=== PATIENT | female | born 1965 | race African-American/Black ===

== ENCOUNTER 2016-08-22 01:12 | Inpatient (IN) | payer OTHER ==
[2016-08-22] VITALS (10 sets, daily range): BP systolic 123–169; BP diastolic 74–99
[~2016-08-22] VITALS: Ht 160 cm; Wt 146.6 kg
[~2016-08-22 01:12] MED LIST: FLUT1DIS INH
[2016-08-22] MEDS ORDERED: IPRATROPIUM BROMIDE (0.02%) 0.5MG/2.5ML NEB HHN STA (01:33)
[2016-08-22] MEDS ORDERED: METHYLPREDNISOLONE SOD SUCC 125 MG/2 ML VIAL IV STA (01:33)
[2016-08-22] MEDS ORDERED: ALBUTEROL (0.083%) 2.5MG/3ML NEB HHN STA (01:33)
[2016-08-22 01:47] LABS: BASOPHILS % 0.8 % (0.0-2.0); EOSINOPHILS % 4.4 % (0.0-5.0); HEMATOCRIT. 28.8 % (36.0-48.0); HEMOGLOBIN. 8.7 g/dL (12.0-16.0); LYMPHOCYTES % 28.3 % (20.0-50.0); MEAN CORPUSCULAR HEMOGLOBIN 20.9 pg (28.0-32.0); MEAN CORPUSCULAR HGB CONC 30.1 g/dL (31.0-37.0); MEAN CORPUSCULAR VOLUME 69.3 fL (81.0-99.0); MEAN PLATELET VOLUME 7.2 fl (7.4-10.4); MONOCYTES % 7.6 % (2.0-8.0); NEUTROPHILS % 58.9 % (40.0-76.0); PLATELET 203 x1000/uL (130-400); RED BLOOD CELL COUNT 4.16 mill/uL (4.2-5.4); RED CELL DISTRIBUTION WIDTH 20.9 % (11.6-14.6); WHITE BLOOD COUNT 7.4 x1000/uL (4.5-11.0)
[2016-08-22 01:53] LABS: ADD RBC MORPHOLOGY YES; DIFFERENTIAL COMMENT 1
[2016-08-22 01:55] LABS: ANISOCYTOSIS 1+; HYPOCHROMASIA 2+; PLATELET ESTIMATE NORMAL
[2016-08-22 01:56] LABS: PARTIAL THROMBOPLASTIN TIME 24.5 sec (24.0-34.0); PROTHROMBIN TIME 10.1 sec
[2016-08-22 02:01] LABS: ALANINE AMINOTRANSFERASE 12 IU/L (13-61); ALBUMIN 3.2 g/dL (3.4-5.0); ANION GAP 11; CALCIUM 8.2 mg/dL (8.5-10.1); CARBON DIOXIDE 28 mEq/L (21-32); CHLORIDE 106 mEq/L (98-107); INDEX HEMOLYSI 1 (1-3); INDEX ICTERIC 1 (1-4); INDEX LIPEMIC 1 (1-3); UREA NITROGEN BLOOD 15 mg/dL (7-21); eGFR > 60 mL/min (>60)
[2016-08-22 02:04] LABS: NT PRO B-TYPE NATRIURETIC PEP 738 pg/mL (5-125); TROPONIN I 0.03 ng/mL (0.00-0.04)
[2016-08-22] MEDS ORDERED: ONDANSETRON HCL 4MG/2ML VIAL IV ONE (02:45)
[2016-08-22] MEDS ORDERED: NITROGLYCERIN OINT 1GM/INCH UDPKT TD ONE (02:45)
[2016-08-22] MEDS ORDERED: MORPHINE SULFATE 4 MG/ML CPJ (NOT FOR IM USE) IV ONE (02:45)
[2016-08-22] MEDS ORDERED: FUROSEMIDE 40MG/4ML VIAL IVP ONE (02:45)
[2016-08-22 03:40] LABS: CLARITY URINE CLOUDY (CLEAR); COLOR URINE YELLOW (YELLOW); GLUCOSE URINE NEGATIVE (NEGATIVE); KETONES URINE NEGATIVE (NEGATIVE); LEUKOCYTE ESTERASE URINE NEGATIVE (NEGATIVE); NITRITE URINE NEGATIVE (NEGATIVE); OCCULT BLOOD URINE NEGATIVE (NEGATIVE); PROTEIN URINE NEGATIVE (NEGATIVE); SPECIFIC GRAVITY URINE 1.015 (1.005-1.030); UROBILINOGEN URINE 0.2 E.U./dL (0.2-1.0)
[2016-08-22 04:05] LABS: WBC URINE 0-2 /hpf (0-2)
[2016-08-22 04:06] LABS: BACTERIA URINE TRACE; RBC URINE 0-2 /hpf (0-2); SQUAMOUS EPITHELIAL CELL URINE FEW /lpf (RARE/1+)
[2016-08-22] MEDS ORDERED: MAGNESIUM HYDROXIDE 400MG/5ML 30ML UDC PO PRN (07:00)
[2016-08-22] MEDS ORDERED: HYDROCODONE/ACETAMINOPHEN 5/325MG TABLET PO PRN (07:00)
[2016-08-22] MEDS ORDERED: ZOLPIDEM TARTRATE 5MG TABLET PO PRN (07:00)
[2016-08-22] MEDS: FUROSEMIDE 40MG/4ML VIAL IVP SCH ×2 (08:05→17:32)
[2016-08-22] MEDS: OMEPRAZOLE 20MG CAPSULE EXTENDED RELEASE PO SCH (08:06)
[2016-08-22] MEDS: ASPIRIN 81MG TABLET PO SCH (08:07)
[2016-08-22] MEDS ORDERED: POTASSIUM CHLORIDE 20MEQ TABLET SR PO NR (08:45)
[2016-08-22] MEDS: ENOXAPARIN 40MG/0.4ML SYR SUBCUT SCH ×2 (09:12→20:05)
[2016-08-22] MEDS: LEVOFLOXACIN 500MG PREMIX 100 ML IV SCH (10:44)
[2016-08-22] MEDS ORDERED: METHYLPREDNISOLONE SOD SUCC 125 MG/2 ML VIAL IV SCH (12:00)
[2016-08-22 13:25] LABS: BG CARBOXYHEMOGLOBIN 1.7 % (0.5-1.5); BG DEOXYHEMOGLOBIN 17.3 % (0.0-5.0); BG FRACTION INSPIRED OXYGEN 21; BG HCO3 ACT 30.5 mmol/L (22.0-26.0); BG METHEMOGLOBIN 0.5 % (0.0-1.5); BG OXYGEN SATURATION 82.3 % (92.0-98.5); BG OXYHEMOGLOBIN 80.5 % (94.0-97.0); BG PCO2 64.4 mmHg (35.0-45.0); BG PH 7.293 (7.350-7.450); BG SAMPLE SITE RIGHT RADIAL; BG TOTAL HEMOGLOBIN 9.5 g/dL (12.0-18.0); BG VENT MODE ROOM AIR
[2016-08-22] MEDS: METHYLPREDNISOLONE SOD SUCC 40 MG/ML VIAL IV SCH ×2 (13:54→21:15)
[2016-08-22 16:38] LABS: *AMPHETAMINES SCREEN URINE NEGATIVE (NEGATIVE); *BARBITURATES SCREEN URINE NEGATIVE (NEGATIVE); *BENZODIAZEPINES SCREEN URINE PRESUMTIVE POSITIVE (NEGATIVE); *COCAINE SCREEN URINE PRESUMTIVE POSITIVE (NEGATIVE); CANNABINOID URINE SCREEN NEGATIVE (NEGATIVE); ECSTASY MDMA SCREEN URINE NEGATIVE (NEGATIVE); METHADONE URINE SCREEN NEGATIVE (NEGATIVE); OPIATES URINE SCREEN PRESUMTIVE POSITIVE (NEGATIVE); PHENCYCLIDINE URINE SCREEN NEGATIVE (NEGATIVE)
[2016-08-22 18:07] LABS: BG BASE EXCESS 2.6 mmol/L (-2.0-2.0); BG BILEVEL POS AIRWAY PRESSURE 15/5; BG CARBOXYHEMOGLOBIN 0.7 % (0.5-1.5); BG DEOXYHEMOGLOBIN 12.2 % (0.0-5.0); BG FRACTION INSPIRED OXYGEN 30; BG HCO3 ACT 29.6 mmol/L (22.0-26.0); BG METHEMOGLOBIN 0.9 % (0.0-1.5); BG OXYGEN SATURATION 87.6 % (92.0-98.5); BG OXYHEMOGLOBIN 86.2 % (94.0-97.0); BG PH 7.318 (7.350-7.450); BG PO2 59.8 mmHg (75.0-100.0); BG SAMPLE SITE RIGHT BRACHIAL; BG TOTAL HEMOGLOBIN 9.6 g/dL (12.0-18.0); BG VENT MODE MASK - BIPAP; BG VENT RATE 14 set
[2016-08-22 18:36] LABS: CREATINE KINASE MB FRACTION 2.7 ng/mL (0.5-3.6); T4 FREE 0.81 ng/dL (0.76-1.46); TROPONIN I 0.02 ng/mL (0.00-0.04)
[2016-08-22 18:41] LABS: THYROID STIMULATING HORMONE 0.38 uIU/mL (0.36-3.74)
[2016-08-22] MEDS: BUDESONIDE 0.5MG/2ML NEB HHN SCH (20:54)
[2016-08-22] MEDS: ZOLPIDEM TARTRATE 5MG TABLET PO PRN (23:20)
[2016-08-23] VITALS (12 sets, daily range): BP systolic 116–154; BP diastolic 58–102
[2016-08-23 01:56] LABS: CREATINE KINASE 153 IU/L (26-192); CREATINE KINASE MB FRACTION 1.7 ng/mL (0.5-3.6); INDEX HEMOLYSI 1 (1-3); TROPONIN I < 0.02 ng/mL (0.00-0.04)
[2016-08-23] MEDS: ONDANSETRON HCL 4MG/2ML VIAL IV PRN (02:45)
[2016-08-23] MEDS: METHYLPREDNISOLONE SOD SUCC 40 MG/ML VIAL IV SCH ×3 (05:05→21:52)
[2016-08-23 06:36] LABS: ANION GAP 11; CARBON DIOXIDE 31 mEq/L (21-32); CHLORIDE 101 mEq/L (98-107); INDEX HEMOLYSI 1 (1-3); INDEX ICTERIC 1 (1-4); INDEX LIPEMIC 1 (1-3); UREA NITROGEN BLOOD 18 mg/dL (7-21)
[2016-08-23 06:38] LABS: HEMATOCRIT. 27.9 % (36.0-48.0); HEMOGLOBIN. 8.2 g/dL (12.0-16.0); MEAN CORPUSCULAR HGB CONC 29.5 g/dL (31.0-37.0); MEAN CORPUSCULAR VOLUME 70.9 fL (81.0-99.0); MEAN PLATELET VOLUME 8.5 fl (7.4-10.4); PLATELET 195 x1000/uL (130-400); RED BLOOD CELL COUNT 3.93 mill/uL (4.2-5.4); RED CELL DISTRIBUTION WIDTH 20.6 % (11.6-14.6); WHITE BLOOD COUNT 11.3 x1000/uL (4.5-11.0)
[2016-08-23 06:43] LABS: CALCIUM 8.3 mg/dL (8.5-10.1); CREATINE KINASE 128 IU/L (26-192); CREATINE KINASE MB FRACTION 1.4 ng/mL (0.5-3.6); TROPONIN I < 0.02 ng/mL (0.00-0.04); eGFR > 60 mL/min (>60)
[2016-08-23 06:55] LABS: DIFFERENTIAL COMMENT 1
[2016-08-23] MEDS: BUDESONIDE 0.5MG/2ML NEB HHN SCH ×2 (08:31→20:41)
[2016-08-23 09:03] LABS: ANISOCYTOSIS 1+; PLATELET ESTIMATE NORMAL
[2016-08-23 09:04] LABS: HYPOCHROMASIA 1+
[2016-08-23] MEDS: FUROSEMIDE 40MG/4ML VIAL IVP SCH ×2 (10:10→18:06)
[2016-08-23] MEDS: OMEPRAZOLE 20MG CAPSULE EXTENDED RELEASE PO SCH (10:10)
[2016-08-23] MEDS: ASPIRIN 81MG TABLET PO SCH (10:10)
[2016-08-23] MEDS: LEVOFLOXACIN 500MG PREMIX 100 ML IV SCH (10:12)
[2016-08-23] MEDS: ENOXAPARIN 40MG/0.4ML SYR SUBCUT SCH ×2 (10:12→21:53)
[2016-08-23] MEDS: ACETAMINOPHEN 650MG/20.3ML UDC PO PRN (14:31)
[2016-08-23] MEDS: ZOLPIDEM TARTRATE 5MG TABLET PO PRN (21:52)
[2016-08-24] VITALS (23 sets, daily range): BP systolic 112–189; BP diastolic 57–116
[2016-08-24] MEDS: ACETAMINOPHEN 650MG/20.3ML UDC PO PRN ×2 (04:19→20:35)
[2016-08-24] MEDS: METHYLPREDNISOLONE SOD SUCC 40 MG/ML VIAL IV SCH ×3 (06:23→22:30)
[2016-08-24] MEDS: BUDESONIDE 0.5MG/2ML NEB HHN SCH ×2 (08:33→21:06)
[2016-08-24] MEDS: ASPIRIN 81MG TABLET PO SCH (09:20)
[2016-08-24] MEDS: FUROSEMIDE 40MG/4ML VIAL IVP SCH ×2 (09:20→18:05)
[2016-08-24] MEDS: OMEPRAZOLE 20MG CAPSULE EXTENDED RELEASE PO SCH (09:20)
[2016-08-24] MEDS: ENOXAPARIN 40MG/0.4ML SYR SUBCUT SCH ×2 (09:22→20:36)
[2016-08-24] MEDS: CLONIDINE 0.2MG TABLET PO PRN ×2 (09:27→13:26)
[2016-08-24] MEDS: LEVOFLOXACIN 500MG PREMIX 100 ML IV SCH (09:27)
[2016-08-24] MEDS ORDERED: HYDR12.529 PO (15:33)
[2016-08-24] MEDS: HYDRALAZINE HCL 25MG TABLET PO SCH (18:06)
[2016-08-24] MEDS: ZOLPIDEM TARTRATE 5MG TABLET PO PRN (23:02)
[2016-08-25] VITALS (15 sets, daily range): BP systolic 113–156; BP diastolic 56–102
[2016-08-25] MEDS: HYDRALAZINE HCL 25MG TABLET PO SCH ×3 (00:59→18:12)
[2016-08-25] MEDS: METHYLPREDNISOLONE SOD SUCC 40 MG/ML VIAL IV SCH ×3 (06:16→21:32)
[2016-08-25 07:17] LABS: CHLORIDE 97 mEq/L (98-107); INDEX HEMOLYSI 1 (1-3); INDEX ICTERIC 1 (1-4); INDEX LIPEMIC 1 (1-3)
[2016-08-25 07:24] LABS: ANION GAP 11; CARBON DIOXIDE 33 mEq/L (21-32); UREA NITROGEN BLOOD 23 mg/dL (7-21); eGFR > 60 mL/min (>60)
[2016-08-25 07:27] LABS: HEMOGLOBIN. 9.6 g/dL (12.0-16.0); LYMPHOCYTES % 9.7 % (20.0-50.0); MEAN CORPUSCULAR HEMOGLOBIN 20.7 pg (28.0-32.0); MEAN CORPUSCULAR HGB CONC 29.9 g/dL (31.0-37.0); MEAN CORPUSCULAR VOLUME 69.2 fL (81.0-99.0); MEAN PLATELET VOLUME 8.6 fl (7.4-10.4); MONOCYTES % 6.5 % (2.0-8.0); NEUTROPHILS % 83.8 % (40.0-76.0); PLATELET 226 x1000/uL (130-400); RED BLOOD CELL COUNT 4.63 mill/uL (4.2-5.4); RED CELL DISTRIBUTION WIDTH 20.7 % (11.6-14.6); WHITE BLOOD COUNT 12.3 x1000/uL (4.5-11.0)
[2016-08-25 07:29] LABS: DIFFERENTIAL COMMENT 1
[2016-08-25] MEDS: BUDESONIDE 0.5MG/2ML NEB HHN SCH ×2 (08:33→20:27)
[2016-08-25] MEDS: OMEPRAZOLE 20MG CAPSULE EXTENDED RELEASE PO SCH (08:58)
[2016-08-25] MEDS: ENOXAPARIN 40MG/0.4ML SYR SUBCUT SCH ×2 (08:58→21:32)
[2016-08-25] MEDS: ASPIRIN 81MG TABLET PO SCH (08:58)
[2016-08-25] MEDS: FUROSEMIDE 40MG/4ML VIAL IVP SCH ×3 (09:00→18:12)
[2016-08-25] MEDS: LEVOFLOXACIN 500MG PREMIX 100 ML IV SCH (12:02)
[2016-08-25 16:59] LABS: BG BASE EXCESS 6.5 mmol/L (-2.0-2.0); BG CARBOXYHEMOGLOBIN 0.6 % (0.5-1.5); BG DEOXYHEMOGLOBIN 7.6 % (0.0-5.0); BG FRACTION INSPIRED OXYGEN 21; BG HCO3 ACT 30.9 mmol/L (22.0-26.0); BG METHEMOGLOBIN 0.1 % (0.0-1.5); BG OXYGEN SATURATION 92.3 % (92.0-98.5); BG OXYHEMOGLOBIN 91.7 % (94.0-97.0); BG PCO2 43.8 mmHg (35.0-45.0); BG PH 7.467 (7.350-7.450); BG SAMPLE SITE LEFT RADIAL; BG TOTAL HEMOGLOBIN 10.7 g/dL (12.0-18.0); BG VENT MODE ROOM AIR
[2016-08-25] MEDS: ACETAMINOPHEN 650MG/20.3ML UDC PO PRN (21:32)
[2016-08-25] MEDS: ZOLPIDEM TARTRATE 5MG TABLET PO PRN (21:32)
[2016-08-26] VITALS (10 sets, daily range): BP systolic 110–164; BP diastolic 48–103
[2016-08-26] MEDS: HYDRALAZINE HCL 25MG TABLET PO SCH ×3 (01:09→17:11)
[2016-08-26] MEDS: METHYLPREDNISOLONE SOD SUCC 40 MG/ML VIAL IV SCH ×2 (06:38→13:10)
[2016-08-26] MEDS: FUROSEMIDE 40MG/4ML VIAL IVP SCH ×2 (08:38→17:10)
[2016-08-26] MEDS: FAMOTIDINE 20MG TABLET PO SCH ×2 (08:39→21:26)
[2016-08-26] MEDS: ENOXAPARIN 40MG/0.4ML SYR SUBCUT SCH ×2 (08:39→21:26)
[2016-08-26] MEDS: ASPIRIN 81MG TABLET PO SCH (08:39)
[2016-08-26] MEDS: BUDESONIDE 0.5MG/2ML NEB HHN SCH ×2 (09:25→20:35)
[2016-08-26] MEDS: LEVOFLOXACIN 250MG TABLET PO SCH (11:36)
[2016-08-26] MEDS: TRAMADOL 50MG TABLET PO PRN ×2 (12:15→18:55)
[2016-08-26] MEDS: ONDANSETRON HCL 4MG/2ML VIAL IV PRN (18:54)
[2016-08-27] VITALS: BP 129/79
[2016-08-27] MEDS: TRAMADOL 50MG TABLET PO PRN ×2 (00:42→08:37)
[2016-08-27] MEDS: ZOLPIDEM TARTRATE 5MG TABLET PO PRN (00:43)
[2016-08-27] MEDS: HYDRALAZINE HCL 25MG TABLET PO SCH ×2 (00:43→08:40)
[2016-08-27 02:00] VITALS: BP 127/60
[2016-08-27 04:00] VITALS: BP 135/81
[2016-08-27 05:38] LABS: BASOPHILS % 0.2 % (0.0-2.0); EOSINOPHILS % 0.1 % (0.0-5.0); HEMATOCRIT. 35.7 % (36.0-48.0); HEMOGLOBIN. 10.5 g/dL (12.0-16.0); LYMPHOCYTES % 14.5 % (20.0-50.0); MEAN CORPUSCULAR HGB CONC 29.3 g/dL (31.0-37.0); MEAN CORPUSCULAR VOLUME 68.3 fL (81.0-99.0); MEAN PLATELET VOLUME 8.9 fl (7.4-10.4); MONOCYTES % 11.4 % (2.0-8.0); NEUTROPHILS % 73.8 % (40.0-76.0); PLATELET 297 x1000/uL (130-400); RED BLOOD CELL COUNT 5.23 mill/uL (4.2-5.4); RED CELL DISTRIBUTION WIDTH 20.9 % (11.6-14.6)
[2016-08-27 06:55] LABS: ANION GAP 12; CALCIUM 8.7 mg/dL (8.5-10.1); CARBON DIOXIDE 34 mEq/L (21-32); CHLORIDE 95 mEq/L (98-107); INDEX HEMOLYSI 1 (1-3); INDEX ICTERIC 1 (1-4); INDEX LIPEMIC 1 (1-3); UREA NITROGEN BLOOD 29 mg/dL (7-21); eGFR > 60 mL/min (>60)
[2016-08-27 06:56] LABS: DIFFERENTIAL COMMENT 1
[2016-08-27 08:00] VITALS: BP 129/72
[2016-08-27] MEDS: FUROSEMIDE 40MG/4ML VIAL IVP SCH (08:37)
[2016-08-27] MEDS: ENOXAPARIN 40MG/0.4ML SYR SUBCUT SCH (08:37)
[2016-08-27] MEDS: ASPIRIN 81MG TABLET PO SCH (08:38)
[2016-08-27] MEDS: FAMOTIDINE 20MG TABLET PO SCH (08:38)
[2016-08-27] MEDS: ONDANSETRON HCL 4MG/2ML VIAL IV PRN (08:40)
[2016-08-27] MEDS ORDERED: PREDNISONE 20MG TABLET PO SCH (09:00)
[2016-08-27] MEDS: BUDESONIDE 0.5MG/2ML NEB HHN SCH (09:23)
[2016-08-27] MEDS: LEVOFLOXACIN 250MG TABLET PO SCH (10:16)
[2016-08-27 11:06] VITALS: BP 127/89
[2016-08-27 12:00] VITALS: BP 122/66
== END 2016-08-27 13:50 | disposition home or self-care (01) | DRG 194 ==
LOC: ER 01:18 → 8WST 03:30 → 5EST 14:54
PROVIDERS: ADMIT Internal Medicine; ATTEND Internal Medicine
PROC: 5A09357 Assistance with Respiratory Ventilation, Less than 24 Consecutive Hours, Continuous Positive Airway Pressure (ICD-10-PCS; principal; 2016-08-22)
DX: I50.33 Acute on chronic diastolic (congestive) heart failure (principal); J96.02 Acute respiratory failure with hypercapnia; N17.0 Acute kidney failure with tubular necrosis; J18.9 Pneumonia, unspecified organism; J44.0 Chronic obstructive pulmonary disease with (acute) lower respiratory infection; I27.2 Other secondary pulmonary hypertension; E66.01 Morbid (severe) obesity due to excess calories; I11.0 Hypertensive heart disease with heart failure; J44.1 Chronic obstructive pulmonary disease with (acute) exacerbation; D64.9 Anemia, unspecified; J45.909 Unspecified asthma, uncomplicated; G47.33 Obstructive sleep apnea (adult) (pediatric); E78.5 Hyperlipidemia, unspecified; E11.9 Type 2 diabetes mellitus without complications; Z88.6 Allergy status to analgesic agent; Z88.0 Allergy status to penicillin; Z82.49 Family history of ischemic heart disease and other diseases of the circulatory system; Z83.3 Family history of diabetes mellitus; Z72.0 Tobacco use; Z98.890 Other specified postprocedural states
CPT/HCPCS: 36415; 36600; 71010; 78580; 80048; 80053; 80061; 80305; 81001; 82375; 82550; 82553; 82805; 83036; 83880; 84439; 84443; 84484; 85025; 85379; 85610; 85730; 93005; 93306; 93970; 94003; 94640; 94660; 94664; 96374; 96375; 99285; 99406; C1893; J1650; J1940; J1956; J2270; J2405; J2920; J2930; J7040; J7050; J7512; J7611; J7626

== ENCOUNTER 2016-10-15 08:03 | Inpatient (IN) | payer OTHER ==
[~2016-10-15] VITALS: Ht 160 cm; Wt 141.5 kg
[~2016-10-15 08:03] MED LIST changes: +HYDR12.529 PO
[2016-10-15] MEDS ORDERED: METHYLPREDNISOLONE SOD SUCC 125 MG/2 ML VIAL IV STA (09:49)
[2016-10-15] MEDS ORDERED: IPRATROPIUM/ALBUTEROL 0.5-3(2.5)MG/3ML NEB HHN ONE (10:00)
[2016-10-15 10:53] LABS: HEMATOCRIT. 26.4 % (36.0-48.0); HEMOGLOBIN. 7.7 g/dL (12.0-16.0); MEAN CORPUSCULAR HGB CONC 29.3 g/dL (31.0-37.0); MEAN CORPUSCULAR VOLUME 64.8 fL (81.0-99.0); MEAN PLATELET VOLUME 8.5 fl (7.4-10.4); PLATELET 181 x1000/uL (130-400); RED BLOOD CELL COUNT 4.06 mill/uL (4.2-5.4); RED CELL DISTRIBUTION WIDTH 21.8 % (11.6-14.6); WHITE BLOOD COUNT 5.3 x1000/uL (4.5-11.0)
[2016-10-15 10:56] LABS: DIFFERENTIAL COMMENT 1
[2016-10-15 11:02] LABS: CALCIUM 8.2 mg/dL (8.5-10.1); CHLORIDE 106 mEq/L (98-107); INDEX HEMOLYSI 1 (1-3); INDEX ICTERIC 1 (1-4); INDEX LIPEMIC 1 (1-3)
[2016-10-15 11:03] LABS: ALBUMIN 3.2 g/dL (3.4-5.0)
[2016-10-15 11:08] LABS: D-DIMER 0.53 mg/L FEU (<0.50); PARTIAL THROMBOPLASTIN TIME 23.5 sec (24.0-34.0); PROTHROMBIN TIME 10.3 sec
[2016-10-15 11:11] LABS: ALANINE AMINOTRANSFERASE 14 IU/L (13-61); ANION GAP 11; CARBON DIOXIDE 27 mEq/L (21-32); NT PRO B-TYPE NATRIURETIC PEP 998 pg/mL (5-125); TROPONIN I 0.04 ng/mL (0.00-0.04); UREA NITROGEN BLOOD 18 mg/dL (7-21); eGFR > 60 mL/min (>60)
[2016-10-15] MEDS ORDERED: FUROSEMIDE 40MG/4ML VIAL IVP ONE (11:30)
[2016-10-15] MEDS ORDERED: LOSARTAN POTASSIUM 25 MG TABLET PO SCH (12:00)
[2016-10-15 12:02] LABS: ANISOCYTOSIS 3+; HYPOCHROMASIA 2+; PLATELET ESTIMATE NORMAL; TARGET CELLS 2+
[2016-10-15 13:02] LABS: *AMPHETAMINES SCREEN URINE NEGATIVE (NEGATIVE); *BARBITURATES SCREEN URINE NEGATIVE (NEGATIVE); *BENZODIAZEPINES SCREEN URINE NEGATIVE (NEGATIVE); *COCAINE SCREEN URINE PRESUMTIVE POSITIVE (NEGATIVE); CANNABINOID URINE SCREEN NEGATIVE (NEGATIVE); ECSTASY MDMA SCREEN URINE NEGATIVE (NEGATIVE); METHADONE URINE SCREEN NEGATIVE (NEGATIVE); OPIATES URINE SCREEN NEGATIVE (NEGATIVE); PHENCYCLIDINE URINE SCREEN NEGATIVE (NEGATIVE)
[2016-10-15 20:00] VITALS: BP 194/109
[2016-10-15] MEDS: AMLODIPINE 5MG TABLET PO SCH (20:56)
[2016-10-15] MEDS: FUROSEMIDE 40MG/4ML VIAL IVP SCH (20:57)
[2016-10-15 22:00] VITALS: BP 152/75
[2016-10-16] MEDS: HYDROCODONE/ACETAMINOPHEN 5/325MG TABLET PO PRN ×3 (00:40→11:48)
[2016-10-16] MEDS: GUAIFENESIN-DM 200MG-20MG/10ML UDC PO PRN ×2 (00:55→21:20)
[2016-10-16] MEDS: IPRATROPIUM/ALBUTEROL 0.5-3(2.5)MG/3ML NEB HHN SCH ×6 (02:03→20:15)
[2016-10-16 04:00] VITALS: BP 161/104
[2016-10-16] MEDS: METHYLPREDNISOLONE SOD SUCC 40 MG/ML VIAL IV SCH ×3 (04:59→21:20)
[2016-10-16 05:35] LABS: HEMATOCRIT. 26.9 % (36.0-48.0); MEAN CORPUSCULAR HEMOGLOBIN 19.1 pg (28.0-32.0); MEAN CORPUSCULAR HGB CONC 29.7 g/dL (31.0-37.0); MEAN CORPUSCULAR VOLUME 64.1 fL (81.0-99.0); MEAN PLATELET VOLUME 8.7 fl (7.4-10.4); PLATELET 190 x1000/uL (130-400); RED CELL DISTRIBUTION WIDTH 21.9 % (11.6-14.6); WHITE BLOOD COUNT 6.1 x1000/uL (4.5-11.0)
[2016-10-16 05:46] LABS: DIFFERENTIAL COMMENT 1
[2016-10-16] MEDS ORDERED: CLONIDINE 0.1MG TABLET PO PRN (06:15)
[2016-10-16 06:40] LABS: ANION GAP 9; CALCIUM 8.6 mg/dL (8.5-10.1); CARBON DIOXIDE 31 mEq/L (21-32); CHLORIDE 103 mEq/L (98-107); INDEX HEMOLYSI 1 (1-3); INDEX ICTERIC 1 (1-4); INDEX LIPEMIC 1 (1-3); IRON 24 ug/dL (50-175); UREA NITROGEN BLOOD 20 mg/dL (7-21)
[2016-10-16 06:50] LABS: CREATINE KINASE 162 IU/L (26-192); CREATINE KINASE MB FRACTION 2.4 ng/mL (0.5-3.6); TOTAL IRON BINDING CAPACITY 607 ug/dL (250-450); TROPONIN I 0.02 ng/mL (0.00-0.04); eGFR > 60 mL/min (>60)
[2016-10-16 08:00] VITALS: BP 144/96
[2016-10-16] MEDS ORDERED: LOSARTAN POTASSIUM 50 MG TABLET PO SCH (09:00)
[2016-10-16] MEDS: HYDRALAZINE HCL 25MG TABLET PO SCH ×3 (09:02→21:19)
[2016-10-16] MEDS: AMLODIPINE 5MG TABLET PO SCH ×2 (09:03→21:19)
[2016-10-16] MEDS: FUROSEMIDE 40MG/4ML VIAL IVP SCH (09:04)
[2016-10-16 10:56] LABS: BG BASE EXCESS 0.6 mmol/L (-2.0-2.0); BG CARBOXYHEMOGLOBIN 0.7 % (0.5-1.5); BG DEOXYHEMOGLOBIN 11.4 % (0.0-5.0); BG FRACTION INSPIRED OXYGEN 21; BG HCO3 ACT 25.4 mmol/L (22.0-26.0); BG METHEMOGLOBIN 0.3 % (0.0-1.5); BG OXYGEN SATURATION 88.5 % (92.0-98.5); BG OXYHEMOGLOBIN 87.6 % (94.0-97.0); BG PCO2 41.3 mmHg (35.0-45.0); BG PH 7.406 (7.350-7.450); BG PO2 58.4 mmHg (75.0-100.0); BG SAMPLE SITE RIGHT RADIAL; BG TOTAL HEMOGLOBIN 9.4 g/dL (12.0-18.0); BG VENT MODE ROOM AIR
[2016-10-16] MEDS: POTASSIUM CHLORIDE 20MEQ TABLET SR PO SCH (11:41)
[2016-10-16 11:51] LABS: AMMONIA 22 uMol/L (<32); INDEX HEMOLYSI 1 (1-3)
[2016-10-16 12:00] VITALS: BP 139/88
[2016-10-16] MEDS: FUROSEMIDE 100MG/10ML VIAL IVP SCH (16:39)
[2016-10-16 16:57] LABS: HYPOCHROMASIA 2+; PLATELET ESTIMATE NORMAL
[2016-10-16 20:00] VITALS: BP 137/78
[2016-10-16] MEDS: LOSARTAN POTASSIUM 50 MG TABLET PO SCH (21:19)
[2016-10-16] MEDS: HYDROCODONE/ACETAMINOPHEN 10/325MG TABLET PO PRN (21:42)
[2016-10-17] VITALS: BP 129/79
[2016-10-17] MEDS: IPRATROPIUM/ALBUTEROL 0.5-3(2.5)MG/3ML NEB HHN SCH ×5 (01:50→16:01)
[2016-10-17 04:00] VITALS: BP 129/98
[2016-10-17] MEDS: METHYLPREDNISOLONE SOD SUCC 40 MG/ML VIAL IV SCH ×2 (05:02→13:06)
[2016-10-17] MEDS: HYDRALAZINE HCL 25MG TABLET PO SCH ×2 (06:02→14:11)
[2016-10-17] MEDS: HYDROCODONE/ACETAMINOPHEN 10/325MG TABLET PO PRN ×2 (06:05→13:14)
[2016-10-17 07:03] LABS: HEMATOCRIT. 28.3 % (36.0-48.0); HEMOGLOBIN. 8.4 g/dL (12.0-16.0); MEAN CORPUSCULAR HGB CONC 29.7 g/dL (31.0-37.0); MEAN CORPUSCULAR VOLUME 63.9 fL (81.0-99.0); MEAN PLATELET VOLUME 8.9 fl (7.4-10.4); PLATELET 208 x1000/uL (130-400); RED BLOOD CELL COUNT 4.43 mill/uL (4.2-5.4); RED CELL DISTRIBUTION WIDTH 21.6 % (11.6-14.6); WHITE BLOOD COUNT 9.1 x1000/uL (4.5-11.0)
[2016-10-17 07:20] LABS: ANION GAP 9; CARBON DIOXIDE 32 mEq/L (21-32); CHLORIDE 101 mEq/L (98-107); INDEX HEMOLYSI 1 (1-3); INDEX ICTERIC 1 (1-4); INDEX LIPEMIC 1 (1-3); MAGNESIUM 2.3 mg/dL (1.8-2.4); UREA NITROGEN BLOOD 23 mg/dL (7-21); eGFR > 60 mL/min (>60)
[2016-10-17 07:48] LABS: DIFFERENTIAL COMMENT 1
[2016-10-17 08:00] VITALS: BP 130/77
[2016-10-17] MEDS: FUROSEMIDE 100MG/10ML VIAL IVP SCH (08:22)
[2016-10-17] MEDS: FERROUS GLUCONATE 324MG TABLET PO SCH ×2 (08:23→13:06)
[2016-10-17] MEDS: GUAIFENESIN-DM 200MG-20MG/10ML UDC PO PRN (08:28)
[2016-10-17] MEDS: POTASSIUM CHLORIDE 20MEQ TABLET SR PO SCH (09:22)
[2016-10-17] MEDS: LOSARTAN POTASSIUM 50 MG TABLET PO SCH (09:22)
[2016-10-17] MEDS: AMLODIPINE 5MG TABLET PO SCH (09:22)
[2016-10-17 10:55] LABS: ANISOCYTOSIS 2+; PLATELET ESTIMATE NORMAL
[2016-10-17 10:56] LABS: HYPOCHROMASIA 2+
[2016-10-17 12:00] VITALS: BP 133/81
[2016-10-17] MEDS ORDERED: TRAM50TA3 PO (14:21)
[2016-10-17] MEDS ORDERED: HYDR-519 PO (14:24)
[2016-10-17 16:00] VITALS: BP 136/67
[2016-10-17 17:21] VITALS: BP 136/67
[2016-10-21 13:46] LABS: HGB A 98.4 % (94.0-98.0); HGB A2 1.6 % (0.7-3.1); HGB SOLUBILITY Negative (Negative)
== END 2016-10-17 17:39 | disposition home or self-care (01) | DRG 194 ==
LOC: ER 08:12 → 7WST 11:44
PROVIDERS: ADMIT Internal Medicine; ATTEND Internal Medicine
DX: I11.0 Hypertensive heart disease with heart failure (principal); J96.90 Respiratory failure, unspecified, unspecified whether with hypoxia or hypercapnia; J18.9 Pneumonia, unspecified organism; J44.0 Chronic obstructive pulmonary disease with (acute) lower respiratory infection; I27.2 Other secondary pulmonary hypertension; Z68.43 Body mass index [BMI] 50.0-59.9, adult; I50.9 Heart failure, unspecified; E87.8 Other disorders of electrolyte and fluid balance, not elsewhere classified; J44.1 Chronic obstructive pulmonary disease with (acute) exacerbation; E66.01 Morbid (severe) obesity due to excess calories; D50.9 Iron deficiency anemia, unspecified; F17.200 Nicotine dependence, unspecified, uncomplicated; E78.5 Hyperlipidemia, unspecified; F14.90 Cocaine use, unspecified, uncomplicated; G47.33 Obstructive sleep apnea (adult) (pediatric); J98.01 Acute bronchospasm; Z88.6 Allergy status to analgesic agent; Z88.0 Allergy status to penicillin; Z86.73 Personal history of transient ischemic attack (TIA), and cerebral infarction without residual deficits; Z82.49 Family history of ischemic heart disease and other diseases of the circulatory system
CPT/HCPCS: 36415; 36600; 71010; 80048; 80053; 80305; 82140; 82375; 82550; 82553; 82728; 82805; 83021; 83540; 83550; 83605; 83735; 83880; 84484; 85025; 85379; 85610; 85660; 85730; 87040; 93005; 94640; 96374; 96375; 99285; J1940; J2920; J2930; J7620

== ENCOUNTER 2016-12-07 05:58 | Inpatient (IN) | payer OTHER ==
[~2016-12-07] VITALS: Ht 160 cm; Wt 140.6 kg
[~2016-12-07 05:58] MED LIST changes: +HYDR-519 PO; +TRAM50TA3 PO
[2016-12-07] MEDS ORDERED: METHYLPREDNISOLONE SOD SUCC 125 MG/2 ML VIAL IV STA (06:31)
[2016-12-07] MEDS ORDERED: FUROSEMIDE 40MG/4ML VIAL IV STA (06:31)
[2016-12-07] MEDS ORDERED: NITROGLYCERIN OINT 1GM/INCH UDPKT TD STA (06:31)
[2016-12-07] MEDS ORDERED: ASPIRIN 81MG TABLET PO STA (06:31)
[2016-12-07] MEDS ORDERED: ALBUTEROL (0.5%) 2.5MG/0.5ML NEB HHN ONE (06:39)
[2016-12-07] MEDS ORDERED: IPRATROPIUM BROMIDE (0.02%) 0.5MG/2.5ML NEB ONE (06:40)
[2016-12-07] MEDS ORDERED: MAGNESIUM 2 G PREMIX 50 ML IV ONE (06:45)
[2016-12-07 06:47] LABS: BASOPHILS % 1.4 % (0.0-2.0); EOSINOPHILS % 2.5 % (0.0-5.0); HEMATOCRIT. 31.2 % (36.0-48.0); HEMOGLOBIN. 9.4 g/dL (12.0-16.0); LYMPHOCYTES % 41.7 % (20.0-50.0); MEAN CORPUSCULAR HEMOGLOBIN 19.1 pg (28.0-32.0); MEAN CORPUSCULAR VOLUME 63.5 fL (81.0-99.0); MEAN PLATELET VOLUME 8.4 fl (7.4-10.4); MONOCYTES % 14.7 % (2.0-8.0); NEUTROPHILS % 39.7 % (40.0-76.0); PLATELET 130 x1000/uL (130-400); RED BLOOD CELL COUNT 4.91 mill/uL (4.2-5.4); RED CELL DISTRIBUTION WIDTH 23.7 % (11.6-14.6)
[2016-12-07 06:56] LABS: PARTIAL THROMBOPLASTIN TIME 24.6 sec (24.0-34.0); PROTHROMBIN TIME 10.7 sec
[2016-12-07 07:09] LABS: CARBON DIOXIDE 28 mEq/L (21-32); CHLORIDE 105 mEq/L (98-107); TROPONIN I 0.11 ng/mL (0.00-0.04)
[2016-12-07] MEDS ORDERED: ONDANSETRON HCL 4MG/2ML VIAL IV STA (08:42)
[2016-12-07] MEDS ORDERED: MORPHINE SULFATE 4 MG/ML CPJ (NOT FOR IM USE) IV STA (08:42)
[2016-12-07 11:50] VITALS: BP 137/84
[2016-12-07 12:00] VITALS: BP 137/84
[2016-12-07 12:30] VITALS: BP 137/84
[2016-12-07] MEDS ORDERED: HYDR-4134 PO (12:37)
[2016-12-07 12:39] LABS: PLATELET ESTIMATE NORMAL
[2016-12-07] MEDS ORDERED: AMLO10TA80 PO (12:41)
[2016-12-07] MEDS ORDERED: POTA10CA42 PO (12:41)
[2016-12-07] MEDS ORDERED: CLONIDINE 0.1MG TABLET PO PRN (14:15)
[2016-12-07] MEDS ORDERED: CLONIDINE 0.2MG TABLET PO PRN (14:15)
[2016-12-07] MEDS ORDERED: POTASSIUM CHLORIDE 20MEQ TABLET SR PO NR (14:15)
[2016-12-07] MEDS: AMLODIPINE 5MG TABLET PO SCH ×2 (15:12→20:49)
[2016-12-07] MEDS: METHYLPREDNISOLONE SOD SUCC 40 MG/ML VIAL IV SCH ×2 (15:13→22:27)
[2016-12-07] MEDS: HYDROCODONE/ACETAMINOPHEN 5/325MG TABLET PO PRN ×2 (15:14→20:48)
[2016-12-07] MEDS: FUROSEMIDE 40MG/4ML VIAL IVP SCH ×2 (15:18→17:07)
[2016-12-07] MEDS: IPRATROPIUM/ALBUTEROL 0.5-3(2.5)MG/3ML NEB HHN SCH ×2 (16:04→19:35)
[2016-12-07 17:30] LABS: CREATINE KINASE MB FRACTION 2.2 ng/mL (0.5-3.6); TROPONIN I 0.05 ng/mL (0.00-0.04)
[2016-12-07 18:58] LABS: *AMPHETAMINES SCREEN URINE NEGATIVE (NEGATIVE); *BARBITURATES SCREEN URINE NEGATIVE (NEGATIVE); *BENZODIAZEPINES SCREEN URINE NEGATIVE (NEGATIVE); *COCAINE SCREEN URINE PRESUMTIVE POSITIVE (NEGATIVE); CANNABINOID URINE SCREEN NEGATIVE (NEGATIVE); METHADONE URINE SCREEN NEGATIVE (NEGATIVE); OPIATES URINE SCREEN PRESUMTIVE POSITIVE (NEGATIVE); PHENCYCLIDINE URINE SCREEN NEGATIVE (NEGATIVE)
[2016-12-07 20:00] VITALS: BP 115/74
[2016-12-07] MEDS: HYDRALAZINE HCL 25MG TABLET PO SCH (20:48)
[2016-12-07] MEDS: ENOXAPARIN 40MG/0.4ML SYR SUBCUT SCH (20:49)
[2016-12-08] VITALS: BP 120/80
[2016-12-08] MEDS: IPRATROPIUM/ALBUTEROL 0.5-3(2.5)MG/3ML NEB HHN SCH ×6 (00:07→19:58)
[2016-12-08 00:09] LABS: CREATINE KINASE MB FRACTION 2.5 ng/mL (0.5-3.6); TROPONIN I 0.05 ng/mL (0.00-0.04)
[2016-12-08 04:00] VITALS: BP 113/68
[2016-12-08] MEDS: METHYLPREDNISOLONE SOD SUCC 40 MG/ML VIAL IV SCH ×3 (05:40→21:20)
[2016-12-08 08:00] VITALS: BP 141/80
[2016-12-08] MEDS: HYDRALAZINE HCL 25MG TABLET PO SCH ×2 (08:56→21:27)
[2016-12-08] MEDS: FUROSEMIDE 40MG/4ML VIAL IVP SCH ×2 (08:56→17:02)
[2016-12-08] MEDS: AMLODIPINE 5MG TABLET PO SCH ×2 (08:57→21:20)
[2016-12-08] MEDS: POTASSIUM CHLORIDE 20MEQ TABLET SR PO SCH ×2 (08:57→17:08)
[2016-12-08] MEDS: ENOXAPARIN 40MG/0.4ML SYR SUBCUT SCH ×2 (08:58→21:20)
[2016-12-08] MEDS: ASPIRIN 81MG TABLET PO SCH (08:58)
[2016-12-08 09:13] LABS: CREATINE KINASE MB FRACTION 2.8 ng/mL (0.5-3.6); TROPONIN I 0.05 ng/mL (0.00-0.04)
[2016-12-08 11:54] VITALS: BP 111/73
[2016-12-08 15:07] LABS: BG CARBOXYHEMOGLOBIN 1.8 % (0.5-1.5); BG DEOXYHEMOGLOBIN 34.6 % (0.0-5.0); BG FRACTION INSPIRED OXYGEN 21; BG METHEMOGLOBIN 0.1 % (0.0-1.5); BG OXYGEN SATURATION 64.7 % (92.0-98.5); BG OXYHEMOGLOBIN 63.5 % (94.0-97.0); BG PCO2 61.8 mmHg (35.0-45.0); BG PH 7.346 (7.350-7.450); BG PO2 36.5 mmHg (75.0-100.0); BG SAMPLE SITE LEFT RADIAL; BG TOTAL HEMOGLOBIN 10.4 g/dL (12.0-18.0); BG VENT MODE ROOM AIR
[2016-12-08 15:56] VITALS: BP 157/94
[2016-12-08 17:28] LABS: BG BASE EXCESS 7.2 mmol/L (-2.0-2.0); BG BILEVEL POS AIRWAY PRESSURE 18/5; BG CARBOXYHEMOGLOBIN 1.1 % (0.5-1.5); BG DEOXYHEMOGLOBIN 5.1 % (0.0-5.0); BG FRACTION INSPIRED OXYGEN 50; BG HCO3 ACT 34.8 mmol/L (22.0-26.0); BG METHEMOGLOBIN 0.1 % (0.0-1.5); BG OXYGEN SATURATION 94.8 % (92.0-98.5); BG OXYHEMOGLOBIN 93.7 % (94.0-97.0); BG PCO2 68.1 mmHg (35.0-45.0); BG PH 7.326 (7.350-7.450); BG PO2 84.2 mmHg (75.0-100.0); BG SAMPLE SITE RIGHT RADIAL; BG TOTAL HEMOGLOBIN 10.1 g/dL (12.0-18.0); BG VENT MODE MASK - BIPAP; BG VENT RATE 16 set
[2016-12-08 20:00] VITALS: BP 133/74
[2016-12-09] VITALS: BP 139/82
[2016-12-09] MEDS: IPRATROPIUM/ALBUTEROL 0.5-3(2.5)MG/3ML NEB HHN SCH ×6 (01:12→20:55)
[2016-12-09 04:00] VITALS: BP 122/80
[2016-12-09] MEDS: METHYLPREDNISOLONE SOD SUCC 40 MG/ML VIAL IV SCH ×3 (06:39→21:13)
[2016-12-09 07:11] LABS: BASOPHILS % 0.1 % (0.0-2.0); LYMPHOCYTES % 11.5 % (20.0-50.0); MEAN CORPUSCULAR HEMOGLOBIN 18.8 pg (28.0-32.0); MEAN CORPUSCULAR VOLUME 64.6 fL (81.0-99.0); MEAN PLATELET VOLUME 8.7 fl (7.4-10.4); MONOCYTES % 4.3 % (2.0-8.0); NEUTROPHILS % 84.1 % (40.0-76.0); PLATELET 138 x1000/uL (130-400); RED BLOOD CELL COUNT 4.79 mill/uL (4.2-5.4); RED CELL DISTRIBUTION WIDTH 23.9 % (11.6-14.6)
[2016-12-09 07:41] LABS: CARBON DIOXIDE 33 mEq/L (21-32); CHLORIDE 97 mEq/L (98-107)
[2016-12-09 07:47] LABS: TROPONIN I 0.04 ng/mL (0.00-0.04)
[2016-12-09 08:00] VITALS: BP 159/82
[2016-12-09 08:20] LABS: BG BASE EXCESS 6.7 mmol/L (-2.0-2.0); BG CARBOXYHEMOGLOBIN 0.2 % (0.5-1.5); BG DEOXYHEMOGLOBIN 7.1 % (0.0-5.0); BG FRACTION INSPIRED OXYGEN 28; BG HCO3 ACT 32.9 mmol/L (22.0-26.0); BG METHEMOGLOBIN 0.3 % (0.0-1.5); BG OXYGEN SATURATION 92.9 % (92.0-98.5); BG OXYHEMOGLOBIN 92.4 % (94.0-97.0); BG PCO2 56.3 mmHg (35.0-45.0); BG PH 7.384 (7.350-7.450); BG PO2 70.7 mmHg (75.0-100.0); BG SAMPLE SITE RIGHT RADIAL; BG TOTAL HEMOGLOBIN 9.6 g/dL (12.0-18.0); BG VENT MODE NASAL CANNULA
[2016-12-09] MEDS: ASPIRIN 81MG TABLET PO SCH (09:40)
[2016-12-09] MEDS: HYDRALAZINE HCL 25MG TABLET PO SCH ×2 (09:40→21:06)
[2016-12-09] MEDS: AMLODIPINE 5MG TABLET PO SCH ×2 (09:40→21:06)
[2016-12-09] MEDS: POTASSIUM CHLORIDE 20MEQ TABLET SR PO SCH (09:40)
[2016-12-09] MEDS: FUROSEMIDE 40MG/4ML VIAL IVP SCH ×2 (09:40→17:20)
[2016-12-09] MEDS: ENOXAPARIN 40MG/0.4ML SYR SUBCUT SCH ×2 (09:41→21:07)
[2016-12-09 12:00] VITALS: BP 119/76
[2016-12-09 16:00] VITALS: BP 154/89
[2016-12-09] MEDS ORDERED: LORAZEPAM 1MG TABLET PO PRN (19:15)
[2016-12-09 20:00] VITALS: BP 139/78
[2016-12-09] MEDS: MAGNESIUM/ALUMINUM HYDROXIDE/SIMETHICONE 30ML UDC PO PRN (21:06)
[2016-12-09] MEDS: GUAIFENESIN 200MG/10ML SUGAR FREE UDC PO PRN (21:13)
[2016-12-10] VITALS (7 sets, daily range): BP systolic 128–163; BP diastolic 75–95
[2016-12-10] MEDS: IPRATROPIUM/ALBUTEROL 0.5-3(2.5)MG/3ML NEB HHN SCH ×5 (00:46→15:50)
[2016-12-10] MEDS: METHYLPREDNISOLONE SOD SUCC 40 MG/ML VIAL IV SCH ×2 (06:26→13:06)
[2016-12-10] MEDS: ASPIRIN 81MG TABLET PO SCH (08:38)
[2016-12-10] MEDS: FUROSEMIDE 40MG/4ML VIAL IVP SCH ×2 (08:38→16:41)
[2016-12-10] MEDS: AMLODIPINE 5MG TABLET PO SCH (08:38)
[2016-12-10] MEDS: HYDRALAZINE HCL 25MG TABLET PO SCH (08:38)
[2016-12-10] MEDS: ENOXAPARIN 40MG/0.4ML SYR SUBCUT SCH (08:38)
[2016-12-10] MEDS: GUAIFENESIN 200MG/10ML SUGAR FREE UDC PO PRN (14:40)
[2016-12-10] MEDS: MAGNESIUM/ALUMINUM HYDROXIDE/SIMETHICONE 30ML UDC PO PRN (18:02)
== END 2016-12-10 19:59 | disposition home or self-care (01) | DRG 194 ==
LOC: ER 06:12 → 8WST 09:55 → EDBEDREQ 09:58 → ENRESERV 11:19
PROVIDERS: ADMIT Internal Medicine; ATTEND Internal Medicine
PROC: 5A09357 Assistance with Respiratory Ventilation, Less than 24 Consecutive Hours, Continuous Positive Airway Pressure (ICD-10-PCS; principal; 2016-12-08)
DX: I11.0 Hypertensive heart disease with heart failure (principal); J96.91 Respiratory failure, unspecified with hypoxia; J96.92 Respiratory failure, unspecified with hypercapnia; Z68.43 Body mass index [BMI] 50.0-59.9, adult; J44.1 Chronic obstructive pulmonary disease with (acute) exacerbation; I27.2 Other secondary pulmonary hypertension; E66.01 Morbid (severe) obesity due to excess calories; I50.43 Acute on chronic combined systolic (congestive) and diastolic (congestive) heart failure; G47.33 Obstructive sleep apnea (adult) (pediatric); F14.10 Cocaine abuse, uncomplicated; F17.200 Nicotine dependence, unspecified, uncomplicated; Z88.6 Allergy status to analgesic agent; Z88.0 Allergy status to penicillin
CPT/HCPCS: 36415; 36600; 71010; 80053; 80305; 82375; 82550; 82553; 82805; 83735; 83880; 84443; 84484; 85025; 85379; 85610; 85730; 93005; 93970; 94640; 94660; 94664; 96365; 96375; 97162; 99285; J1650; J1940; J2270; J2405; J2920; J2930; J3475; J7611; J7620

== ENCOUNTER 2017-02-08 06:39 | Inpatient (IN) | payer MEDICAID, OTHER ==
[2017-02-08] VITALS (8 sets, daily range): BP systolic 144–181; BP diastolic 76–106
[~2017-02-08] VITALS: Ht 160 cm; Wt 142.9 kg
[~2017-02-08 06:39] MED LIST changes: +AMLO10TA80 PO; +HYDR-4134 PO; +POTA10CA42 PO
[2017-02-08] MEDS ORDERED: METHYLPREDNISOLONE SOD SUCC 125 MG/2 ML VIAL IV STA (07:05)
[2017-02-08] MEDS ORDERED: ALBUTEROL (0.083%) 2.5MG/3ML NEB HHN STA (07:05)
[2017-02-08] MEDS ORDERED: IPRATROPIUM BROMIDE (0.02%) 0.5MG/2.5ML NEB HHN STA (07:05)
[2017-02-08] MEDS ORDERED: NITROGLYCERIN OINT 1GM/INCH UDPKT TD ONE (07:15)
[2017-02-08] MEDS ORDERED: FUROSEMIDE 40MG/4ML VIAL IVP ONE (07:15)
[2017-02-08 07:50] LABS: HEMOGLOBIN. 9.6 g/dL (12.0-16.0); MEAN CORPUSCULAR HEMOGLOBIN 20.2 pg (28.0-32.0); MEAN CORPUSCULAR VOLUME 67.6 fL (81.0-99.0); MEAN PLATELET VOLUME 8.8 fl (7.4-10.4); PLATELET 237 x1000/uL (130-400); RED BLOOD CELL COUNT 4.73 mill/uL (4.2-5.4); RED CELL DISTRIBUTION WIDTH 26.2 % (11.6-14.6)
[2017-02-08 07:55] LABS: PROTHROMBIN TIME 10.4 sec (9.4-11.6)
[2017-02-08 07:58] LABS: CARBON DIOXIDE 28 mEq/L (21-32); CHLORIDE 106 mEq/L (98-107)
[2017-02-08 08:05] LABS: TROPONIN I 0.04 ng/mL (0.00-0.04)
[2017-02-08 08:11] LABS: PLATELET ESTIMATE NORMAL
[2017-02-08] MEDS ORDERED: MAGNESIUM/ALUMINUM HYDROXIDE/SIMETHICONE 30ML UDC PO PRN (10:00)
[2017-02-08] MEDS ORDERED: ENOXAPARIN 40MG/0.4ML SYR SUBCUT SCH (10:00)
[2017-02-08] MEDS ORDERED: IPRATROPIUM/ALBUTEROL 0.5-3(2.5)MG/3ML NEB INH PRN (10:00)
[2017-02-08] MEDS ORDERED: ONDANSETRON HCL 4MG/2ML VIAL IV PRN (10:00)
[2017-02-08] MEDS: FUROSEMIDE 40MG/4ML VIAL IV SCH ×2 (11:48→16:07)
[2017-02-08] MEDS: ENOXAPARIN 40MG/0.4ML SYR SUBCUT SCH ×2 (11:49→21:48)
[2017-02-08 11:51] LABS: *AMPHETAMINES SCREEN URINE NEGATIVE (NEGATIVE); *BARBITURATES SCREEN URINE NEGATIVE (NEGATIVE); *BENZODIAZEPINES SCREEN URINE NEGATIVE (NEGATIVE); *COCAINE SCREEN URINE PRESUMTIVE POSITIVE (NEGATIVE); CANNABINOID URINE SCREEN NEGATIVE (NEGATIVE); METHADONE URINE SCREEN NEGATIVE (NEGATIVE); OPIATES URINE SCREEN NEGATIVE (NEGATIVE); PHENCYCLIDINE URINE SCREEN NEGATIVE (NEGATIVE)
[2017-02-08] MEDS: METHYLPREDNISOLONE SOD SUCC 40 MG/ML VIAL IV SCH ×2 (13:16→21:46)
[2017-02-08] MEDS: BUDESONIDE 0.5MG/2ML NEB HHN SCH ×2 (14:24→20:46)
[2017-02-08 15:43] LABS: CREATINE KINASE MB FRACTION 4.1 ng/mL (0.5-3.6); TROPONIN I 0.02 ng/mL (0.00-0.04)
[2017-02-08] MEDS: ACETAMINOPHEN 325MG TABLET PO PRN (16:04)
[2017-02-08] MEDS ORDERED: POTASSIUM CHLORIDE 20MEQ TABLET SR PO NR (16:30)
[2017-02-08] MEDS ORDERED: IPRATROPIUM/ALBUTEROL 0.5-3(2.5)MG/3ML NEB HHN PRN (16:45)
[2017-02-08] MEDS: IPRATROPIUM/ALBUTEROL 0.5-3(2.5)MG/3ML NEB HHN SCH ×2 (17:07→20:46)
[2017-02-08] MEDS ORDERED: MAGNESIUM 1 G PREMIX 100 ML IV NR (18:00)
[2017-02-08] MEDS: CLONIDINE 0.1MG TABLET PO PRN (18:27)
[2017-02-08] MEDS: THEOPHYLLINE ANHYDROUS 80 MG/15 ML 120ML PO SCH ×2 (18:28→23:05)
[2017-02-08] MEDS: NICOTINE 14MG PATCH TD SCH (21:49)
[2017-02-08 23:02] LABS: CREATINE KINASE 167 IU/L (26-192); CREATINE KINASE MB FRACTION 3.2 ng/mL (0.5-3.6); TROPONIN I < 0.02 ng/mL (0.00-0.04)
[2017-02-09] VITALS (12 sets, daily range): BP systolic 116–185; BP diastolic 29–102
[2017-02-09] MEDS: CLONIDINE 0.1MG TABLET PO PRN ×2 (01:05→16:10)
[2017-02-09] MEDS: METHYLPREDNISOLONE SOD SUCC 40 MG/ML VIAL IV SCH ×3 (06:03→21:56)
[2017-02-09] MEDS: FUROSEMIDE 40MG/4ML VIAL IV SCH ×2 (06:05→18:04)
[2017-02-09] MEDS: THEOPHYLLINE ANHYDROUS 80 MG/15 ML 120ML PO SCH ×4 (06:05→23:56)
[2017-02-09 07:35] LABS: HEMOGLOBIN. 9.2 g/dL (12.0-16.0); MEAN CORPUSCULAR HEMOGLOBIN 19.8 pg (28.0-32.0); MEAN CORPUSCULAR VOLUME 66.8 fL (81.0-99.0); MEAN PLATELET VOLUME 8.8 fl (7.4-10.4); PLATELET 240 x1000/uL (130-400); RED BLOOD CELL COUNT 4.64 mill/uL (4.2-5.4); RED CELL DISTRIBUTION WIDTH 26.1 % (11.6-14.6)
[2017-02-09 07:52] LABS: CARBON DIOXIDE 28 mEq/L (21-32); CHLORIDE 102 mEq/L (98-107); LDL CHOLESTEROL 94 mg/dL (5-100)
[2017-02-09 07:59] LABS: HDL CHOLESTEROL 87 mg/dL (40-59)
[2017-02-09] MEDS: ENOXAPARIN 40MG/0.4ML SYR SUBCUT SCH ×2 (08:53→20:45)
[2017-02-09] MEDS: AMLODIPINE 10MG TABLET PO SCH ×2 (08:56→20:45)
[2017-02-09] MEDS: HYDROCHLOROTHIAZIDE 12.5MG CAPSULE PO SCH (08:57)
[2017-02-09] MEDS: NICOTINE 14MG PATCH TD SCH (08:57)
[2017-02-09] MEDS ORDERED: HYDRALAZINE HCL 25MG TABLET PO SCH (09:00)
[2017-02-09] MEDS: IPRATROPIUM/ALBUTEROL 0.5-3(2.5)MG/3ML NEB HHN SCH ×4 (09:06→19:46)
[2017-02-09] MEDS: BUDESONIDE 0.5MG/2ML NEB HHN SCH ×2 (09:06→19:45)
[2017-02-09 09:54] LABS: PLATELET ESTIMATE NORMAL
[2017-02-09] MEDS: HYDRALAZINE HCL 50MG TABLET PO SCH ×2 (14:04→21:57)
[2017-02-09] MEDS: ACETAMINOPHEN 325MG TABLET PO PRN (20:46)
[2017-02-10] VITALS (15 sets, daily range): BP systolic 115–188; BP diastolic 38–122
[2017-02-10] MEDS: METHYLPREDNISOLONE SOD SUCC 40 MG/ML VIAL IV SCH ×3 (06:25→21:14)
[2017-02-10] MEDS: HYDRALAZINE HCL 50MG TABLET PO SCH ×3 (06:26→21:14)
[2017-02-10] MEDS: THEOPHYLLINE ANHYDROUS 80 MG/15 ML 120ML PO SCH ×3 (06:26→17:46)
[2017-02-10] MEDS: FUROSEMIDE 40MG/4ML VIAL IV SCH ×2 (06:26→17:15)
[2017-02-10 06:34] LABS: HEMATOCRIT. 32.7 % (36.0-48.0); HEMOGLOBIN. 9.6 g/dL (12.0-16.0); MEAN CORPUSCULAR HEMOGLOBIN 19.6 pg (28.0-32.0); MEAN CORPUSCULAR VOLUME 66.7 fL (81.0-99.0); PLATELET 243 x1000/uL (130-400); RED BLOOD CELL COUNT 4.91 mill/uL (4.2-5.4); RED CELL DISTRIBUTION WIDTH 26.4 % (11.6-14.6)
[2017-02-10 07:08] LABS: CARBON DIOXIDE 34 mEq/L (21-32); CHLORIDE 100 mEq/L (98-107)
[2017-02-10] MEDS: ENOXAPARIN 40MG/0.4ML SYR SUBCUT SCH ×2 (08:31→20:31)
[2017-02-10] MEDS: NICOTINE 14MG PATCH TD SCH (08:31)
[2017-02-10] MEDS: AMLODIPINE 10MG TABLET PO SCH (08:32)
[2017-02-10] MEDS: HYDROCHLOROTHIAZIDE 12.5MG CAPSULE PO SCH (08:33)
[2017-02-10] MEDS: BUDESONIDE 0.5MG/2ML NEB HHN SCH ×2 (09:41→21:04)
[2017-02-10] MEDS: IPRATROPIUM/ALBUTEROL 0.5-3(2.5)MG/3ML NEB HHN SCH ×5 (09:41→21:04)
[2017-02-10 13:25] LABS: BG BASE EXCESS 10.5 mmol/L (-2.0-2.0); BG CARBOXYHEMOGLOBIN 0.9 % (0.5-1.5); BG FRACTION INSPIRED OXYGEN 32; BG HCO3 ACT 35.1 mmol/L (22.0-26.0); BG METHEMOGLOBIN 0.3 % (0.0-1.5); BG OXYGEN SATURATION 91.9 % (92.0-98.5); BG OXYHEMOGLOBIN 90.8 % (94.0-97.0); BG PH 7.491 (7.350-7.450); BG SAMPLE SITE RIGHT RADIAL; BG TOTAL HEMOGLOBIN 11.2 g/dL (12.0-18.0); BG VENT MODE NASAL CANNULA
[2017-02-10 13:58] LABS: PLATELET ESTIMATE NORMAL
[2017-02-10] MEDS: HYDROCODONE/ACETAMINOPHEN 5/325MG TABLET PO PRN ×2 (14:55→21:15)
[2017-02-10] MEDS: CLONIDINE 0.1MG TABLET PO PRN (17:44)
[2017-02-10] MEDS: AMLODIPINE 5MG TABLET PO SCH (20:31)
[2017-02-10] MEDS: GUAIFENESIN 600MG ER TABLET PO SCH (20:31)
[2017-02-11] VITALS (13 sets, daily range): BP systolic 137–182; BP diastolic 72–102
[2017-02-11] MEDS: THEOPHYLLINE ANHYDROUS 80 MG/15 ML 120ML PO SCH ×2 (00:03→05:30)
[2017-02-11] MEDS: METHYLPREDNISOLONE SOD SUCC 40 MG/ML VIAL IV SCH ×2 (05:30→14:41)
[2017-02-11] MEDS: HYDRALAZINE HCL 50MG TABLET PO SCH ×2 (05:31→14:40)
[2017-02-11] MEDS: BUDESONIDE 0.5MG/2ML NEB HHN SCH (07:40)
[2017-02-11] MEDS: IPRATROPIUM/ALBUTEROL 0.5-3(2.5)MG/3ML NEB HHN SCH ×3 (07:42→16:09)
[2017-02-11 07:50] LABS: HEMATOCRIT. 34.6 % (36.0-48.0); HEMOGLOBIN. 10.5 g/dL (12.0-16.0); MEAN CORPUSCULAR HEMOGLOBIN 20.1 pg (28.0-32.0); MEAN CORPUSCULAR VOLUME 66.3 fL (81.0-99.0); MEAN PLATELET VOLUME 8.7 fl (7.4-10.4); PLATELET 261 x1000/uL (130-400); RED BLOOD CELL COUNT 5.21 mill/uL (4.2-5.4); RED CELL DISTRIBUTION WIDTH 25.8 % (11.6-14.6)
[2017-02-11 08:17] LABS: CARBON DIOXIDE 33 mEq/L (21-32); CHLORIDE 97 mEq/L (98-107)
[2017-02-11] MEDS: GUAIFENESIN 600MG ER TABLET PO SCH (08:35)
[2017-02-11] MEDS: ENOXAPARIN 40MG/0.4ML SYR SUBCUT SCH (08:36)
[2017-02-11] MEDS: AMLODIPINE 5MG TABLET PO SCH (08:37)
[2017-02-11] MEDS: HYDROCHLOROTHIAZIDE 12.5MG CAPSULE PO SCH (08:37)
[2017-02-11] MEDS: NICOTINE 14MG PATCH TD SCH (08:41)
[2017-02-11] MEDS: HYDROCODONE/ACETAMINOPHEN 5/325MG TABLET PO PRN (09:14)
[2017-02-11] MEDS: FUROSEMIDE 40MG/4ML VIAL IV SCH ×2 (09:47→17:35)
[2017-02-11] MEDS ORDERED: P20 PO (11:59)
[2017-02-11] MEDS ORDERED: HYDR-4001 PO (11:59)
[2017-02-11] MEDS ORDERED: AMLO5TAB88 PO (11:59)
[2017-02-11] MEDS ORDERED: HYDR-4135 PO (11:59)
[2017-02-11] MEDS ORDERED: PULM50 HHN (11:59)
[2017-02-11] MEDS ORDERED: DUONEB3 ML HHN (11:59)
[2017-02-11] MEDS ORDERED: GUAI600T44 PO (11:59)
[2017-02-11] MEDS ORDERED: BUDESONIDE 0.5MG/2ML NEB HHN SCH (13:15)
[2017-02-11] MEDS ORDERED: TERBUTALINE SULFATE 1MG/ML VIAL SUBCUT NR (13:15)
[2017-02-11 19:11] LABS: PLATELET ESTIMATE NORMAL
== END 2017-02-11 19:30 | disposition home or self-care (01) | DRG 133 ==
LOC: ER 06:39 → 3WST 09:01 → EDBEDREQTM 09:03 → EDBEDREQ 09:03 → EDBEDREQSVC 09:03 → ENRESERV 09:09
PROVIDERS: ADMIT Internal Medicine; ATTEND Internal Medicine
PROC: 5A09457 Assistance with Respiratory Ventilation, 24-96 Consecutive Hours, Continuous Positive Airway Pressure (ICD-10-PCS; principal; 2017-02-08)
DX: J96.00 Acute respiratory failure, unspecified whether with hypoxia or hypercapnia (principal); I50.33 Acute on chronic diastolic (congestive) heart failure; I27.2 Other secondary pulmonary hypertension; E66.2 Morbid (severe) obesity with alveolar hypoventilation; I27.81 Cor pulmonale (chronic); Z68.43 Body mass index [BMI] 50.0-59.9, adult; I11.0 Hypertensive heart disease with heart failure; E83.42 Hypomagnesemia; J44.1 Chronic obstructive pulmonary disease with (acute) exacerbation; F14.10 Cocaine abuse, uncomplicated; E87.6 Hypokalemia; J98.11 Atelectasis; D64.9 Anemia, unspecified; G47.10 Hypersomnia, unspecified; F17.200 Nicotine dependence, unspecified, uncomplicated; E87.70 Fluid overload, unspecified; Z82.49 Family history of ischemic heart disease and other diseases of the circulatory system; Z88.6 Allergy status to analgesic agent; Z88.0 Allergy status to penicillin; Z71.3 Dietary counseling and surveillance
CPT/HCPCS: 36415; 36600; 71010; 80048; 80053; 80061; 80305; 82375; 82550; 82553; 82805; 83735; 83880; 84443; 84484; 85025; 85610; 93005; 93970; 94640; 94660; 94664; 96374; 96375; 97116; 97162; 99291; J1650; J1940; J2920; J2930; J3105; J3475; J7050; J7611; J7620; J7626

== ENCOUNTER 2017-02-17 04:02 | Inpatient (IN) | payer MEDICAID, OTHER ==
[~2017-02-17] VITALS: Ht 157.5 cm; Wt 140.3 kg
[2017-02-17] VITALS (7 sets, daily range): BP systolic 154–187; BP diastolic 75–98
[~2017-02-17 04:02] MED LIST changes: -AMLO10TA80 PO; +AMLO5TAB88 PO; +DUONEB3 ML HHN; -FLUT1DIS INH; +GUAI600T44 PO; +HYDR-4001 PO; -HYDR-4134 PO; +HYDR-4135 PO; -HYDR-519 PO; -HYDR12.529 PO; +P20 PO; -POTA10CA42 PO; +PULM50 HHN
[2017-02-17] MEDS ORDERED: IPRATROPIUM BROMIDE (0.02%) 0.5MG/2.5ML NEB HHN STA (04:48)
[2017-02-17] MEDS ORDERED: ALBUTEROL (0.083%) 2.5MG/3ML NEB HHN STA (04:48)
[2017-02-17] MEDS ORDERED: METHYLPREDNISOLONE SOD SUCC 125 MG/2 ML VIAL IV STA (04:48)
[2017-02-17 05:37] LABS: BASOPHILS % 0.4 % (0.0-2.0); EOSINOPHILS % 7.9 % (0.0-5.0); HEMATOCRIT. 32.9 % (36.0-48.0); HEMOGLOBIN. 9.8 g/dL (12.0-16.0); LYMPHOCYTES % 24.6 % (20.0-50.0); MEAN CORPUSCULAR HEMOGLOBIN 20.1 pg (28.0-32.0); MEAN CORPUSCULAR VOLUME 67.7 fL (81.0-99.0); MEAN PLATELET VOLUME 8.7 fl (7.4-10.4); MONOCYTES % 10.7 % (2.0-8.0); NEUTROPHILS % 56.4 % (40.0-76.0); PLATELET 204 x1000/uL (130-400); RED BLOOD CELL COUNT 4.86 mill/uL (4.2-5.4); RED CELL DISTRIBUTION WIDTH 25.8 % (11.6-14.6)
[2017-02-17 05:42] LABS: BG BASE EXCESS 1.5 mmol/L (-2.0-2.0); BG BILEVEL POS AIRWAY PRESSURE 15/5; BG CARBOXYHEMOGLOBIN 4.5 % (0.5-1.5); BG DEOXYHEMOGLOBIN 1.7 % (0.0-5.0); BG FRACTION INSPIRED OXYGEN 30; BG HCO3 ACT 28.2 mmol/L (22.0-26.0); BG METHEMOGLOBIN 0.4 % (0.0-1.5); BG OXYGEN SATURATION 98.2 % (92.0-98.5); BG OXYHEMOGLOBIN 93.4 % (94.0-97.0); BG PCO2 54.6 mmHg (35.0-45.0); BG PH 7.331 (7.350-7.450); BG PO2 127.6 mmHg (75.0-100.0); BG SAMPLE SITE RIGHT RADIAL; BG TOTAL HEMOGLOBIN 11.1 g/dL (12.0-18.0); BG VENT MODE MASK - BIPAP; BG VENT RATE 14 set
[2017-02-17 05:54] LABS: CARBON DIOXIDE 29 mEq/L (21-32); CHLORIDE 106 mEq/L (98-107); TROPONIN I 0.02 ng/mL (0.00-0.04)
[2017-02-17] MEDS ORDERED: IPRATROPIUM/ALBUTEROL 0.5-3(2.5)MG/3ML NEB HHN SCH (10:15)
[2017-02-17] MEDS ORDERED: IPRATROPIUM/ALBUTEROL 0.5-3(2.5)MG/3ML NEB INH PRN (14:30)
[2017-02-17] MEDS ORDERED: ONDANSETRON HCL 4MG/2ML VIAL IV PRN (14:30)
[2017-02-17] MEDS ORDERED: AMLODIPINE 10MG TABLET PO SCH (14:30)
[2017-02-17] MEDS ORDERED: DOCUSATE SODIUM 100MG CAPSULE PO PRN (14:30)
[2017-02-17] MEDS ORDERED: DEXTROSE 50% WATER 50ML SYRINGE IV PRN (14:30)
[2017-02-17] MEDS ORDERED: IPRATROPIUM/ALBUTEROL 0.5-3(2.5)MG/3ML NEB HHN PRN (14:30)
[2017-02-17] MEDS ORDERED: AZITHROMYCIN IVPB XX SCH (15:00)
[2017-02-17] MEDS: FUROSEMIDE 40MG/4ML VIAL IVP SCH (16:41)
[2017-02-17] MEDS: POTASSIUM CHLORIDE 20MEQ TABLET SR PO SCH (16:42)
[2017-02-17] MEDS: LISINOPRIL 20MG TABLET PO SCH (16:42)
[2017-02-17] MEDS: METHYLPREDNISOLONE SOD SUCC 40 MG/ML VIAL IV SCH (16:42)
[2017-02-17] MEDS: AZITHROMYCIN 500 MG in DEXT 5% WATER 250 ML IV SCH (16:43)
[2017-02-17 16:50] LABS: CLARITY URINE CLEAR (CLEAR); COLOR URINE YELLOW (YELLOW); GLUCOSE URINE 1+ (NEGATIVE); KETONES URINE NEGATIVE (NEGATIVE); LEUKOCYTE ESTERASE URINE NEGATIVE (NEGATIVE); NITRITE URINE NEGATIVE (NEGATIVE); OCCULT BLOOD URINE 2+ (NEGATIVE); PH URINE 5.5 (4.5-8.0); PROTEIN URINE TRACE (NEGATIVE); SPECIFIC GRAVITY URINE 1.024 (1.005-1.030); UROBILINOGEN URINE 0.2 E.U./dL (0.2-1.0)
[2017-02-17 17:02] LABS: *AMPHETAMINES SCREEN URINE NEGATIVE (NEGATIVE); *BARBITURATES SCREEN URINE NEGATIVE (NEGATIVE); *BENZODIAZEPINES SCREEN URINE NEGATIVE (NEGATIVE); *COCAINE SCREEN URINE PRESUMTIVE POSITIVE (NEGATIVE); CANNABINOID URINE SCREEN NEGATIVE (NEGATIVE); METHADONE URINE SCREEN NEGATIVE (NEGATIVE); OPIATES URINE SCREEN NEGATIVE (NEGATIVE); PHENCYCLIDINE URINE SCREEN NEGATIVE (NEGATIVE)
[2017-02-17] MEDS: BLOOD SUGAR DIAGNOSTIC STRIP TEST SCH ×2 (17:15→20:24)
[2017-02-17] MEDS: INSULIN LISPRO 100 UNITS/ML SUBCUT SCH ×2 (17:20→20:25)
[2017-02-17] MEDS: GUAIFENESIN 600MG ER TABLET PO SCH (20:19)
[2017-02-17] MEDS: ENOXAPARIN 30MG/0.3ML SYR SUBCUT SCH (20:19)
[2017-02-17] MEDS: HYDROCODONE/ACETAMINOPHEN 5/325MG TABLET PO PRN (20:29)
[2017-02-17] MEDS ORDERED: AMLODIPINE 5MG TABLET PO SCH (21:00)
[2017-02-17] MEDS: IPRATROPIUM/ALBUTEROL 0.5-3(2.5)MG/3ML NEB INH SCH (21:54)
[2017-02-17] MEDS: BUDESONIDE 0.5MG/2ML NEB HHN SCH (21:54)
[2017-02-17] MEDS: THEOPHYLLINE ANHYDROUS 80 MG/15 ML 120ML PO SCH (22:49)
[2017-02-17] MEDS: HYDRALAZINE HCL 50MG TABLET PO SCH (22:49)
[2017-02-18] VITALS (12 sets, daily range): BP systolic 121–171; BP diastolic 64–96
[2017-02-18] MEDS: METHYLPREDNISOLONE SOD SUCC 40 MG/ML VIAL IV SCH ×4 (00:26→23:45)
[2017-02-18] MEDS: IPRATROPIUM/ALBUTEROL 0.5-3(2.5)MG/3ML NEB INH SCH ×6 (01:02→21:02)
[2017-02-18] MEDS: TRAMADOL 50MG TABLET PO PRN (03:14)
[2017-02-18] MEDS: THEOPHYLLINE ANHYDROUS 80 MG/15 ML 120ML PO SCH ×3 (06:03→21:11)
[2017-02-18] MEDS: HYDRALAZINE HCL 50MG TABLET PO SCH ×3 (06:03→21:10)
[2017-02-18] MEDS: BLOOD SUGAR DIAGNOSTIC STRIP TEST SCH ×4 (06:04→21:12)
[2017-02-18] MEDS: INSULIN LISPRO 100 UNITS/ML SUBCUT SCH ×4 (07:20→21:00)
[2017-02-18 07:47] LABS: CARBON DIOXIDE 29 mEq/L (21-32); CHLORIDE 104 mEq/L (98-107); CREATINE KINASE 50 IU/L (26-192); HDL CHOLESTEROL 84 mg/dL (40-59); LDL CHOLESTEROL 100 mg/dL (5-100); TROPONIN I < 0.02 ng/mL (0.00-0.04)
[2017-02-18 07:58] LABS: BASOPHILS % 0.3 % (0.0-2.0); HEMATOCRIT. 33.4 % (36.0-48.0); LYMPHOCYTES % 15.5 % (20.0-50.0); MEAN CORPUSCULAR HEMOGLOBIN 20.2 pg (28.0-32.0); MEAN CORPUSCULAR VOLUME 67.6 fL (81.0-99.0); MEAN PLATELET VOLUME 8.7 fl (7.4-10.4); MONOCYTES % 2.5 % (2.0-8.0); NEUTROPHILS % 81.7 % (40.0-76.0); PLATELET 185 x1000/uL (130-400); RED BLOOD CELL COUNT 4.93 mill/uL (4.2-5.4); RED CELL DISTRIBUTION WIDTH 25.8 % (11.6-14.6)
[2017-02-18] MEDS: BUDESONIDE 0.5MG/2ML NEB HHN SCH ×2 (08:07→21:01)
[2017-02-18] MEDS: FUROSEMIDE 40MG/4ML VIAL IVP SCH (08:25)
[2017-02-18] MEDS: GUAIFENESIN 600MG ER TABLET PO SCH ×2 (08:25→21:10)
[2017-02-18] MEDS: AMLODIPINE 5MG TABLET PO SCH ×2 (08:25→21:10)
[2017-02-18] MEDS: LISINOPRIL 20MG TABLET PO SCH (08:25)
[2017-02-18] MEDS: POTASSIUM CHLORIDE 20MEQ TABLET SR PO SCH (08:25)
[2017-02-18] MEDS: ENOXAPARIN 30MG/0.3ML SYR SUBCUT SCH (08:26)
[2017-02-18 08:27] LABS: BG BASE EXCESS 2.2 mmol/L (-2.0-2.0); BG DEOXYHEMOGLOBIN 9.8 % (0.0-5.0); BG FRACTION INSPIRED OXYGEN 21; BG HCO3 ACT 27.1 mmol/L (22.0-26.0); BG METHEMOGLOBIN 0.3 % (0.0-1.5); BG OXYGEN SATURATION 90.1 % (92.0-98.5); BG OXYHEMOGLOBIN 88.9 % (94.0-97.0); BG PCO2 43.5 mmHg (35.0-45.0); BG PH 7.413 (7.350-7.450); BG PO2 59.6 mmHg (75.0-100.0); BG SAMPLE SITE LEFT RADIAL; BG TOTAL HEMOGLOBIN 11.3 g/dL (12.0-18.0); BG VENT MODE ROOM AIR
[2017-02-18] MEDS: HYDROCODONE/ACETAMINOPHEN 5/325MG TABLET PO PRN ×2 (09:07→21:11)
[2017-02-18] MEDS: AZITHROMYCIN 500 MG in DEXT 5% WATER 250 ML IV SCH (16:11)
[2017-02-18] MEDS: ENOXAPARIN 40MG/0.4ML SYR SUBCUT SCH (21:11)
[2017-02-19] VITALS (12 sets, daily range): BP systolic 123–168; BP diastolic 64–97
[2017-02-19] MEDS: IPRATROPIUM/ALBUTEROL 0.5-3(2.5)MG/3ML NEB INH SCH ×6 (01:01→21:03)
[2017-02-19] MEDS: CLONIDINE 0.1MG TABLET PO PRN (02:18)
[2017-02-19] MEDS: TRAMADOL 50MG TABLET PO PRN ×2 (02:19→20:54)
[2017-02-19] MEDS: HYDRALAZINE HCL 50MG TABLET PO SCH ×3 (06:05→20:52)
[2017-02-19] MEDS: METHYLPREDNISOLONE SOD SUCC 40 MG/ML VIAL IV SCH ×2 (06:05→17:14)
[2017-02-19] MEDS: THEOPHYLLINE ANHYDROUS 80 MG/15 ML 120ML PO SCH ×3 (06:05→20:53)
[2017-02-19] MEDS: BLOOD SUGAR DIAGNOSTIC STRIP TEST SCH ×4 (06:05→20:45)
[2017-02-19] MEDS: INSULIN LISPRO 100 UNITS/ML SUBCUT SCH ×4 (06:34→20:45)
[2017-02-19 07:29] LABS: CARBON DIOXIDE 28 mEq/L (21-32); CHLORIDE 102 mEq/L (98-107)
[2017-02-19] MEDS: BUDESONIDE 0.5MG/2ML NEB HHN SCH ×2 (07:37→21:02)
[2017-02-19 07:46] LABS: BASOPHILS % 0.2 % (0.0-2.0); HEMATOCRIT. 34.5 % (36.0-48.0); HEMOGLOBIN. 10.1 g/dL (12.0-16.0); LYMPHOCYTES % 16.8 % (20.0-50.0); MEAN CORPUSCULAR HEMOGLOBIN 19.8 pg (28.0-32.0); MEAN CORPUSCULAR VOLUME 67.9 fL (81.0-99.0); MEAN PLATELET VOLUME 9.1 fl (7.4-10.4); PLATELET 184 x1000/uL (130-400); RED BLOOD CELL COUNT 5.08 mill/uL (4.2-5.4); RED CELL DISTRIBUTION WIDTH 25.6 % (11.6-14.6)
[2017-02-19] MEDS: AMLODIPINE 5MG TABLET PO SCH ×2 (08:28→20:52)
[2017-02-19] MEDS: GUAIFENESIN 600MG ER TABLET PO SCH ×2 (08:28→20:52)
[2017-02-19] MEDS: FUROSEMIDE 40MG/4ML VIAL IVP SCH (08:28)
[2017-02-19] MEDS: LISINOPRIL 20MG TABLET PO SCH (08:28)
[2017-02-19] MEDS: POTASSIUM CHLORIDE 20MEQ TABLET SR PO SCH (08:28)
[2017-02-19] MEDS: ENOXAPARIN 40MG/0.4ML SYR SUBCUT SCH ×2 (08:34→20:53)
[2017-02-19] MEDS: HYDROCODONE/ACETAMINOPHEN 5/325MG TABLET PO PRN (08:51)
[2017-02-19 12:30] LABS: PLATELET ESTIMATE NORMAL
[2017-02-19] MEDS: AZITHROMYCIN 500 MG in DEXT 5% WATER 250 ML IV SCH (15:00)
[2017-02-20] VITALS (11 sets, daily range): BP systolic 117–171; BP diastolic 65–117
[2017-02-20] MEDS: IPRATROPIUM/ALBUTEROL 0.5-3(2.5)MG/3ML NEB INH SCH ×6 (01:12→21:10)
[2017-02-20] MEDS: CLONIDINE 0.1MG TABLET PO PRN (02:11)
[2017-02-20] MEDS: METHYLPREDNISOLONE SOD SUCC 40 MG/ML VIAL IV SCH ×2 (06:19→18:05)
[2017-02-20 06:29] LABS: HEMATOCRIT 32.8 % (36.0-48.0); HEMOGLOBIN 9.8 g/dL (12.0-16.0); MEAN CORPUSCULAR VOLUME 67.1 fL (81.0-99.0); PLATELET 176 x1000/uL (130-400); RED BLOOD CELL COUNT 4.89 mill/uL (4.2-5.4); RED CELL DISTRIBUTION WIDTH 26.2 % (11.6-14.6)
[2017-02-20] MEDS: HYDRALAZINE HCL 50MG TABLET PO SCH ×3 (06:30→23:11)
[2017-02-20] MEDS: INSULIN LISPRO 100 UNITS/ML SUBCUT SCH ×4 (06:30→21:00)
[2017-02-20] MEDS: BLOOD SUGAR DIAGNOSTIC STRIP TEST SCH ×4 (06:30→21:39)
[2017-02-20] MEDS: THEOPHYLLINE ANHYDROUS 80 MG/15 ML 120ML PO SCH ×3 (06:30→21:51)
[2017-02-20 07:07] LABS: CARBON DIOXIDE 30 mEq/L (21-32); CHLORIDE 101 mEq/L (98-107)
[2017-02-20] MEDS: BUDESONIDE 0.5MG/2ML NEB HHN SCH (08:23)
[2017-02-20] MEDS: POTASSIUM CHLORIDE 20MEQ TABLET SR PO SCH (09:56)
[2017-02-20] MEDS: ENOXAPARIN 40MG/0.4ML SYR SUBCUT SCH ×2 (09:58→21:54)
[2017-02-20] MEDS: FUROSEMIDE 40MG/4ML VIAL IVP SCH (09:58)
[2017-02-20] MEDS: LISINOPRIL 20MG TABLET PO SCH (10:00)
[2017-02-20] MEDS: AMLODIPINE 5MG TABLET PO SCH ×2 (10:00→21:54)
[2017-02-20] MEDS: HYDROCODONE/ACETAMINOPHEN 5/325MG TABLET PO PRN ×2 (10:00→21:53)
[2017-02-20] MEDS: GUAIFENESIN 600MG ER TABLET PO SCH ×2 (10:07→21:54)
[2017-02-20] MEDS: AZITHROMYCIN 500 MG in DEXT 5% WATER 250 ML IV SCH (16:06)
[2017-02-21] VITALS: BP 139/64
[2017-02-21] MEDS: IPRATROPIUM/ALBUTEROL 0.5-3(2.5)MG/3ML NEB INH SCH ×4 (01:04→11:58)
[2017-02-21 02:00] VITALS: BP 141/65
[2017-02-21 04:00] VITALS: BP 137/63
[2017-02-21] MEDS: THEOPHYLLINE ANHYDROUS 80 MG/15 ML 120ML PO SCH ×2 (06:05→14:00)
[2017-02-21] MEDS: METHYLPREDNISOLONE SOD SUCC 40 MG/ML VIAL IV SCH (06:05)
[2017-02-21] MEDS: HYDRALAZINE HCL 50MG TABLET PO SCH ×2 (06:06→13:18)
[2017-02-21 06:11] LABS: BASOPHILS % 0.2 % (0.0-2.0); HEMATOCRIT. 35.2 % (36.0-48.0); HEMOGLOBIN. 10.6 g/dL (12.0-16.0); LYMPHOCYTES % 15.1 % (20.0-50.0); MEAN CORPUSCULAR HEMOGLOBIN 20.4 pg (28.0-32.0); MEAN CORPUSCULAR VOLUME 67.8 fL (81.0-99.0); MEAN PLATELET VOLUME 8.8 fl (7.4-10.4); MONOCYTES % 4.4 % (2.0-8.0); NEUTROPHILS % 80.3 % (40.0-76.0); PLATELET 165 x1000/uL (130-400); RED BLOOD CELL COUNT 5.19 mill/uL (4.2-5.4); RED CELL DISTRIBUTION WIDTH 26.4 % (11.6-14.6)
[2017-02-21] MEDS: TRAMADOL 50MG TABLET PO PRN (06:47)
[2017-02-21] MEDS: BLOOD SUGAR DIAGNOSTIC STRIP TEST SCH ×2 (06:48→11:55)
[2017-02-21 07:01] LABS: CARBON DIOXIDE 30 mEq/L (21-32); CHLORIDE 100 mEq/L (98-107)
[2017-02-21] MEDS: INSULIN LISPRO 100 UNITS/ML SUBCUT SCH ×2 (07:20→11:58)
[2017-02-21 08:27] VITALS: BP 175/97
[2017-02-21] MEDS: POTASSIUM CHLORIDE 20MEQ TABLET SR PO SCH (08:46)
[2017-02-21] MEDS: AMLODIPINE 5MG TABLET PO SCH (08:47)
[2017-02-21] MEDS: GUAIFENESIN 600MG ER TABLET PO SCH (08:47)
[2017-02-21] MEDS ORDERED: AZITHROMYCIN 500 MG TABLET PO SCH (09:00)
[2017-02-21] MEDS: FUROSEMIDE 40MG/4ML VIAL IVP SCH (09:23)
[2017-02-21] MEDS: ENOXAPARIN 40MG/0.4ML SYR SUBCUT SCH (09:24)
[2017-02-21] MEDS ORDERED: LISINOPRIL 20MG TABLET PO SCH (10:00)
[2017-02-21] MEDS ORDERED: PROMETHAZINE/DEXTROMETHORPHAN 6.25-15MG/5ML BOTTLE 120ML PO PRN (10:45)
[2017-02-21] MEDS ORDERED: GUAIFENESIN-DM 200MG-20MG/10ML UDC PO PRN (10:45)
[2017-02-21] MEDS ORDERED: AMLO5TAB88 PO (10:50)
[2017-02-21] MEDS ORDERED: PULM50 HHN (10:50)
[2017-02-21] MEDS ORDERED: LISI-604 PO (10:50)
[2017-02-21] MEDS ORDERED: FURO-151 PO (10:50)
[2017-02-21] MEDS ORDERED: AZIT500T5 PO (10:50)
[2017-02-21] MEDS ORDERED: KDUR20 PO (10:50)
[2017-02-21] MEDS ORDERED: TRAM50TA3 PO (10:50)
[2017-02-21] MEDS ORDERED: DUONEB3 ML HHN (10:50)
[2017-02-21] MEDS ORDERED: HYDR-4135 PO (10:50)
[2017-02-21] MEDS ORDERED: METH4TAB17 PO (10:51)
[2017-02-21 11:25] VITALS: BP 120/72
== END 2017-02-21 15:30 | disposition home or self-care (01) | DRG 52 ==
LOC: ER 04:02 → 3WST 06:45 → EDBEDREQ 06:59 → ENRESERV 12:48
PROVIDERS: ADMIT Internal Medicine; ATTEND Internal Medicine
PROC: 5A09457 Assistance with Respiratory Ventilation, 24-96 Consecutive Hours, Continuous Positive Airway Pressure (ICD-10-PCS; principal; 2017-02-17)
DX: G93.1 Anoxic brain damage, not elsewhere classified (principal); J96.02 Acute respiratory failure with hypercapnia; R65.11 Systemic inflammatory response syndrome (SIRS) of non-infectious origin with acute organ dysfunction; I27.2 Other secondary pulmonary hypertension; I50.33 Acute on chronic diastolic (congestive) heart failure; E44.0 Moderate protein-calorie malnutrition; E66.2 Morbid (severe) obesity with alveolar hypoventilation; Z68.43 Body mass index [BMI] 50.0-59.9, adult; J44.1 Chronic obstructive pulmonary disease with (acute) exacerbation; I27.81 Cor pulmonale (chronic); F14.10 Cocaine abuse, uncomplicated; E11.9 Type 2 diabetes mellitus without complications; I11.0 Hypertensive heart disease with heart failure; M19.90 Unspecified osteoarthritis, unspecified site; D64.9 Anemia, unspecified; E78.00 Pure hypercholesterolemia, unspecified; F17.210 Nicotine dependence, cigarettes, uncomplicated; Z83.3 Family history of diabetes mellitus; Z88.0 Allergy status to penicillin; Z88.8 Allergy status to other drugs, medicaments and biological substances
CPT/HCPCS: 36415; 36600; 71010; 80048; 80053; 80061; 80305; 81001; 82375; 82550; 82805; 82962; 83605; 83690; 83735; 83880; 84443; 84484; 85025; 85027; 85379; 87040; 93005; 93306; 93970; 94640; 94660; 96374; 99291; J0456; J1650; J1940; J2920; J2930; J7050; J7060; J7611; J7620; J7626

== ENCOUNTER 2017-03-11 12:51 | Inpatient (IN) | payer MEDICAID ==
[~2017-03-11] VITALS: Ht 160 cm; Wt 140.4 kg
[~2017-03-11 12:51] MED LIST changes: +AZIT500T5 PO; +FURO-151 PO; -GUAI600T44 PO; -HYDR-4001 PO; +KDUR20 PO; +LISI-604 PO; +METH4TAB17 PO; -P20 PO
[2017-03-11] MEDS ORDERED: IPRATROPIUM/ALBUTEROL 0.5-3(2.5)MG/3ML NEB HHN ONE (15:15)
[2017-03-11 16:14] LABS: CHLORIDE 106 mEq/L (98-107)
[2017-03-11 16:15] LABS: BASOPHILS % 0.7 % (0.0-2.0); EOSINOPHILS % 4.5 % (0.0-5.0); HEMATOCRIT. 33.3 % (36.0-48.0); HEMOGLOBIN. 10.1 g/dL (12.0-16.0); MEAN CORPUSCULAR HEMOGLOBIN 21.5 pg (28.0-32.0); MEAN PLATELET VOLUME 8.8 fl (7.4-10.4); MONOCYTES % 7.2 % (2.0-8.0); NEUTROPHILS % 58.6 % (40.0-76.0); PLATELET 252 x1000/uL (130-400); RED BLOOD CELL COUNT 4.69 mill/uL (4.2-5.4); RED CELL DISTRIBUTION WIDTH 28.7 % (11.6-14.6)
[2017-03-11 16:16] LABS: PROTHROMBIN TIME 10.2 sec (9.4-11.6)
[2017-03-11 16:20] LABS: CARBON DIOXIDE 30 mEq/L (21-32)
[2017-03-11 16:26] LABS: TROPONIN I 0.05 ng/mL (0.00-0.04)
[2017-03-11 16:55] LABS: PLATELET ESTIMATE NORMAL
[2017-03-11 17:58] LABS: HEPATITIS B SURFACE ANTIGEN NEGATIVE
[2017-03-11 18:25] LABS: HEPATITIS B CORE AB IGM NEGATIVE
[2017-03-11 18:26] LABS: HEPATITIS A AB IGM NEGATIVE (NEGATIVE)
[2017-03-11 19:15] LABS: CLARITY URINE CLEAR (CLEAR); COLOR URINE YELLOW (YELLOW); GLUCOSE URINE NEGATIVE (NEGATIVE); KETONES URINE NEGATIVE (NEGATIVE); LEUKOCYTE ESTERASE URINE TRACE (NEGATIVE); NITRITE URINE NEGATIVE (NEGATIVE); OCCULT BLOOD URINE NEGATIVE (NEGATIVE); PH URINE 6.5 (4.5-8.0); PROTEIN URINE NEGATIVE (NEGATIVE); SPECIFIC GRAVITY URINE 1.015 (1.005-1.030); UROBILINOGEN URINE 0.2 E.U./dL (0.2-1.0)
[2017-03-11 19:44] LABS: *AMPHETAMINES SCREEN URINE NEGATIVE (NEGATIVE); *BARBITURATES SCREEN URINE NEGATIVE (NEGATIVE); *BENZODIAZEPINES SCREEN URINE NEGATIVE (NEGATIVE); *COCAINE SCREEN URINE PRESUMTIVE POSITIVE (NEGATIVE); CANNABINOID URINE SCREEN NEGATIVE (NEGATIVE); METHADONE URINE SCREEN NEGATIVE (NEGATIVE); OPIATES URINE SCREEN NEGATIVE (NEGATIVE); PHENCYCLIDINE URINE SCREEN NEGATIVE (NEGATIVE)
[2017-03-11 21:30] VITALS: BP 155/70
[2017-03-11] MEDS ORDERED: IPRATROPIUM/ALBUTEROL 0.5-3(2.5)MG/3ML NEB HHN PRN (23:15)
[2017-03-11] MEDS ORDERED: HYDROCODONE/ACETAMINOPHEN 5/325MG TABLET PO PRN (23:30)
[2017-03-11] MEDS: IPRATROPIUM/ALBUTEROL 0.5-3(2.5)MG/3ML NEB HHN SCH (23:57)
[2017-03-12] VITALS: BP 172/103
[2017-03-12] MEDS: AMLODIPINE 10MG TABLET PO SCH ×2 (00:09→08:39)
[2017-03-12] MEDS: TRAMADOL 50MG TABLET PO PRN ×3 (00:09→21:06)
[2017-03-12] MEDS: GUAIFENESIN 200MG/10ML SUGAR FREE UDC PO PRN ×3 (00:10→20:05)
[2017-03-12] MEDS: METHYLPREDNISOLONE SOD SUCC 40 MG/ML VIAL IV SCH ×3 (00:28→15:29)
[2017-03-12] MEDS: LEVOFLOXACIN 500MG PREMIX 100 ML IV SCH (01:55)
[2017-03-12 04:00] VITALS: BP 165/91
[2017-03-12] MEDS: IPRATROPIUM/ALBUTEROL 0.5-3(2.5)MG/3ML NEB HHN SCH ×5 (05:35→21:13)
[2017-03-12] MEDS: HYDRALAZINE HCL 100MG TABLET PO SCH ×3 (06:20→21:05)
[2017-03-12 08:00] VITALS: BP 163/92
[2017-03-12] MEDS: POTASSIUM CHLORIDE 20MEQ TABLET SR PO SCH (08:38)
[2017-03-12] MEDS: FUROSEMIDE 40MG TABLET PO SCH (08:38)
[2017-03-12] MEDS: LISINOPRIL 20MG TABLET PO SCH ×2 (08:39→21:05)
[2017-03-12] MEDS ORDERED: INFLUENZA VIRUS VACCINE 0.5ML SYR IM ONE (10:00)
[2017-03-12 12:00] VITALS: BP 179/88
[2017-03-12 16:00] VITALS: BP 158/77
[2017-03-12 20:11] VITALS: BP 160/98
[2017-03-12] MEDS: BUDESONIDE 0.5MG/2ML NEB HHN SCH (21:16)
[2017-03-13] MEDS: METHYLPREDNISOLONE SOD SUCC 40 MG/ML VIAL IV SCH ×2 (00:19→09:04)
[2017-03-13 00:22] VITALS: BP 140/90
[2017-03-13] MEDS: IPRATROPIUM/ALBUTEROL 0.5-3(2.5)MG/3ML NEB HHN SCH ×6 (00:55→21:29)
[2017-03-13] MEDS: LEVOFLOXACIN 500MG PREMIX 100 ML IV SCH (01:51)
[2017-03-13 04:00] VITALS: BP 137/86
[2017-03-13] MEDS: HYDRALAZINE HCL 100MG TABLET PO SCH ×3 (06:04→21:46)
[2017-03-13] MEDS: BUDESONIDE 0.5MG/2ML NEB HHN SCH ×2 (08:00→21:29)
[2017-03-13 08:16] VITALS: BP 156/86
[2017-03-13] MEDS: LISINOPRIL 20MG TABLET PO SCH ×2 (09:05→21:47)
[2017-03-13] MEDS: POTASSIUM CHLORIDE 20MEQ TABLET SR PO SCH (09:05)
[2017-03-13] MEDS: AMLODIPINE 10MG TABLET PO SCH (09:05)
[2017-03-13] MEDS: FUROSEMIDE 40MG TABLET PO SCH (09:05)
[2017-03-13] MEDS: GUAIFENESIN 200MG/10ML SUGAR FREE UDC PO PRN ×2 (09:09→19:47)
[2017-03-13] MEDS: TRAMADOL 50MG TABLET PO PRN ×2 (09:09→19:50)
[2017-03-13 12:00] VITALS: BP 159/86
[2017-03-13] MEDS: MAGNESIUM OXIDE 400MG TABLET PO SCH ×2 (12:34→15:52)
[2017-03-13] MEDS: OMEPRAZOLE 20MG CAPSULE EXTENDED RELEASE PO SCH ×2 (12:34→21:46)
[2017-03-13] MEDS ORDERED: MAGNESIUM 4 G PREMIX 100 ML IV NR (14:00)
[2017-03-13] MEDS: PREDNISONE 20MG TABLET PO SCH (15:53)
[2017-03-13 16:00] VITALS: BP 107/56
[2017-03-13] MEDS ORDERED: ATROPINE SULFATE 1MG/ML VIAL IV NR ×2 (18:15→18:25)
[2017-03-13 20:00] VITALS: BP 168/90
[2017-03-13] MEDS ORDERED: ATROPINE SULFATE 1MG/ML VIAL IV PRN (23:45)
[2017-03-14] VITALS: BP 124/71
[2017-03-14] MEDS: IPRATROPIUM/ALBUTEROL 0.5-3(2.5)MG/3ML NEB HHN SCH ×5 (00:36→16:00)
[2017-03-14] MEDS: LEVOFLOXACIN 500MG PREMIX 100 ML IV SCH (02:26)
[2017-03-14] MEDS: GUAIFENESIN 200MG/10ML SUGAR FREE UDC PO PRN (02:34)
[2017-03-14] MEDS: TRAMADOL 50MG TABLET PO PRN (02:35)
[2017-03-14 04:00] VITALS: BP 154/90
[2017-03-14] MEDS: HYDRALAZINE HCL 100MG TABLET PO SCH ×2 (05:34→13:19)
[2017-03-14 06:08] LABS: BASOPHILS % 0.5 % (0.0-2.0); HEMATOCRIT. 34.4 % (36.0-48.0); HEMOGLOBIN. 10.5 g/dL (12.0-16.0); MEAN CORPUSCULAR HEMOGLOBIN 21.4 pg (28.0-32.0); MEAN CORPUSCULAR VOLUME 70.5 fL (81.0-99.0); MEAN PLATELET VOLUME 8.7 fl (7.4-10.4); MONOCYTES % 6.3 % (2.0-8.0); NEUTROPHILS % 83.2 % (40.0-76.0); PLATELET 270 x1000/uL (130-400); RED BLOOD CELL COUNT 4.88 mill/uL (4.2-5.4); RED CELL DISTRIBUTION WIDTH 28.4 % (11.6-14.6)
[2017-03-14 06:36] LABS: CARBON DIOXIDE 30 mEq/L (21-32); CHLORIDE 102 mEq/L (98-107)
[2017-03-14 08:00] VITALS: BP 158/86
[2017-03-14] MEDS: FUROSEMIDE 40MG TABLET PO SCH (08:24)
[2017-03-14] MEDS: PREDNISONE 20MG TABLET PO SCH ×2 (08:24→16:58)
[2017-03-14] MEDS: POTASSIUM CHLORIDE 20MEQ TABLET SR PO SCH (08:24)
[2017-03-14] MEDS: AMLODIPINE 10MG TABLET PO SCH (08:24)
[2017-03-14] MEDS: OMEPRAZOLE 20MG CAPSULE EXTENDED RELEASE PO SCH (08:24)
[2017-03-14] MEDS: LISINOPRIL 20MG TABLET PO SCH (08:25)
[2017-03-14] MEDS: MAGNESIUM OXIDE 400MG TABLET PO SCH ×2 (09:00→16:58)
[2017-03-14] MEDS ORDERED: METH4TAB17 PO (10:05)
[2017-03-14] MEDS ORDERED: HYDR-4135 PO (10:05)
[2017-03-14] MEDS ORDERED: PULM50 HHN (10:05)
[2017-03-14] MEDS ORDERED: TRAM50TA3 PO (10:05)
[2017-03-14] MEDS ORDERED: LISI-604 PO (10:05)
[2017-03-14 10:09] VITALS: BP 131/55
[2017-03-14 12:00] VITALS: BP 131/55
[2017-03-14] MEDS: BUDESONIDE 0.5MG/2ML NEB HHN SCH (12:50)
[2017-03-14 16:00] VITALS: BP 122/89
== END 2017-03-14 20:00 | disposition home or self-care (01) | DRG 816 ==
LOC: ER 13:17 → 7WST 19:39 → ENRESERV 20:09
PROVIDERS: ADMIT Internal Medicine; ATTEND Internal Medicine
PROC: 5A09357 Assistance with Respiratory Ventilation, Less than 24 Consecutive Hours, Continuous Positive Airway Pressure (ICD-10-PCS; principal; 2017-03-14)
DX: T40.5X1A Poisoning by cocaine, accidental (unintentional), initial encounter (principal); J96.22 Acute and chronic respiratory failure with hypercapnia; I50.43 Acute on chronic combined systolic (congestive) and diastolic (congestive) heart failure; I42.9 Cardiomyopathy, unspecified; E11.65 Type 2 diabetes mellitus with hyperglycemia; F14.20 Cocaine dependence, uncomplicated; I27.29 Other secondary pulmonary hypertension; E66.2 Morbid (severe) obesity with alveolar hypoventilation; I11.0 Hypertensive heart disease with heart failure; E83.42 Hypomagnesemia; J44.1 Chronic obstructive pulmonary disease with (acute) exacerbation; E78.5 Hyperlipidemia, unspecified; F17.210 Nicotine dependence, cigarettes, uncomplicated; F41.0 Panic disorder [episodic paroxysmal anxiety]; Z95.810 Presence of automatic (implantable) cardiac defibrillator; Z88.0 Allergy status to penicillin; Z68.43 Body mass index [BMI] 50.0-59.9, adult; Z88.8 Allergy status to other drugs, medicaments and biological substances; Z79.899 Other long term (current) drug therapy; Z72.89 Other problems related to lifestyle
CPT/HCPCS: 36415; 71010; 80048; 80053; 80305; 81001; 82962; 83036; 83735; 83880; 84443; 84484; 85025; 85610; 85651; 86705; 86709; 86803; 87340; 90686; 93005; 93970; 94640; 94660; 94664; 99285; C1893; J0461; J1956; J2920; J3475; J7050; J7512; J7620; J7626

== ENCOUNTER 2018-01-21 18:17 | Inpatient (IN) | payer MEDICAID ==
[~2018-01-21] VITALS: Ht 160 cm; Wt 138.3 kg
[~2018-01-21 18:17] MED LIST changes: +ALBU18HF2 IH; +ALBU2.5V13 NEB; -AZIT500T5 PO; +FLUT1AER IH; +FLUT1AER5 INH; +P20 PO; +TIOT18CA3 INH; -TRAM50TA3 PO
[2018-01-21] MEDS ORDERED: METHYLPREDNISOLONE SOD SUCC 125 MG/2 ML VIAL IV STA (18:45)
[2018-01-21] MEDS ORDERED: ALBUTEROL (0.083%) 2.5MG/3ML NEB HHN STA (18:45)
[2018-01-21] MEDS ORDERED: ASPIRIN 81MG TABLET PO ONE (18:45)
[2018-01-21] MEDS ORDERED: IPRATROPIUM BROMIDE (0.02%) 0.5MG/2.5ML NEB HHN STA (18:45)
[2018-01-21] MEDS ORDERED: DIPHENHYDRAMINE 50MG/ML VIAL IV ONE (19:00)
[2018-01-21 19:41] LABS: BASOPHILS % 0.9 % (0.0-2.0); EOSINOPHILS % 9.1 % (0.0-5.0); HEMATOCRIT. 40.1 % (36.0-48.0); HEMOGLOBIN. 12.9 g/dL (12.0-16.0); LYMPHOCYTES % 18.8 % (20.0-50.0); MEAN CORPUSCULAR HEMOGLOBIN 27.8 pg (28.0-32.0); MEAN CORPUSCULAR VOLUME 86.6 fL (81.0-99.0); MONOCYTES % 7.4 % (2.0-8.0); NEUTROPHILS % 63.8 % (40.0-76.0); PLATELET 171 x1000/uL (130-400); RED BLOOD CELL COUNT 4.63 mill/uL (4.2-5.4); RED CELL DISTRIBUTION WIDTH 17.6 % (11.6-14.6)
[2018-01-21 19:45] LABS: CHLORIDE 107 mEq/L (98-107)
[2018-01-21 19:49] LABS: PARTIAL THROMBOPLASTIN TIME 23.9 sec (23.4-31.0); PROTHROMBIN TIME 9.9 sec (9.1-11.1)
[2018-01-21] MEDS ORDERED: NITROGLYCERIN OINT 1GM/INCH UDPKT TD ONE (20:15)
[2018-01-21] MEDS ORDERED: FUROSEMIDE 40MG/4ML VIAL IV ONE (20:15)
[2018-01-22 01:00] VITALS: BP 156/99
[2018-01-22] MEDS ORDERED: LOSA25TA3 MT (02:58)
[2018-01-22] MEDS ORDERED: IPRATROPIUM/ALBUTEROL 0.5-3(2.5)MG/3ML NEB HHN PRN (03:00)
[2018-01-22] MEDS ORDERED: AMLODIPINE 10MG TABLET PO SCH (03:00)
[2018-01-22] MEDS: IPRATROPIUM/ALBUTEROL 0.5-3(2.5)MG/3ML NEB HHN SCH ×5 (03:33→21:00)
[2018-01-22 04:00] VITALS: BP 188/87
[2018-01-22] MEDS: MORPHINE SULFATE 4 MG/ML CPJ (NOT FOR IM USE) IV PRN ×3 (04:13→16:38)
[2018-01-22] MEDS: DIPHENHYDRAMINE 50MG CAPSULE PO PRN ×2 (04:14→20:17)
[2018-01-22] MEDS: LEVOFLOXACIN 500MG TABLET PO SCH ×2 (04:14→20:17)
[2018-01-22] MEDS: GUAIFENESIN 200MG/10ML SUGAR FREE UDC PO PRN (04:25)
[2018-01-22] MEDS: METHYLPREDNISOLONE SOD SUCC 40 MG/ML VIAL IV SCH ×3 (06:41→20:17)
[2018-01-22 06:45] VITALS: BP 151/90
[2018-01-22 08:00] VITALS: BP 181/104
[2018-01-22] MEDS ORDERED: LOSARTAN POTASSIUM 50 MG TABLET PO SCH (09:00)
[2018-01-22] MEDS ORDERED: FUROSEMIDE 40MG/4ML VIAL IVP SCH (09:00)
[2018-01-22] MEDS ORDERED: CARVEDILOL 6.25 MG TABLET PO SCH (09:00)
[2018-01-22] MEDS ORDERED: BENZONATATE 100MG CAPSULE PO PRN (09:00)
[2018-01-22] MEDS: LOSARTAN POTASSIUM 100 MG TABLET PO SCH (09:06)
[2018-01-22] MEDS: AMLODIPINE 5MG TABLET PO SCH ×2 (09:10→20:17)
[2018-01-22 12:00] VITALS: BP 174/98
[2018-01-22] MEDS ORDERED: CLONIDINE 0.1MG TABLET PO PRN (13:15)
[2018-01-22] MEDS: FUROSEMIDE 40MG/4ML VIAL IVP SCH (13:30)
[2018-01-22] MEDS: BENZONATATE 100MG CAPSULE PO SCH ×2 (14:00→20:17)
[2018-01-22] MEDS: BUDESONIDE 0.5MG/2ML NEB HHN SCH ×2 (15:40→21:00)
[2018-01-22 16:00] VITALS: BP 144/94
[2018-01-22] MEDS: MONTELUKAST SODIUM 10MG TABLET PO SCH (17:16)
[2018-01-22 19:57] LABS: CLARITY URINE CLEAR (CLEAR); COLOR URINE YELLOW (YELLOW); KETONES URINE NEGATIVE (NEGATIVE); LEUKOCYTE ESTERASE URINE NEGATIVE (NEGATIVE); NITRITE URINE NEGATIVE (NEGATIVE); OCCULT BLOOD URINE NEGATIVE (NEGATIVE); PROTEIN URINE NEGATIVE (NEGATIVE); SPECIFIC GRAVITY URINE 1.006 (1.005-1.030); UROBILINOGEN URINE 0.2 E.U./dL (0.2-1.0)
[2018-01-22 20:08] LABS: *AMPHETAMINES SCREEN URINE NEGATIVE (NEGATIVE); *BARBITURATES SCREEN URINE NEGATIVE (NEGATIVE); *COCAINE SCREEN URINE PRESUMTIVE POSITIVE (NEGATIVE); CANNABINOID URINE SCREEN NEGATIVE (NEGATIVE); METHADONE URINE SCREEN NEGATIVE (NEGATIVE); OPIATES URINE SCREEN PRESUMTIVE POSITIVE (NEGATIVE); PHENCYCLIDINE URINE SCREEN NEGATIVE (NEGATIVE)
[2018-01-22 20:09] LABS: *BENZODIAZEPINES SCREEN URINE NEGATIVE (NEGATIVE)
[2018-01-23] MEDS: IPRATROPIUM/ALBUTEROL 0.5-3(2.5)MG/3ML NEB HHN SCH ×6 (00:06→21:20)
[2018-01-23] MEDS: MORPHINE SULFATE 4 MG/ML CPJ (NOT FOR IM USE) IV PRN ×4 (00:26→22:18)
[2018-01-23] MEDS: GUAIFENESIN 200MG/10ML SUGAR FREE UDC PO PRN ×3 (03:41→20:41)
[2018-01-23] MEDS: BENZONATATE 100MG CAPSULE PO SCH ×2 (04:51→16:17)
[2018-01-23] MEDS: METHYLPREDNISOLONE SOD SUCC 40 MG/ML VIAL IV SCH ×2 (04:52→17:17)
[2018-01-23 06:00] VITALS: BP 138/82
[2018-01-23 08:00] VITALS: BP 163/88
[2018-01-23] MEDS: BUDESONIDE 0.5MG/2ML NEB HHN SCH ×2 (08:34→21:21)
[2018-01-23] MEDS: FUROSEMIDE 40MG/4ML VIAL IVP SCH ×2 (09:00→12:04)
[2018-01-23] MEDS: AMLODIPINE 5MG TABLET PO SCH ×2 (09:09→20:41)
[2018-01-23] MEDS: LOSARTAN POTASSIUM 100 MG TABLET PO SCH (09:09)
[2018-01-23 12:00] VITALS: BP 144/92
[2018-01-23] MEDS: DIPHENHYDRAMINE 50MG/ML VIAL IV PRN (12:04)
[2018-01-23 16:00] VITALS: BP 137/83
[2018-01-23] MEDS: MONTELUKAST SODIUM 10MG TABLET PO SCH (17:16)
[2018-01-23] MEDS ORDERED: PERMETHRIN 5% CREAM 60GM TOP NR (17:30)
[2018-01-23] MEDS ORDERED: IVERMECTIN 3 MG TABLET PO NR (17:45)
[2018-01-23 20:02] VITALS: BP 145/90
[2018-01-23] MEDS: DIPHENHYDRAMINE 50MG CAPSULE PO PRN (20:41)
[2018-01-23] MEDS: LEVOFLOXACIN 500MG TABLET PO SCH (20:41)
[2018-01-24] MEDS: BENZONATATE 100MG CAPSULE PO SCH ×4 (00:17→21:07)
[2018-01-24] MEDS: IPRATROPIUM/ALBUTEROL 0.5-3(2.5)MG/3ML NEB HHN SCH ×6 (00:26→20:40)
[2018-01-24 01:20] VITALS: BP 145/88
[2018-01-24 03:10] VITALS: BP 135/80
[2018-01-24] MEDS: MORPHINE SULFATE 4 MG/ML CPJ (NOT FOR IM USE) IV PRN ×3 (03:22→22:29)
[2018-01-24 06:44] LABS: CHLORIDE 101 mEq/L (98-107)
[2018-01-24 06:53] LABS: CREATINE KINASE 63 IU/L (26-192)
[2018-01-24] MEDS: DIPHENHYDRAMINE 50MG/ML VIAL IV PRN (06:55)
[2018-01-24] MEDS: GUAIFENESIN 200MG/10ML SUGAR FREE UDC PO PRN (06:55)
[2018-01-24 06:56] LABS: CREATINE KINASE MB FRACTION < 1.0 ng/mL (0.5-3.6)
[2018-01-24 07:02] LABS: BASOPHILS % 0.1 % (0.0-2.0); HEMATOCRIT. 41.2 % (36.0-48.0); HEMOGLOBIN. 13.4 g/dL (12.0-16.0); LYMPHOCYTES % 8.7 % (20.0-50.0); MEAN CORPUSCULAR VOLUME 86.1 fL (81.0-99.0); MONOCYTES % 6.2 % (2.0-8.0); PLATELET 197 x1000/uL (130-400); RED BLOOD CELL COUNT 4.79 mill/uL (4.2-5.4); RED CELL DISTRIBUTION WIDTH 17.2 % (11.6-14.6)
[2018-01-24 08:00] VITALS: BP 134/72
[2018-01-24] MEDS: FUROSEMIDE 40MG/4ML VIAL IVP SCH (08:27)
[2018-01-24] MEDS: LOSARTAN POTASSIUM 100 MG TABLET PO SCH (08:27)
[2018-01-24] MEDS: AMLODIPINE 5MG TABLET PO SCH ×2 (08:28→21:00)
[2018-01-24] MEDS: METHYLPREDNISOLONE SOD SUCC 40 MG/ML VIAL IV SCH ×2 (08:28→17:00)
[2018-01-24] MEDS: BUDESONIDE 0.5MG/2ML NEB HHN SCH ×2 (08:46→20:41)
[2018-01-24] MEDS ORDERED: MORPHINE SULFATE 10 MG/ML CPJ IV SCH (09:30)
[2018-01-24 12:00] VITALS: BP 134/73
[2018-01-24 16:00] VITALS: BP 140/78
[2018-01-24] MEDS: DIPHENHYDRAMINE 50MG CAPSULE PO PRN ×2 (17:28→22:28)
[2018-01-24] MEDS: MONTELUKAST SODIUM 10MG TABLET PO SCH (17:33)
[2018-01-24 20:00] VITALS: BP 105/63
[2018-01-24] MEDS ORDERED: OMEPRAZOLE 20MG CAPSULE EXTENDED RELEASE PO SCH (20:45)
[2018-01-24] MEDS: LEVOFLOXACIN 500MG TABLET PO SCH (21:06)
[2018-01-24] MEDS: OMEPRAZOLE 20MG CAPSULE EXTENDED RELEASE PO SCH (21:06)
[2018-01-25] VITALS: BP 162/94
[2018-01-25] MEDS: IPRATROPIUM/ALBUTEROL 0.5-3(2.5)MG/3ML NEB HHN SCH ×6 (00:49→21:15)
[2018-01-25 04:00] VITALS: BP 132/84
[2018-01-25] MEDS: MORPHINE SULFATE 4 MG/ML CPJ (NOT FOR IM USE) IV PRN ×4 (04:34→20:40)
[2018-01-25] MEDS: DIPHENHYDRAMINE 50MG CAPSULE PO PRN ×2 (04:34→20:38)
[2018-01-25] MEDS: GUAIFENESIN 200MG/10ML SUGAR FREE UDC PO PRN (04:34)
[2018-01-25] MEDS: BENZONATATE 100MG CAPSULE PO SCH ×3 (06:06→22:00)
[2018-01-25 08:00] VITALS: BP 152/86
[2018-01-25] MEDS: LOSARTAN POTASSIUM 100 MG TABLET PO SCH (08:39)
[2018-01-25] MEDS: OMEPRAZOLE 20MG CAPSULE EXTENDED RELEASE PO SCH (08:39)
[2018-01-25] MEDS: FUROSEMIDE 40MG/4ML VIAL IVP SCH (08:39)
[2018-01-25] MEDS: AMLODIPINE 5MG TABLET PO SCH ×2 (08:39→20:38)
[2018-01-25] MEDS: METHYLPREDNISOLONE SOD SUCC 40 MG/ML VIAL IV SCH ×2 (08:44→17:10)
[2018-01-25] MEDS: BUDESONIDE 0.5MG/2ML NEB HHN SCH (08:57)
[2018-01-25 10:06] LABS: HIV SCREEN 4G Non Reactive (Non Reactive)
[2018-01-25 12:00] VITALS: BP 140/77
[2018-01-25] MEDS ORDERED: CLONIDINE 0.1MG TABLET PO PRN (15:24)
[2018-01-25] MEDS ORDERED: AMLODIPINE 2.5MG TABLET PO SCH ×2 (15:30)
[2018-01-25] MEDS ORDERED: CLONIDINE 0.2MG TABLET PO PRN (15:30)
[2018-01-25] MEDS: DIPHENHYDRAMINE 50MG/ML VIAL IV PRN (15:50)
[2018-01-25 16:00] VITALS: BP 135/72
[2018-01-25] MEDS: MONTELUKAST SODIUM 10MG TABLET PO SCH (17:10)
[2018-01-25 20:00] VITALS: BP 136/102
[2018-01-25] MEDS: LEVOFLOXACIN 500MG TABLET PO SCH (20:41)
[2018-01-26] VITALS (7 sets, daily range): BP systolic 129–147; BP diastolic 77–95
[2018-01-26] MEDS: IPRATROPIUM/ALBUTEROL 0.5-3(2.5)MG/3ML NEB HHN SCH ×5 (00:17→16:40)
[2018-01-26] MEDS: MORPHINE SULFATE 4 MG/ML CPJ (NOT FOR IM USE) IV PRN ×3 (01:04→09:41)
[2018-01-26] MEDS: GUAIFENESIN 200MG/10ML SUGAR FREE UDC PO PRN (01:06)
[2018-01-26] MEDS: BENZONATATE 100MG CAPSULE PO SCH ×2 (05:05→14:00)
[2018-01-26 06:49] LABS: BASOPHILS % 0.2 % (0.0-2.0); HEMATOCRIT. 44.1 % (36.0-48.0); HEMOGLOBIN. 14.3 g/dL (12.0-16.0); LYMPHOCYTES % 8.7 % (20.0-50.0); MEAN CORPUSCULAR HEMOGLOBIN 27.7 pg (28.0-32.0); MEAN CORPUSCULAR VOLUME 85.6 fL (81.0-99.0); MEAN PLATELET VOLUME 9.1 fl (7.4-10.4); MONOCYTES % 7.5 % (2.0-8.0); NEUTROPHILS % 83.6 % (40.0-76.0); PLATELET 218 x1000/uL (130-400); RED BLOOD CELL COUNT 5.16 mill/uL (4.2-5.4); RED CELL DISTRIBUTION WIDTH 17.1 % (11.6-14.6)
[2018-01-26 07:03] LABS: CHLORIDE 97 mEq/L (98-107)
[2018-01-26] MEDS: LOSARTAN POTASSIUM 100 MG TABLET PO SCH (08:57)
[2018-01-26] MEDS: FUROSEMIDE 40MG/4ML VIAL IVP SCH (08:57)
[2018-01-26] MEDS: AMLODIPINE 5MG TABLET PO SCH (08:58)
[2018-01-26] MEDS: OMEPRAZOLE 20MG CAPSULE EXTENDED RELEASE PO SCH (08:58)
[2018-01-26] MEDS ORDERED: PREDNISONE 20MG TABLET PO SCH (09:00)
[2018-01-26] MEDS: DIPHENHYDRAMINE 50MG CAPSULE PO PRN (09:41)
[2018-01-26] MEDS: MONTELUKAST SODIUM 10MG TABLET PO SCH (18:44)
[2018-01-27] MEDS ORDERED: FAMOTIDINE 20MG TABLET PO SCH (09:00)
== END 2018-01-26 20:08 | disposition home or self-care (01) | DRG 816 ==
LOC: ER 18:17 → EDBEDREQ 18:50 → 7WST 20:41 → EDBEDREQ 20:52 → EDBEDREQTM 20:52 → ENRESERV 23:22
PROVIDERS: ADMIT Internal Medicine; ATTEND Internal Medicine
PROC: 5A09357 Assistance with Respiratory Ventilation, Less than 24 Consecutive Hours, Continuous Positive Airway Pressure (ICD-10-PCS; principal; 2018-01-23)
PROC: 5A09357 Assistance with Respiratory Ventilation, Less than 24 Consecutive Hours, Continuous Positive Airway Pressure (ICD-10-PCS; 2018-01-25)
DX: T40.5X1A Poisoning by cocaine, accidental (unintentional), initial encounter (principal); J96.00 Acute respiratory failure, unspecified whether with hypoxia or hypercapnia; I50.33 Acute on chronic diastolic (congestive) heart failure; I27.20 Pulmonary hypertension, unspecified; J84.9 Interstitial pulmonary disease, unspecified; E66.2 Morbid (severe) obesity with alveolar hypoventilation; E44.1 Mild protein-calorie malnutrition; I48.92 Unspecified atrial flutter; Z99.81 Dependence on supplemental oxygen; I11.0 Hypertensive heart disease with heart failure; J68.0 Bronchitis and pneumonitis due to chemicals, gases, fumes and vapors; T60.91XA Toxic effect of unspecified pesticide, accidental (unintentional), initial encounter; L30.9 Dermatitis, unspecified; B86 Scabies; F14.10 Cocaine abuse, uncomplicated; F17.210 Nicotine dependence, cigarettes, uncomplicated; Z79.899 Other long term (current) drug therapy; Z88.0 Allergy status to penicillin; Z88.6 Allergy status to analgesic agent; Y92.89 Other specified places as the place of occurrence of the external cause; Z80.9 Family history of malignant neoplasm, unspecified; Z71.6 Tobacco abuse counseling; Z68.43 Body mass index [BMI] 50.0-59.9, adult
CPT/HCPCS: 36415; 71045; 80048; 80053; 80305; 81003; 82550; 82553; 83735; 83880; 84484; 85025; 85379; 85610; 85730; 87389; 93005; 93306; 93970; 94640; 96374; 96375; 99285; C1893; J1200; J1940; J2270; J2920; J2930; J7512; J7611; J7620; J7626; Q0163

== ENCOUNTER 2018-03-08 07:28 | Inpatient (IN) | payer MEDICAID ==
[~2018-03-08] VITALS: Ht 167.6 cm; Wt 152.6 kg
[~2018-03-08 07:28] MED LIST changes: -AMLO5TAB88 PO; -HYDR-4135 PO; -LISI-604 PO; -METH4TAB17 PO; -P20 PO
[2018-03-08] MEDS ORDERED: MORPHINE SULFATE 4 MG/ML CPJ (NOT FOR IM USE) IV STA (07:51)
[2018-03-08] MEDS ORDERED: METHYLPREDNISOLONE SOD SUCC 125 MG/2 ML VIAL IV STA (07:51)
[2018-03-08] MEDS ORDERED: ALBUTEROL (0.083%) 2.5MG/3ML NEB HHN STA (07:51)
[2018-03-08] MEDS ORDERED: IPRATROPIUM BROMIDE (0.02%) 0.5MG/2.5ML NEB HHN STA (07:51)
[2018-03-08] MEDS ORDERED: ONDANSETRON HCL 4MG/2ML INJ IV STA (07:51)
[2018-03-08] MEDS ORDERED: LEVOFLOXACIN 750MG PREMIX 150 ML IV ONE (08:00)
[2018-03-08] MEDS ORDERED: ASPIRIN 325MG TABLET PO ONE (08:00)
[2018-03-08 08:53] LABS: BASOPHILS % 0.5 % (0.0-2.0); HEMATOCRIT. 42.2 % (36.0-48.0); HEMOGLOBIN. 13.5 g/dL (12.0-16.0); LYMPHOCYTES % 19.1 % (20.0-50.0); MEAN CORPUSCULAR HEMOGLOBIN 28.1 pg (28.0-32.0); MEAN CORPUSCULAR VOLUME 87.9 fL (81.0-99.0); MEAN PLATELET VOLUME 8.7 fl (7.4-10.4); MONOCYTES % 7.9 % (2.0-8.0); NEUTROPHILS % 67.5 % (40.0-76.0); PLATELET 195 x1000/uL (130-400); RED CELL DISTRIBUTION WIDTH 17.2 % (11.6-14.6)
[2018-03-08 08:54] LABS: CHLORIDE 103 mEq/L (98-107)
[2018-03-08] MEDS ORDERED: FUROSEMIDE 40MG/4ML VIAL IVP ONE ×2 (09:00)
[2018-03-08] MEDS ORDERED: IPRATROPIUM/ALBUTEROL 0.5-3(2.5)MG/3ML NEB INH PRN (10:30)
[2018-03-08] MEDS ORDERED: MAGNESIUM/ALUMINUM HYDROXIDE/SIMETHICONE 30ML UDC PO PRN (10:30)
[2018-03-08] MEDS ORDERED: LORAZEPAM 2MG/ML CPJ IV PRN (10:30)
[2018-03-08] MEDS ORDERED: ONDANSETRON HCL 4MG/2ML INJ IV PRN (10:30)
[2018-03-08] MEDS ORDERED: DIPHENHYDRAMINE 50MG/ML VIAL IV PRN (10:30)
[2018-03-08] MEDS ORDERED: MORPHINE SULFATE 4 MG/ML CPJ (NOT FOR IM USE) IV PRN ×2 (10:30→14:15)
[2018-03-08] MEDS ORDERED: ACETAMINOPHEN 325MG TABLET PO PRN (10:30)
[2018-03-08] MEDS ORDERED: NA PHOS,M-B/NA PHOS,DI-BA ENEMA 118ML PR PRN (10:30)
[2018-03-08] MEDS ORDERED: DOCUSATE SODIUM 100MG CAPSULE PO PRN (10:30)
[2018-03-08 12:00] VITALS: BP 132/79
[2018-03-08] MEDS: ENOXAPARIN 40MG/0.4ML SYR SUBCUT SCH ×2 (12:59→21:24)
[2018-03-08] MEDS: METHYLPREDNISOLONE SOD SUCC 125 MG/2 ML VIAL IV SCH ×2 (13:00→17:12)
[2018-03-08 13:37] VITALS: BP 137/71
[2018-03-08] MEDS ORDERED: INFLUENZA VIRUS VACCINE(AFLURIA) 0.5ML SYR IM ONE (13:45)
[2018-03-08] MEDS ORDERED: PNEUMOCOCCAL 23-VAL P-SAC VAC 0.5 ML IM ONE (13:45)
[2018-03-08 14:34] LABS: BG BASE EXCESS -0.1 mmol/L (-2.0-2.0); BG CARBOXYHEMOGLOBIN 4.9 % (0.5-1.5); BG DEOXYHEMOGLOBIN 17.7 % (0.0-5.0); BG HCO3 ACT 29.8 mmol/L (22.0-26.0); BG METHEMOGLOBIN 0.4 % (0.0-1.5); BG OXYGEN SATURATION 81.3 % (92.0-98.5); BG PCO2 74.6 mmHg (35.0-45.0); BG PO2 52.9 mmHg (75.0-100.0); BG SAMPLE SITE RIGHT RADIAL; BG TOTAL HEMOGLOBIN 14.5 g/dL (12.0-18.0); BG VENT MODE NASAL CANNULA
[2018-03-08 15:46] LABS: CHLORIDE 102 mEq/L (98-107)
[2018-03-08 16:00] VITALS: BP 131/74
[2018-03-08] MEDS: IPRATROPIUM/ALBUTEROL 0.5-3(2.5)MG/3ML NEB HHN SCH ×3 (16:05→23:44)
[2018-03-08] MEDS ORDERED: MONTELUKAST SODIUM 10MG TABLET PO SCH (17:00)
[2018-03-08 20:00] VITALS: BP 124/75
[2018-03-08 22:55] LABS: BG BASE EXCESS 0.6 mmol/L (-2.0-2.0); BG BILEVEL POS AIRWAY PRESSURE 15/5; BG CARBOXYHEMOGLOBIN 2.9 % (0.5-1.5); BG DEOXYHEMOGLOBIN 4.9 % (0.0-5.0); BG FRACTION INSPIRED OXYGEN 40; BG HCO3 ACT 30.6 mmol/L (22.0-26.0); BG METHEMOGLOBIN 0.3 % (0.0-1.5); BG OXYGEN SATURATION 94.9 % (92.0-98.5); BG OXYHEMOGLOBIN 91.9 % (94.0-97.0); BG PCO2 77.4 mmHg (35.0-45.0); BG PH 7.215 (7.350-7.450); BG PO2 83.8 mmHg (75.0-100.0); BG SAMPLE SITE RIGHT RADIAL; BG TOTAL HEMOGLOBIN 13.7 g/dL (12.0-18.0); BG VENT MODE MASK - BIPAP; BG VENT RATE 22 set
[2018-03-08 23:30] VITALS: BP 123/70
[2018-03-09] VITALS (12 sets, daily range): BP systolic 121–174; BP diastolic 67–93
[2018-03-09 00:45] LABS: BG BASE EXCESS 0.8 mmol/L (-2.0-2.0); BG BILEVEL POS AIRWAY PRESSURE 18/5; BG CARBOXYHEMOGLOBIN 2.7 % (0.5-1.5); BG DEOXYHEMOGLOBIN 3.1 % (0.0-5.0); BG FRACTION INSPIRED OXYGEN 40; BG HCO3 ACT 28.8 mmol/L (22.0-26.0); BG METHEMOGLOBIN 0.4 % (0.0-1.5); BG OXYGEN SATURATION 96.8 % (92.0-98.5); BG OXYHEMOGLOBIN 93.8 % (94.0-97.0); BG PCO2 61.5 mmHg (35.0-45.0); BG PH 7.289 (7.350-7.450); BG PO2 91.3 mmHg (75.0-100.0); BG SAMPLE SITE RIGHT RADIAL; BG TOTAL HEMOGLOBIN 13.9 g/dL (12.0-18.0); BG VENT MODE MASK - BIPAP; BG VENT RATE 30 set
[2018-03-09] MEDS: METHYLPREDNISOLONE SOD SUCC 125 MG/2 ML VIAL IV SCH ×5 (00:46→23:49)
[2018-03-09] MEDS: IPRATROPIUM/ALBUTEROL 0.5-3(2.5)MG/3ML NEB HHN SCH ×5 (04:58→20:26)
[2018-03-09 05:05] LABS: BG BILEVEL POS AIRWAY PRESSURE 18/5; BG CARBOXYHEMOGLOBIN 2.2 % (0.5-1.5); BG DEOXYHEMOGLOBIN 9.5 % (0.0-5.0); BG FRACTION INSPIRED OXYGEN 40; BG HCO3 ACT 30.9 mmol/L (22.0-26.0); BG METHEMOGLOBIN 0.4 % (0.0-1.5); BG OXYGEN SATURATION 90.2 % (92.0-98.5); BG OXYHEMOGLOBIN 87.9 % (94.0-97.0); BG PCO2 68.9 mmHg (35.0-45.0); BG PH 7.269 (7.350-7.450); BG PO2 61.3 mmHg (75.0-100.0); BG SAMPLE SITE RIGHT RADIAL; BG TOTAL HEMOGLOBIN 13.7 g/dL (12.0-18.0); BG VENT MODE MASK - BIPAP; BG VENT RATE 30 set
[2018-03-09] MEDS: GUAIFENESIN 200MG/10ML SUGAR FREE UDC PO PRN ×2 (06:19→23:56)
[2018-03-09] MEDS: HYDROCODONE/ACETAMINOPHEN 10/325MG TABLET PO PRN ×2 (06:20→21:16)
[2018-03-09 06:41] LABS: HEMOGLOBIN. 12.7 g/dL (12.0-16.0); MEAN CORPUSCULAR HEMOGLOBIN 28.5 pg (28.0-32.0); MEAN CORPUSCULAR VOLUME 89.7 fL (81.0-99.0); MEAN PLATELET VOLUME 8.9 fl (7.4-10.4); PLATELET 192 x1000/uL (130-400); RED BLOOD CELL COUNT 4.46 mill/uL (4.2-5.4)
[2018-03-09 07:01] LABS: CHLORIDE 103 mEq/L (98-107)
[2018-03-09 07:10] LABS: *AMPHETAMINES SCREEN URINE NEGATIVE (NEGATIVE); PHENCYCLIDINE URINE SCREEN NEGATIVE (NEGATIVE)
[2018-03-09 07:11] LABS: *BARBITURATES SCREEN URINE NEGATIVE (NEGATIVE); *BENZODIAZEPINES SCREEN URINE NEGATIVE (NEGATIVE); *COCAINE SCREEN URINE PRESUMTIVE POSITIVE (NEGATIVE); CANNABINOID URINE SCREEN NEGATIVE (NEGATIVE); METHADONE URINE SCREEN NEGATIVE (NEGATIVE); OPIATES URINE SCREEN PRESUMTIVE POSITIVE (NEGATIVE)
[2018-03-09 07:18] LABS: LDL CHOLESTEROL 98 mg/dL (5-100)
[2018-03-09 07:19] LABS: HDL CHOLESTEROL 92 mg/dL (40-59); T4 FREE 0.84 ng/dL (0.76-1.46)
[2018-03-09] MEDS: THEOPHYLLINE ANHYDROUS 80 MG/15 ML 120ML PO SCH ×3 (08:21→22:08)
[2018-03-09] MEDS: ASPIRIN 81MG EC TABLET PO SCH (08:21)
[2018-03-09] MEDS: ENOXAPARIN 40MG/0.4ML SYR SUBCUT SCH ×2 (08:21→20:52)
[2018-03-09] MEDS ORDERED: LEVOFLOXACIN 500MG PREMIX 100 ML IV SCH (09:00)
[2018-03-09 09:30] LABS: BG BASE EXCESS -0.4 mmol/L (-2.0-2.0); BG CARBOXYHEMOGLOBIN 1.8 % (0.5-1.5); BG DEOXYHEMOGLOBIN 8.3 % (0.0-5.0); BG FRACTION INSPIRED OXYGEN 34; BG HCO3 ACT 28.5 mmol/L (22.0-26.0); BG METHEMOGLOBIN 0.4 % (0.0-1.5); BG OXYGEN SATURATION 91.5 % (92.0-98.5); BG OXYHEMOGLOBIN 89.5 % (94.0-97.0); BG PCO2 67.9 mmHg (35.0-45.0); BG PH 7.241 (7.350-7.450); BG PO2 64.5 mmHg (75.0-100.0); BG SAMPLE SITE LEFT RADIAL; BG TOTAL HEMOGLOBIN 13.3 g/dL (12.0-18.0); BG VENT MODE NASAL CANNULA
[2018-03-09 10:19] LABS: PLATELET ESTIMATE NORMAL
[2018-03-09] MEDS ORDERED: LIDOCAINE HCL/PF 1% 2ML VIAL ONE ×2 (13:50→13:57)
[2018-03-09 14:21] LABS: BG BASE EXCESS -0.4 mmol/L (-2.0-2.0); BG BILEVEL POS AIRWAY PRESSURE 18/5; BG CARBOXYHEMOGLOBIN 1.4 % (0.5-1.5); BG DEOXYHEMOGLOBIN 5.5 % (0.0-5.0); BG FRACTION INSPIRED OXYGEN 40; BG HCO3 ACT 26.7 mmol/L (22.0-26.0); BG METHEMOGLOBIN 0.5 % (0.0-1.5); BG OXYGEN SATURATION 94.4 % (92.0-98.5); BG OXYHEMOGLOBIN 92.6 % (94.0-97.0); BG PCO2 54.6 mmHg (35.0-45.0); BG PH 7.307 (7.350-7.450); BG SAMPLE SITE LEFT RADIAL; BG TOTAL HEMOGLOBIN 12.9 g/dL (12.0-18.0); BG VENT MODE MASK - BIPAP
[2018-03-09] MEDS ORDERED: FUROSEMIDE 40MG/4ML VIAL IVP NR (16:15)
[2018-03-09] MEDS: CLONIDINE 0.1MG TABLET PO PRN (21:04)
[2018-03-10] VITALS (14 sets, daily range): BP systolic 130–170; BP diastolic 54–129
[2018-03-10] MEDS: IPRATROPIUM/ALBUTEROL 0.5-3(2.5)MG/3ML NEB HHN SCH ×5 (04:43→21:13)
[2018-03-10] MEDS: METHYLPREDNISOLONE SOD SUCC 125 MG/2 ML VIAL IV SCH ×4 (06:01→23:35)
[2018-03-10] MEDS: THEOPHYLLINE ANHYDROUS 80 MG/15 ML 120ML PO SCH ×3 (06:02→21:30)
[2018-03-10] MEDS: ASPIRIN 81MG EC TABLET PO SCH (09:09)
[2018-03-10] MEDS: ENOXAPARIN 40MG/0.4ML SYR SUBCUT SCH ×2 (09:11→21:30)
[2018-03-10] MEDS: LEVOFLOXACIN 500MG PREMIX 100 ML IV SCH (09:12)
[2018-03-10 09:14] LABS: BG BASE EXCESS 0.6 mmol/L (-2.0-2.0); BG CARBOXYHEMOGLOBIN 0.7 % (0.5-1.5); BG DEOXYHEMOGLOBIN 5.7 % (0.0-5.0); BG HCO3 ACT 26.5 mmol/L (22.0-26.0); BG METHEMOGLOBIN 0.3 % (0.0-1.5); BG OXYGEN SATURATION 94.2 % (92.0-98.5); BG OXYHEMOGLOBIN 93.3 % (94.0-97.0); BG PCO2 47.6 mmHg (35.0-45.0); BG PH 7.364 (7.350-7.450); BG PO2 72.7 mmHg (75.0-100.0); BG SAMPLE SITE RIGHT RADIAL; BG TOTAL HEMOGLOBIN 13.6 g/dL (12.0-18.0); BG VENT MODE NASAL CANNULA
[2018-03-10] MEDS ORDERED: LIDOCAINE HCL/PF 1% 2ML VIAL ONE (13:13)
[2018-03-10] MEDS: GUAIFENESIN 200MG/10ML SUGAR FREE UDC PO PRN (14:37)
[2018-03-10] MEDS: HYDROCODONE/ACETAMINOPHEN 10/325MG TABLET PO PRN ×2 (14:41→22:25)
[2018-03-10] MEDS: AMLODIPINE 5MG TABLET PO SCH (14:45)
[2018-03-10] MEDS: CLONIDINE 0.1MG TABLET PO PRN (16:43)
[2018-03-11] VITALS (10 sets, daily range): BP systolic 122–182; BP diastolic 63–111
[2018-03-11] MEDS: IPRATROPIUM/ALBUTEROL 0.5-3(2.5)MG/3ML NEB HHN SCH ×5 (01:01→15:54)
[2018-03-11] MEDS: GUAIFENESIN 200MG/10ML SUGAR FREE UDC PO PRN (05:55)
[2018-03-11] MEDS: METHYLPREDNISOLONE SOD SUCC 125 MG/2 ML VIAL IV SCH ×3 (05:55→18:00)
[2018-03-11] MEDS: THEOPHYLLINE ANHYDROUS 80 MG/15 ML 120ML PO SCH ×2 (05:56→14:00)
[2018-03-11] MEDS: HYDROCODONE/ACETAMINOPHEN 10/325MG TABLET PO PRN (08:23)
[2018-03-11] MEDS: ASPIRIN 81MG EC TABLET PO SCH (08:23)
[2018-03-11] MEDS: AMLODIPINE 5MG TABLET PO SCH (08:23)
[2018-03-11] MEDS: ENOXAPARIN 40MG/0.4ML SYR SUBCUT SCH (08:24)
[2018-03-11] MEDS: LEVOFLOXACIN 500MG PREMIX 100 ML IV SCH (08:24)
[2018-03-11] MEDS: CLONIDINE 0.1MG TABLET PO PRN (11:48)
== END 2018-03-11 18:55 | disposition home or self-care (01) | DRG 816 ==
LOC: ER 07:28 → 5WST 09:40 → EDBEDREQ 09:43 → ENRESERV 10:56 → 3WST 03-09 00:13
PROVIDERS: ADMIT Internal Medicine; ATTEND Internal Medicine
PROC: 5A09357 Assistance with Respiratory Ventilation, Less than 24 Consecutive Hours, Continuous Positive Airway Pressure (ICD-10-PCS; principal; 2018-03-08)
PROC: 5A09357 Assistance with Respiratory Ventilation, Less than 24 Consecutive Hours, Continuous Positive Airway Pressure (ICD-10-PCS; 2018-03-09)
DX: T40.5X1A Poisoning by cocaine, accidental (unintentional), initial encounter (principal); J96.20 Acute and chronic respiratory failure, unspecified whether with hypoxia or hypercapnia; I50.33 Acute on chronic diastolic (congestive) heart failure; J84.9 Interstitial pulmonary disease, unspecified; I27.20 Pulmonary hypertension, unspecified; I11.0 Hypertensive heart disease with heart failure; E87.2 Acidosis; R65.10 Systemic inflammatory response syndrome (SIRS) of non-infectious origin without acute organ dysfunction; E66.2 Morbid (severe) obesity with alveolar hypoventilation; J68.0 Bronchitis and pneumonitis due to chemicals, gases, fumes and vapors; F14.10 Cocaine abuse, uncomplicated; F17.210 Nicotine dependence, cigarettes, uncomplicated; Z88.0 Allergy status to penicillin; Z88.6 Allergy status to analgesic agent; Z79.899 Other long term (current) drug therapy; Z99.81 Dependence on supplemental oxygen; Z68.43 Body mass index [BMI] 50.0-59.9, adult; Z71.6 Tobacco abuse counseling; Y92.89 Other specified places as the place of occurrence of the external cause
CPT/HCPCS: 36415; 36600; 71045; 80048; 80061; 80305; 82375; 82805; 83605; 83880; 84439; 84443; 84484; 90686; 90732; 93005; 93306; 94640; 94644; 94660; 96365; 96366; 96375; 99285; J1650; J1940; J1956; J2270; J2405; J2930; J3490; J7050; J7611; J7620

== ENCOUNTER 2018-05-02 14:24 | Inpatient (IN) | payer MEDICAID ==
[~2018-05-02] VITALS: Ht 160 cm; Wt 149.7 kg
[2018-05-02] MEDS ORDERED: LIDOCAINE HCL/PF 1% 2ML VIAL ONE (14:39)
[2018-05-02] MEDS ORDERED: METHYLPREDNISOLONE SOD SUCC 125 MG/2 ML VIAL IV STA (14:42)
[2018-05-02] MEDS ORDERED: IPRATROPIUM/ALBUTEROL 0.5-3(2.5)MG/3ML NEB HHN ONE (14:45)
[2018-05-02] MEDS ORDERED: MAGNESIUM 2 G PREMIX 50 ML IV ONE (14:45)
[2018-05-02 15:49] LABS: EOSINOPHILS % 3.1 % (0.0-5.0); HEMATOCRIT. 44.2 % (36.0-48.0); HEMOGLOBIN. 14.3 g/dL (12.0-16.0); LYMPHOCYTES % 19.1 % (20.0-50.0); MEAN CORPUSCULAR HEMOGLOBIN 28.5 pg (28.0-32.0); MEAN CORPUSCULAR VOLUME 87.9 fL (81.0-99.0); MEAN PLATELET VOLUME 9.1 fl (7.4-10.4); MONOCYTES % 8.5 % (2.0-8.0); NEUTROPHILS % 68.3 % (40.0-76.0); PLATELET 237 x1000/uL (130-400); RED BLOOD CELL COUNT 5.03 mill/uL (4.2-5.4); RED CELL DISTRIBUTION WIDTH 17.2 % (11.6-14.6)
[2018-05-02 15:54] LABS: CHLORIDE 100 mEq/L (98-107); PROTHROMBIN TIME 10.3 sec (9.1-11.1)
[2018-05-02] MEDS ORDERED: FUROSEMIDE 40MG/4ML VIAL IVP NR (16:30)
[2018-05-02] MEDS ORDERED: HYDROCODONE/ACETAMINOPHEN 5/325MG TABLET PO ONE (17:00)
[2018-05-02] MEDS ORDERED: LEVOFLOXACIN 750MG PREMIX 150 ML IV ONE (17:30)
[2018-05-02 17:58] LABS: BG BILEVEL POS AIRWAY PRESSURE 15/5; BG CARBOXYHEMOGLOBIN 6.5 % (0.5-1.5); BG HCO3 ACT 28.8 mmol/L (22.0-26.0); BG METHEMOGLOBIN 0.3 % (0.0-1.5); BG OXYGEN SATURATION 96.8 % (92.0-98.5); BG OXYHEMOGLOBIN 90.2 % (94.0-97.0); BG PCO2 65.2 mmHg (35.0-45.0); BG PH 7.263 (7.350-7.450); BG SAMPLE SITE LEFT RADIAL; BG VENT MODE MASK - BIPAP; BG VENT RATE 14 set
[2018-05-02 20:46] VITALS: BP 158/100
[2018-05-02 21:00] VITALS: BP 158/100
[2018-05-02 22:00] VITALS: BP 149/112
[2018-05-02] MEDS ORDERED: AMLO5TAB88 MT (22:05)
[2018-05-02] MEDS ORDERED: ACETAMINOPHEN 650MG/20.3ML UDC PO PRN (23:15)
[2018-05-02] MEDS ORDERED: IPRATROPIUM/ALBUTEROL 0.5-3(2.5)MG/3ML NEB HHN PRN (23:15)
[2018-05-02] MEDS: GUAIFENESIN/CODEINE 100-10MG/5ML UDC PO PRN (23:34)
[2018-05-02] MEDS: HYDROCODONE/ACETAMINOPHEN 5/325MG TABLET PO PRN (23:38)
[2018-05-02] MEDS: METHYLPREDNISOLONE SOD SUCC 40 MG/ML VIAL IV SCH (23:38)
[2018-05-03] VITALS (13 sets, daily range): BP systolic 93–174; BP diastolic 52–110
[2018-05-03] MEDS: IPRATROPIUM/ALBUTEROL 0.5-3(2.5)MG/3ML NEB HHN SCH ×4 (04:24→20:27)
[2018-05-03 06:54] LABS: BASOPHILS % 0.1 % (0.0-2.0); HEMATOCRIT. 42.1 % (36.0-48.0); HEMOGLOBIN. 13.4 g/dL (12.0-16.0); LYMPHOCYTES % 9.7 % (20.0-50.0); MEAN CORPUSCULAR HEMOGLOBIN 28.3 pg (28.0-32.0); MEAN CORPUSCULAR VOLUME 88.8 fL (81.0-99.0); MEAN PLATELET VOLUME 9.3 fl (7.4-10.4); MONOCYTES % 1.5 % (2.0-8.0); NEUTROPHILS % 88.7 % (40.0-76.0); PLATELET 214 x1000/uL (130-400); RED BLOOD CELL COUNT 4.74 mill/uL (4.2-5.4); RED CELL DISTRIBUTION WIDTH 17.1 % (11.6-14.6)
[2018-05-03 06:55] LABS: CHLORIDE 100 mEq/L (98-107)
[2018-05-03 08:18] LABS: CLARITY URINE CLEAR (CLEAR); COLOR URINE YELLOW (YELLOW); KETONES URINE NEGATIVE (NEGATIVE); LEUKOCYTE ESTERASE URINE NEGATIVE (NEGATIVE); NITRITE URINE NEGATIVE (NEGATIVE); OCCULT BLOOD URINE NEGATIVE (NEGATIVE); PH URINE 5.5 (4.5-8.0); PROTEIN URINE NEGATIVE (NEGATIVE); SPECIFIC GRAVITY URINE 1.021 (1.005-1.030); UROBILINOGEN URINE 0.2 E.U./dL (0.2-1.0)
[2018-05-03] MEDS ORDERED: AMLODIPINE 5MG TABLET PO SCH (09:00)
[2018-05-03] MEDS: FUROSEMIDE 40MG/4ML VIAL IVP SCH (10:42)
[2018-05-03] MEDS: METHYLPREDNISOLONE SOD SUCC 40 MG/ML VIAL IV SCH ×2 (10:43→17:26)
[2018-05-03] MEDS: ENOXAPARIN 30MG/0.3ML SYR SUBCUT SCH ×2 (10:47→20:48)
[2018-05-03] MEDS: GUAIFENESIN/CODEINE 100-10MG/5ML UDC PO PRN ×2 (10:48→20:49)
[2018-05-03] MEDS: LOSARTAN POTASSIUM 25 MG TABLET PO SCH ×2 (13:22→20:48)
[2018-05-03] MEDS: ASPIRIN 81MG EC TABLET PO SCH (13:22)
[2018-05-03] MEDS: AMLODIPINE 5MG TABLET PO SCH (20:48)
[2018-05-03] MEDS: HYDROCODONE/ACETAMINOPHEN 5/325MG TABLET PO PRN (20:49)
[2018-05-04] VITALS (20 sets, daily range): BP systolic 131–204; BP diastolic 44–185
[2018-05-04] MEDS: METHYLPREDNISOLONE SOD SUCC 40 MG/ML VIAL IV SCH ×4 (00:07→23:44)
[2018-05-04] MEDS: IPRATROPIUM/ALBUTEROL 0.5-3(2.5)MG/3ML NEB HHN SCH ×4 (01:52→20:36)
[2018-05-04] MEDS: GUAIFENESIN/CODEINE 100-10MG/5ML UDC PO PRN ×3 (04:34→21:08)
[2018-05-04 07:14] LABS: METHADONE URINE SCREEN NEGATIVE (NEGATIVE); OPIATES URINE SCREEN PRESUMTIVE POSITIVE (NEGATIVE)
[2018-05-04 07:15] LABS: *AMPHETAMINES SCREEN URINE NEGATIVE (NEGATIVE); *BARBITURATES SCREEN URINE NEGATIVE (NEGATIVE); *BENZODIAZEPINES SCREEN URINE PRESUMTIVE POSITIVE (NEGATIVE); *COCAINE SCREEN URINE PRESUMTIVE POSITIVE (NEGATIVE); CANNABINOID URINE SCREEN NEGATIVE (NEGATIVE); PHENCYCLIDINE URINE SCREEN NEGATIVE (NEGATIVE)
[2018-05-04] MEDS: FUROSEMIDE 40MG/4ML VIAL IVP SCH ×2 (09:00→09:05)
[2018-05-04] MEDS: ASPIRIN 81MG EC TABLET PO SCH (09:06)
[2018-05-04] MEDS: LOSARTAN POTASSIUM 25 MG TABLET PO SCH ×2 (09:06→21:09)
[2018-05-04] MEDS: AMLODIPINE 5MG TABLET PO SCH ×2 (09:06→21:10)
[2018-05-04] MEDS: ENOXAPARIN 30MG/0.3ML SYR SUBCUT SCH ×2 (09:07→21:08)
[2018-05-04] MEDS: HYDROCODONE/ACETAMINOPHEN 5/325MG TABLET PO PRN ×2 (09:30→21:09)
[2018-05-04 09:45] LABS: CHLORIDE 101 mEq/L (98-107)
[2018-05-04 09:48] LABS: HEMATOCRIT. 43.1 % (36.0-48.0); HEMOGLOBIN. 13.5 g/dL (12.0-16.0); MEAN CORPUSCULAR HEMOGLOBIN 27.9 pg (28.0-32.0); MEAN CORPUSCULAR VOLUME 89.5 fL (81.0-99.0); MEAN PLATELET VOLUME 9.5 fl (7.4-10.4); PLATELET 227 x1000/uL (130-400); RED BLOOD CELL COUNT 4.82 mill/uL (4.2-5.4); RED CELL DISTRIBUTION WIDTH 16.8 % (11.6-14.6)
[2018-05-04 09:54] LABS: CREATINE KINASE 171 IU/L (26-192)
[2018-05-04 09:56] LABS: CREATINE KINASE MB FRACTION 2.1 ng/mL (0.5-3.6)
[2018-05-04 10:36] LABS: PLATELET ESTIMATE NORMAL
[2018-05-04] MEDS: CALCIUM CARBONATE 500MG TABLET CHEW PO PRN (22:36)
[2018-05-04] MEDS: CLONIDINE 0.2MG TABLET PO PRN (23:53)
[2018-05-05] VITALS (13 sets, daily range): BP systolic 116–205; BP diastolic 58–145
[2018-05-05] MEDS: IPRATROPIUM/ALBUTEROL 0.5-3(2.5)MG/3ML NEB HHN SCH ×4 (01:56→20:37)
[2018-05-05] MEDS: METHYLPREDNISOLONE SOD SUCC 40 MG/ML VIAL IV SCH ×3 (08:53→23:52)
[2018-05-05] MEDS: FUROSEMIDE 40MG/4ML VIAL IVP SCH (08:56)
[2018-05-05] MEDS: AMLODIPINE 5MG TABLET PO SCH ×2 (08:56→21:00)
[2018-05-05] MEDS: ASPIRIN 81MG EC TABLET PO SCH (08:57)
[2018-05-05] MEDS: LOSARTAN POTASSIUM 25 MG TABLET PO SCH (08:57)
[2018-05-05] MEDS: HYDROCODONE/ACETAMINOPHEN 5/325MG TABLET PO PRN ×2 (08:57→21:00)
[2018-05-05] MEDS: GUAIFENESIN/CODEINE 100-10MG/5ML UDC PO PRN ×2 (08:58→20:59)
[2018-05-05] MEDS: ENOXAPARIN 30MG/0.3ML SYR SUBCUT SCH ×2 (08:58→20:59)
[2018-05-05] MEDS: CLONIDINE 0.2MG TABLET PO PRN (12:39)
[2018-05-05] MEDS: CALCIUM CARBONATE 500MG TABLET CHEW PO PRN (12:52)
[2018-05-05] MEDS: LOSARTAN POTASSIUM 50 MG TABLET PO SCH (21:00)
[2018-05-06] VITALS (14 sets, daily range): BP systolic 114–180; BP diastolic 45–109
[2018-05-06] MEDS: IPRATROPIUM/ALBUTEROL 0.5-3(2.5)MG/3ML NEB HHN SCH ×3 (02:18→14:08)
[2018-05-06] MEDS: CLONIDINE 0.2MG TABLET PO PRN (03:53)
[2018-05-06] MEDS: CALCIUM CARBONATE 500MG TABLET CHEW PO PRN ×2 (04:32→14:10)
[2018-05-06 06:43] LABS: HEMATOCRIT. 41.9 % (36.0-48.0); HEMOGLOBIN. 13.1 g/dL (12.0-16.0); MEAN CORPUSCULAR HEMOGLOBIN 27.9 pg (28.0-32.0); MEAN CORPUSCULAR VOLUME 88.8 fL (81.0-99.0); MEAN PLATELET VOLUME 9.5 fl (7.4-10.4); PLATELET 209 x1000/uL (130-400); RED BLOOD CELL COUNT 4.71 mill/uL (4.2-5.4)
[2018-05-06 07:37] LABS: CHLORIDE 101 mEq/L (98-107)
[2018-05-06] MEDS: FUROSEMIDE 40MG/4ML VIAL IVP SCH ×2 (09:00→13:09)
[2018-05-06] MEDS: METHYLPREDNISOLONE SOD SUCC 40 MG/ML VIAL IV SCH ×2 (09:47→17:48)
[2018-05-06] MEDS: HYDROCODONE/ACETAMINOPHEN 5/325MG TABLET PO PRN (09:49)
[2018-05-06] MEDS: ASPIRIN 81MG EC TABLET PO SCH (09:50)
[2018-05-06] MEDS: AMLODIPINE 5MG TABLET PO SCH (09:50)
[2018-05-06] MEDS: LOSARTAN POTASSIUM 50 MG TABLET PO SCH (09:50)
[2018-05-06] MEDS: ENOXAPARIN 30MG/0.3ML SYR SUBCUT SCH (09:51)
[2018-05-06] MEDS: GUAIFENESIN/CODEINE 100-10MG/5ML UDC PO PRN (09:51)
[2018-05-06] MEDS ORDERED: LOSARTAN POTASSIUM 50 MG TABLET PO SCH (13:30)
[2018-05-06 13:56] LABS: PLATELET ESTIMATE NORMAL
[2018-05-06] MEDS ORDERED: CLONIDINE 0.1MG TABLET PO SCH (14:00)
[2018-05-06] MEDS ORDERED: SODIUM POLYSTYRENE SULFONATE 15 G/60 ML BOT PO SCH (15:00)
== END 2018-05-06 20:45 | disposition home or self-care (01) | DRG 140 ==
LOC: ER 14:35 → 5EST 14:46 → EDBEDREQSVC 18:30 → EDBEDREQ 18:30 → ENRESERV 19:41
PROVIDERS: ADMIT Internal Medicine; ATTEND Internal Medicine
PROC: 5A09357 Assistance with Respiratory Ventilation, Less than 24 Consecutive Hours, Continuous Positive Airway Pressure (ICD-10-PCS; principal; 2018-05-02)
PROC: 5A09357 Assistance with Respiratory Ventilation, Less than 24 Consecutive Hours, Continuous Positive Airway Pressure (ICD-10-PCS; 2018-05-03)
DX: J44.1 Chronic obstructive pulmonary disease with (acute) exacerbation (principal); J96.01 Acute respiratory failure with hypoxia; I50.33 Acute on chronic diastolic (congestive) heart failure; J84.9 Interstitial pulmonary disease, unspecified; I24.9 Acute ischemic heart disease, unspecified; J96.02 Acute respiratory failure with hypercapnia; I11.0 Hypertensive heart disease with heart failure; R65.10 Systemic inflammatory response syndrome (SIRS) of non-infectious origin without acute organ dysfunction; E11.65 Type 2 diabetes mellitus with hyperglycemia; E66.01 Morbid (severe) obesity due to excess calories; F14.10 Cocaine abuse, uncomplicated; F17.200 Nicotine dependence, unspecified, uncomplicated; R00.0 Tachycardia, unspecified; G47.33 Obstructive sleep apnea (adult) (pediatric); J20.9 Acute bronchitis, unspecified; J00 Acute nasopharyngitis [common cold]; T38.0X5A Adverse effect of glucocorticoids and synthetic analogues, initial encounter; Z91.14 Patient's other noncompliance with medication regimen; Z98.891 History of uterine scar from previous surgery; Y92.89 Other specified places as the place of occurrence of the external cause; Z88.0 Allergy status to penicillin; Z88.6 Allergy status to analgesic agent; Z79.899 Other long term (current) drug therapy
CPT/HCPCS: 36415; 36600; 71045; 80048; 80305; 82375; 82550; 82553; 82805; 82962; 83735; 83880; 84132; 84443; 84484; 85379; 87804; 93005; 94640; 96365; 96367; 96375; 99291; J1650; J1940; J1956; J2920; J2930; J3475; J3490; J7620

== ENCOUNTER 2018-05-21 03:41 | Inpatient (IN) | payer MEDICAID ==
[2018-05-21] VITALS (36 sets, daily range): BP systolic 126–166; BP diastolic 71–111
[~2018-05-21] VITALS: Ht 160 cm; Wt 149.7 kg
[~2018-05-21 03:41] MED LIST changes: +AMLO5TAB88 MT
[2018-05-21] MEDS ORDERED: ONDANSETRON HCL 4MG/2ML INJ IV STA (03:46)
[2018-05-21] MEDS ORDERED: FUROSEMIDE 40MG/4ML VIAL IV ONE (04:00)
[2018-05-21] MEDS ORDERED: NITROGLYCERIN OINT 1GM/INCH UDPKT TD ONE (04:00)
[2018-05-21] MEDS ORDERED: METHYLPREDNISOLONE SOD SUCC 125 MG/2 ML VIAL IV STA (04:03)
[2018-05-21] MEDS ORDERED: IPRATROPIUM BROMIDE (0.02%) 0.5MG/2.5ML NEB HHN STA (04:03)
[2018-05-21] MEDS ORDERED: ALBUTEROL (0.083%) 2.5MG/3ML NEB HHN STA (04:03)
[2018-05-21 04:11] LABS: CHLORIDE 102 mEq/L (98-107)
[2018-05-21 04:15] LABS: BASOPHILS % 0.7 % (0.0-2.0); EOSINOPHILS % 2.2 % (0.0-5.0); HEMATOCRIT. 40.2 % (36.0-48.0); HEMOGLOBIN. 12.7 g/dL (12.0-16.0); LYMPHOCYTES % 17.2 % (20.0-50.0); MEAN CORPUSCULAR VOLUME 88.7 fL (81.0-99.0); MONOCYTES % 8.1 % (2.0-8.0); NEUTROPHILS % 71.8 % (40.0-76.0); PLATELET 163 x1000/uL (130-400); RED BLOOD CELL COUNT 4.53 mill/uL (4.2-5.4); RED CELL DISTRIBUTION WIDTH 17.9 % (11.6-14.6)
[2018-05-21 05:01] LABS: BG BASE EXCESS -0.3 mmol/L (-2.0-2.0); BG BILEVEL POS AIRWAY PRESSURE 20/5; BG CARBOXYHEMOGLOBIN 8.1 % (0.5-1.5); BG DEOXYHEMOGLOBIN 8.2 % (0.0-5.0); BG FRACTION INSPIRED OXYGEN 50; BG HCO3 ACT 29.3 mmol/L (22.0-26.0); BG METHEMOGLOBIN 0.2 % (0.0-1.5); BG OXYGEN SATURATION 91.1 % (92.0-98.5); BG OXYHEMOGLOBIN 83.5 % (94.0-97.0); BG PCO2 72.9 mmHg (35.0-45.0); BG PH 7.222 (7.350-7.450); BG PO2 69.2 mmHg (75.0-100.0); BG SAMPLE SITE RIGHT RADIAL; BG TOTAL HEMOGLOBIN 13.9 g/dL (12.0-18.0); BG VENT MODE MASK - BIPAP; BG VENT RATE 16 set
[2018-05-21 05:56] LABS: BG BILEVEL POS AIRWAY PRESSURE 20/8; BG CARBOXYHEMOGLOBIN 7.1 % (0.5-1.5); BG DEOXYHEMOGLOBIN 12.5 % (0.0-5.0); BG FRACTION INSPIRED OXYGEN 80; BG HCO3 ACT 28.8 mmol/L (22.0-26.0); BG METHEMOGLOBIN 0.2 % (0.0-1.5); BG OXYGEN SATURATION 86.5 % (92.0-98.5); BG OXYHEMOGLOBIN 80.2 % (94.0-97.0); BG PCO2 81.4 mmHg (35.0-45.0); BG PH 7.167 (7.350-7.450); BG PO2 63.6 mmHg (75.0-100.0); BG SAMPLE SITE RIGHT RADIAL; BG TOTAL HEMOGLOBIN 14.1 g/dL (12.0-18.0); BG VENT MODE MASK - BIPAP; BG VENT RATE 20 set
[2018-05-21] MEDS ORDERED: PROPOFOL 10MG/ML 100ML 100 ML IV ONE (06:15)
[2018-05-21] MEDS ORDERED: SUCCINYLCHOLINE CHLORIDE 200MG/10ML IV ONE (06:15)
[2018-05-21] MEDS ORDERED: ETOMIDATE 2MG/ML 10ML VIAL IV ONE (06:15)
[2018-05-21] MEDS ORDERED: IPRATROPIUM/ALBUTEROL 0.5-3(2.5)MG/3ML NEB HHN PRN (08:45)
[2018-05-21] MEDS ORDERED: ACETAMINOPHEN 325MG TABLET PO PRN (09:15)
[2018-05-21] MEDS ORDERED: ONDANSETRON HCL 4MG/2ML INJ IV PRN (09:15)
[2018-05-21] MEDS: FUROSEMIDE 40MG/4ML VIAL IVP SCH ×2 (09:35→17:53)
[2018-05-21 10:38] LABS: BG BASE EXCESS -0.3 mmol/L (-2.0-2.0); BG BILEVEL POS AIRWAY PRESSURE ST=20/5; BG CARBOXYHEMOGLOBIN 3.7 % (0.5-1.5); BG DEOXYHEMOGLOBIN 6.8 % (0.0-5.0); BG FRACTION INSPIRED OXYGEN 80; BG HCO3 ACT 31.6 mmol/L (22.0-26.0); BG METHEMOGLOBIN 0.2 % (0.0-1.5); BG OXYGEN SATURATION 92.9 % (92.0-98.5); BG OXYHEMOGLOBIN 89.3 % (94.0-97.0); BG PCO2 93.1 mmHg (35.0-45.0); BG PH 7.148 (7.350-7.450); BG PO2 80.3 mmHg (75.0-100.0); BG PRESSURE SUPPORT 15; BG SAMPLE SITE RIGHT RADIAL; BG TOTAL HEMOGLOBIN 14.4 g/dL (12.0-18.0); BG VENT MODE MASK - BIPAP; BG VENT RATE 22 set
[2018-05-21 11:26] LABS: CLARITY URINE CLOUDY (CLEAR); COLOR URINE YELLOW (YELLOW); KETONES URINE NEGATIVE (NEGATIVE); LEUKOCYTE ESTERASE URINE TRACE (NEGATIVE); NITRITE URINE NEGATIVE (NEGATIVE); OCCULT BLOOD URINE TRACE (NEGATIVE); PROTEIN URINE NEGATIVE (NEGATIVE); SPECIFIC GRAVITY URINE 1.009 (1.005-1.030); UROBILINOGEN URINE 0.2 E.U./dL (0.2-1.0)
[2018-05-21 12:08] LABS: *AMPHETAMINES SCREEN URINE NEGATIVE (NEGATIVE); *BARBITURATES SCREEN URINE NEGATIVE (NEGATIVE); CANNABINOID URINE SCREEN NEGATIVE (NEGATIVE); PHENCYCLIDINE URINE SCREEN NEGATIVE (NEGATIVE)
[2018-05-21 12:09] LABS: *COCAINE SCREEN URINE PRESUMTIVE POSITIVE (NEGATIVE)
[2018-05-21 12:10] LABS: OPIATES URINE SCREEN NEGATIVE (NEGATIVE)
[2018-05-21] MEDS: IPRATROPIUM/ALBUTEROL 0.5-3(2.5)MG/3ML NEB HHN SCH ×3 (12:10→20:39)
[2018-05-21 12:11] LABS: METHADONE URINE SCREEN NEGATIVE (NEGATIVE)
[2018-05-21 12:12] LABS: *BENZODIAZEPINES SCREEN URINE NEGATIVE (NEGATIVE)
[2018-05-21] MEDS: PANTOPRAZOLE SODIUM 40 MG/VIAL IV SCH (13:50)
[2018-05-21] MEDS: METHYLPREDNISOLONE SOD SUCC 40 MG/ML VIAL IV SCH ×2 (13:50→22:04)
[2018-05-21] MEDS: ENOXAPARIN 30MG/0.3ML SYR SUBCUT SCH (13:51)
[2018-05-21] MEDS: HYDROCODONE/ACETAMINOPHEN 5/325MG TABLET PO PRN ×2 (13:51→19:00)
[2018-05-21 22:35] LABS: T4 FREE 0.84 ng/dL (0.76-1.46)
[2018-05-21 22:37] LABS: CREATINE KINASE MB FRACTION 2.9 ng/mL (0.5-3.6)
[2018-05-22] VITALS (39 sets, daily range): BP systolic 69–165; BP diastolic 35–131
[2018-05-22] MEDS: IPRATROPIUM/ALBUTEROL 0.5-3(2.5)MG/3ML NEB HHN SCH ×6 (00:24→20:35)
[2018-05-22] MEDS: ENOXAPARIN 30MG/0.3ML SYR SUBCUT SCH ×2 (02:38→13:21)
[2018-05-22] MEDS: METHYLPREDNISOLONE SOD SUCC 40 MG/ML VIAL IV SCH (05:48)
[2018-05-22] MEDS: HYDROCODONE/ACETAMINOPHEN 5/325MG TABLET PO PRN ×3 (06:10→22:04)
[2018-05-22 06:22] LABS: BASOPHILS % 0.5 % (0.0-2.0); HEMATOCRIT. 41.1 % (36.0-48.0); HEMOGLOBIN. 12.4 g/dL (12.0-16.0); LYMPHOCYTES % 7.4 % (20.0-50.0); MEAN CORPUSCULAR HEMOGLOBIN 27.9 pg (28.0-32.0); MEAN CORPUSCULAR VOLUME 92.5 fL (81.0-99.0); MEAN PLATELET VOLUME 8.4 fl (7.4-10.4); MONOCYTES % 5.4 % (2.0-8.0); NEUTROPHILS % 86.7 % (40.0-76.0); PLATELET 157 x1000/uL (130-400); RED BLOOD CELL COUNT 4.44 mill/uL (4.2-5.4); RED CELL DISTRIBUTION WIDTH 17.6 % (11.6-14.6)
[2018-05-22 06:27] LABS: CHLORIDE 99 mEq/L (98-107)
[2018-05-22 06:35] LABS: CREATINE KINASE 64 IU/L (26-192)
[2018-05-22 06:37] LABS: CREATINE KINASE MB FRACTION 2.2 ng/mL (0.5-3.6)
[2018-05-22 07:30] LABS: BG BASE EXCESS 5.4 mmol/L (-2.0-2.0); BG BILEVEL POS AIRWAY PRESSURE 20/5; BG CARBOXYHEMOGLOBIN 1.3 % (0.5-1.5); BG DEOXYHEMOGLOBIN 2.4 % (0.0-5.0); BG HCO3 ACT 36.3 mmol/L (22.0-26.0); BG METHEMOGLOBIN 0.4 % (0.0-1.5); BG OXYGEN SATURATION 97.6 % (92.0-98.5); BG OXYHEMOGLOBIN 95.9 % (94.0-97.0); BG PCO2 92.5 mmHg (35.0-45.0); BG PH 7.212 (7.350-7.450); BG PO2 104.5 mmHg (75.0-100.0); BG SAMPLE SITE RIGHT RADIAL; BG VENT MODE MASK - BIPAP; BG VENT RATE 22 set
[2018-05-22] MEDS ORDERED: TERBUTALINE SULFATE 1MG/ML VIAL SUBCUT SCH (07:45)
[2018-05-22] MEDS ORDERED: METHYLPREDNISOLONE SOD SUCC 125 MG/2 ML VIAL IV SCH (08:00)
[2018-05-22] MEDS: PANTOPRAZOLE SODIUM 40 MG/VIAL IV SCH (09:25)
[2018-05-22] MEDS: FUROSEMIDE 40MG/4ML VIAL IVP SCH ×2 (09:25→17:50)
[2018-05-22] MEDS: METHYLPREDNISOLONE SOD SUCC 125 MG/2 ML VIAL IV SCH ×2 (11:24→17:50)
[2018-05-22] MEDS ORDERED: LIDOCAINE HCL/PF 1% 2ML VIAL ONE (14:51)
[2018-05-22 16:19] LABS: CREATINE KINASE MB FRACTION 1.9 ng/mL (0.5-3.6)
[2018-05-22] MEDS: GUAIFENESIN-DM 200MG-20MG/10ML UDC PO PRN ×2 (17:51→22:03)
[2018-05-23] VITALS (25 sets, daily range): BP systolic 132–202; BP diastolic 70–131
[2018-05-23] MEDS: IPRATROPIUM/ALBUTEROL 0.5-3(2.5)MG/3ML NEB HHN SCH ×5 (00:26→20:33)
[2018-05-23] MEDS: ENOXAPARIN 30MG/0.3ML SYR SUBCUT SCH ×2 (01:03→14:21)
[2018-05-23] MEDS: METHYLPREDNISOLONE SOD SUCC 125 MG/2 ML VIAL IV SCH ×4 (01:03→17:39)
[2018-05-23 05:08] LABS: HEMATOCRIT. 38.9 % (36.0-48.0); MEAN CORPUSCULAR HEMOGLOBIN 27.8 pg (28.0-32.0); MEAN CORPUSCULAR VOLUME 90.2 fL (81.0-99.0); PLATELET 156 x1000/uL (130-400); RED BLOOD CELL COUNT 4.31 mill/uL (4.2-5.4); RED CELL DISTRIBUTION WIDTH 17.1 % (11.6-14.6)
[2018-05-23 05:09] LABS: CHLORIDE 97 mEq/L (98-107)
[2018-05-23 06:28] LABS: PLATELET ESTIMATE NORMAL
[2018-05-23] MEDS: FUROSEMIDE 40MG/4ML VIAL IVP SCH ×4 (09:00→17:39)
[2018-05-23] MEDS: PANTOPRAZOLE SODIUM 40 MG/VIAL IV SCH (09:04)
[2018-05-23] MEDS: AMLODIPINE 5MG TABLET PO SCH (09:05)
[2018-05-23 11:18] LABS: BG BASE EXCESS 11.9 mmol/L (-2.0-2.0); BG BILEVEL POS AIRWAY PRESSURE 20/5; BG CARBOXYHEMOGLOBIN 0.9 % (0.5-1.5); BG DEOXYHEMOGLOBIN 2.3 % (0.0-5.0); BG FRACTION INSPIRED OXYGEN 70; BG HCO3 ACT 41.2 mmol/L (22.0-26.0); BG METHEMOGLOBIN 0.1 % (0.0-1.5); BG OXYGEN SATURATION 97.7 % (92.0-98.5); BG OXYHEMOGLOBIN 96.7 % (94.0-97.0); BG PCO2 80.3 mmHg (35.0-45.0); BG PH 7.328 (7.350-7.450); BG SAMPLE SITE LEFT RADIAL; BG TOTAL HEMOGLOBIN 12.9 g/dL (12.0-18.0); BG VENT MODE MASK - BIPAP
[2018-05-23] MEDS ORDERED: LIDOCAINE HCL/PF 1% 2ML VIAL ONE (14:06)
[2018-05-23] MEDS: CLONIDINE 0.1MG TABLET PO PRN (14:21)
[2018-05-23] MEDS: GUAIFENESIN-DM 200MG-20MG/10ML UDC PO PRN (22:09)
[2018-05-23] MEDS: HYDROCODONE/ACETAMINOPHEN 5/325MG TABLET PO PRN (22:14)
[2018-05-24] VITALS (22 sets, daily range): BP systolic 123–166; BP diastolic 60–119
[2018-05-24] MEDS: IPRATROPIUM/ALBUTEROL 0.5-3(2.5)MG/3ML NEB HHN SCH ×6 (00:08→20:46)
[2018-05-24] MEDS: METHYLPREDNISOLONE SOD SUCC 125 MG/2 ML VIAL IV SCH ×5 (00:08→23:40)
[2018-05-24 04:45] LABS: HEMATOCRIT. 40.3 % (36.0-48.0); HEMOGLOBIN. 12.5 g/dL (12.0-16.0); MEAN CORPUSCULAR HEMOGLOBIN 27.5 pg (28.0-32.0); MEAN CORPUSCULAR VOLUME 88.5 fL (81.0-99.0); MEAN PLATELET VOLUME 8.3 fl (7.4-10.4); PLATELET 163 x1000/uL (130-400); RED BLOOD CELL COUNT 4.56 mill/uL (4.2-5.4); RED CELL DISTRIBUTION WIDTH 17.3 % (11.6-14.6)
[2018-05-24 04:52] LABS: CHLORIDE 91 mEq/L (98-107)
[2018-05-24] MEDS: ENOXAPARIN 30MG/0.3ML SYR SUBCUT SCH ×2 (05:40→17:39)
[2018-05-24 07:38] LABS: PLATELET ESTIMATE NORMAL
[2018-05-24] MEDS: AMLODIPINE 5MG TABLET PO SCH (09:25)
[2018-05-24] MEDS: FUROSEMIDE 40MG/4ML VIAL IVP SCH ×2 (09:25→17:38)
[2018-05-24] MEDS: PANTOPRAZOLE SODIUM 40 MG/VIAL IV SCH (09:25)
[2018-05-24] MEDS: HYDROCODONE/ACETAMINOPHEN 5/325MG TABLET PO PRN ×2 (12:22→15:36)
[2018-05-24] MEDS: CLONIDINE 0.1MG TABLET PO PRN (17:46)
[2018-05-24] MEDS: LOSARTAN POTASSIUM 25 MG TABLET PO SCH (22:01)
[2018-05-24] MEDS: GUAIFENESIN-DM 200MG-20MG/10ML UDC PO PRN (22:01)
[2018-05-25] VITALS (7 sets, daily range): BP systolic 127–168; BP diastolic 70–119
[2018-05-25] MEDS: IPRATROPIUM/ALBUTEROL 0.5-3(2.5)MG/3ML NEB HHN SCH ×5 (00:22→16:12)
[2018-05-25] MEDS: METHYLPREDNISOLONE SOD SUCC 125 MG/2 ML VIAL IV SCH ×3 (06:01→17:36)
[2018-05-25] MEDS: ENOXAPARIN 30MG/0.3ML SYR SUBCUT SCH ×2 (06:01→17:36)
[2018-05-25 07:11] LABS: HEMATOCRIT. 40.6 % (36.0-48.0); HEMOGLOBIN. 12.9 g/dL (12.0-16.0); MEAN CORPUSCULAR VOLUME 88.2 fL (81.0-99.0); MEAN PLATELET VOLUME 8.9 fl (7.4-10.4); PLATELET 179 x1000/uL (130-400); RED CELL DISTRIBUTION WIDTH 16.7 % (11.6-14.6)
[2018-05-25 07:26] LABS: CHLORIDE 91 mEq/L (98-107)
[2018-05-25] MEDS ORDERED: FAMOTIDINE 20MG TABLET PO SCH (09:00)
[2018-05-25] MEDS: FUROSEMIDE 40MG/4ML VIAL IVP SCH ×3 (09:00→17:00)
[2018-05-25] MEDS: LOSARTAN POTASSIUM 25 MG TABLET PO SCH (09:45)
[2018-05-25] MEDS: AMLODIPINE 5MG TABLET PO SCH (09:59)
[2018-05-25] MEDS: GUAIFENESIN-DM 200MG-20MG/10ML UDC PO PRN (11:29)
[2018-05-25] MEDS: HYDROCODONE/ACETAMINOPHEN 5/325MG TABLET PO PRN (11:31)
[2018-05-25 13:03] LABS: PLATELET ESTIMATE NORMAL
[2018-05-25 14:34] LABS: BG BASE EXCESS 13.4 mmol/L (-2.0-2.0); BG CARBOXYHEMOGLOBIN 1.3 % (0.5-1.5); BG DEOXYHEMOGLOBIN 7.3 % (0.0-5.0); BG FRACTION INSPIRED OXYGEN 28; BG HCO3 ACT 39.6 mmol/L (22.0-26.0); BG METHEMOGLOBIN 0.2 % (0.0-1.5); BG OXYGEN SATURATION 92.6 % (92.0-98.5); BG OXYHEMOGLOBIN 91.2 % (94.0-97.0); BG PCO2 56.2 mmHg (35.0-45.0); BG PH 7.466 (7.350-7.450); BG PO2 61.5 mmHg (75.0-100.0); BG SAMPLE SITE LEFT RADIAL; BG VENT MODE NASAL CANNULA
== END 2018-05-25 18:13 | disposition left against medical advice (07) | DRG 816 ==
LOC: ER 03:41 → CVICU 05:37 → EDBEDREQTM 05:39 → EDBEDREQ 05:39 → EDBEDREQSVC 05:39 → ENRESERV 07:28 → 5EST 05-24 14:14
PROVIDERS: ADMIT Internal Medicine; ATTEND Internal Medicine
PROC: 5A09457 Assistance with Respiratory Ventilation, 24-96 Consecutive Hours, Continuous Positive Airway Pressure (ICD-10-PCS; principal; 2018-05-21)
PROC: 5A09357 Assistance with Respiratory Ventilation, Less than 24 Consecutive Hours, Continuous Positive Airway Pressure (ICD-10-PCS; 2018-05-23)
PROC: 5A09357 Assistance with Respiratory Ventilation, Less than 24 Consecutive Hours, Continuous Positive Airway Pressure (ICD-10-PCS; 2018-05-24)
PROC: 5A09357 Assistance with Respiratory Ventilation, Less than 24 Consecutive Hours, Continuous Positive Airway Pressure (ICD-10-PCS; 2018-05-25)
DX: T40.5X1A Poisoning by cocaine, accidental (unintentional), initial encounter (principal); J96.22 Acute and chronic respiratory failure with hypercapnia; I50.33 Acute on chronic diastolic (congestive) heart failure; G93.40 Encephalopathy, unspecified; E44.0 Moderate protein-calorie malnutrition; J84.9 Interstitial pulmonary disease, unspecified; I27.20 Pulmonary hypertension, unspecified; E87.2 Acidosis; J68.0 Bronchitis and pneumonitis due to chemicals, gases, fumes and vapors; F17.200 Nicotine dependence, unspecified, uncomplicated; J98.11 Atelectasis; F14.10 Cocaine abuse, uncomplicated; E87.5 Hyperkalemia; Z53.21 Procedure and treatment not carried out due to patient leaving prior to being seen by health care provider; I11.0 Hypertensive heart disease with heart failure; E66.2 Morbid (severe) obesity with alveolar hypoventilation; J44.1 Chronic obstructive pulmonary disease with (acute) exacerbation; Z91.19 Patient's noncompliance with other medical treatment and regimen; Z99.81 Dependence on supplemental oxygen; Y92.89 Other specified places as the place of occurrence of the external cause; Z98.891 History of uterine scar from previous surgery; Z68.43 Body mass index [BMI] 50.0-59.9, adult; Z88.0 Allergy status to penicillin; Z88.6 Allergy status to analgesic agent; Z79.899 Other long term (current) drug therapy; Z71.3 Dietary counseling and surveillance; Z71.51 Drug abuse counseling and surveillance of drug abuser; Z71.6 Tobacco abuse counseling
CPT/HCPCS: 36415; 36600; 71045; 80048; 80061; 80305; 82375; 82550; 82553; 82805; 83036; 83605; 83880; 84439; 84443; 84478; 84484; 85379; 87804; 93005; 93306; 93970; 94640; 94644; 94660; 96374; 96375; 97162; 99291; C9113; J1650; J1940; J2405; J2920; J2930; J3105; J3490; J7611; J7620

== ENCOUNTER 2018-06-11 01:40 | Inpatient (IN) | payer MEDICAID ==
[~2018-06-11] VITALS: Ht 167.6 cm; Wt 124.7 kg
[~2018-06-11 01:40] MED LIST changes: -AMLO5TAB88 MT; +AMLO5TAB88 PO
[2018-06-11] MEDS ORDERED: METHYLPREDNISOLONE SOD SUCC 125 MG/2 ML VIAL IV STA (02:43)
[2018-06-11] MEDS ORDERED: IPRATROPIUM BROMIDE (0.02%) 0.5MG/2.5ML NEB HHN STA (02:43)
[2018-06-11] MEDS ORDERED: ONDANSETRON HCL 4MG/2ML INJ IV STA (02:43)
[2018-06-11] MEDS ORDERED: FUROSEMIDE 40MG/4ML VIAL IV ONE (02:45)
[2018-06-11] MEDS ORDERED: MORPHINE SULFATE 10 MG/ML CPJ IV ONE (02:45)
[2018-06-11] MEDS ORDERED: MAGNESIUM 2 G PREMIX 50 ML IV ONE (02:45)
[2018-06-11] MEDS: ALBUTEROL (0.083%) 2.5MG/3ML NEB HHN SCH ×3 (02:50→03:50)
[2018-06-11 03:40] LABS: BASOPHILS % 0.8 % (0.0-2.0); EOSINOPHILS % 2.4 % (0.0-5.0); HEMATOCRIT. 42.4 % (36.0-48.0); HEMOGLOBIN. 13.3 g/dL (12.0-16.0); LYMPHOCYTES % 21.9 % (20.0-50.0); MEAN CORPUSCULAR HEMOGLOBIN 27.7 pg (28.0-32.0); MEAN CORPUSCULAR VOLUME 88.3 fL (81.0-99.0); MEAN PLATELET VOLUME 8.5 fl (7.4-10.4); MONOCYTES % 9.7 % (2.0-8.0); NEUTROPHILS % 65.2 % (40.0-76.0); PLATELET 240 x1000/uL (130-400)
[2018-06-11 03:43] LABS: CHLORIDE 105 mEq/L (98-107)
[2018-06-11] MEDS ORDERED: CLONIDINE 0.2MG TABLET PO SCH (04:00)
[2018-06-11] MEDS: MORPHINE SULFATE 4 MG/ML CPJ (NOT FOR IM USE) IV PRN ×2 (10:39→21:05)
[2018-06-11 10:42] VITALS: BP 155/101
[2018-06-11 11:30] VITALS: BP 155/101
[2018-06-11] MEDS ORDERED: CLONIDINE 0.2MG TABLET PO PRN (14:00)
[2018-06-11] MEDS ORDERED: POTASSIUM CHLORIDE 20MEQ TABLET SR PO NR (14:00)
[2018-06-11] MEDS ORDERED: CLONIDINE 0.1MG TABLET PO PRN (14:00)
[2018-06-11] MEDS: FUROSEMIDE 40MG/4ML VIAL IVP SCH ×2 (14:47→18:42)
[2018-06-11] MEDS: LOSARTAN POTASSIUM 25 MG TABLET PO SCH ×2 (14:48→20:52)
[2018-06-11] MEDS: AMLODIPINE 5MG TABLET PO SCH ×2 (14:48→20:52)
[2018-06-11 16:00] VITALS: BP 142/79
[2018-06-11] MEDS ORDERED: ONDANSETRON HCL 4MG TABLET PO PRN (17:30)
[2018-06-11] MEDS ORDERED: ACETAMINOPHEN 325MG TABLET PO PRN (17:30)
[2018-06-11] MEDS ORDERED: HYDROCODONE/ACETAMINOPHEN 5/325MG TABLET PO PRN (17:30)
[2018-06-11 20:00] VITALS: BP 131/75
[2018-06-11] MEDS: ENOXAPARIN 30MG/0.3ML SYR SUBCUT SCH (20:53)
[2018-06-11] MEDS: IPRATROPIUM/ALBUTEROL 0.5-3(2.5)MG/3ML NEB HHN PRN (21:23)
[2018-06-11] MEDS: BUDESONIDE 0.5MG/2ML NEB HHN SCH ×2 (21:24→21:29)
[2018-06-12] VITALS: BP 123/81
[2018-06-12] MEDS: IPRATROPIUM/ALBUTEROL 0.5-3(2.5)MG/3ML NEB HHN PRN ×2 (01:32→05:07)
[2018-06-12 04:00] VITALS: BP 118/80
[2018-06-12 06:47] LABS: BASOPHILS % 0.3 % (0.0-2.0); EOSINOPHILS % 0.2 % (0.0-5.0); HEMATOCRIT. 41.4 % (36.0-48.0); HEMOGLOBIN. 12.6 g/dL (12.0-16.0); LYMPHOCYTES % 12.4 % (20.0-50.0); MEAN CORPUSCULAR HEMOGLOBIN 27.5 pg (28.0-32.0); MEAN CORPUSCULAR VOLUME 90.5 fL (81.0-99.0); MEAN PLATELET VOLUME 8.8 fl (7.4-10.4); MONOCYTES % 9.4 % (2.0-8.0); NEUTROPHILS % 77.7 % (40.0-76.0); PLATELET 215 x1000/uL (130-400); RED BLOOD CELL COUNT 4.57 mill/uL (4.2-5.4); RED CELL DISTRIBUTION WIDTH 17.8 % (11.6-14.6)
[2018-06-12 06:54] LABS: CHLORIDE 101 mEq/L (98-107)
[2018-06-12 07:04] LABS: CREATINE KINASE 53 IU/L (26-192)
[2018-06-12 07:07] LABS: CREATINE KINASE MB FRACTION 1.5 ng/mL (0.5-3.6)
[2018-06-12] MEDS: FUROSEMIDE 40MG/4ML VIAL IVP SCH ×2 (07:10→17:58)
[2018-06-12 08:00] VITALS: BP 138/84
[2018-06-12] MEDS: LOSARTAN POTASSIUM 25 MG TABLET PO SCH ×2 (09:10→20:07)
[2018-06-12] MEDS: POTASSIUM CHLORIDE 20MEQ TABLET SR PO SCH ×2 (09:11→17:58)
[2018-06-12] MEDS: AMLODIPINE 5MG TABLET PO SCH ×2 (09:12→20:07)
[2018-06-12] MEDS: ENOXAPARIN 30MG/0.3ML SYR SUBCUT SCH ×2 (09:13→20:07)
[2018-06-12] MEDS: MORPHINE SULFATE 4 MG/ML CPJ (NOT FOR IM USE) IV PRN ×2 (09:15→20:05)
[2018-06-12] MEDS: IPRATROPIUM/ALBUTEROL 0.5-3(2.5)MG/3ML NEB HHN SCH ×4 (09:46→21:01)
[2018-06-12] MEDS: BUDESONIDE 0.5MG/2ML NEB HHN SCH ×2 (09:47→21:01)
[2018-06-12 12:00] VITALS: BP 126/63
[2018-06-12 16:00] VITALS: BP 138/104
[2018-06-12 20:00] VITALS: BP 135/79
[2018-06-13] VITALS: BP 133/79
[2018-06-13] MEDS: IPRATROPIUM/ALBUTEROL 0.5-3(2.5)MG/3ML NEB HHN SCH ×5 (00:34→15:36)
[2018-06-13] MEDS: MORPHINE SULFATE 4 MG/ML CPJ (NOT FOR IM USE) IV PRN ×3 (00:36→09:20)
[2018-06-13 04:00] VITALS: BP 125/89
[2018-06-13] MEDS: FUROSEMIDE 40MG/4ML VIAL IVP SCH ×2 (06:23→17:06)
[2018-06-13 07:43] LABS: EOSINOPHILS % 2.1 % (0.0-5.0); HEMATOCRIT. 41.7 % (36.0-48.0); HEMOGLOBIN. 12.8 g/dL (12.0-16.0); LYMPHOCYTES % 27.1 % (20.0-50.0); MEAN CORPUSCULAR HEMOGLOBIN 27.4 pg (28.0-32.0); MEAN CORPUSCULAR VOLUME 89.5 fL (81.0-99.0); MEAN PLATELET VOLUME 8.8 fl (7.4-10.4); MONOCYTES % 11.2 % (2.0-8.0); NEUTROPHILS % 58.6 % (40.0-76.0); PLATELET 214 x1000/uL (130-400); RED BLOOD CELL COUNT 4.66 mill/uL (4.2-5.4); RED CELL DISTRIBUTION WIDTH 17.7 % (11.6-14.6)
[2018-06-13 08:00] VITALS: BP 156/69
[2018-06-13] MEDS: BUDESONIDE 0.5MG/2ML NEB HHN SCH (08:45)
[2018-06-13] MEDS: POTASSIUM CHLORIDE 20MEQ TABLET SR PO SCH ×2 (09:18→17:00)
[2018-06-13] MEDS: LOSARTAN POTASSIUM 25 MG TABLET PO SCH (09:19)
[2018-06-13] MEDS: AMLODIPINE 5MG TABLET PO SCH (09:19)
[2018-06-13] MEDS: ENOXAPARIN 30MG/0.3ML SYR SUBCUT SCH (09:21)
[2018-06-13 09:22] LABS: CHLORIDE 98 mEq/L (98-107)
[2018-06-13] MEDS ORDERED: PNEUMOCOCCAL 23-VAL P-SAC VAC 0.5 ML IM ONE (11:30)
[2018-06-13 11:33] VITALS: BP 147/93
[2018-06-13] MEDS ORDERED: INFLUENZA VIRUS VACCINE(AFLURIA) 0.5ML SYR IM ONE (12:30)
[2018-06-13 13:33] VITALS: BP 147/93
[2018-06-13 16:00] VITALS: BP 147/107
[2018-06-13] MEDS ORDERED: AMLODIPINE 5MG TABLET PO SCH (21:00)
== END 2018-06-13 17:32 | disposition home or self-care (01) | DRG 140 ==
LOC: ER 01:40 → 7WST 04:33 → EDBEDREQ 04:34 → EDBEDREQTM 04:34 → EDBEDREQ 06:11 → EDBEDREQTM 06:11 → ENRESERV 10:06
PROVIDERS: ADMIT Internal Medicine; ATTEND Internal Medicine
PROC: 5A09357 Assistance with Respiratory Ventilation, Less than 24 Consecutive Hours, Continuous Positive Airway Pressure (ICD-10-PCS; principal; 2018-06-13)
DX: J44.1 Chronic obstructive pulmonary disease with (acute) exacerbation (principal); J96.90 Respiratory failure, unspecified, unspecified whether with hypoxia or hypercapnia; I50.33 Acute on chronic diastolic (congestive) heart failure; E46 Unspecified protein-calorie malnutrition; E66.01 Morbid (severe) obesity due to excess calories; I43 Cardiomyopathy in diseases classified elsewhere; Z99.81 Dependence on supplemental oxygen; Z68.41 Body mass index [BMI] 40.0-44.9, adult; I11.0 Hypertensive heart disease with heart failure; F17.210 Nicotine dependence, cigarettes, uncomplicated; F14.10 Cocaine abuse, uncomplicated; G47.33 Obstructive sleep apnea (adult) (pediatric); Z98.891 History of uterine scar from previous surgery; Z88.0 Allergy status to penicillin; Z88.6 Allergy status to analgesic agent; Z79.899 Other long term (current) drug therapy; Z71.6 Tobacco abuse counseling
CPT/HCPCS: 36415; 71045; 80048; 82550; 82553; 83605; 83735; 83880; 84443; 84484; 85379; 90686; 90732; 93005; 93970; 94640; 97162; 99285; J1650; J1940; J2270; J2405; J2930; J3475; J7611; J7620; J7626; Q0162

== ENCOUNTER 2018-06-30 01:04 | Inpatient (IN) | payer MEDICAID ==
[2018-06-30] VITALS (9 sets, daily range): BP systolic 140–184; BP diastolic 73–103
[~2018-06-30] VITALS: Ht 167.6 cm; Wt 151.8 kg
[2018-06-30] MEDS ORDERED: IPRATROPIUM BROMIDE (0.02%) 0.5MG/2.5ML NEB HHN STA (01:14)
[2018-06-30] MEDS ORDERED: ALBUTEROL (0.083%) 2.5MG/3ML NEB HHN STA (01:14)
[2018-06-30] MEDS ORDERED: METHYLPREDNISOLONE SOD SUCC 125 MG/2 ML VIAL IV STA (01:14)
[2018-06-30 01:51] LABS: EOSINOPHILS % 4.3 % (0.0-5.0); HEMATOCRIT. 42.4 % (36.0-48.0); HEMOGLOBIN. 13.3 g/dL (12.0-16.0); LYMPHOCYTES % 20.2 % (20.0-50.0); MEAN CORPUSCULAR HEMOGLOBIN 27.6 pg (28.0-32.0); MEAN CORPUSCULAR VOLUME 87.9 fL (81.0-99.0); MEAN PLATELET VOLUME 8.8 fl (7.4-10.4); MONOCYTES % 9.2 % (2.0-8.0); NEUTROPHILS % 65.3 % (40.0-76.0); PLATELET 186 x1000/uL (130-400); RED BLOOD CELL COUNT 4.82 mill/uL (4.2-5.4); RED CELL DISTRIBUTION WIDTH 17.3 % (11.6-14.6)
[2018-06-30 01:55] LABS: CHLORIDE 108 mEq/L (98-107)
[2018-06-30 01:59] LABS: PARTIAL THROMBOPLASTIN TIME 27.1 sec (23.4-31.0); PROTHROMBIN TIME 10.2 sec (9.1-11.1)
[2018-06-30] MEDS ORDERED: MAGNESIUM 2 G PREMIX 50 ML IV ONE (02:00)
[2018-06-30] MEDS ORDERED: NITROGLYCERIN 0.4MG TABLET SL SL ONE (02:00)
[2018-06-30] MEDS ORDERED: AZITHROMYCIN 500 MG TABLET PO ONE (02:00)
[2018-06-30] MEDS ORDERED: METOCLOPRAMIDE HCL 10MG/2ML VIAL IV ONE (02:00)
[2018-06-30] MEDS ORDERED: FUROSEMIDE 40MG/4ML VIAL IVP ONE (02:00)
[2018-06-30] MEDS ORDERED: ACETAMINOPHEN 325MG TABLET PO ONE (02:00)
[2018-06-30 02:56] LABS: BG CARBOXYHEMOGLOBIN 5.2 % (0.5-1.5); BG DEOXYHEMOGLOBIN 8.8 % (0.0-5.0); BG FRACTION INSPIRED OXYGEN 40; BG HCO3 ACT 30.7 mmol/L (22.0-26.0); BG METHEMOGLOBIN 0.4 % (0.0-1.5); BG OXYGEN SATURATION 90.7 % (92.0-98.5); BG OXYHEMOGLOBIN 85.6 % (94.0-97.0); BG PCO2 74.4 mmHg (35.0-45.0); BG PH 7.234 (7.350-7.450); BG PO2 70.8 mmHg (75.0-100.0); BG SAMPLE SITE RIGHT RADIAL; BG TOTAL HEMOGLOBIN 14.4 g/dL (12.0-18.0); BG VENT MODE MASK - BIPAP
[2018-06-30] MEDS ORDERED: IPRATROPIUM/ALBUTEROL 0.5-3(2.5)MG/3ML NEB ONE (03:15)
[2018-06-30] MEDS ORDERED: GUAIFENESIN 200MG/10ML SUGAR FREE UDC PO PRN (09:15)
[2018-06-30] MEDS ORDERED: DOCUSATE SODIUM 100MG CAPSULE PO PRN (09:15)
[2018-06-30] MEDS ORDERED: DIPHENHYDRAMINE 50MG/ML VIAL IV PRN (09:15)
[2018-06-30] MEDS ORDERED: LORAZEPAM 2MG/ML CPJ IV PRN (09:15)
[2018-06-30] MEDS ORDERED: MORPHINE SULFATE 4 MG/ML CPJ (NOT FOR IM USE) IV PRN (09:15)
[2018-06-30] MEDS ORDERED: ACETAMINOPHEN 325MG TABLET PO PRN (09:15)
[2018-06-30] MEDS ORDERED: ONDANSETRON HCL 4MG/2ML INJ IV PRN (09:15)
[2018-06-30] MEDS ORDERED: NA PHOS,M-B/NA PHOS,DI-BA ENEMA 118ML PR PRN (09:15)
[2018-06-30 09:28] LABS: BG BASE EXCESS 0.6 mmol/L (-2.0-2.0); BG BILEVEL POS AIRWAY PRESSURE 15/5; BG CARBOXYHEMOGLOBIN 3.2 % (0.5-1.5); BG DEOXYHEMOGLOBIN 5.3 % (0.0-5.0); BG HCO3 ACT 29.1 mmol/L (22.0-26.0); BG METHEMOGLOBIN 0.2 % (0.0-1.5); BG OXYGEN SATURATION 94.5 % (92.0-98.5); BG OXYHEMOGLOBIN 91.3 % (94.0-97.0); BG PCO2 64.3 mmHg (35.0-45.0); BG PH 7.273 (7.350-7.450); BG PO2 78.5 mmHg (75.0-100.0); BG SAMPLE SITE RIGHT RADIAL; BG TOTAL HEMOGLOBIN 14.1 g/dL (12.0-18.0); BG VENT MODE MASK - BIPAP; BG VENT RATE 22 set
[2018-06-30] MEDS: CLONIDINE 0.1MG TABLET PO PRN ×2 (10:17→23:09)
[2018-06-30] MEDS: ENOXAPARIN 40MG/0.4ML SYR SUBCUT SCH ×2 (10:17→21:03)
[2018-06-30] MEDS ORDERED: METHYLPREDNISOLONE SOD SUCC 125 MG/2 ML VIAL IV SCH (11:00)
[2018-06-30] MEDS ORDERED: LEVOFLOXACIN 500MG PREMIX 100 ML IV SCH (11:00)
[2018-06-30] MEDS: LOSARTAN POTASSIUM 50 MG TABLET PO SCH (11:20)
[2018-06-30 11:46] LABS: CHLORIDE 105 mEq/L (98-107)
[2018-06-30] MEDS ORDERED: BENZONATATE 100MG CAPSULE PO PRN (14:15)
[2018-06-30 14:46] LABS: BG BASE EXCESS 3.3 mmol/L (-2.0-2.0); BG CARBOXYHEMOGLOBIN 2.7 % (0.5-1.5); BG DEOXYHEMOGLOBIN 11.1 % (0.0-5.0); BG METHEMOGLOBIN 0.3 % (0.0-1.5); BG OXYGEN SATURATION 88.6 % (92.0-98.5); BG OXYHEMOGLOBIN 85.9 % (94.0-97.0); BG PCO2 60.8 mmHg (35.0-45.0); BG PH 7.325 (7.350-7.450); BG PO2 59.4 mmHg (75.0-100.0); BG SAMPLE SITE RIGHT RADIAL; BG TOTAL HEMOGLOBIN 14.1 g/dL (12.0-18.0); BG VENT MODE NASAL CANNULA
[2018-06-30] MEDS ORDERED: PRED5TAB MT (15:26)
[2018-06-30] MEDS: IPRATROPIUM/ALBUTEROL 0.5-3(2.5)MG/3ML NEB INH PRN ×2 (16:37→20:19)
[2018-06-30] MEDS: FUROSEMIDE 40MG/4ML VIAL IV SCH (17:20)
[2018-06-30 17:29] LABS: CLARITY URINE CLEAR (CLEAR); COLOR URINE YELLOW (YELLOW); KETONES URINE NEGATIVE (NEGATIVE); LEUKOCYTE ESTERASE URINE NEGATIVE (NEGATIVE); NITRITE URINE NEGATIVE (NEGATIVE); OCCULT BLOOD URINE NEGATIVE (NEGATIVE); PROTEIN URINE NEGATIVE (NEGATIVE); SPECIFIC GRAVITY URINE 1.021 (1.005-1.030)
[2018-06-30 17:41] LABS: *AMPHETAMINES SCREEN URINE NEGATIVE (NEGATIVE); *BARBITURATES SCREEN URINE NEGATIVE (NEGATIVE); *BENZODIAZEPINES SCREEN URINE NEGATIVE (NEGATIVE); *COCAINE SCREEN URINE PRESUMTIVE POSITIVE (NEGATIVE); METHADONE URINE SCREEN NEGATIVE (NEGATIVE); OPIATES URINE SCREEN PRESUMTIVE POSITIVE (NEGATIVE)
[2018-06-30 17:42] LABS: CANNABINOID URINE SCREEN NEGATIVE (NEGATIVE); PHENCYCLIDINE URINE SCREEN NEGATIVE (NEGATIVE)
[2018-06-30] MEDS: METHYLPREDNISOLONE SOD SUCC 40 MG/ML VIAL IV SCH (21:03)
[2018-06-30] MEDS: AMLODIPINE 5MG TABLET PO SCH (21:03)
[2018-06-30] MEDS: MORPHINE SULFATE 4 MG/ML CPJ (NOT FOR IM USE) IV PRN (22:24)
[2018-07-01] VITALS (11 sets, daily range): BP systolic 73–163; BP diastolic 38–103
[2018-07-01] MEDS: IPRATROPIUM/ALBUTEROL 0.5-3(2.5)MG/3ML NEB INH PRN ×3 (00:15→08:32)
[2018-07-01] MEDS: MORPHINE SULFATE 4 MG/ML CPJ (NOT FOR IM USE) IV PRN ×3 (04:33→20:19)
[2018-07-01] MEDS: FUROSEMIDE 40MG/4ML VIAL IV SCH ×2 (06:41→17:15)
[2018-07-01] MEDS: METHYLPREDNISOLONE SOD SUCC 40 MG/ML VIAL IV SCH ×3 (06:41→21:17)
[2018-07-01 07:14] LABS: HEMOGLOBIN. 12.3 g/dL (12.0-16.0); MEAN CORPUSCULAR HEMOGLOBIN 27.4 pg (28.0-32.0); MEAN CORPUSCULAR VOLUME 88.7 fL (81.0-99.0); MEAN PLATELET VOLUME 9.2 fl (7.4-10.4); PLATELET 194 x1000/uL (130-400); RED BLOOD CELL COUNT 4.51 mill/uL (4.2-5.4)
[2018-07-01 07:23] LABS: CHLORIDE 104 mEq/L (98-107)
[2018-07-01 07:35] LABS: LDL CHOLESTEROL 92 mg/dL (5-100)
[2018-07-01 07:36] LABS: HDL CHOLESTEROL 85 mg/dL (40-59); T4 FREE 0.94 ng/dL (0.76-1.46)
[2018-07-01] MEDS: LOSARTAN POTASSIUM 50 MG TABLET PO SCH ×2 (08:25→17:11)
[2018-07-01] MEDS: ASPIRIN 81MG EC TABLET PO SCH (08:25)
[2018-07-01] MEDS: AMLODIPINE 5MG TABLET PO SCH ×2 (08:25→21:17)
[2018-07-01] MEDS: ENOXAPARIN 40MG/0.4ML SYR SUBCUT SCH ×2 (08:26→21:17)
[2018-07-01] MEDS ORDERED: FUROSEMIDE 40MG/4ML VIAL IV SCH (09:00)
[2018-07-01] MEDS: MAGNESIUM/ALUMINUM HYDROXIDE/SIMETHICONE 30ML UDC PO PRN ×2 (13:11→20:30)
[2018-07-01 14:22] LABS: PLATELET ESTIMATE NORMAL
[2018-07-01] MEDS: CLONIDINE 0.1MG TABLET PO PRN ×2 (15:00→23:49)
[2018-07-01] MEDS: IPRATROPIUM/ALBUTEROL 0.5-3(2.5)MG/3ML NEB HHN PRN ×2 (15:45→21:00)
[2018-07-01] MEDS: HYDRALAZINE HCL 25MG TABLET PO SCH (21:17)
[2018-07-02] VITALS (12 sets, daily range): BP systolic 145–176; BP diastolic 80–130
[2018-07-02] MEDS: MORPHINE SULFATE 4 MG/ML CPJ (NOT FOR IM USE) IV PRN ×2 (00:33→07:49)
[2018-07-02] MEDS: IPRATROPIUM/ALBUTEROL 0.5-3(2.5)MG/3ML NEB HHN PRN ×5 (00:58→20:22)
[2018-07-02] MEDS: METHYLPREDNISOLONE SOD SUCC 40 MG/ML VIAL IV SCH ×2 (06:14→13:52)
[2018-07-02] MEDS: HYDRALAZINE HCL 25MG TABLET PO SCH ×2 (06:15→13:53)
[2018-07-02] MEDS: FUROSEMIDE 40MG/4ML VIAL IV SCH ×2 (06:17→17:15)
[2018-07-02 07:02] LABS: HEMATOCRIT. 40.6 % (36.0-48.0); HEMOGLOBIN. 12.6 g/dL (12.0-16.0); MEAN CORPUSCULAR HEMOGLOBIN 27.5 pg (28.0-32.0); MEAN CORPUSCULAR VOLUME 88.6 fL (81.0-99.0); MEAN PLATELET VOLUME 9.5 fl (7.4-10.4); PLATELET 200 x1000/uL (130-400); RED BLOOD CELL COUNT 4.59 mill/uL (4.2-5.4); RED CELL DISTRIBUTION WIDTH 17.2 % (11.6-14.6)
[2018-07-02 07:47] LABS: CHLORIDE 102 mEq/L (98-107)
[2018-07-02] MEDS: AMLODIPINE 5MG TABLET PO SCH ×2 (08:25→20:50)
[2018-07-02] MEDS: LOSARTAN POTASSIUM 50 MG TABLET PO SCH ×2 (08:25→17:19)
[2018-07-02] MEDS: ENOXAPARIN 40MG/0.4ML SYR SUBCUT SCH (08:26)
[2018-07-02] MEDS: ASPIRIN 81MG EC TABLET PO SCH (08:26)
[2018-07-02 14:03] LABS: PLATELET ESTIMATE NORMAL
== END 2018-07-02 21:41 | disposition home or self-care (01) | DRG 133 ==
LOC: ER 01:04 → 5EST 02:50 → EDBEDREQ 02:53 → EDBEDREQTM 02:53 → ENRESERV 07:12
PROVIDERS: ADMIT Internal Medicine; ATTEND Internal Medicine
PROC: 5A09357 Assistance with Respiratory Ventilation, Less than 24 Consecutive Hours, Continuous Positive Airway Pressure (ICD-10-PCS; principal; 2018-06-30)
PROC: 5A09357 Assistance with Respiratory Ventilation, Less than 24 Consecutive Hours, Continuous Positive Airway Pressure (ICD-10-PCS; 2018-07-01)
PROC: 5A09357 Assistance with Respiratory Ventilation, Less than 24 Consecutive Hours, Continuous Positive Airway Pressure (ICD-10-PCS; 2018-07-02)
DX: J96.22 Acute and chronic respiratory failure with hypercapnia (principal); I50.33 Acute on chronic diastolic (congestive) heart failure; I27.20 Pulmonary hypertension, unspecified; E87.2 Acidosis; J44.1 Chronic obstructive pulmonary disease with (acute) exacerbation; E66.01 Morbid (severe) obesity due to excess calories; R65.10 Systemic inflammatory response syndrome (SIRS) of non-infectious origin without acute organ dysfunction; I11.0 Hypertensive heart disease with heart failure; Z99.81 Dependence on supplemental oxygen; F14.10 Cocaine abuse, uncomplicated; F17.210 Nicotine dependence, cigarettes, uncomplicated; G47.33 Obstructive sleep apnea (adult) (pediatric); Z68.43 Body mass index [BMI] 50.0-59.9, adult; Z79.899 Other long term (current) drug therapy; Z82.49 Family history of ischemic heart disease and other diseases of the circulatory system; Z91.19 Patient's noncompliance with other medical treatment and regimen; Z98.891 History of uterine scar from previous surgery; Z88.0 Allergy status to penicillin; Z88.6 Allergy status to analgesic agent; Z71.6 Tobacco abuse counseling
CPT/HCPCS: 36415; 36600; 71045; 80048; 80061; 80305; 82375; 82805; 83735; 83880; 84439; 84443; 84484; 93005; 96374; 96375; 99285; J1650; J1940; J1956; J2270; J2765; J2920; J2930; J3475; J7050; J7611; J7620

== ENCOUNTER 2018-07-13 21:19 | Inpatient (IN) | payer MEDICAID ==
[~2018-07-13] VITALS: Ht 160 cm; Wt 145.1 kg
[~2018-07-13 21:19] MED LIST changes: -DUONEB3 ML HHN; -FLUT1AER IH; -KDUR20 PO; -PULM50 HHN
[2018-07-13] MEDS ORDERED: MAGNESIUM 2 G PREMIX 50 ML IV STA (21:25)
[2018-07-13] MEDS ORDERED: METHYLPREDNISOLONE SOD SUCC 125 MG/2 ML VIAL IV STA (21:25)
[2018-07-13] MEDS ORDERED: IPRATROPIUM BROMIDE (0.02%) 0.5MG/2.5ML NEB HHN STA (21:25)
[2018-07-13] MEDS ORDERED: ALBUTEROL (0.083%) 2.5MG/3ML NEB HHN STA (21:25)
[2018-07-13] MEDS ORDERED: FUROSEMIDE 40MG/4ML VIAL IVP ONE (21:30)
[2018-07-13] MEDS ORDERED: NITROGLYCERIN OINT 1GM/INCH UDPKT TD ONE (21:30)
[2018-07-13] MEDS ORDERED: MORPHINE SULFATE 2 MG/ML CPJ (NOT FOR IM USE) IV ONE (21:30)
[2018-07-13] MEDS ORDERED: MORPHINE SULFATE 4 MG/ML CPJ (NOT FOR IM USE) IV NR (21:34)
[2018-07-13 22:29] LABS: CLARITY URINE CLEAR (CLEAR); COLOR URINE YELLOW (YELLOW); KETONES URINE NEGATIVE (NEGATIVE); LEUKOCYTE ESTERASE URINE NEGATIVE (NEGATIVE); NITRITE URINE NEGATIVE (NEGATIVE); OCCULT BLOOD URINE NEGATIVE (NEGATIVE); PH URINE 6.5 (4.5-8.0); PROTEIN URINE NEGATIVE (NEGATIVE); SPECIFIC GRAVITY URINE 1.012 (1.005-1.030); UROBILINOGEN URINE 0.2 E.U./dL (0.2-1.0)
[2018-07-13 22:40] LABS: *AMPHETAMINES SCREEN URINE NEGATIVE (NEGATIVE); *BARBITURATES SCREEN URINE NEGATIVE (NEGATIVE); *BENZODIAZEPINES SCREEN URINE NEGATIVE (NEGATIVE); *COCAINE SCREEN URINE PRESUMTIVE POSITIVE (NEGATIVE); METHADONE URINE SCREEN NEGATIVE (NEGATIVE); OPIATES URINE SCREEN NEGATIVE (NEGATIVE); PHENCYCLIDINE URINE SCREEN NEGATIVE (NEGATIVE)
[2018-07-13 22:41] LABS: CANNABINOID URINE SCREEN NEGATIVE (NEGATIVE)
[2018-07-13 22:54] LABS: BG BASE EXCESS 2.9 mmol/L (-2.0-2.0); BG BILEVEL POS AIRWAY PRESSURE 15/5; BG CARBOXYHEMOGLOBIN 2.9 % (0.5-1.5); BG DEOXYHEMOGLOBIN 5.2 % (0.0-5.0); BG FRACTION INSPIRED OXYGEN 40; BG HCO3 ACT 29.8 mmol/L (22.0-26.0); BG METHEMOGLOBIN 0.2 % (0.0-1.5); BG OXYGEN SATURATION 94.6 % (92.0-98.5); BG OXYHEMOGLOBIN 91.7 % (94.0-97.0); BG PCO2 54.8 mmHg (35.0-45.0); BG PH 7.353 (7.350-7.450); BG PO2 78.8 mmHg (75.0-100.0); BG SAMPLE SITE RIGHT RADIAL; BG TOTAL HEMOGLOBIN 14.4 g/dL (12.0-18.0); BG VENT MODE MASK - BIPAP; BG VENT RATE 16 set
[2018-07-13 23:29] LABS: BASOPHILS % 0.6 % (0.0-2.0); EOSINOPHILS % 1.8 % (0.0-5.0); HEMATOCRIT. 44.5 % (36.0-48.0); HEMOGLOBIN. 13.9 g/dL (12.0-16.0); LYMPHOCYTES % 11.6 % (20.0-50.0); MEAN CORPUSCULAR HEMOGLOBIN 27.6 pg (28.0-32.0); MEAN CORPUSCULAR VOLUME 88.3 fL (81.0-99.0); MEAN PLATELET VOLUME 9.1 fl (7.4-10.4); MONOCYTES % 3.7 % (2.0-8.0); NEUTROPHILS % 82.3 % (40.0-76.0); PLATELET 174 x1000/uL (130-400); RED BLOOD CELL COUNT 5.04 mill/uL (4.2-5.4); RED CELL DISTRIBUTION WIDTH 17.5 % (11.6-14.6)
[2018-07-13 23:30] LABS: CHLORIDE 106 mEq/L (98-107)
[2018-07-13 23:33] LABS: PARTIAL THROMBOPLASTIN TIME 25.7 sec (23.4-31.0); PROTHROMBIN TIME 9.6 sec (9.1-11.1)
[2018-07-14] VITALS (8 sets, daily range): BP systolic 139–178; BP diastolic 65–113
[2018-07-14] MEDS ORDERED: DOCUSATE SODIUM 100MG CAPSULE PO PRN (05:00)
[2018-07-14] MEDS ORDERED: MAGNESIUM/ALUMINUM HYDROXIDE/SIMETHICONE 30ML UDC PO PRN (05:00)
[2018-07-14] MEDS ORDERED: LORAZEPAM 2MG/ML CPJ IV PRN (05:00)
[2018-07-14] MEDS ORDERED: ONDANSETRON HCL 4MG/2ML INJ IV PRN (05:00)
[2018-07-14] MEDS ORDERED: HYDROCODONE/ACETAMINOPHEN 10/325MG TABLET PO PRN (05:00)
[2018-07-14] MEDS ORDERED: ACETAMINOPHEN 325MG TABLET PO PRN (05:00)
[2018-07-14] MEDS ORDERED: DIPHENHYDRAMINE 50MG/ML VIAL IV PRN (05:00)
[2018-07-14] MEDS ORDERED: IPRATROPIUM/ALBUTEROL 0.5-3(2.5)MG/3ML NEB INH PRN (05:00)
[2018-07-14] MEDS ORDERED: HYDRALAZINE 20MG/ML VIAL IV NR (06:00)
[2018-07-14] MEDS: HYDRALAZINE 20MG/ML VIAL IV PRN (06:00)
[2018-07-14] MEDS: CLONIDINE 0.1MG TABLET PO PRN (06:36)
[2018-07-14] MEDS ORDERED: FUROSEMIDE 40MG/4ML VIAL IV SCH (10:00)
[2018-07-14] MEDS ORDERED: ENOXAPARIN 30MG/0.3ML SYR SUBCUT SCH (10:00)
[2018-07-14] MEDS ORDERED: IPRATROPIUM/ALBUTEROL 0.5-3(2.5)MG/3ML NEB HHN PRN (10:15)
[2018-07-14] MEDS: ASPIRIN 81MG EC TABLET PO SCH (10:51)
[2018-07-14] MEDS: AMLODIPINE 5MG TABLET PO SCH (10:51)
[2018-07-14] MEDS: NICOTINE 14MG PATCH TD SCH (10:52)
[2018-07-14] MEDS: METHYLPREDNISOLONE SOD SUCC 40 MG/ML VIAL IV SCH ×2 (10:52→20:04)
[2018-07-14] MEDS: IPRATROPIUM/ALBUTEROL 0.5-3(2.5)MG/3ML NEB HHN SCH ×3 (11:12→20:52)
[2018-07-14] MEDS: LOSARTAN POTASSIUM 50 MG TABLET PO SCH (11:30)
[2018-07-14 12:56] LABS: CREATINE KINASE MB FRACTION 1.9 ng/mL (0.5-3.6)
[2018-07-14] MEDS: SODIUM CHLORIDE 0.9% INJ 3ML FLUSH IVF SCH ×2 (13:10→21:10)
[2018-07-14 16:52] LABS: CREATINE KINASE MB FRACTION 1.3 ng/mL (0.5-3.6)
[2018-07-14] MEDS: FUROSEMIDE 40MG/4ML VIAL IV SCH (18:11)
[2018-07-14] MEDS: HYDROMORPHONE HCL/PF 2MG/ML CPJ IV PRN (20:05)
[2018-07-14] MEDS: ENOXAPARIN 40MG/0.4ML SYR SUBCUT SCH (21:08)
[2018-07-15] VITALS (12 sets, daily range): BP systolic 132–186; BP diastolic 70–100
[2018-07-15] MEDS: HYDROMORPHONE HCL/PF 2MG/ML CPJ IV PRN ×4 (00:13→22:17)
[2018-07-15] MEDS: IPRATROPIUM/ALBUTEROL 0.5-3(2.5)MG/3ML NEB HHN SCH ×6 (00:44→21:02)
[2018-07-15] MEDS: METHYLPREDNISOLONE SOD SUCC 40 MG/ML VIAL IV SCH ×2 (03:50→11:43)
[2018-07-15] MEDS: CLONIDINE 0.1MG TABLET PO PRN (06:43)
[2018-07-15 06:50] LABS: CHLORIDE 101 mEq/L (98-107)
[2018-07-15] MEDS: SODIUM CHLORIDE 0.9% INJ 3ML FLUSH IVF SCH ×2 (06:51→14:00)
[2018-07-15 07:03] LABS: LDL CHOLESTEROL 92 mg/dL (5-100)
[2018-07-15 07:04] LABS: HDL CHOLESTEROL 84 mg/dL (40-59)
[2018-07-15 08:00] LABS: HEMATOCRIT. 42.1 % (36.0-48.0); HEMOGLOBIN. 13.1 g/dL (12.0-16.0); MEAN CORPUSCULAR HEMOGLOBIN 27.7 pg (28.0-32.0); MEAN CORPUSCULAR VOLUME 88.8 fL (81.0-99.0); MEAN PLATELET VOLUME 9.7 fl (7.4-10.4); PLATELET 185 x1000/uL (130-400); RED BLOOD CELL COUNT 4.74 mill/uL (4.2-5.4); RED CELL DISTRIBUTION WIDTH 17.3 % (11.6-14.6)
[2018-07-15] MEDS: FUROSEMIDE 40MG/4ML VIAL IV SCH ×2 (09:41→18:04)
[2018-07-15] MEDS: ASPIRIN 81MG EC TABLET PO SCH (09:41)
[2018-07-15] MEDS: LOSARTAN POTASSIUM 50 MG TABLET PO SCH ×2 (09:41→20:28)
[2018-07-15] MEDS: ENOXAPARIN 40MG/0.4ML SYR SUBCUT SCH ×2 (09:41→22:23)
[2018-07-15] MEDS: AMLODIPINE 5MG TABLET PO SCH ×2 (09:42→20:26)
[2018-07-15] MEDS: NICOTINE 14MG PATCH TD SCH (09:42)
[2018-07-15 11:48] LABS: PLATELET ESTIMATE NORMAL
[2018-07-15] MEDS: GUAIFENESIN 200MG/10ML SUGAR FREE UDC PO PRN ×2 (11:49→22:19)
[2018-07-15] MEDS ORDERED: GUAIFENESIN/CODEINE 100-10MG/5ML UDC PO PRN (14:45)
[2018-07-15] MEDS ORDERED: BENZONATATE 100MG CAPSULE PO PRN (14:45)
[2018-07-15] MEDS: FLUTICASONE PROPIONATE 50MCG/SPRAY BOTTLE BOTHNSTRLS SCH (20:27)
[2018-07-15] MEDS: PREDNISONE 20MG TABLET PO SCH (22:21)
[2018-07-16] VITALS (10 sets, daily range): BP systolic 122–184; BP diastolic 64–98
[2018-07-16] MEDS: HYDROMORPHONE HCL/PF 2MG/ML CPJ IV PRN ×2 (01:04→09:28)
[2018-07-16] MEDS: IPRATROPIUM/ALBUTEROL 0.5-3(2.5)MG/3ML NEB HHN SCH ×5 (01:19→15:52)
[2018-07-16] MEDS: HYDRALAZINE 20MG/ML VIAL IV PRN (01:46)
[2018-07-16] MEDS: CLONIDINE 0.1MG TABLET PO PRN (06:04)
[2018-07-16 07:34] LABS: HEMATOCRIT. 44.5 % (36.0-48.0); MEAN CORPUSCULAR HEMOGLOBIN 27.5 pg (28.0-32.0); MEAN CORPUSCULAR VOLUME 87.4 fL (81.0-99.0); MEAN PLATELET VOLUME 8.9 fl (7.4-10.4); PLATELET 184 x1000/uL (130-400); RED BLOOD CELL COUNT 5.08 mill/uL (4.2-5.4); RED CELL DISTRIBUTION WIDTH 17.6 % (11.6-14.6)
[2018-07-16 07:45] LABS: CHLORIDE 98 mEq/L (98-107)
[2018-07-16] MEDS: LOSARTAN POTASSIUM 50 MG TABLET PO SCH (09:22)
[2018-07-16] MEDS: PREDNISONE 20MG TABLET PO SCH (09:22)
[2018-07-16] MEDS: ASPIRIN 81MG EC TABLET PO SCH (09:22)
[2018-07-16] MEDS: AMLODIPINE 5MG TABLET PO SCH (09:23)
[2018-07-16] MEDS: SODIUM CHLORIDE 0.9% INJ 3ML FLUSH IVF SCH ×2 (09:28→10:50)
[2018-07-16] MEDS: ENOXAPARIN 40MG/0.4ML SYR SUBCUT SCH (09:30)
[2018-07-16] MEDS: NICOTINE 14MG PATCH TD SCH (10:45)
[2018-07-16] MEDS: FUROSEMIDE 40MG/4ML VIAL IV SCH (10:51)
[2018-07-16] MEDS: FLUTICASONE PROPIONATE 50MCG/SPRAY BOTTLE BOTHNSTRLS SCH (12:20)
[2018-07-16 13:33] LABS: PLATELET ESTIMATE NORMAL
[2018-07-16] MEDS ORDERED: LEVOFLOXACIN 750MG PREMIX 150 ML IV SCH (15:00)
[2018-07-17] MEDS ORDERED: PREDNISONE 20MG TABLET PO SCH (09:00)
== END 2018-07-16 16:15 | disposition home or self-care (01) | DRG 720 ==
LOC: ER 21:19 → 5EST 23:31 → EDBEDREQTM 23:34 → EDBEDREQ 23:34 → ENRESERV 07-14 07:56
PROVIDERS: ADMIT Internal Medicine; ATTEND Internal Medicine
PROC: 5A09357 Assistance with Respiratory Ventilation, Less than 24 Consecutive Hours, Continuous Positive Airway Pressure (ICD-10-PCS; principal; 2018-07-13)
PROC: 5A09357 Assistance with Respiratory Ventilation, Less than 24 Consecutive Hours, Continuous Positive Airway Pressure (ICD-10-PCS; 2018-07-14)
PROC: 5A09357 Assistance with Respiratory Ventilation, Less than 24 Consecutive Hours, Continuous Positive Airway Pressure (ICD-10-PCS; 2018-07-15)
PROC: 5A09357 Assistance with Respiratory Ventilation, Less than 24 Consecutive Hours, Continuous Positive Airway Pressure (ICD-10-PCS; 2018-07-16)
DX: A41.9 Sepsis, unspecified organism (principal); J96.22 Acute and chronic respiratory failure with hypercapnia; I50.33 Acute on chronic diastolic (congestive) heart failure; Z99.11 Dependence on respirator [ventilator] status; I27.20 Pulmonary hypertension, unspecified; J18.9 Pneumonia, unspecified organism; E66.2 Morbid (severe) obesity with alveolar hypoventilation; I11.0 Hypertensive heart disease with heart failure; Z68.43 Body mass index [BMI] 50.0-59.9, adult; Z99.81 Dependence on supplemental oxygen; J44.0 Chronic obstructive pulmonary disease with (acute) lower respiratory infection; J44.1 Chronic obstructive pulmonary disease with (acute) exacerbation; F14.90 Cocaine use, unspecified, uncomplicated; I25.10 Atherosclerotic heart disease of native coronary artery without angina pectoris; F17.210 Nicotine dependence, cigarettes, uncomplicated; Z79.899 Other long term (current) drug therapy; Z82.49 Family history of ischemic heart disease and other diseases of the circulatory system; Z91.19 Patient's noncompliance with other medical treatment and regimen; Z98.891 History of uterine scar from previous surgery; Z88.0 Allergy status to penicillin; Z88.6 Allergy status to analgesic agent; Z88.8 Allergy status to other drugs, medicaments and biological substances; Z79.51 Long term (current) use of inhaled steroids
CPT/HCPCS: 36415; 36600; 71045; 80048; 80061; 80305; 82375; 82550; 82553; 82805; 83605; 83735; 83880; 84145; 84439; 84443; 84484; 93005; 94640; 94644; 94660; 96365; 96375; 99291; J0360; J1170; J1650; J1940; J1956; J2270; J2920; J2930; J3475; J7050; J7512; J7611; J7620

== ENCOUNTER 2018-07-30 01:11 | Inpatient (IN) | payer MEDICAID ==
[~2018-07-30] VITALS: Ht 160 cm; Wt 154.2 kg
[2018-07-30] VITALS (7 sets, daily range): BP systolic 127–153; BP diastolic 63–93
[2018-07-30] MEDS ORDERED: ACETAMINOPHEN 325MG TABLET PO STA (01:31)
[2018-07-30] MEDS ORDERED: FUROSEMIDE 40MG/4ML VIAL IV ONE (01:45)
[2018-07-30 02:21] LABS: BASOPHILS % 0.5 % (0.0-2.0); EOSINOPHILS % 5.3 % (0.0-5.0); HEMATOCRIT. 39.4 % (36.0-48.0); HEMOGLOBIN. 12.6 g/dL (12.0-16.0); LYMPHOCYTES % 22.3 % (20.0-50.0); MEAN CORPUSCULAR VOLUME 87.3 fL (81.0-99.0); MONOCYTES % 9.2 % (2.0-8.0); NEUTROPHILS % 62.7 % (40.0-76.0); PLATELET 201 x1000/uL (130-400); RED BLOOD CELL COUNT 4.52 mill/uL (4.2-5.4); RED CELL DISTRIBUTION WIDTH 18.1 % (11.6-14.6)
[2018-07-30 02:32] LABS: CHLORIDE 105 mEq/L (98-107)
[2018-07-30] MEDS ORDERED: CLONIDINE 0.1MG TABLET PO PRN (12:45)
[2018-07-30] MEDS ORDERED: FUROSEMIDE 40MG/4ML VIAL IVP SCH (12:45)
[2018-07-30] MEDS ORDERED: ACETAMINOPHEN 325MG TABLET PO PRN (12:45)
[2018-07-30] MEDS ORDERED: ONDANSETRON HCL 4MG/2ML INJ IV PRN (12:45)
[2018-07-30] MEDS ORDERED: IPRATROPIUM/ALBUTEROL 0.5-3(2.5)MG/3ML NEB HHN PRN (12:45)
[2018-07-30] MEDS: GUAIFENESIN-DM 200MG-20MG/10ML UDC PO PRN ×2 (13:55→20:51)
[2018-07-30] MEDS: LOSARTAN POTASSIUM 25 MG TABLET PO SCH (13:55)
[2018-07-30] MEDS: LEVOFLOXACIN 750MG PREMIX 150 ML IV SCH (15:01)
[2018-07-30] MEDS: METHYLPREDNISOLONE SOD SUCC 40 MG/ML VIAL IV SCH ×2 (15:01→22:21)
[2018-07-30] MEDS: IPRATROPIUM/ALBUTEROL 0.5-3(2.5)MG/3ML NEB HHN SCH ×2 (15:21→19:56)
[2018-07-30] MEDS: HYDROCODONE/ACETAMINOPHEN 5/325MG TABLET PO PRN ×2 (15:46→20:39)
[2018-07-30 17:13] LABS: *AMPHETAMINES SCREEN URINE NEGATIVE (NEGATIVE); *BARBITURATES SCREEN URINE NEGATIVE (NEGATIVE); *BENZODIAZEPINES SCREEN URINE NEGATIVE (NEGATIVE); *COCAINE SCREEN URINE PRESUMTIVE POSITIVE (NEGATIVE); CANNABINOID URINE SCREEN NEGATIVE (NEGATIVE)
[2018-07-30 17:14] LABS: METHADONE URINE SCREEN NEGATIVE (NEGATIVE); OPIATES URINE SCREEN NEGATIVE (NEGATIVE); PHENCYCLIDINE URINE SCREEN NEGATIVE (NEGATIVE)
[2018-07-30 17:17] LABS: CLARITY URINE CLEAR (CLEAR); COLOR URINE YELLOW (YELLOW); KETONES URINE TRACE (NEGATIVE); LEUKOCYTE ESTERASE URINE NEGATIVE (NEGATIVE); NITRITE URINE NEGATIVE (NEGATIVE); OCCULT BLOOD URINE NEGATIVE (NEGATIVE); PROTEIN URINE 1+ (NEGATIVE); SPECIFIC GRAVITY URINE 1.025 (1.005-1.030)
[2018-07-30] MEDS ORDERED: IPRATROPIUM/ALBUTEROL 0.5-3(2.5)MG/3ML NEB HHN SCH (18:00)
[2018-07-30] MEDS ORDERED: BUDESONIDE 0.5MG/2ML NEB HHN SCH (18:00)
[2018-07-30] MEDS: MONTELUKAST SODIUM 10MG TABLET PO SCH (18:05)
[2018-07-30] MEDS: FUROSEMIDE 100MG/10ML VIAL IVP SCH (18:10)
[2018-07-30] MEDS: GUAIFENESIN 600MG ER TABLET PO SCH (20:38)
[2018-07-30] MEDS: AMLODIPINE 5MG TABLET PO SCH (20:38)
[2018-07-30] MEDS: ENOXAPARIN 40MG/0.4ML SYR SUBCUT SCH (20:40)
[2018-07-31] VITALS (12 sets, daily range): BP systolic 117–156; BP diastolic 50–99
[2018-07-31] MEDS: GUAIFENESIN-DM 200MG-20MG/10ML UDC PO PRN ×4 (00:14→20:35)
[2018-07-31] MEDS: HYDROCODONE/ACETAMINOPHEN 5/325MG TABLET PO PRN ×4 (00:18→20:49)
[2018-07-31] MEDS: IPRATROPIUM/ALBUTEROL 0.5-3(2.5)MG/3ML NEB HHN SCH ×5 (00:22→16:01)
[2018-07-31] MEDS: METHYLPREDNISOLONE SOD SUCC 40 MG/ML VIAL IV SCH ×3 (05:42→20:34)
[2018-07-31 05:59] LABS: BASOPHILS % 0.4 % (0.0-2.0); HEMATOCRIT. 40.6 % (36.0-48.0); HEMOGLOBIN. 12.7 g/dL (12.0-16.0); LYMPHOCYTES % 7.1 % (20.0-50.0); MEAN CORPUSCULAR HEMOGLOBIN 27.8 pg (28.0-32.0); MEAN CORPUSCULAR VOLUME 88.9 fL (81.0-99.0); MEAN PLATELET VOLUME 8.5 fl (7.4-10.4); MONOCYTES % 3.1 % (2.0-8.0); NEUTROPHILS % 89.4 % (40.0-76.0); PLATELET 194 x1000/uL (130-400); RED BLOOD CELL COUNT 4.57 mill/uL (4.2-5.4); RED CELL DISTRIBUTION WIDTH 17.4 % (11.6-14.6)
[2018-07-31 06:24] LABS: CHLORIDE 101 mEq/L (98-107)
[2018-07-31] MEDS: FUROSEMIDE 100MG/10ML VIAL IVP SCH ×2 (07:15→17:23)
[2018-07-31] MEDS: GUAIFENESIN 600MG ER TABLET PO SCH ×2 (08:45→20:35)
[2018-07-31] MEDS: ENOXAPARIN 40MG/0.4ML SYR SUBCUT SCH ×2 (08:45→20:35)
[2018-07-31] MEDS: AMLODIPINE 5MG TABLET PO SCH ×2 (08:45→20:38)
[2018-07-31] MEDS: LOSARTAN POTASSIUM 25 MG TABLET PO SCH (08:45)
[2018-07-31] MEDS: LEVOFLOXACIN 750MG PREMIX 150 ML IV SCH (14:27)
[2018-07-31] MEDS: POLYVINYL ALCOHOL OPHTH DROPS 15ML BOTHEYE SCH ×2 (14:27→17:23)
[2018-07-31] MEDS: NICOTINE 14MG PATCH TD SCH (14:27)
[2018-07-31] MEDS ORDERED: MAGNESIUM 2 G PREMIX 50 ML IV SCH (17:00)
[2018-07-31] MEDS: MONTELUKAST SODIUM 10MG TABLET PO SCH (17:22)
[2018-08-01] VITALS (13 sets, daily range): BP systolic 122–158; BP diastolic 68–99
[2018-08-01] MEDS: POLYVINYL ALCOHOL OPHTH DROPS 15ML BOTHEYE SCH ×5 (01:00→23:48)
[2018-08-01] MEDS: GUAIFENESIN-DM 200MG-20MG/10ML UDC PO PRN ×4 (01:06→21:19)
[2018-08-01] MEDS: HYDROCODONE/ACETAMINOPHEN 5/325MG TABLET PO PRN ×4 (01:13→21:20)
[2018-08-01] MEDS: IPRATROPIUM/ALBUTEROL 0.5-3(2.5)MG/3ML NEB HHN SCH ×4 (01:30→20:16)
[2018-08-01 07:08] LABS: CHLORIDE 101 mEq/L (98-107)
[2018-08-01 07:12] LABS: HEMATOCRIT. 40.8 % (36.0-48.0); HEMOGLOBIN. 12.7 g/dL (12.0-16.0); MEAN CORPUSCULAR HEMOGLOBIN 27.7 pg (28.0-32.0); MEAN CORPUSCULAR VOLUME 88.8 fL (81.0-99.0); MEAN PLATELET VOLUME 8.9 fl (7.4-10.4); PLATELET 210 x1000/uL (130-400); RED CELL DISTRIBUTION WIDTH 17.2 % (11.6-14.6)
[2018-08-01] MEDS: FUROSEMIDE 100MG/10ML VIAL IVP SCH ×2 (07:15→10:59)
[2018-08-01] MEDS: LOSARTAN POTASSIUM 25 MG TABLET PO SCH (08:30)
[2018-08-01] MEDS: GUAIFENESIN 600MG ER TABLET PO SCH ×2 (08:30→20:36)
[2018-08-01] MEDS: NICOTINE 14MG PATCH TD SCH (08:30)
[2018-08-01] MEDS: METHYLPREDNISOLONE SOD SUCC 40 MG/ML VIAL IV SCH ×2 (08:31→20:35)
[2018-08-01] MEDS: ENOXAPARIN 40MG/0.4ML SYR SUBCUT SCH ×2 (08:31→20:35)
[2018-08-01] MEDS: AMLODIPINE 5MG TABLET PO SCH ×2 (08:37→20:36)
[2018-08-01] MEDS: LEVOFLOXACIN 750MG PREMIX 150 ML IV SCH (13:05)
[2018-08-01] MEDS: MONTELUKAST SODIUM 10MG TABLET PO SCH (16:47)
[2018-08-02] VITALS (12 sets, daily range): BP systolic 89–154; BP diastolic 47–113
[2018-08-02] MEDS: IPRATROPIUM/ALBUTEROL 0.5-3(2.5)MG/3ML NEB HHN SCH ×6 (00:15→21:28)
[2018-08-02 02:38] LABS: PLATELET ESTIMATE NORMAL
[2018-08-02] MEDS: POLYVINYL ALCOHOL OPHTH DROPS 15ML BOTHEYE SCH ×4 (05:56→21:22)
[2018-08-02 06:05] LABS: HEMATOCRIT. 41.3 % (36.0-48.0); HEMOGLOBIN. 13.1 g/dL (12.0-16.0); MEAN CORPUSCULAR VOLUME 88.1 fL (81.0-99.0); MEAN PLATELET VOLUME 8.7 fl (7.4-10.4); PLATELET 214 x1000/uL (130-400); RED BLOOD CELL COUNT 4.69 mill/uL (4.2-5.4); RED CELL DISTRIBUTION WIDTH 17.2 % (11.6-14.6)
[2018-08-02 06:15] LABS: CHLORIDE 99 mEq/L (98-107)
[2018-08-02] MEDS: FUROSEMIDE 100MG/10ML VIAL IVP SCH ×2 (07:15→16:58)
[2018-08-02] MEDS: AMLODIPINE 5MG TABLET PO SCH ×2 (08:57→21:22)
[2018-08-02] MEDS: HYDROCODONE/ACETAMINOPHEN 5/325MG TABLET PO PRN ×3 (08:58→21:22)
[2018-08-02] MEDS: GUAIFENESIN 600MG ER TABLET PO SCH ×2 (08:58→20:55)
[2018-08-02] MEDS: LOSARTAN POTASSIUM 25 MG TABLET PO SCH (08:58)
[2018-08-02] MEDS: ENOXAPARIN 40MG/0.4ML SYR SUBCUT SCH ×2 (08:58→20:55)
[2018-08-02] MEDS: METHYLPREDNISOLONE SOD SUCC 40 MG/ML VIAL IV SCH ×2 (08:58→20:55)
[2018-08-02] MEDS: GUAIFENESIN-DM 200MG-20MG/10ML UDC PO PRN ×3 (08:58→21:42)
[2018-08-02] MEDS: NICOTINE 14MG PATCH TD SCH (08:59)
[2018-08-02 10:35] LABS: PLATELET ESTIMATE NORMAL
[2018-08-02] MEDS: LEVOFLOXACIN 750MG PREMIX 150 ML IV SCH (13:12)
[2018-08-02] MEDS: MONTELUKAST SODIUM 10MG TABLET PO SCH (16:58)
[2018-08-03] VITALS (7 sets, daily range): BP systolic 117–159; BP diastolic 58–104
[2018-08-03] MEDS: IPRATROPIUM/ALBUTEROL 0.5-3(2.5)MG/3ML NEB HHN SCH ×4 (00:32→12:17)
[2018-08-03] MEDS: POLYVINYL ALCOHOL OPHTH DROPS 15ML BOTHEYE SCH ×2 (05:33→11:48)
[2018-08-03 06:55] LABS: HEMATOCRIT. 41.6 % (36.0-48.0); HEMOGLOBIN. 12.9 g/dL (12.0-16.0); MEAN CORPUSCULAR HEMOGLOBIN 27.7 pg (28.0-32.0); MEAN CORPUSCULAR VOLUME 89.4 fL (81.0-99.0); MEAN PLATELET VOLUME 8.9 fl (7.4-10.4); PLATELET 200 x1000/uL (130-400); RED BLOOD CELL COUNT 4.66 mill/uL (4.2-5.4); RED CELL DISTRIBUTION WIDTH 17.2 % (11.6-14.6)
[2018-08-03 06:56] LABS: CHLORIDE 99 mEq/L (98-107)
[2018-08-03] MEDS: FUROSEMIDE 100MG/10ML VIAL IVP SCH (07:15)
[2018-08-03] MEDS: NICOTINE 14MG PATCH TD SCH (09:00)
[2018-08-03] MEDS: GUAIFENESIN-DM 200MG-20MG/10ML UDC PO PRN (09:22)
[2018-08-03] MEDS: METHYLPREDNISOLONE SOD SUCC 40 MG/ML VIAL IV SCH (09:23)
[2018-08-03] MEDS: LOSARTAN POTASSIUM 25 MG TABLET PO SCH (09:23)
[2018-08-03] MEDS: GUAIFENESIN 600MG ER TABLET PO SCH (09:23)
[2018-08-03] MEDS: ENOXAPARIN 40MG/0.4ML SYR SUBCUT SCH (09:23)
[2018-08-03] MEDS: HYDROCODONE/ACETAMINOPHEN 5/325MG TABLET PO PRN (09:24)
[2018-08-03] MEDS: AMLODIPINE 5MG TABLET PO SCH (09:26)
[2018-08-03] MEDS ORDERED: LEVOFLOXACIN 250MG TABLET PO SCH (11:00)
[2018-08-03 18:14] LABS: PLATELET ESTIMATE NORMAL
== END 2018-08-03 16:20 | disposition home or self-care (01) | DRG 194 ==
LOC: ER 01:11 → 5EST 03:01 → EDBEDREQTM 03:02 → EDBEDREQSVC 03:02 → EDBEDREQ 03:02 → ENRESERV 07:57 → 5EST 11:42
PROVIDERS: ADMIT Internal Medicine; ATTEND Internal Medicine
PROC: 5A09357 Assistance with Respiratory Ventilation, Less than 24 Consecutive Hours, Continuous Positive Airway Pressure (ICD-10-PCS; principal; 2018-07-30)
DX: I11.0 Hypertensive heart disease with heart failure (principal); J96.21 Acute and chronic respiratory failure with hypoxia; J18.9 Pneumonia, unspecified organism; I27.20 Pulmonary hypertension, unspecified; E44.0 Moderate protein-calorie malnutrition; J44.0 Chronic obstructive pulmonary disease with (acute) lower respiratory infection; J68.0 Bronchitis and pneumonitis due to chemicals, gases, fumes and vapors; E66.2 Morbid (severe) obesity with alveolar hypoventilation; Z68.44 Body mass index [BMI] 60.0-69.9, adult; I50.31 Acute diastolic (congestive) heart failure; J44.1 Chronic obstructive pulmonary disease with (acute) exacerbation; Z99.81 Dependence on supplemental oxygen; H11.32 Conjunctival hemorrhage, left eye; J20.9 Acute bronchitis, unspecified; F14.10 Cocaine abuse, uncomplicated; F17.210 Nicotine dependence, cigarettes, uncomplicated; I50.33 Acute on chronic diastolic (congestive) heart failure; J96.22 Acute and chronic respiratory failure with hypercapnia; Z82.49 Family history of ischemic heart disease and other diseases of the circulatory system; Z91.19 Patient's noncompliance with other medical treatment and regimen; Z98.891 History of uterine scar from previous surgery; Z59.0 Homelessness; Z88.6 Allergy status to analgesic agent; Z88.0 Allergy status to penicillin; Z79.899 Other long term (current) drug therapy; Z71.51 Drug abuse counseling and surveillance of drug abuser; Z71.89 Other specified counseling
CPT/HCPCS: 36415; 71045; 80048; 80305; 83735; 83880; 84484; 93005; 94640; 94660; 99291; C1893; J1650; J1940; J1956; J2920; J3475; J7050; J7620

== ENCOUNTER 2018-08-11 21:18 | Inpatient (IN) | payer MEDICAID ==
[~2018-08-11] VITALS: Ht 162.6 cm; Wt 147.0 kg
[2018-08-11] MEDS ORDERED: MAGNESIUM 2 G PREMIX 50 ML IV STA (22:12)
[2018-08-11] MEDS ORDERED: METHYLPREDNISOLONE SOD SUCC 125 MG/2 ML VIAL IV STA (22:12)
[2018-08-11] MEDS ORDERED: ALBUTEROL (0.083%) 2.5MG/3ML NEB HHN STA (22:12)
[2018-08-11] MEDS ORDERED: IPRATROPIUM BROMIDE (0.02%) 0.5MG/2.5ML NEB HHN STA (22:12)
[2018-08-11] MEDS ORDERED: NITROGLYCERIN OINT 1GM/INCH UDPKT TD ONE (22:30)
[2018-08-11] MEDS ORDERED: FUROSEMIDE 40MG/4ML VIAL IVP ONE (22:30)
[2018-08-11] MEDS ORDERED: ASPIRIN 81MG TABLET PO ONE (22:30)
[2018-08-11] MEDS ORDERED: MORPHINE SULFATE 4 MG/ML CPJ (NOT FOR IM USE) IV STA (22:30)
[2018-08-11] MEDS ORDERED: ONDANSETRON HCL 4MG/2ML INJ IV STA (22:30)
[2018-08-11] MEDS ORDERED: ENALAPRIL 2.5MG/2ML VIAL 2ML IV ONE (22:30)
[2018-08-11 22:36] LABS: BASOPHILS % 0.4 % (0.0-2.0); EOSINOPHILS % 3.5 % (0.0-5.0); HEMATOCRIT. 41.2 % (36.0-48.0); HEMOGLOBIN. 13.2 g/dL (12.0-16.0); LYMPHOCYTES % 24.2 % (20.0-50.0); MEAN CORPUSCULAR VOLUME 87.4 fL (81.0-99.0); MEAN PLATELET VOLUME 8.1 fl (7.4-10.4); MONOCYTES % 10.3 % (2.0-8.0); NEUTROPHILS % 61.6 % (40.0-76.0); PLATELET 170 x1000/uL (130-400); RED BLOOD CELL COUNT 4.71 mill/uL (4.2-5.4); RED CELL DISTRIBUTION WIDTH 17.6 % (11.6-14.6)
[2018-08-11 22:42] LABS: CHLORIDE 108 mEq/L (98-107)
[2018-08-11 22:46] LABS: ETHANOL BLOOD < 10 mg/dL; PARTIAL THROMBOPLASTIN TIME 26.1 sec (23.4-31.0); PROTHROMBIN TIME 9.6 sec (9.1-11.1)
[2018-08-12] MEDS ORDERED: CLONIDINE 0.1MG TABLET PO PRN
[2018-08-12] MEDS ORDERED: MAGNESIUM/ALUMINUM HYDROXIDE/SIMETHICONE 30ML UDC PO PRN
[2018-08-12] MEDS ORDERED: IPRATROPIUM/ALBUTEROL 0.5-3(2.5)MG/3ML NEB INH PRN
[2018-08-12] MEDS ORDERED: ACETAMINOPHEN 325MG TABLET PO PRN
[2018-08-12] MEDS ORDERED: DOCUSATE SODIUM 100MG CAPSULE PO PRN
[2018-08-12] MEDS ORDERED: ONDANSETRON HCL 4MG/2ML INJ IV PRN
[2018-08-12 00:05] LABS: *BARBITURATES SCREEN URINE NEGATIVE (NEGATIVE); *BENZODIAZEPINES SCREEN URINE NEGATIVE (NEGATIVE); CANNABINOID URINE SCREEN NEGATIVE (NEGATIVE); PHENCYCLIDINE URINE SCREEN NEGATIVE (NEGATIVE)
[2018-08-12 00:06] LABS: *AMPHETAMINES SCREEN URINE NEGATIVE (NEGATIVE); *COCAINE SCREEN URINE PRESUMTIVE POSITIVE (NEGATIVE); METHADONE URINE SCREEN NEGATIVE (NEGATIVE); OPIATES URINE SCREEN PRESUMTIVE POSITIVE (NEGATIVE)
[2018-08-12 01:45] LABS: CHLORIDE 109 mEq/L (98-107)
[2018-08-12] MEDS: HYDROCODONE/ACETAMINOPHEN 5/325MG TABLET PO PRN ×3 (05:06→22:59)
[2018-08-12 06:24] LABS: HEMATOCRIT. 41.7 % (36.0-48.0); HEMOGLOBIN. 13.2 g/dL (12.0-16.0); MEAN CORPUSCULAR HEMOGLOBIN 28.2 pg (28.0-32.0); MEAN CORPUSCULAR VOLUME 89.3 fL (81.0-99.0); MEAN PLATELET VOLUME 8.5 fl (7.4-10.4); PLATELET 186 x1000/uL (130-400); RED BLOOD CELL COUNT 4.67 mill/uL (4.2-5.4); RED CELL DISTRIBUTION WIDTH 17.8 % (11.6-14.6)
[2018-08-12 07:25] LABS: PLATELET ESTIMATE NORMAL
[2018-08-12 10:41] VITALS: BP 178/82
[2018-08-12 12:00] VITALS: BP 125/78
[2018-08-12] MEDS: CLONIDINE 0.1MG TABLET PO SCH ×2 (14:00→21:05)
[2018-08-12] MEDS: ENOXAPARIN 30MG/0.3ML SYR SUBCUT SCH ×2 (14:19→21:06)
[2018-08-12] MEDS: LOSARTAN POTASSIUM 50 MG TABLET PO SCH (14:19)
[2018-08-12] MEDS: ASPIRIN 81MG EC TABLET PO SCH (14:19)
[2018-08-12] MEDS: AMLODIPINE 5MG TABLET PO SCH ×2 (14:20→21:04)
[2018-08-12] MEDS: METHYLPREDNISOLONE SOD SUCC 125 MG/2 ML VIAL IV SCH ×2 (14:21→21:04)
[2018-08-12 15:19] LABS: CREATINE KINASE MB FRACTION 2.5 ng/mL (0.5-3.6)
[2018-08-12] MEDS ORDERED: IPRATROPIUM/ALBUTEROL 0.5-3(2.5)MG/3ML NEB HHN PRN (15:45)
[2018-08-12] MEDS ORDERED: FLUTICASONE/VILANTEROL 200-25 BLST.W.DEV ORI SCH (17:00)
[2018-08-12] MEDS: OMEPRAZOLE 20MG CAPSULE EXTENDED RELEASE PO SCH ×2 (19:04→21:05)
[2018-08-12] MEDS: NICOTINE 14MG PATCH TD SCH (19:04)
[2018-08-12] MEDS: FUROSEMIDE 40MG TABLET PO SCH (19:05)
[2018-08-12 20:00] VITALS: BP 131/78
[2018-08-12] MEDS ORDERED: AZITHROMYCIN 500 MG in DEXT 5% WATER 250 ML IV SCH (20:00)
[2018-08-12] MEDS: IPRATROPIUM/ALBUTEROL 0.5-3(2.5)MG/3ML NEB INH SCH (20:29)
[2018-08-12] MEDS: GUAIFENESIN 200MG/10ML SUGAR FREE UDC PO PRN (22:58)
[2018-08-13] VITALS: BP 135/81
[2018-08-13] MEDS: IPRATROPIUM/ALBUTEROL 0.5-3(2.5)MG/3ML NEB INH SCH ×6 (00:16→20:50)
[2018-08-13 04:00] VITALS: BP 119/89
[2018-08-13] MEDS: CLONIDINE 0.1MG TABLET PO SCH ×3 (06:24→22:10)
[2018-08-13] MEDS: METHYLPREDNISOLONE SOD SUCC 125 MG/2 ML VIAL IV SCH ×3 (06:24→22:10)
[2018-08-13 07:49] LABS: HEMATOCRIT. 39.2 % (36.0-48.0); HEMOGLOBIN. 12.1 g/dL (12.0-16.0); MEAN CORPUSCULAR HEMOGLOBIN 27.6 pg (28.0-32.0); MEAN CORPUSCULAR VOLUME 89.4 fL (81.0-99.0); PLATELET 186 x1000/uL (130-400); RED BLOOD CELL COUNT 4.38 mill/uL (4.2-5.4); RED CELL DISTRIBUTION WIDTH 17.7 % (11.6-14.6)
[2018-08-13 08:00] VITALS: BP 159/88
[2018-08-13] MEDS: AMLODIPINE 5MG TABLET PO SCH ×2 (08:19→20:52)
[2018-08-13] MEDS: LOSARTAN POTASSIUM 50 MG TABLET PO SCH (08:20)
[2018-08-13] MEDS: ASPIRIN 81MG EC TABLET PO SCH (08:20)
[2018-08-13] MEDS: ENOXAPARIN 30MG/0.3ML SYR SUBCUT SCH ×2 (08:21→20:53)
[2018-08-13] MEDS: HYDROCODONE/ACETAMINOPHEN 5/325MG TABLET PO PRN ×4 (08:21→20:55)
[2018-08-13] MEDS: GUAIFENESIN 200MG/10ML SUGAR FREE UDC PO PRN ×2 (08:21→20:52)
[2018-08-13] MEDS: BUDESONIDE 0.5MG/2ML NEB HHN SCH ×2 (09:22→20:48)
[2018-08-13] MEDS: NICOTINE 14MG PATCH TD SCH (09:33)
[2018-08-13] MEDS: OMEPRAZOLE 20MG CAPSULE EXTENDED RELEASE PO SCH (09:33)
[2018-08-13 09:57] LABS: CHLORIDE 104 mEq/L (98-107)
[2018-08-13 11:28] LABS: PLATELET ESTIMATE NORMAL
[2018-08-13 12:00] VITALS: BP 119/70
[2018-08-13] MEDS ORDERED: CLONIDINE 0.1MG TABLET PO SCH (13:00)
[2018-08-13] MEDS: FUROSEMIDE 40MG TABLET PO SCH (13:06)
[2018-08-13] MEDS: PROMETHAZINE/DEXTROMETHORPHAN 6.25-15MG/5ML BOTTLE 120ML PO PRN (14:25)
[2018-08-13 16:00] VITALS: BP 137/87
[2018-08-13 16:44] LABS: CLARITY URINE CLEAR (CLEAR); COLOR URINE YELLOW (YELLOW); KETONES URINE NEGATIVE (NEGATIVE); LEUKOCYTE ESTERASE URINE NEGATIVE (NEGATIVE); NITRITE URINE NEGATIVE (NEGATIVE); OCCULT BLOOD URINE NEGATIVE (NEGATIVE); PROTEIN URINE NEGATIVE (NEGATIVE); SPECIFIC GRAVITY URINE 1.009 (1.005-1.030); UROBILINOGEN URINE 0.2 E.U./dL (0.2-1.0)
[2018-08-13 20:00] VITALS: BP 139/89
[2018-08-13] MEDS: FAMOTIDINE 20MG TABLET PO SCH (20:52)
[2018-08-14] VITALS: BP 135/81
[2018-08-14] MEDS: IPRATROPIUM/ALBUTEROL 0.5-3(2.5)MG/3ML NEB INH SCH ×5 (00:24→16:30)
[2018-08-14] MEDS: HYDROCODONE/ACETAMINOPHEN 5/325MG TABLET PO PRN ×2 (01:10→09:45)
[2018-08-14] MEDS: PROMETHAZINE/DEXTROMETHORPHAN 6.25-15MG/5ML BOTTLE 120ML PO PRN ×2 (01:14→09:46)
[2018-08-14 04:00] VITALS: BP 132/85
[2018-08-14] MEDS: METHYLPREDNISOLONE SOD SUCC 125 MG/2 ML VIAL IV SCH ×2 (06:21→16:53)
[2018-08-14] MEDS: CLONIDINE 0.1MG TABLET PO SCH ×2 (06:21→16:54)
[2018-08-14 06:45] LABS: HEMATOCRIT. 39.6 % (36.0-48.0); HEMOGLOBIN. 12.3 g/dL (12.0-16.0); MEAN CORPUSCULAR HEMOGLOBIN 27.5 pg (28.0-32.0); MEAN CORPUSCULAR VOLUME 88.5 fL (81.0-99.0); MEAN PLATELET VOLUME 8.9 fl (7.4-10.4); PLATELET 197 x1000/uL (130-400); RED BLOOD CELL COUNT 4.48 mill/uL (4.2-5.4); RED CELL DISTRIBUTION WIDTH 17.3 % (11.6-14.6)
[2018-08-14 07:26] LABS: CHLORIDE 102 mEq/L (98-107)
[2018-08-14 08:00] VITALS: BP 147/84
[2018-08-14] MEDS: BUDESONIDE 0.5MG/2ML NEB HHN SCH (08:49)
[2018-08-14] MEDS: LOSARTAN POTASSIUM 50 MG TABLET PO SCH (09:35)
[2018-08-14] MEDS: ENOXAPARIN 30MG/0.3ML SYR SUBCUT SCH (09:36)
[2018-08-14] MEDS: AMLODIPINE 5MG TABLET PO SCH (09:36)
[2018-08-14] MEDS: NICOTINE 14MG PATCH TD SCH (09:36)
[2018-08-14] MEDS: ASPIRIN 81MG EC TABLET PO SCH (09:36)
[2018-08-14] MEDS: FAMOTIDINE 20MG TABLET PO SCH (09:36)
[2018-08-14] MEDS: FUROSEMIDE 40MG TABLET PO SCH (09:36)
[2018-08-14 12:00] VITALS: BP 145/84
[2018-08-14 13:11] LABS: PLATELET ESTIMATE NORMAL
[2018-08-14 15:32] VITALS: BP 135/74
[2018-08-14 16:00] VITALS: BP 135/78
== END 2018-08-14 18:59 | disposition home or self-care (01) | DRG 816 ==
LOC: ER 21:18 → 7WST 23:22 → ENRESERV 08-12 07:14
PROVIDERS: ADMIT Internal Medicine; ATTEND Internal Medicine
PROC: 5A09357 Assistance with Respiratory Ventilation, Less than 24 Consecutive Hours, Continuous Positive Airway Pressure (ICD-10-PCS; principal; 2018-08-13)
PROC: 5A09357 Assistance with Respiratory Ventilation, Less than 24 Consecutive Hours, Continuous Positive Airway Pressure (ICD-10-PCS; 2018-08-14)
DX: T40.5X1A Poisoning by cocaine, accidental (unintentional), initial encounter (principal); J96.20 Acute and chronic respiratory failure, unspecified whether with hypoxia or hypercapnia; Z99.11 Dependence on respirator [ventilator] status; I50.33 Acute on chronic diastolic (congestive) heart failure; J84.9 Interstitial pulmonary disease, unspecified; I27.20 Pulmonary hypertension, unspecified; J44.1 Chronic obstructive pulmonary disease with (acute) exacerbation; E66.01 Morbid (severe) obesity due to excess calories; J45.901 Unspecified asthma with (acute) exacerbation; J68.0 Bronchitis and pneumonitis due to chemicals, gases, fumes and vapors; F14.10 Cocaine abuse, uncomplicated; F17.210 Nicotine dependence, cigarettes, uncomplicated; G47.33 Obstructive sleep apnea (adult) (pediatric); I11.0 Hypertensive heart disease with heart failure; E66.09 Other obesity due to excess calories; Z91.19 Patient's noncompliance with other medical treatment and regimen; Z99.81 Dependence on supplemental oxygen; Z68.43 Body mass index [BMI] 50.0-59.9, adult; Y92.89 Other specified places as the place of occurrence of the external cause; Z79.82 Long term (current) use of aspirin; Z88.0 Allergy status to penicillin; Z88.6 Allergy status to analgesic agent; Z71.3 Dietary counseling and surveillance; Z71.6 Tobacco abuse counseling; Z71.51 Drug abuse counseling and surveillance of drug abuser
CPT/HCPCS: 36415; 71045; 72131; 80048; 80061; 80305; 80320; 82550; 82553; 83735; 83880; 84443; 84484; 93005; 93306; 93970; 94640; 94644; 96365; 96375; 97162; 99291; J1650; J1940; J2270; J2405; J2930; J3475; J3490; J7611; J7620; J7626; G0480

== ENCOUNTER 2018-08-24 21:44 | Inpatient (IN) | payer MEDICAID ==
[~2018-08-24] VITALS: Ht 160 cm; Wt 153.8 kg
[2018-08-24] MEDS ORDERED: ONDANSETRON HCL 4MG/2ML INJ IV STA (22:42)
[2018-08-24] MEDS ORDERED: MORPHINE SULFATE 4 MG/ML CPJ (NOT FOR IM USE) IV STA (22:42)
[2018-08-24] MEDS ORDERED: NITROGLYCERIN OINT 1GM/INCH UDPKT TD ONE (22:45)
[2018-08-24 23:19] LABS: BASOPHILS % 0.8 % (0.0-2.0); EOSINOPHILS % 3.7 % (0.0-5.0); HEMATOCRIT. 38.4 % (36.0-48.0); HEMOGLOBIN. 12.3 g/dL (12.0-16.0); LYMPHOCYTES % 21.1 % (20.0-50.0); MEAN CORPUSCULAR HEMOGLOBIN 28.2 pg (28.0-32.0); MEAN CORPUSCULAR VOLUME 88.1 fL (81.0-99.0); MEAN PLATELET VOLUME 8.6 fl (7.4-10.4); MONOCYTES % 7.7 % (2.0-8.0); NEUTROPHILS % 66.7 % (40.0-76.0); PLATELET 228 x1000/uL (130-400); RED BLOOD CELL COUNT 4.36 mill/uL (4.2-5.4); RED CELL DISTRIBUTION WIDTH 18.1 % (11.6-14.6)
[2018-08-24 23:21] LABS: CHLORIDE 110 mEq/L (98-107)
[2018-08-25] MEDS ORDERED: ALBUTEROL (0.083%) 2.5MG/3ML NEB HHN STA (00:06)
[2018-08-25] MEDS ORDERED: IPRATROPIUM BROMIDE (0.02%) 0.5MG/2.5ML NEB HHN STA (00:06)
[2018-08-25] MEDS ORDERED: VANCOMYCIN 1 G PREMIX 200 ML IV ONE (00:30)
[2018-08-25] MEDS ORDERED: MEROPENEM 1,000 MG in SODIUM CHLORIDE 0.9% 100 ML IV ONE (00:30)
[2018-08-25] MEDS: HYDROCODONE/ACETAMINOPHEN 5/325MG TABLET PO PRN ×4 (04:13→22:57)
[2018-08-25 08:10] VITALS: BP 138/99
[2018-08-25] MEDS ORDERED: IPRATROPIUM/ALBUTEROL 0.5-3(2.5)MG/3ML NEB HHN PRN (08:45)
[2018-08-25] MEDS ORDERED: CLONIDINE 0.1MG TABLET PO PRN (08:45)
[2018-08-25] MEDS ORDERED: ONDANSETRON HCL 4MG/2ML INJ IV PRN (08:45)
[2018-08-25] MEDS ORDERED: HYDROCODONE/ACETAMINOPHEN 5/325MG TABLET PO PRN (08:45)
[2018-08-25] MEDS ORDERED: FUROSEMIDE 40MG/4ML VIAL IVP SCH (09:00)
[2018-08-25] MEDS: IPRATROPIUM/ALBUTEROL 0.5-3(2.5)MG/3ML NEB HHN SCH ×4 (11:40→23:17)
[2018-08-25] MEDS: BUDESONIDE 0.5MG/2ML NEB HHN SCH ×2 (11:40→20:53)
[2018-08-25 12:00] VITALS: BP 132/99
[2018-08-25 16:00] VITALS: BP 150/81
[2018-08-25 22:00] VITALS: BP 146/83
[2018-08-25] MEDS: GUAIFENESIN-DM 200MG-20MG/10ML UDC PO PRN (22:56)
[2018-08-25] MEDS: AMLODIPINE 5MG TABLET PO SCH (22:57)
[2018-08-25] MEDS: ENOXAPARIN 40MG/0.4ML SYR SUBCUT SCH (22:58)
[2018-08-26 04:00] VITALS: BP 169/98
[2018-08-26] MEDS: GUAIFENESIN-DM 200MG-20MG/10ML UDC PO PRN ×3 (05:53→21:09)
[2018-08-26] MEDS: HYDROCODONE/ACETAMINOPHEN 5/325MG TABLET PO PRN ×3 (05:54→20:54)
[2018-08-26 06:28] LABS: CHLORIDE 105 mEq/L (98-107)
[2018-08-26 06:43] LABS: BASOPHILS % 0.5 % (0.0-2.0); EOSINOPHILS % 7.3 % (0.0-5.0); HEMATOCRIT. 38.9 % (36.0-48.0); HEMOGLOBIN. 12.2 g/dL (12.0-16.0); LYMPHOCYTES % 17.1 % (20.0-50.0); MEAN CORPUSCULAR HEMOGLOBIN 28.4 pg (28.0-32.0); MEAN CORPUSCULAR VOLUME 90.7 fL (81.0-99.0); MONOCYTES % 6.9 % (2.0-8.0); NEUTROPHILS % 68.2 % (40.0-76.0); PLATELET 200 x1000/uL (130-400); RED BLOOD CELL COUNT 4.29 mill/uL (4.2-5.4); RED CELL DISTRIBUTION WIDTH 18.2 % (11.6-14.6)
[2018-08-26] MEDS: FUROSEMIDE 40MG/4ML VIAL IVP SCH ×2 (07:15→16:53)
[2018-08-26 07:34] LABS: CLARITY URINE CLEAR (CLEAR); COLOR URINE YELLOW (YELLOW); KETONES URINE NEGATIVE (NEGATIVE); LEUKOCYTE ESTERASE URINE NEGATIVE (NEGATIVE); NITRITE URINE NEGATIVE (NEGATIVE); OCCULT BLOOD URINE NEGATIVE (NEGATIVE); PH URINE 5.5 (4.5-8.0); PROTEIN URINE NEGATIVE (NEGATIVE); SPECIFIC GRAVITY URINE 1.019 (1.005-1.030); UROBILINOGEN URINE 0.2 E.U./dL (0.2-1.0)
[2018-08-26 08:00] VITALS: BP 135/77
[2018-08-26 08:09] LABS: *AMPHETAMINES SCREEN URINE NEGATIVE (NEGATIVE)
[2018-08-26 08:10] LABS: *BARBITURATES SCREEN URINE NEGATIVE (NEGATIVE); *BENZODIAZEPINES SCREEN URINE NEGATIVE (NEGATIVE); *COCAINE SCREEN URINE PRESUMTIVE POSITIVE (NEGATIVE); METHADONE URINE SCREEN NEGATIVE (NEGATIVE); OPIATES URINE SCREEN PRESUMTIVE POSITIVE (NEGATIVE); PHENCYCLIDINE URINE SCREEN NEGATIVE (NEGATIVE)
[2018-08-26 08:11] LABS: CANNABINOID URINE SCREEN NEGATIVE (NEGATIVE)
[2018-08-26] MEDS: BUDESONIDE 0.5MG/2ML NEB HHN SCH ×2 (08:43→21:12)
[2018-08-26] MEDS: IPRATROPIUM/ALBUTEROL 0.5-3(2.5)MG/3ML NEB HHN SCH ×3 (08:45→21:12)
[2018-08-26] MEDS: ENOXAPARIN 40MG/0.4ML SYR SUBCUT SCH ×2 (09:16→20:55)
[2018-08-26] MEDS: LOSARTAN POTASSIUM 50 MG TABLET PO SCH (09:17)
[2018-08-26] MEDS: AMLODIPINE 5MG TABLET PO SCH ×2 (09:17→21:09)
[2018-08-26 12:00] VITALS: BP 141/100
[2018-08-26 16:00] VITALS: BP 108/55
[2018-08-26 20:00] VITALS: BP 143/89
[2018-08-27] VITALS: BP 141/72
[2018-08-27] MEDS: IPRATROPIUM/ALBUTEROL 0.5-3(2.5)MG/3ML NEB HHN SCH ×3 (02:40→14:11)
[2018-08-27 04:00] VITALS: BP 143/90
[2018-08-27] MEDS: HYDROCODONE/ACETAMINOPHEN 5/325MG TABLET PO PRN ×2 (05:16→10:07)
[2018-08-27] MEDS: GUAIFENESIN-DM 200MG-20MG/10ML UDC PO PRN (06:36)
[2018-08-27] MEDS: FUROSEMIDE 40MG/4ML VIAL IVP SCH (07:15)
[2018-08-27 08:30] VITALS: BP 172/103
[2018-08-27] MEDS: BUDESONIDE 0.5MG/2ML NEB HHN SCH (08:54)
[2018-08-27] MEDS: AMLODIPINE 5MG TABLET PO SCH (09:58)
[2018-08-27] MEDS: LOSARTAN POTASSIUM 50 MG TABLET PO SCH (09:58)
[2018-08-27] MEDS: ENOXAPARIN 40MG/0.4ML SYR SUBCUT SCH (09:58)
[2018-08-27 12:10] VITALS: BP 135/100
[2018-08-27 14:01] VITALS: BP 135/100
== END 2018-08-27 16:30 | disposition home or self-care (01) | DRG 816 ==
LOC: ER 22:42 → 6WST 08-25 02:01 → EDBEDREQ 08-25 02:09 → EDBEDREQTM 08-25 02:09 → EDBEDREQDT 08-25 02:09 → ENRESERV 08-25 07:12
PROVIDERS: ADMIT Internal Medicine; ATTEND Internal Medicine
PROC: 5A09357 Assistance with Respiratory Ventilation, Less than 24 Consecutive Hours, Continuous Positive Airway Pressure (ICD-10-PCS; principal; 2018-08-25)
PROC: 5A09357 Assistance with Respiratory Ventilation, Less than 24 Consecutive Hours, Continuous Positive Airway Pressure (ICD-10-PCS; 2018-08-27)
DX: T40.5X1A Poisoning by cocaine, accidental (unintentional), initial encounter (principal); J96.20 Acute and chronic respiratory failure, unspecified whether with hypoxia or hypercapnia; I50.33 Acute on chronic diastolic (congestive) heart failure; Z99.11 Dependence on respirator [ventilator] status; E44.0 Moderate protein-calorie malnutrition; J18.9 Pneumonia, unspecified organism; I27.20 Pulmonary hypertension, unspecified; E66.01 Morbid (severe) obesity due to excess calories; E87.8 Other disorders of electrolyte and fluid balance, not elsewhere classified; E87.70 Fluid overload, unspecified; J44.1 Chronic obstructive pulmonary disease with (acute) exacerbation; F17.210 Nicotine dependence, cigarettes, uncomplicated; J44.0 Chronic obstructive pulmonary disease with (acute) lower respiratory infection; G47.33 Obstructive sleep apnea (adult) (pediatric); I11.0 Hypertensive heart disease with heart failure; F14.10 Cocaine abuse, uncomplicated; Z88.0 Allergy status to penicillin; Z88.9 Allergy status to unspecified drugs, medicaments and biological substances; Z99.81 Dependence on supplemental oxygen; Z68.44 Body mass index [BMI] 60.0-69.9, adult; Z91.19 Patient's noncompliance with other medical treatment and regimen; Z71.3 Dietary counseling and surveillance
CPT/HCPCS: 36415; 71045; 80048; 80305; 83605; 83880; 84145; 84484; 85379; 93005; 93970; 94640; 96365; 96367; 96375; 99285; J1650; J1940; J2185; J2270; J2405; J3370; J7050; J7611; J7620; J7626

== ENCOUNTER 2018-09-02 14:12 | Inpatient (IN) | payer MEDICAID, OTHER ==
[~2018-09-02] VITALS: Ht 160 cm; Wt 154.2 kg
[2018-09-02] MEDS ORDERED: ONDANSETRON HCL 4MG/2ML INJ IV STA (14:34)
[2018-09-02] MEDS ORDERED: ALBUTEROL (0.083%) 2.5MG/3ML NEB HHN STA (14:34)
[2018-09-02] MEDS ORDERED: METHYLPREDNISOLONE SOD SUCC 125 MG/2 ML VIAL IV STA (14:34)
[2018-09-02] MEDS ORDERED: IPRATROPIUM BROMIDE (0.02%) 0.5MG/2.5ML NEB HHN STA (14:34)
[2018-09-02] MEDS ORDERED: MORPHINE SULFATE 4 MG/ML CPJ (NOT FOR IM USE) IV STA (14:34)
[2018-09-02 14:58] LABS: BASOPHILS % 0.6 % (0.0-2.0); EOSINOPHILS % 5.3 % (0.0-5.0); HEMATOCRIT. 42.6 % (36.0-48.0); HEMOGLOBIN. 13.4 g/dL (12.0-16.0); LYMPHOCYTES % 14.6 % (20.0-50.0); MEAN CORPUSCULAR HEMOGLOBIN 28.4 pg (28.0-32.0); MEAN PLATELET VOLUME 8.6 fl (7.4-10.4); MONOCYTES % 6.9 % (2.0-8.0); NEUTROPHILS % 72.6 % (40.0-76.0); PLATELET 196 x1000/uL (130-400); RED BLOOD CELL COUNT 4.74 mill/uL (4.2-5.4); RED CELL DISTRIBUTION WIDTH 17.9 % (11.6-14.6)
[2018-09-02 15:04] LABS: CHLORIDE 104 mEq/L (98-107)
[2018-09-02 15:06] LABS: PARTIAL THROMBOPLASTIN TIME 27.5 sec (23.4-31.0)
[2018-09-02] MEDS ORDERED: NITROGLYCERIN OINT 1GM/INCH UDPKT TD ONE (16:30)
[2018-09-02] MEDS ORDERED: FUROSEMIDE 40MG/4ML VIAL IV ONE (16:30)
[2018-09-02] MEDS ORDERED: HYDRALAZINE 20MG/ML VIAL IV ONE (16:30)
[2018-09-02 22:13] VITALS: BP 149/103
[2018-09-03] VITALS: BP 147/73
[2018-09-03] MEDS ORDERED: LOSA50TA3 PO (00:05)
[2018-09-03] MEDS: IPRATROPIUM/ALBUTEROL 0.5-3(2.5)MG/3ML NEB HHN SCH ×6 (01:30→21:13)
[2018-09-03] MEDS: METHYLPREDNISOLONE SOD SUCC 40 MG/ML VIAL IV SCH ×4 (02:37→18:57)
[2018-09-03 04:00] VITALS: BP_SYST 136; BP_DIAS 76; BP_DIAS 78
[2018-09-03 07:22] LABS: HEMATOCRIT. 40.5 % (36.0-48.0); HEMOGLOBIN. 12.5 g/dL (12.0-16.0); MEAN CORPUSCULAR HEMOGLOBIN 28.1 pg (28.0-32.0); MEAN CORPUSCULAR VOLUME 90.8 fL (81.0-99.0); MEAN PLATELET VOLUME 8.8 fl (7.4-10.4); PLATELET 179 x1000/uL (130-400); RED BLOOD CELL COUNT 4.46 mill/uL (4.2-5.4); RED CELL DISTRIBUTION WIDTH 18.2 % (11.6-14.6)
[2018-09-03 07:27] LABS: CHLORIDE 103 mEq/L (98-107)
[2018-09-03 08:00] VITALS: BP 170/98
[2018-09-03] MEDS: LOSARTAN POTASSIUM 50 MG TABLET PO SCH (09:51)
[2018-09-03] MEDS: ENOXAPARIN 40MG/0.4ML SYR SUBCUT SCH ×2 (09:51→20:22)
[2018-09-03] MEDS: FUROSEMIDE 40MG/4ML VIAL IVP SCH (09:51)
[2018-09-03] MEDS: AMLODIPINE 10MG TABLET PO SCH (09:52)
[2018-09-03 12:00] VITALS: BP 134/87
[2018-09-03 12:17] LABS: PLATELET ESTIMATE NORMAL
[2018-09-03] MEDS: HYDROCODONE/ACETAMINOPHEN 5/325MG TABLET PO PRN ×2 (13:35→18:58)
[2018-09-03 16:00] VITALS: BP 138/80
[2018-09-03] MEDS ORDERED: GUAIFENESIN-DM 200MG-20MG/10ML UDC PO PRN (18:45)
[2018-09-03 20:00] VITALS: BP 142/86
[2018-09-03] MEDS: GUAIFENESIN/CODEINE 100-10MG/5ML UDC PO PRN (20:22)
[2018-09-04] VITALS (7 sets, daily range): BP systolic 137–172; BP diastolic 88–105
[2018-09-04] MEDS: IPRATROPIUM/ALBUTEROL 0.5-3(2.5)MG/3ML NEB HHN SCH ×6 (00:05→22:05)
[2018-09-04] MEDS: HYDROCODONE/ACETAMINOPHEN 5/325MG TABLET PO PRN ×5 (00:20→18:44)
[2018-09-04] MEDS: METHYLPREDNISOLONE SOD SUCC 40 MG/ML VIAL IV SCH ×5 (00:21→23:21)
[2018-09-04] MEDS: GUAIFENESIN/CODEINE 100-10MG/5ML UDC PO PRN ×2 (05:22→16:39)
[2018-09-04 06:16] LABS: HEMATOCRIT. 40.1 % (36.0-48.0); HEMOGLOBIN. 12.7 g/dL (12.0-16.0); MEAN CORPUSCULAR HEMOGLOBIN 28.7 pg (28.0-32.0); MEAN CORPUSCULAR VOLUME 90.6 fL (81.0-99.0); MEAN PLATELET VOLUME 9.2 fl (7.4-10.4); PLATELET 208 x1000/uL (130-400); RED BLOOD CELL COUNT 4.43 mill/uL (4.2-5.4); RED CELL DISTRIBUTION WIDTH 17.3 % (11.6-14.6)
[2018-09-04 06:31] LABS: CHLORIDE 103 mEq/L (98-107)
[2018-09-04] MEDS: ENOXAPARIN 40MG/0.4ML SYR SUBCUT SCH ×2 (08:25→20:36)
[2018-09-04] MEDS: FUROSEMIDE 40MG/4ML VIAL IVP SCH (08:25)
[2018-09-04] MEDS: LOSARTAN POTASSIUM 50 MG TABLET PO SCH (08:26)
[2018-09-04] MEDS: AMLODIPINE 10MG TABLET PO SCH (08:26)
[2018-09-04 08:27] LABS: PLATELET ESTIMATE NORMAL
[2018-09-04] MEDS ORDERED: LOSARTAN POTASSIUM 50 MG TABLET PO NR (09:30)
[2018-09-04] MEDS ORDERED: CLONIDINE 0.1MG TABLET PO SCH (16:00)
[2018-09-04] MEDS ORDERED: HYDRALAZINE 20MG/ML VIAL IV PRN (20:21)
[2018-09-04] MEDS: CLONIDINE 0.1MG TABLET PO SCH (20:35)
[2018-09-05] VITALS: BP 148/104
[2018-09-05] MEDS: HYDROCODONE/ACETAMINOPHEN 5/325MG TABLET PO PRN ×3 (00:25→19:52)
[2018-09-05] MEDS: GUAIFENESIN/CODEINE 100-10MG/5ML UDC PO PRN ×3 (00:34→19:55)
[2018-09-05] MEDS: IPRATROPIUM/ALBUTEROL 0.5-3(2.5)MG/3ML NEB HHN SCH ×6 (01:37→22:10)
[2018-09-05 04:00] VITALS: BP 156/101
[2018-09-05] MEDS: METHYLPREDNISOLONE SOD SUCC 40 MG/ML VIAL IV SCH ×3 (05:13→18:13)
[2018-09-05 08:00] VITALS: BP 170/87
[2018-09-05] MEDS: LOSARTAN POTASSIUM 100 MG TABLET PO SCH (08:35)
[2018-09-05] MEDS: AMLODIPINE 10MG TABLET PO SCH (08:35)
[2018-09-05] MEDS: CLONIDINE 0.1MG TABLET PO SCH ×2 (08:36→20:26)
[2018-09-05] MEDS: ENOXAPARIN 40MG/0.4ML SYR SUBCUT SCH ×2 (08:37→20:27)
[2018-09-05] MEDS: FUROSEMIDE 40MG/4ML VIAL IVP SCH (09:00)
[2018-09-05 12:00] VITALS: BP 152/90
[2018-09-05 16:00] VITALS: BP 150/92
[2018-09-05 19:50] VITALS: BP 157/92
[2018-09-05] MEDS ORDERED: NON FORMULARY PATIENT HOME MED XX SCH (20:15)
[2018-09-05] MEDS ORDERED: FAMOTIDINE 20MG TABLET PO NR (20:30)
[2018-09-06] VITALS: BP 163/103
[2018-09-06] MEDS: METHYLPREDNISOLONE SOD SUCC 40 MG/ML VIAL IV SCH ×2 (00:20→05:38)
[2018-09-06] MEDS: HYDROCODONE/ACETAMINOPHEN 5/325MG TABLET PO PRN ×2 (00:32→06:10)
[2018-09-06] MEDS: IPRATROPIUM/ALBUTEROL 0.5-3(2.5)MG/3ML NEB HHN SCH ×4 (01:15→12:31)
[2018-09-06 01:32] VITALS: BP 155/91
[2018-09-06 04:00] VITALS: BP 152/93
[2018-09-06] MEDS: GUAIFENESIN/CODEINE 100-10MG/5ML UDC PO PRN (06:10)
[2018-09-06 08:03] VITALS: BP 115/64
[2018-09-06] MEDS: FUROSEMIDE 40MG/4ML VIAL IVP SCH (09:00)
[2018-09-06] MEDS: LOSARTAN POTASSIUM 100 MG TABLET PO SCH (09:21)
[2018-09-06] MEDS: CLONIDINE 0.1MG TABLET PO SCH (09:21)
[2018-09-06] MEDS: ENOXAPARIN 40MG/0.4ML SYR SUBCUT SCH (09:22)
[2018-09-06] MEDS: AMLODIPINE 10MG TABLET PO SCH (09:22)
[2018-09-06 10:18] VITALS: BP 115/64
== END 2018-09-06 15:35 | disposition home or self-care (01) | DRG 133 ==
LOC: ER 14:12 → 7WST 16:24 → ENRESERV 20:44 → 7WST 22:54
PROVIDERS: ADMIT Internal Medicine; ATTEND Internal Medicine
PROC: 5A09357 Assistance with Respiratory Ventilation, Less than 24 Consecutive Hours, Continuous Positive Airway Pressure (ICD-10-PCS; principal; 2018-09-03)
PROC: 5A09357 Assistance with Respiratory Ventilation, Less than 24 Consecutive Hours, Continuous Positive Airway Pressure (ICD-10-PCS; 2018-09-04)
PROC: 5A09357 Assistance with Respiratory Ventilation, Less than 24 Consecutive Hours, Continuous Positive Airway Pressure (ICD-10-PCS; 2018-09-05)
PROC: 5A09357 Assistance with Respiratory Ventilation, Less than 24 Consecutive Hours, Continuous Positive Airway Pressure (ICD-10-PCS; 2018-09-06)
DX: J96.01 Acute respiratory failure with hypoxia (principal); I50.33 Acute on chronic diastolic (congestive) heart failure; E66.01 Morbid (severe) obesity due to excess calories; J44.1 Chronic obstructive pulmonary disease with (acute) exacerbation; F17.210 Nicotine dependence, cigarettes, uncomplicated; M19.90 Unspecified osteoarthritis, unspecified site; F14.10 Cocaine abuse, uncomplicated; I11.0 Hypertensive heart disease with heart failure; E78.00 Pure hypercholesterolemia, unspecified; Z88.0 Allergy status to penicillin; Z88.6 Allergy status to analgesic agent; Z79.899 Other long term (current) drug therapy; Z59.0 Homelessness; Z68.44 Body mass index [BMI] 60.0-69.9, adult
CPT/HCPCS: 36415; 71045; 80048; 83880; 84484; 93005; 94640; 94660; 96374; 96375; 99285; C1893; J0360; J1650; J1940; J2270; J2405; J2920; J2930; J7611; J7620

== ENCOUNTER 2018-09-12 04:21 | Inpatient (IN) | payer OTHER ==
[~2018-09-12] VITALS: Ht 152.4 cm; Wt 147.4 kg
[~2018-09-12 04:21] MED LIST changes: +LOSA50TA3 PO
[2018-09-12] MEDS ORDERED: ALBUTEROL (0.083%) 2.5MG/3ML NEB HHN STA ×2 (04:51→06:38)
[2018-09-12] MEDS ORDERED: IPRATROPIUM BROMIDE (0.02%) 0.5MG/2.5ML NEB HHN STA ×2 (04:51→06:38)
[2018-09-12 05:37] LABS: BASOPHILS % 0.4 % (0.0-2.0); EOSINOPHILS % 2.8 % (0.0-5.0); HEMOGLOBIN. 13.8 g/dL (12.0-16.0); LYMPHOCYTES % 21.6 % (20.0-50.0); MEAN CORPUSCULAR HEMOGLOBIN 28.4 pg (28.0-32.0); MEAN CORPUSCULAR VOLUME 88.5 fL (81.0-99.0); MEAN PLATELET VOLUME 8.6 fl (7.4-10.4); MONOCYTES % 11.4 % (2.0-8.0); NEUTROPHILS % 63.8 % (40.0-76.0); PLATELET 205 x1000/uL (130-400); RED BLOOD CELL COUNT 4.86 mill/uL (4.2-5.4); RED CELL DISTRIBUTION WIDTH 17.6 % (11.6-14.6)
[2018-09-12 05:38] LABS: CHLORIDE 106 mEq/L (98-107)
[2018-09-12] MEDS ORDERED: FUROSEMIDE 40MG/4ML VIAL IVP ONE (06:45)
[2018-09-12] MEDS ORDERED: ASPIRIN 325MG TABLET PO ONE (06:45)
[2018-09-12] MEDS ORDERED: CLONIDINE 0.2MG TABLET PO ONE (07:00)
[2018-09-12] MEDS ORDERED: KETOROLAC 30MG/ML VIAL IV ONE (08:00)
[2018-09-12] MEDS: FUROSEMIDE 40MG/4ML VIAL IVP SCH (09:00)
[2018-09-12 12:00] VITALS: BP 150/97
[2018-09-12 14:45] VITALS: BP 154/89
[2018-09-12] MEDS: METHYLPREDNISOLONE SOD SUCC 40 MG/ML VIAL IV SCH ×2 (14:49→23:21)
[2018-09-12] MEDS: AMLODIPINE 5MG TABLET PO SCH (14:50)
[2018-09-12] MEDS: LOSARTAN POTASSIUM 50 MG TABLET PO SCH (14:50)
[2018-09-12] MEDS: ENOXAPARIN 40MG/0.4ML SYR SUBCUT SCH ×2 (14:51→23:22)
[2018-09-12 15:43] LABS: COLOR URINE YELLOW (YELLOW); KETONES URINE NEGATIVE (NEGATIVE); LEUKOCYTE ESTERASE URINE 2+ (NEGATIVE); NITRITE URINE POSITIVE (NEGATIVE); OCCULT BLOOD URINE NEGATIVE (NEGATIVE); PH URINE 5.5 (4.5-8.0); PROTEIN URINE TRACE (NEGATIVE); SPECIFIC GRAVITY URINE 1.023 (1.005-1.030); UROBILINOGEN URINE 0.2 E.U./dL (0.2-1.0)
[2018-09-12 15:50] LABS: CLARITY URINE HAZY (CLEAR)
[2018-09-12 16:09] LABS: *AMPHETAMINES SCREEN URINE NEGATIVE (NEGATIVE); *BARBITURATES SCREEN URINE NEGATIVE (NEGATIVE)
[2018-09-12 16:10] LABS: *BENZODIAZEPINES SCREEN URINE NEGATIVE (NEGATIVE); *COCAINE SCREEN URINE PRESUMTIVE POSITIVE (NEGATIVE); CANNABINOID URINE SCREEN NEGATIVE (NEGATIVE); METHADONE URINE SCREEN NEGATIVE (NEGATIVE); OPIATES URINE SCREEN NEGATIVE (NEGATIVE); PHENCYCLIDINE URINE SCREEN NEGATIVE (NEGATIVE)
[2018-09-12] MEDS ORDERED: ACETAMINOPHEN 325MG TABLET PO PRN (16:30)
[2018-09-12 16:59] VITALS: BP 122/74
[2018-09-12] MEDS: HYDROCODONE/ACETAMINOPHEN 5/325MG TABLET PO PRN ×2 (16:59→23:23)
[2018-09-12] MEDS: IPRATROPIUM/ALBUTEROL 0.5-3(2.5)MG/3ML NEB HHN SCH (19:54)
[2018-09-12 20:00] VITALS: BP 144/87
[2018-09-13] VITALS: BP 142/84
[2018-09-13] MEDS: IPRATROPIUM/ALBUTEROL 0.5-3(2.5)MG/3ML NEB HHN SCH ×6 (00:28→21:11)
[2018-09-13 04:00] VITALS: BP 146/82
[2018-09-13 07:46] LABS: HEMATOCRIT. 39.8 % (36.0-48.0); HEMOGLOBIN. 12.8 g/dL (12.0-16.0); MEAN CORPUSCULAR HEMOGLOBIN 28.8 pg (28.0-32.0); MEAN CORPUSCULAR VOLUME 89.4 fL (81.0-99.0); MEAN PLATELET VOLUME 8.8 fl (7.4-10.4); PLATELET 200 x1000/uL (130-400); RED BLOOD CELL COUNT 4.46 mill/uL (4.2-5.4); RED CELL DISTRIBUTION WIDTH 17.7 % (11.6-14.6)
[2018-09-13 07:49] LABS: CHLORIDE 105 mEq/L (98-107)
[2018-09-13 08:00] VITALS: BP 170/92
[2018-09-13] MEDS: ENOXAPARIN 40MG/0.4ML SYR SUBCUT SCH ×2 (08:16→20:40)
[2018-09-13] MEDS: METHYLPREDNISOLONE SOD SUCC 40 MG/ML VIAL IV SCH ×2 (08:16→20:26)
[2018-09-13] MEDS: FUROSEMIDE 40MG/4ML VIAL IVP SCH (08:17)
[2018-09-13] MEDS: LOSARTAN POTASSIUM 50 MG TABLET PO SCH (08:17)
[2018-09-13] MEDS: HYDROCODONE/ACETAMINOPHEN 5/325MG TABLET PO PRN ×4 (08:17→20:47)
[2018-09-13] MEDS: AMLODIPINE 5MG TABLET PO SCH (08:18)
[2018-09-13] MEDS ORDERED: ENOXAPARIN 40MG/0.4ML SYR SUBCUT ONE (09:00)
[2018-09-13 11:55] VITALS: BP 150/100
[2018-09-13 16:00] VITALS: BP 156/87
[2018-09-13 17:10] LABS: PLATELET ESTIMATE NORMAL
[2018-09-13] MEDS: LEVOFLOXACIN 500MG TABLET PO SCH (17:22)
[2018-09-13 20:00] VITALS: BP 153/87
[2018-09-14] VITALS: BP 158/85
[2018-09-14] MEDS: IPRATROPIUM/ALBUTEROL 0.5-3(2.5)MG/3ML NEB HHN SCH ×5 (00:22→16:41)
[2018-09-14] MEDS: HYDROCODONE/ACETAMINOPHEN 5/325MG TABLET PO PRN ×2 (00:35→09:24)
[2018-09-14 04:00] VITALS: BP 154/87
[2018-09-14 08:00] VITALS: BP 156/100
[2018-09-14] MEDS: FUROSEMIDE 40MG/4ML VIAL IVP SCH ×2 (09:00→13:34)
[2018-09-14] MEDS: METHYLPREDNISOLONE SOD SUCC 40 MG/ML VIAL IV SCH (09:23)
[2018-09-14] MEDS: AMLODIPINE 5MG TABLET PO SCH (09:23)
[2018-09-14] MEDS: LOSARTAN POTASSIUM 50 MG TABLET PO SCH (09:23)
[2018-09-14] MEDS: ENOXAPARIN 40MG/0.4ML SYR SUBCUT SCH (09:23)
[2018-09-14] MEDS: LEVOFLOXACIN 500MG TABLET PO SCH (11:08)
[2018-09-14 12:00] VITALS: BP 180/98
[2018-09-14] MEDS ORDERED: AMLODIPINE 5MG TABLET PO NR (14:30)
[2018-09-14 16:00] VITALS: BP 135/80
[2018-09-14 16:30] VITALS: BP 153/89
[2018-09-14] MEDS ORDERED: CLONIDINE 0.1MG TABLET PO PRN (18:00)
[2018-09-15] MEDS ORDERED: AMLODIPINE 10MG TABLET PO SCH (09:00)
== END 2018-09-14 19:10 | disposition home or self-care (01) | DRG 133 ==
LOC: ER 04:21 → 8WST 08:09 → EDBEDREQ 08:20 → ENRESERV 10:33
PROVIDERS: ADMIT Internal Medicine; ATTEND Internal Medicine
DX: J96.00 Acute respiratory failure, unspecified whether with hypoxia or hypercapnia (principal); I50.43 Acute on chronic combined systolic (congestive) and diastolic (congestive) heart failure; E66.01 Morbid (severe) obesity due to excess calories; J44.1 Chronic obstructive pulmonary disease with (acute) exacerbation; I11.0 Hypertensive heart disease with heart failure; M19.90 Unspecified osteoarthritis, unspecified site; F14.10 Cocaine abuse, uncomplicated; F10.10 Alcohol abuse, uncomplicated; F17.210 Nicotine dependence, cigarettes, uncomplicated; Z79.51 Long term (current) use of inhaled steroids; Z79.899 Other long term (current) drug therapy; Z88.0 Allergy status to penicillin; Z88.8 Allergy status to other drugs, medicaments and biological substances
CPT/HCPCS: 36415; 71045; 80048; 80305; 83880; 84484; 87077; 87186; 93005; 96374; 99285; A4565; J1650; J1885; J1940; J2920; J7611; J7620

== ENCOUNTER 2018-09-19 22:41 | Inpatient (IN) | payer OTHER ==
[~2018-09-19] VITALS: Ht 160 cm; Wt 151.5 kg
[2018-09-19] MEDS ORDERED: IPRATROPIUM BROMIDE (0.02%) 0.5MG/2.5ML NEB HHN STA (23:55)
[2018-09-19] MEDS ORDERED: ONDANSETRON HCL 4MG/2ML INJ IV STA (23:55)
[2018-09-19] MEDS ORDERED: ALBUTEROL (0.083%) 2.5MG/3ML NEB HHN STA (23:55)
[2018-09-20] MEDS ORDERED: FUROSEMIDE 40MG/4ML VIAL IV ONE
[2018-09-20 00:25] LABS: HEMATOCRIT. 41.3 % (36.0-48.0); HEMOGLOBIN. 13.1 g/dL (12.0-16.0); MEAN CORPUSCULAR HEMOGLOBIN 28.8 pg (28.0-32.0); MEAN CORPUSCULAR VOLUME 90.4 fL (81.0-99.0); MEAN PLATELET VOLUME 8.3 fl (7.4-10.4); PLATELET 177 x1000/uL (130-400); RED BLOOD CELL COUNT 4.57 mill/uL (4.2-5.4); RED CELL DISTRIBUTION WIDTH 17.6 % (11.6-14.6)
[2018-09-20 00:29] LABS: BG CARBOXYHEMOGLOBIN 7.7 % (0.5-1.5); BG DEOXYHEMOGLOBIN 11.2 % (0.0-5.0); BG FRACTION INSPIRED OXYGEN 36; BG METHEMOGLOBIN 0.2 % (0.0-1.5); BG OXYGEN SATURATION 87.8 % (92.0-98.5); BG OXYHEMOGLOBIN 80.9 % (94.0-97.0); BG PCO2 80.8 mmHg (35.0-45.0); BG PH 7.254 (7.350-7.450); BG PO2 58.9 mmHg (75.0-100.0); BG SAMPLE SITE RIGHT RADIAL; BG TOTAL HEMOGLOBIN 13.5 g/dL (12.0-18.0); BG VENT MODE NASAL CANNULA
[2018-09-20 00:29] LABS: CHLORIDE 104 mEq/L (98-107)
[2018-09-20 00:37] LABS: PLATELET ESTIMATE NORMAL
[2018-09-20] MEDS ORDERED: ACETAMINOPHEN 325MG TABLET PO ONE (01:00)
[2018-09-20] MEDS ORDERED: HYDROCODONE/ACETAMINOPHEN 10/325MG TABLET PO ONE (01:30)
[2018-09-20] MEDS ORDERED: ONDANSETRON HCL 4MG/2ML INJ IV PRN (04:45)
[2018-09-20] MEDS ORDERED: DIPHENHYDRAMINE 50MG/ML VIAL IV PRN (04:45)
[2018-09-20] MEDS ORDERED: NA PHOS,M-B/NA PHOS,DI-BA ENEMA 118ML PR PRN (04:45)
[2018-09-20] MEDS ORDERED: LORAZEPAM 2MG/ML CPJ IV PRN (04:45)
[2018-09-20] MEDS ORDERED: ACETAMINOPHEN 325MG TABLET PO PRN (04:45)
[2018-09-20] MEDS ORDERED: DOCUSATE SODIUM 100MG CAPSULE PO PRN (04:45)
[2018-09-20] MEDS ORDERED: ENOXAPARIN 40MG/0.4ML SYR SUBCUT SCH (05:00)
[2018-09-20] MEDS ORDERED: METHYLPREDNISOLONE SOD SUCC 125 MG/2 ML VIAL IV NR (05:00)
[2018-09-20] MEDS ORDERED: LEVOFLOXACIN 500MG PREMIX 100 ML IV SCH (05:00)
[2018-09-20 09:56] LABS: BG BASE EXCESS 2.2 mmol/L (-2.0-2.0); BG CARBOXYHEMOGLOBIN 2.3 % (0.5-1.5); BG FRACTION INSPIRED OXYGEN 36; BG HCO3 ACT 30.9 mmol/L (22.0-26.0); BG METHEMOGLOBIN 0.4 % (0.0-1.5); BG OXYGEN SATURATION 87.7 % (92.0-98.5); BG OXYHEMOGLOBIN 85.3 % (94.0-97.0); BG PCO2 67.5 mmHg (35.0-45.0); BG PH 7.278 (7.350-7.450); BG PO2 55.8 mmHg (75.0-100.0); BG SAMPLE SITE RIGHT RADIAL; BG VENT MODE NASAL CANNULA
[2018-09-20] MEDS: HYDROCODONE/ACETAMINOPHEN 10/325MG TABLET PO PRN (10:45)
[2018-09-20] MEDS: ASPIRIN 81MG EC TABLET PO SCH (10:51)
[2018-09-20] MEDS: METHYLPREDNISOLONE SOD SUCC 125 MG/2 ML VIAL IV SCH ×2 (12:16→18:06)
[2018-09-20] MEDS ORDERED: IPRATROPIUM/ALBUTEROL 0.5-3(2.5)MG/3ML NEB HHN PRN (14:15)
[2018-09-20 17:00] VITALS: BP 147/96
[2018-09-20 17:04] VITALS: BP 147/96
[2018-09-20 18:00] VITALS: BP 167/103
[2018-09-20] MEDS: GUAIFENESIN 200MG/10ML SUGAR FREE UDC PO PRN ×2 (18:06→23:00)
[2018-09-20] MEDS: NICOTINE 21MG PATCH TD SCH (18:06)
[2018-09-20] MEDS: MORPHINE SULFATE 4 MG/ML CPJ (NOT FOR IM USE) IV PRN ×2 (18:11→23:15)
[2018-09-20] MEDS: CLONIDINE 0.1MG TABLET PO PRN (18:44)
[2018-09-20] MEDS: IPRATROPIUM/ALBUTEROL 0.5-3(2.5)MG/3ML NEB HHN SCH ×2 (19:58→23:10)
[2018-09-20 20:00] VITALS: BP 121/63
[2018-09-20] MEDS: MAGNESIUM/ALUMINUM HYDROXIDE/SIMETHICONE 30ML UDC PO PRN (20:29)
[2018-09-20 22:00] VITALS: BP 142/97
[2018-09-21] VITALS (9 sets, daily range): BP systolic 102–171; BP diastolic 70–97
[2018-09-21] MEDS: METHYLPREDNISOLONE SOD SUCC 125 MG/2 ML VIAL IV SCH ×4 (00:37→17:33)
[2018-09-21] MEDS: IPRATROPIUM/ALBUTEROL 0.5-3(2.5)MG/3ML NEB HHN SCH ×5 (03:17→22:57)
[2018-09-21 06:39] LABS: HEMATOCRIT. 40.4 % (36.0-48.0); HEMOGLOBIN. 12.6 g/dL (12.0-16.0); MEAN CORPUSCULAR HEMOGLOBIN 28.8 pg (28.0-32.0); MEAN CORPUSCULAR VOLUME 92.7 fL (81.0-99.0); PLATELET 165 x1000/uL (130-400); RED BLOOD CELL COUNT 4.36 mill/uL (4.2-5.4); RED CELL DISTRIBUTION WIDTH 17.7 % (11.6-14.6)
[2018-09-21] MEDS: GUAIFENESIN 200MG/10ML SUGAR FREE UDC PO PRN ×3 (06:46→22:05)
[2018-09-21] MEDS ORDERED: LEVOFLOXACIN 500MG PREMIX 100 ML IV SCH (08:00)
[2018-09-21 08:16] LABS: CHLORIDE 103 mEq/L (98-107)
[2018-09-21 08:26] LABS: *AMPHETAMINES SCREEN URINE NEGATIVE (NEGATIVE); *BARBITURATES SCREEN URINE NEGATIVE (NEGATIVE); *BENZODIAZEPINES SCREEN URINE PRESUMTIVE POSITIVE (NEGATIVE); *COCAINE SCREEN URINE PRESUMTIVE POSITIVE (NEGATIVE); METHADONE URINE SCREEN NEGATIVE (NEGATIVE); OPIATES URINE SCREEN PRESUMTIVE POSITIVE (NEGATIVE)
[2018-09-21 08:27] LABS: CANNABINOID URINE SCREEN NEGATIVE (NEGATIVE); PHENCYCLIDINE URINE SCREEN NEGATIVE (NEGATIVE)
[2018-09-21 08:28] LABS: HDL CHOLESTEROL 82 mg/dL (40-59); T4 FREE 0.87 ng/dL (0.76-1.46)
[2018-09-21 08:29] LABS: LDL CHOLESTEROL 116 mg/dL (5-100)
[2018-09-21 08:35] LABS: PLATELET ESTIMATE NORMAL
[2018-09-21] MEDS ORDERED: ENOXAPARIN 30MG/0.3ML SYR SUBCUT SCH (09:00)
[2018-09-21] MEDS ORDERED: ENOXAPARIN 40MG/0.4ML SYR SUBCUT SCH ×2 (09:00→22:00)
[2018-09-21] MEDS: ASPIRIN 81MG EC TABLET PO SCH (09:07)
[2018-09-21] MEDS: FUROSEMIDE 40MG/4ML VIAL IVP SCH (09:07)
[2018-09-21] MEDS: NICOTINE 21MG PATCH TD SCH (09:07)
[2018-09-21] MEDS: MORPHINE SULFATE 4 MG/ML CPJ (NOT FOR IM USE) IV PRN ×3 (09:18→22:05)
[2018-09-21] MEDS: MAGNESIUM/ALUMINUM HYDROXIDE/SIMETHICONE 30ML UDC PO PRN (21:57)
[2018-09-21] MEDS: CLONIDINE 0.1MG TABLET PO PRN (22:04)
[2018-09-22] VITALS (7 sets, daily range): BP systolic 144–190; BP diastolic 63–114
[2018-09-22] MEDS: METHYLPREDNISOLONE SOD SUCC 125 MG/2 ML VIAL IV SCH ×4 (02:04→17:25)
[2018-09-22] MEDS: IPRATROPIUM/ALBUTEROL 0.5-3(2.5)MG/3ML NEB HHN SCH ×4 (04:57→16:05)
[2018-09-22] MEDS ORDERED: CLONIDINE 0.1MG TABLET PO PRN (06:00)
[2018-09-22] MEDS: MORPHINE SULFATE 4 MG/ML CPJ (NOT FOR IM USE) IV PRN (06:30)
[2018-09-22] MEDS: GUAIFENESIN 200MG/10ML SUGAR FREE UDC PO PRN (06:30)
[2018-09-22 08:20] LABS: CLARITY URINE CLEAR (CLEAR); COLOR URINE YELLOW (YELLOW); KETONES URINE NEGATIVE (NEGATIVE); LEUKOCYTE ESTERASE URINE NEGATIVE (NEGATIVE); NITRITE URINE NEGATIVE (NEGATIVE); OCCULT BLOOD URINE NEGATIVE (NEGATIVE); PROTEIN URINE NEGATIVE (NEGATIVE); UROBILINOGEN URINE 0.2 E.U./dL (0.2-1.0)
[2018-09-22] MEDS: NICOTINE 21MG PATCH TD SCH (08:22)
[2018-09-22] MEDS: ASPIRIN 81MG EC TABLET PO SCH (08:22)
[2018-09-22] MEDS: FUROSEMIDE 40MG/4ML VIAL IVP SCH (08:23)
[2018-09-22] MEDS: HYDROCODONE/ACETAMINOPHEN 10/325MG TABLET PO PRN (18:24)
== END 2018-09-22 19:05 | disposition home or self-care (01) | DRG 140 ==
LOC: ER 22:59 → 5EST 09-20 02:41 → EDBEDREQTM 09-20 02:43 → EDBEDREQSVC 09-20 02:43 → EDBEDREQ 09-20 02:43 → ENRESERV 09-20 12:34 → 7WST 09-21 18:20
PROVIDERS: ADMIT Internal Medicine; ATTEND Internal Medicine
PROC: 5A09357 Assistance with Respiratory Ventilation, Less than 24 Consecutive Hours, Continuous Positive Airway Pressure (ICD-10-PCS; 2018-09-20)
PROC: 5A09357 Assistance with Respiratory Ventilation, Less than 24 Consecutive Hours, Continuous Positive Airway Pressure (ICD-10-PCS; principal; 2018-09-21)
PROC: 5A09357 Assistance with Respiratory Ventilation, Less than 24 Consecutive Hours, Continuous Positive Airway Pressure (ICD-10-PCS; 2018-09-22)
DX: J44.1 Chronic obstructive pulmonary disease with (acute) exacerbation (principal); J96.22 Acute and chronic respiratory failure with hypercapnia; I50.33 Acute on chronic diastolic (congestive) heart failure; I27.20 Pulmonary hypertension, unspecified; J84.9 Interstitial pulmonary disease, unspecified; E87.2 Acidosis; E66.01 Morbid (severe) obesity due to excess calories; I11.0 Hypertensive heart disease with heart failure; G47.33 Obstructive sleep apnea (adult) (pediatric); F17.200 Nicotine dependence, unspecified, uncomplicated; F14.10 Cocaine abuse, uncomplicated; D72.829 Elevated white blood cell count, unspecified; I25.10 Atherosclerotic heart disease of native coronary artery without angina pectoris; Z88.0 Allergy status to penicillin; Z91.19 Patient's noncompliance with other medical treatment and regimen; Z88.6 Allergy status to analgesic agent; Z79.51 Long term (current) use of inhaled steroids; Z79.899 Other long term (current) drug therapy; Z68.43 Body mass index [BMI] 50.0-59.9, adult; Z71.6 Tobacco abuse counseling; Z99.81 Dependence on supplemental oxygen
CPT/HCPCS: 36415; 36600; 71045; 80048; 80061; 80305; 82375; 82805; 83605; 83880; 84439; 84443; 84484; 87804; 93005; 94640; 94660; 96365; 96375; 99291; J1650; J1940; J1956; J2270; J2405; J2930; J7611; J7620

== ENCOUNTER 2018-09-25 21:28 | Inpatient (IN) | payer OTHER ==
[~2018-09-25] VITALS: Ht 160 cm; Wt 151.5 kg
[2018-09-25] MEDS ORDERED: METHYLPREDNISOLONE SOD SUCC 125 MG/2 ML VIAL IV STA (23:19)
[2018-09-25] MEDS ORDERED: MORPHINE SULFATE 4 MG/ML CPJ (NOT FOR IM USE) IV STA (23:19)
[2018-09-25] MEDS ORDERED: ONDANSETRON HCL 4MG/2ML INJ IV STA (23:19)
[2018-09-25] MEDS ORDERED: MAGNESIUM 2 G PREMIX 50 ML IV ONE (23:30)
[2018-09-25] MEDS ORDERED: IPRATROPIUM/ALBUTEROL 0.5-3(2.5)MG/3ML NEB HHN ONE (23:30)
[2018-09-25 23:40] LABS: BASOPHILS % 0.5 % (0.0-2.0); EOSINOPHILS % 4.9 % (0.0-5.0); HEMATOCRIT. 40.8 % (36.0-48.0); HEMOGLOBIN. 13.4 g/dL (12.0-16.0); MEAN CORPUSCULAR HEMOGLOBIN 29.6 pg (28.0-32.0); MEAN CORPUSCULAR VOLUME 90.1 fL (81.0-99.0); MEAN PLATELET VOLUME 8.3 fl (7.4-10.4); MONOCYTES % 6.1 % (2.0-8.0); NEUTROPHILS % 73.5 % (40.0-76.0); PLATELET 180 x1000/uL (130-400); RED BLOOD CELL COUNT 4.53 mill/uL (4.2-5.4); RED CELL DISTRIBUTION WIDTH 17.1 % (11.6-14.6)
[2018-09-25 23:45] LABS: BG BASE EXCESS 2.7 mmol/L (-2.0-2.0); BG CARBOXYHEMOGLOBIN 1.5 % (0.5-1.5); BG DEOXYHEMOGLOBIN 1.6 % (0.0-5.0); BG FRACTION INSPIRED OXYGEN 60; BG HCO3 ACT 28.6 mmol/L (22.0-26.0); BG METHEMOGLOBIN 0.3 % (0.0-1.5); BG OXYGEN SATURATION 98.4 % (92.0-98.5); BG OXYHEMOGLOBIN 96.6 % (94.0-97.0); BG PCO2 49.4 mmHg (35.0-45.0); BG PH 7.381 (7.350-7.450); BG PO2 131.4 mmHg (75.0-100.0); BG SAMPLE SITE LEFT RADIAL; BG TOTAL HEMOGLOBIN 13.8 g/dL (12.0-18.0)
[2018-09-25 23:45] LABS: CHLORIDE 105 mEq/L (98-107)
[2018-09-25 23:49] LABS: ETHANOL BLOOD < 10 mg/dL
[2018-09-25 23:50] LABS: PARTIAL THROMBOPLASTIN TIME 24.4 sec (23.4-31.0)
[2018-09-25 23:56] LABS: CLARITY URINE CLEAR (CLEAR); COLOR URINE YELLOW (YELLOW); KETONES URINE NEGATIVE (NEGATIVE); LEUKOCYTE ESTERASE URINE NEGATIVE (NEGATIVE); NITRITE URINE NEGATIVE (NEGATIVE); OCCULT BLOOD URINE NEGATIVE (NEGATIVE); PH URINE 6.5 (4.5-8.0); PROTEIN URINE NEGATIVE (NEGATIVE); SPECIFIC GRAVITY URINE 1.024 (1.005-1.030)
[2018-09-26 00:12] LABS: CANNABINOID URINE SCREEN NEGATIVE (NEGATIVE); METHADONE URINE SCREEN NEGATIVE (NEGATIVE); OPIATES URINE SCREEN NEGATIVE (NEGATIVE); PHENCYCLIDINE URINE SCREEN NEGATIVE (NEGATIVE)
[2018-09-26 00:13] LABS: *AMPHETAMINES SCREEN URINE NEGATIVE (NEGATIVE); *BARBITURATES SCREEN URINE NEGATIVE (NEGATIVE); *BENZODIAZEPINES SCREEN URINE NEGATIVE (NEGATIVE); *COCAINE SCREEN URINE PRESUMTIVE POSITIVE (NEGATIVE)
[2018-09-26] MEDS ORDERED: HYDRALAZINE 20MG/ML VIAL IV ONE (01:45)
[2018-09-26 06:37] LABS: CHLORIDE 106 mEq/L (98-107)
[2018-09-26 06:39] LABS: HEMATOCRIT. 43.4 % (36.0-48.0); HEMOGLOBIN. 13.8 g/dL (12.0-16.0); MEAN PLATELET VOLUME 8.7 fl (7.4-10.4); PLATELET 204 x1000/uL (130-400); RED BLOOD CELL COUNT 4.77 mill/uL (4.2-5.4); RED CELL DISTRIBUTION WIDTH 17.1 % (11.6-14.6)
[2018-09-26 07:24] LABS: PLATELET ESTIMATE NORMAL
[2018-09-26] MEDS ORDERED: IPRATROPIUM/ALBUTEROL 0.5-3(2.5)MG/3ML NEB HHN PRN (07:30)
[2018-09-26] MEDS ORDERED: DEXTROSE 50% WATER 50ML SYRINGE IV PRN (07:30)
[2018-09-26] MEDS: BLOOD SUGAR DIAGNOSTIC STRIP TEST SCH ×4 (07:44→21:12)
[2018-09-26] MEDS: INSULIN LISPRO (MEDIUM DOSE) 100 UNITS/ML SUBCUT SCH ×4 (08:10→21:17)
[2018-09-26 09:44] VITALS: BP 138/104
[2018-09-26] MEDS: METHYLPREDNISOLONE SOD SUCC 40 MG/ML VIAL IV SCH ×3 (10:01→21:18)
[2018-09-26] MEDS: CLONIDINE 0.1MG TABLET PO PRN ×2 (10:02→20:01)
[2018-09-26] MEDS: AZITHROMYCIN 500 MG TABLET PO SCH (10:02)
[2018-09-26] MEDS: ENOXAPARIN 40MG/0.4ML SYR SUBCUT SCH ×2 (10:03→21:17)
[2018-09-26 10:19] VITALS: BP 136/104
[2018-09-26] MEDS ORDERED: HYDROCODONE/ACETAMINOPHEN 5/325MG TABLET PO PRN (11:15)
[2018-09-26 12:14] VITALS: BP 142/94
[2018-09-26 16:00] VITALS: BP 177/107
[2018-09-26] MEDS: IPRATROPIUM/ALBUTEROL 0.5-3(2.5)MG/3ML NEB HHN SCH ×2 (17:25→21:03)
[2018-09-26] MEDS ORDERED: ONDANSETRON HCL 4MG/2ML INJ IV PRN (17:45)
[2018-09-26] MEDS: FUROSEMIDE 40MG TABLET PO SCH (18:12)
[2018-09-26 19:59] VITALS: BP 183/100
[2018-09-26] MEDS: HYDROCODONE/ACETAMINOPHEN 10/325MG TABLET PO PRN (20:01)
[2018-09-26] MEDS: GUAIFENESIN-DM 200MG-20MG/10ML UDC PO PRN (21:17)
[2018-09-26] MEDS: MAGNESIUM/ALUMINUM HYDROXIDE/SIMETHICONE 30ML UDC PO PRN (22:03)
[2018-09-27 00:07] VITALS: BP 142/85
[2018-09-27] MEDS: IPRATROPIUM/ALBUTEROL 0.5-3(2.5)MG/3ML NEB HHN SCH ×6 (01:12→20:27)
[2018-09-27 04:00] VITALS: BP 163/88
[2018-09-27] MEDS: CLONIDINE 0.1MG TABLET PO PRN ×2 (04:47→20:59)
[2018-09-27] MEDS: BLOOD SUGAR DIAGNOSTIC STRIP TEST SCH ×4 (04:47→20:59)
[2018-09-27] MEDS: HYDROCODONE/ACETAMINOPHEN 10/325MG TABLET PO PRN ×2 (04:47→17:41)
[2018-09-27] MEDS: METHYLPREDNISOLONE SOD SUCC 40 MG/ML VIAL IV SCH ×3 (04:47→20:58)
[2018-09-27 08:00] VITALS: BP 158/98
[2018-09-27] MEDS: AZITHROMYCIN 500 MG TABLET PO SCH (09:03)
[2018-09-27] MEDS: ENOXAPARIN 40MG/0.4ML SYR SUBCUT SCH ×2 (09:03→20:59)
[2018-09-27] MEDS: FUROSEMIDE 40MG TABLET PO SCH (09:03)
[2018-09-27] MEDS: INSULIN LISPRO (MEDIUM DOSE) 100 UNITS/ML SUBCUT SCH ×4 (09:04→21:00)
[2018-09-27] MEDS: MAGNESIUM/ALUMINUM HYDROXIDE/SIMETHICONE 30ML UDC PO PRN ×2 (11:14→20:59)
[2018-09-27 12:00] VITALS: BP 156/100
[2018-09-27 16:00] VITALS: BP 148/89
[2018-09-27] MEDS: GABAPENTIN 300MG CAPSULE PO SCH ×2 (16:05→20:59)
[2018-09-27 20:00] VITALS: BP 179/89
[2018-09-27] MEDS: GUAIFENESIN-DM 200MG-20MG/10ML UDC PO PRN (21:07)
[2018-09-28] VITALS (7 sets, daily range): BP systolic 134–176; BP diastolic 80–114
[2018-09-28] MEDS: HYDROCODONE/ACETAMINOPHEN 10/325MG TABLET PO PRN ×4 (00:06→23:31)
[2018-09-28] MEDS: IPRATROPIUM/ALBUTEROL 0.5-3(2.5)MG/3ML NEB HHN SCH ×6 (00:16→20:17)
[2018-09-28] MEDS: GABAPENTIN 300MG CAPSULE PO SCH ×3 (05:16→21:00)
[2018-09-28] MEDS: METHYLPREDNISOLONE SOD SUCC 40 MG/ML VIAL IV SCH ×3 (05:16→21:00)
[2018-09-28] MEDS: CLONIDINE 0.1MG TABLET PO PRN ×3 (05:17→21:00)
[2018-09-28] MEDS: BLOOD SUGAR DIAGNOSTIC STRIP TEST SCH ×4 (05:17→21:02)
[2018-09-28 07:08] LABS: HEMOGLOBIN. 12.5 g/dL (12.0-16.0); MEAN CORPUSCULAR HEMOGLOBIN 29.1 pg (28.0-32.0); PLATELET 218 x1000/uL (130-400); RED BLOOD CELL COUNT 4.28 mill/uL (4.2-5.4); RED CELL DISTRIBUTION WIDTH 16.9 % (11.6-14.6)
[2018-09-28 07:23] LABS: CHLORIDE 104 mEq/L (98-107)
[2018-09-28] MEDS: INSULIN LISPRO (MEDIUM DOSE) 100 UNITS/ML SUBCUT SCH ×4 (08:05→21:01)
[2018-09-28] MEDS: ENOXAPARIN 40MG/0.4ML SYR SUBCUT SCH ×2 (09:11→21:00)
[2018-09-28] MEDS: FUROSEMIDE 40MG TABLET PO SCH (09:13)
[2018-09-28] MEDS: AZITHROMYCIN 500 MG TABLET PO SCH (09:13)
[2018-09-28 12:18] LABS: PLATELET ESTIMATE NORMAL
[2018-09-28] MEDS: MAGNESIUM/ALUMINUM HYDROXIDE/SIMETHICONE 30ML UDC PO PRN ×2 (13:12→22:07)
[2018-09-28] MEDS: PROMETHAZINE/DEXTROMETHORPHAN 6.25-15MG/5ML BOTTLE 120ML PO PRN (23:32)
[2018-09-29 00:05] VITALS: BP 142/78
[2018-09-29] MEDS: IPRATROPIUM/ALBUTEROL 0.5-3(2.5)MG/3ML NEB HHN SCH ×6 (00:21→16:29)
[2018-09-29] MEDS: MAGNESIUM/ALUMINUM HYDROXIDE/SIMETHICONE 30ML UDC PO PRN (04:35)
[2018-09-29 04:39] VITALS: BP 160/106
[2018-09-29 04:50] VITALS: BP 162/100
[2018-09-29] MEDS: CLONIDINE 0.1MG TABLET PO PRN ×2 (04:52→09:10)
[2018-09-29] MEDS: METHYLPREDNISOLONE SOD SUCC 40 MG/ML VIAL IV SCH ×2 (05:26→15:25)
[2018-09-29] MEDS: GABAPENTIN 300MG CAPSULE PO SCH ×2 (05:26→15:25)
[2018-09-29 06:54] LABS: HEMATOCRIT. 38.3 % (36.0-48.0); HEMOGLOBIN. 12.2 g/dL (12.0-16.0); MEAN CORPUSCULAR VOLUME 90.6 fL (81.0-99.0); MEAN PLATELET VOLUME 9.1 fl (7.4-10.4); PLATELET 206 x1000/uL (130-400); RED BLOOD CELL COUNT 4.22 mill/uL (4.2-5.4); RED CELL DISTRIBUTION WIDTH 17.1 % (11.6-14.6)
[2018-09-29] MEDS: BLOOD SUGAR DIAGNOSTIC STRIP TEST SCH ×2 (06:59→12:20)
[2018-09-29 07:06] LABS: CHLORIDE 102 mEq/L (98-107)
[2018-09-29] MEDS: INSULIN LISPRO (MEDIUM DOSE) 100 UNITS/ML SUBCUT SCH ×2 (07:50→12:50)
[2018-09-29 08:09] VITALS: BP 158/106
[2018-09-29] MEDS: FUROSEMIDE 40MG TABLET PO SCH ×2 (09:00→09:02)
[2018-09-29] MEDS: AZITHROMYCIN 500 MG TABLET PO SCH (09:02)
[2018-09-29] MEDS: ENOXAPARIN 40MG/0.4ML SYR SUBCUT SCH (09:03)
[2018-09-29] MEDS: HYDROCODONE/ACETAMINOPHEN 10/325MG TABLET PO PRN (09:11)
[2018-09-29 12:00] VITALS: BP 148/82
[2018-09-29] MEDS: PROMETHAZINE/DEXTROMETHORPHAN 6.25-15MG/5ML BOTTLE 120ML PO PRN (15:28)
[2018-09-29 16:00] VITALS: BP 150/88
[2018-09-29 16:39] LABS: PLATELET ESTIMATE NORMAL
== END 2018-09-29 19:17 | disposition home or self-care (01) | DRG 816 ==
LOC: ER 21:28 → 7WST 09-26 01:49 → EDBEDREQ 09-26 01:53 → EDBEDREQTM 09-26 01:53 → EDBEDREQDT 09-26 01:53 → ENRESERV 09-26 07:39 → 6WST 09-28 08:08
PROVIDERS: ADMIT Internal Medicine; ATTEND Internal Medicine
PROC: 5A09357 Assistance with Respiratory Ventilation, Less than 24 Consecutive Hours, Continuous Positive Airway Pressure (ICD-10-PCS; principal; 2018-09-27)
PROC: 5A09357 Assistance with Respiratory Ventilation, Less than 24 Consecutive Hours, Continuous Positive Airway Pressure (ICD-10-PCS; 2018-09-28)
PROC: 5A09357 Assistance with Respiratory Ventilation, Less than 24 Consecutive Hours, Continuous Positive Airway Pressure (ICD-10-PCS; 2018-09-29)
DX: T40.5X1A Poisoning by cocaine, accidental (unintentional), initial encounter (principal); J69.8 Pneumonitis due to inhalation of other solids and liquids; I50.33 Acute on chronic diastolic (congestive) heart failure; E44.1 Mild protein-calorie malnutrition; I11.0 Hypertensive heart disease with heart failure; N39.0 Urinary tract infection, site not specified; F14.10 Cocaine abuse, uncomplicated; E66.01 Morbid (severe) obesity due to excess calories; Z68.43 Body mass index [BMI] 50.0-59.9, adult; F17.210 Nicotine dependence, cigarettes, uncomplicated; Z99.81 Dependence on supplemental oxygen; J68.0 Bronchitis and pneumonitis due to chemicals, gases, fumes and vapors; Y92.89 Other specified places as the place of occurrence of the external cause; Z88.8 Allergy status to other drugs, medicaments and biological substances; Z88.0 Allergy status to penicillin; Z79.899 Other long term (current) drug therapy
CPT/HCPCS: 36415; 36600; 71045; 80048; 80305; 80320; 82375; 82805; 82962; 83605; 83880; 84484; 93005; 93970; 94640; 94660; 99285; J0360; J1650; J1815; J2270; J2405; J2920; J2930; J3475; J7620; G0480

== ENCOUNTER 2019-03-04 22:30 | Inpatient (IN) | payer MEDICAID ==
[~2019-03-04] VITALS: Ht 165.1 cm; Wt 105.3 kg
[2019-03-04] MEDS ORDERED: ALBUTEROL (0.083%) 2.5MG/3ML NEB HHN STA (22:47)
[2019-03-04] MEDS ORDERED: METHYLPREDNISOLONE SOD SUCC 125 MG/2 ML VIAL IV STA (22:47)
[2019-03-04] MEDS ORDERED: IPRATROPIUM BROMIDE (0.02%) 0.5MG/2.5ML NEB HHN STA (22:47)
[2019-03-04] MEDS ORDERED: HYDROCODONE/ACETAMINOPHEN 10/325MG TABLET PO ONE (23:00)
[2019-03-04] MEDS ORDERED: FUROSEMIDE 40MG/4ML VIAL IV ONE (23:00)
[2019-03-04] MEDS ORDERED: MAGNESIUM 2 G PREMIX 50 ML IV ONE (23:00)
[2019-03-04 23:20] LABS: EOSINOPHILS % 2.4 % (0.0-5.0); HEMATOCRIT. 41.8 % (36.0-48.0); HEMOGLOBIN. 13.6 g/dL (12.0-16.0); LYMPHOCYTES % 19.3 % (20.0-50.0); MEAN CORPUSCULAR HEMOGLOBIN 29.6 pg (28.0-32.0); MEAN CORPUSCULAR VOLUME 90.6 fL (81.0-99.0); MEAN PLATELET VOLUME 9.2 fl (7.4-10.4); MONOCYTES % 7.7 % (2.0-8.0); NEUTROPHILS % 69.6 % (40.0-76.0); PLATELET 192 x1000/uL (130-400); RED BLOOD CELL COUNT 4.61 mill/uL (4.2-5.4); RED CELL DISTRIBUTION WIDTH 14.1 % (11.6-14.6)
[2019-03-04 23:23] LABS: CHLORIDE 110 mEq/L (98-107)
[2019-03-05 02:20] VITALS: BP 155/80
[2019-03-05 04:00] VITALS: BP 154/92
[2019-03-05] MEDS ORDERED: ACETAMINOPHEN 325MG TABLET PO PRN (06:15)
[2019-03-05] MEDS ORDERED: CLONIDINE 0.2MG TABLET PO PRN (06:15)
[2019-03-05] MEDS ORDERED: ALBUTEROL (0.083%) 2.5MG/3ML NEB INH PRN (06:15)
[2019-03-05] MEDS ORDERED: HYDROCODONE/ACETAMINOPHEN 5/325MG TABLET PO PRN (06:15)
[2019-03-05] MEDS ORDERED: METHYLPREDNISOLONE SOD SUCC 125 MG/2 ML VIAL IV SCH (06:30)
[2019-03-05] MEDS: OMEPRAZOLE 20MG CAPSULE EXTENDED RELEASE PO SCH (06:53)
[2019-03-05 08:00] VITALS: BP 169/89
[2019-03-05] MEDS ORDERED: MEDICATION NOT ON FORMULARY EA (Tiotropium Bromide (Spiriva) 1 CAP) INH SCH (09:00)
[2019-03-05] MEDS: FUROSEMIDE 40MG/4ML VIAL IVP SCH (09:07)
[2019-03-05] MEDS: AMLODIPINE 5MG TABLET PO SCH (09:07)
[2019-03-05] MEDS: ASPIRIN 81MG TABLET PO SCH (09:07)
[2019-03-05] MEDS: LOSARTAN POTASSIUM 50 MG TABLET PO SCH (09:07)
[2019-03-05] MEDS ORDERED: IPRATROPIUM/ALBUTEROL 0.5-3(2.5)MG/3ML NEB HHN PRN (11:00)
[2019-03-05] MEDS: IPRATROPIUM/ALBUTEROL 0.5-3(2.5)MG/3ML NEB HHN SCH ×4 (11:15→20:59)
[2019-03-05 12:00] VITALS: BP 125/80
[2019-03-05] MEDS ORDERED: IPRATROPIUM BROMIDE (0.02%) 0.5MG/2.5ML NEB HHN SCH (12:00)
[2019-03-05] MEDS: MORPHINE SULFATE 2 MG/ML CPJ (NOT FOR IM USE) IV PRN ×2 (12:56→18:56)
[2019-03-05 14:59] LABS: T4 FREE 0.94 ng/dL (0.76-1.46)
[2019-03-05 16:00] VITALS: BP 147/86
[2019-03-05 16:47] LABS: CREATINE KINASE 123 IU/L (26-192); CREATINE KINASE MB FRACTION 1.6 ng/mL (0.5-3.6)
[2019-03-05 18:49] LABS: CLARITY URINE CLOUDY (CLEAR); COLOR URINE YELLOW (YELLOW); KETONES URINE TRACE (NEGATIVE); LEUKOCYTE ESTERASE URINE NEGATIVE (NEGATIVE); NITRITE URINE NEGATIVE (NEGATIVE); OCCULT BLOOD URINE NEGATIVE (NEGATIVE); PROTEIN URINE TRACE (NEGATIVE); SPECIFIC GRAVITY URINE 1.028 (1.005-1.030); UROBILINOGEN URINE 0.2 E.U./dL (0.2-1.0)
[2019-03-05 18:58] LABS: *BENZODIAZEPINES SCREEN URINE NEGATIVE (NEGATIVE); *COCAINE SCREEN URINE PRESUMTIVE POSITIVE (NEGATIVE)
[2019-03-05 18:59] LABS: *AMPHETAMINES SCREEN URINE NEGATIVE (NEGATIVE); CANNABINOID URINE SCREEN NEGATIVE (NEGATIVE); METHADONE URINE SCREEN NEGATIVE (NEGATIVE); OPIATES URINE SCREEN PRESUMTIVE POSITIVE (NEGATIVE); PHENCYCLIDINE URINE SCREEN NEGATIVE (NEGATIVE)
[2019-03-05 19:00] LABS: *BARBITURATES SCREEN URINE NEGATIVE (NEGATIVE)
[2019-03-05 20:00] VITALS: BP 145/96
[2019-03-05] MEDS: BUDESONIDE 0.5MG/2ML NEB HHN SCH (20:58)
[2019-03-05] MEDS: GUAIFENESIN/CODEINE 100-10MG/5ML UDC PO PRN (21:39)
[2019-03-05] MEDS: HYDRALAZINE HCL 50MG TABLET PO SCH (21:39)
[2019-03-06] VITALS: BP 134/91
[2019-03-06] MEDS: IPRATROPIUM/ALBUTEROL 0.5-3(2.5)MG/3ML NEB HHN SCH ×4 (00:23→21:33)
[2019-03-06 01:44] LABS: CREATINE KINASE 92 IU/L (26-192)
[2019-03-06 01:45] LABS: CREATINE KINASE MB FRACTION < 1.0 ng/mL (0.5-3.6)
[2019-03-06] MEDS: BUDESONIDE 0.5MG/2ML NEB HHN SCH ×3 (03:54→21:26)
[2019-03-06 04:00] VITALS: BP 133/79
[2019-03-06] MEDS: MORPHINE SULFATE 2 MG/ML CPJ (NOT FOR IM USE) IV PRN ×3 (06:55→20:46)
[2019-03-06 08:00] VITALS: BP 135/73
[2019-03-06] MEDS: OMEPRAZOLE 20MG CAPSULE EXTENDED RELEASE PO SCH (09:26)
[2019-03-06] MEDS: LOSARTAN POTASSIUM 50 MG TABLET PO SCH (09:26)
[2019-03-06] MEDS: AMLODIPINE 5MG TABLET PO SCH (09:28)
[2019-03-06] MEDS: HYDRALAZINE HCL 50MG TABLET PO SCH ×2 (09:28→20:39)
[2019-03-06] MEDS: ASPIRIN 81MG TABLET PO SCH (09:28)
[2019-03-06] MEDS: GUAIFENESIN/CODEINE 100-10MG/5ML UDC PO PRN ×2 (09:33→19:48)
[2019-03-06 09:43] LABS: BASOPHILS % 0.1 % (0.0-2.0); EOSINOPHILS % 0.1 % (0.0-5.0); HEMOGLOBIN. 12.9 g/dL (12.0-16.0); LYMPHOCYTES % 12.3 % (20.0-50.0); MEAN CORPUSCULAR HEMOGLOBIN 29.7 pg (28.0-32.0); MEAN CORPUSCULAR VOLUME 92.2 fL (81.0-99.0); MEAN PLATELET VOLUME 9.5 fl (7.4-10.4); MONOCYTES % 6.4 % (2.0-8.0); NEUTROPHILS % 81.1 % (40.0-76.0); PLATELET 174 x1000/uL (130-400); RED BLOOD CELL COUNT 4.34 mill/uL (4.2-5.4); RED CELL DISTRIBUTION WIDTH 13.8 % (11.6-14.6)
[2019-03-06 09:59] LABS: CHLORIDE 107 mEq/L (98-107)
[2019-03-06 10:09] LABS: CREATINE KINASE 80 IU/L (26-192)
[2019-03-06 10:11] LABS: CREATINE KINASE MB FRACTION < 1.0 ng/mL (0.5-3.6)
[2019-03-06] MEDS: FUROSEMIDE 40MG/4ML VIAL IVP SCH (12:22)
[2019-03-06] MEDS: GUAIFENESIN 600MG ER TABLET PO SCH ×2 (13:15→20:39)
[2019-03-06 16:00] VITALS: BP 102/63
[2019-03-06 20:00] VITALS: BP 130/83
[2019-03-07] VITALS: BP 160/52
[2019-03-07] MEDS: MORPHINE SULFATE 2 MG/ML CPJ (NOT FOR IM USE) IV PRN ×3 (03:22→22:11)
[2019-03-07] MEDS: IPRATROPIUM/ALBUTEROL 0.5-3(2.5)MG/3ML NEB HHN SCH ×4 (03:57→20:49)
[2019-03-07 04:00] VITALS: BP 122/77
[2019-03-07] MEDS: OMEPRAZOLE 20MG CAPSULE EXTENDED RELEASE PO SCH (06:28)
[2019-03-07 08:00] VITALS: BP 113/59
[2019-03-07] MEDS: BUDESONIDE 0.5MG/2ML NEB HHN SCH ×2 (08:00→20:50)
[2019-03-07] MEDS: GUAIFENESIN/CODEINE 100-10MG/5ML UDC PO PRN ×2 (08:53→20:48)
[2019-03-07] MEDS: ASPIRIN 81MG TABLET PO SCH (08:53)
[2019-03-07] MEDS: AMLODIPINE 5MG TABLET PO SCH (08:53)
[2019-03-07] MEDS: GUAIFENESIN 600MG ER TABLET PO SCH ×2 (08:53→20:42)
[2019-03-07] MEDS: LOSARTAN POTASSIUM 50 MG TABLET PO SCH (08:53)
[2019-03-07] MEDS: HYDRALAZINE HCL 50MG TABLET PO SCH ×2 (08:54→20:43)
[2019-03-07 12:00] VITALS: BP 128/79
[2019-03-07] MEDS: FUROSEMIDE 40MG/4ML VIAL IVP SCH (12:35)
[2019-03-07 16:30] VITALS: BP 116/57
[2019-03-07 20:00] VITALS: BP 149/110
[2019-03-08] VITALS: BP 133/83
[2019-03-08] MEDS: IPRATROPIUM/ALBUTEROL 0.5-3(2.5)MG/3ML NEB HHN SCH ×4 (00:15→14:04)
[2019-03-08 04:00] VITALS: BP 133/90
[2019-03-08] MEDS: MORPHINE SULFATE 2 MG/ML CPJ (NOT FOR IM USE) IV PRN (04:09)
[2019-03-08] MEDS: OMEPRAZOLE 20MG CAPSULE EXTENDED RELEASE PO SCH (06:37)
[2019-03-08 08:00] VITALS: BP 139/95
[2019-03-08] MEDS: FUROSEMIDE 40MG/4ML VIAL IVP SCH (08:51)
[2019-03-08] MEDS: AMLODIPINE 5MG TABLET PO SCH (08:52)
[2019-03-08] MEDS: LOSARTAN POTASSIUM 50 MG TABLET PO SCH (08:52)
[2019-03-08] MEDS: ASPIRIN 81MG TABLET PO SCH (08:52)
[2019-03-08] MEDS: GUAIFENESIN 600MG ER TABLET PO SCH (08:52)
[2019-03-08] MEDS: HYDRALAZINE HCL 50MG TABLET PO SCH (08:52)
[2019-03-08] MEDS: BUDESONIDE 0.5MG/2ML NEB HHN SCH (08:53)
[2019-03-08] MEDS: GUAIFENESIN/CODEINE 100-10MG/5ML UDC PO PRN (09:01)
[2019-03-08 12:00] VITALS: BP 133/89
[2019-03-08 15:52] VITALS: BP 128/83
[2019-03-08 16:09] VITALS: BP 128/83
== END 2019-03-08 17:30 | disposition home or self-care (01) | DRG 816 ==
LOC: ER 22:30 → 8WST 03-05 00:35 → ENRESERV 03-05 01:22
PROVIDERS: ADMIT Internal Medicine; ATTEND Internal Medicine
PROC: 5A09357 Assistance with Respiratory Ventilation, Less than 24 Consecutive Hours, Continuous Positive Airway Pressure (ICD-10-PCS; 2019-03-06)
PROC: 5A09357 Assistance with Respiratory Ventilation, Less than 24 Consecutive Hours, Continuous Positive Airway Pressure (ICD-10-PCS; principal; 2019-03-07)
PROC: 5A09357 Assistance with Respiratory Ventilation, Less than 24 Consecutive Hours, Continuous Positive Airway Pressure (ICD-10-PCS; 2019-03-08)
DX: T40.5X1A Poisoning by cocaine, accidental (unintentional), initial encounter (principal); J96.20 Acute and chronic respiratory failure, unspecified whether with hypoxia or hypercapnia; J84.9 Interstitial pulmonary disease, unspecified; I27.20 Pulmonary hypertension, unspecified; I50.32 Chronic diastolic (congestive) heart failure; I11.0 Hypertensive heart disease with heart failure; E66.01 Morbid (severe) obesity due to excess calories; J44.1 Chronic obstructive pulmonary disease with (acute) exacerbation; I25.10 Atherosclerotic heart disease of native coronary artery without angina pectoris; Z99.81 Dependence on supplemental oxygen; W06.XXXA Fall from bed, initial encounter; F17.210 Nicotine dependence, cigarettes, uncomplicated; F14.10 Cocaine abuse, uncomplicated; G47.33 Obstructive sleep apnea (adult) (pediatric); J68.0 Bronchitis and pneumonitis due to chemicals, gases, fumes and vapors; Z79.899 Other long term (current) drug therapy; Y92.89 Other specified places as the place of occurrence of the external cause; Z88.0 Allergy status to penicillin; Z88.6 Allergy status to analgesic agent; Z79.51 Long term (current) use of inhaled steroids
CPT/HCPCS: 36415; 71045; 80048; 80061; 80305; 81003; 82550; 82553; 83036; 83605; 83880; 84439; 84443; 84484; 85379; 93005; 93306; 93970; 94640; 94660; 96374; 99285; J1940; J2270; J2930; J3475; J7611; J7620; J7626

== ENCOUNTER 2019-04-08 12:02 | Inpatient (IN) | payer MEDICAID ==
[~2019-04-08] VITALS: Ht 160 cm; Wt 149.7 kg
[2019-04-08] MEDS ORDERED: ALBUTEROL (0.083%) 2.5MG/3ML NEB HHN STA (12:21)
[2019-04-08] MEDS ORDERED: ASPIRIN 81MG TABLET PO ONE (12:30)
[2019-04-08] MEDS ORDERED: NITROGLYCERIN 0.4MG TABLET SL SL PRN (12:30)
[2019-04-08] MEDS ORDERED: FUROSEMIDE 40MG/4ML VIAL IV ONE (12:30)
[2019-04-08 12:50] LABS: BASOPHILS % 0.4 % (0.0-2.0); EOSINOPHILS % 2.7 % (0.0-5.0); HEMATOCRIT. 40.5 % (36.0-48.0); HEMOGLOBIN. 13.2 g/dL (12.0-16.0); LYMPHOCYTES % 20.2 % (20.0-50.0); MEAN CORPUSCULAR HEMOGLOBIN 29.8 pg (28.0-32.0); MEAN CORPUSCULAR VOLUME 91.7 fL (81.0-99.0); MEAN PLATELET VOLUME 8.1 fl (7.4-10.4); NEUTROPHILS % 68.7 % (40.0-76.0); PLATELET 187 x1000/uL (130-400); RED BLOOD CELL COUNT 4.42 mill/uL (4.2-5.4)
[2019-04-08 12:57] LABS: CHLORIDE 108 mEq/L (98-107)
[2019-04-08] MEDS ORDERED: METHYLPREDNISOLONE SOD SUCC 125 MG/2 ML VIAL IV ONE (13:30)
[2019-04-08] MEDS ORDERED: ACETAMINOPHEN WITH CODEINE 300/30MG TABLET PO ONE (14:30)
[2019-04-08] MEDS ORDERED: LEVOFLOXACIN 750MG PREMIX 150 ML IV ONE (16:15)
[2019-04-08 21:35] VITALS: BP 164/96
[2019-04-08] MEDS ORDERED: TRAM50TA3 MT (22:04)
[2019-04-08] MEDS ORDERED: FLUT1DIS3 INH (22:34)
[2019-04-08] MEDS ORDERED: AMLO10TA80 MT (22:37)
[2019-04-08 23:21] VITALS: BP 167/102
[2019-04-08] MEDS ORDERED: INFLUENZA VIRUS VACCINE(AFLURIA) 0.5ML SYR IM ONE (23:45)
[2019-04-09] VITALS: BP 137/80
[2019-04-09] MEDS: ALBUTEROL (0.083%) 2.5MG/3ML NEB INH PRN ×2 (00:16→05:03)
[2019-04-09] MEDS: AMLODIPINE 5MG TABLET PO SCH ×2 (00:22→08:51)
[2019-04-09] MEDS ORDERED: RIVA10TA MT (00:25)
[2019-04-09] MEDS: HYDROCODONE/ACETAMINOPHEN 5/325MG TABLET PO PRN ×6 (00:48→22:46)
[2019-04-09 04:00] VITALS: BP 139/72
[2019-04-09 08:00] VITALS: BP 142/73
[2019-04-09] MEDS: LOSARTAN POTASSIUM 50 MG TABLET PO SCH (08:51)
[2019-04-09] MEDS ORDERED: FUROSEMIDE 40MG TABLET PO SCH (09:00)
[2019-04-09 09:44] LABS: BASOPHILS % 0.8 % (0.0-2.0); HEMATOCRIT. 39.4 % (36.0-48.0); HEMOGLOBIN. 12.9 g/dL (12.0-16.0); LYMPHOCYTES % 8.1 % (20.0-50.0); MEAN CORPUSCULAR HEMOGLOBIN 29.9 pg (28.0-32.0); MEAN CORPUSCULAR VOLUME 91.5 fL (81.0-99.0); MEAN PLATELET VOLUME 8.3 fl (7.4-10.4); MONOCYTES % 5.5 % (2.0-8.0); NEUTROPHILS % 85.6 % (40.0-76.0); PLATELET 175 x1000/uL (130-400); RED BLOOD CELL COUNT 4.31 mill/uL (4.2-5.4); RED CELL DISTRIBUTION WIDTH 13.9 % (11.6-14.6)
[2019-04-09 09:51] LABS: CHLORIDE 105 mEq/L (98-107)
[2019-04-09] MEDS: IPRATROPIUM/ALBUTEROL 0.5-3(2.5)MG/3ML NEB HHN SCH ×3 (11:44→21:34)
[2019-04-09 12:00] VITALS: BP 134/60
[2019-04-09] MEDS: FUROSEMIDE 40MG/4ML VIAL IVP SCH (13:38)
[2019-04-09 14:38] LABS: *COCAINE SCREEN URINE PRESUMTIVE POSITIVE (NEGATIVE); METHADONE URINE SCREEN NEGATIVE (NEGATIVE)
[2019-04-09 14:39] LABS: *AMPHETAMINES SCREEN URINE NEGATIVE (NEGATIVE); *BARBITURATES SCREEN URINE NEGATIVE (NEGATIVE); *BENZODIAZEPINES SCREEN URINE NEGATIVE (NEGATIVE); CANNABINOID URINE SCREEN NEGATIVE (NEGATIVE); OPIATES URINE SCREEN PRESUMTIVE POSITIVE (NEGATIVE); PHENCYCLIDINE URINE SCREEN NEGATIVE (NEGATIVE)
[2019-04-09 16:00] VITALS: BP 114/66
[2019-04-09] MEDS: RIVAROXABAN 20 MG TABLET PO SCH (17:52)
[2019-04-09 20:00] VITALS: BP 128/76
[2019-04-10] MEDS: IPRATROPIUM/ALBUTEROL 0.5-3(2.5)MG/3ML NEB HHN SCH ×6 (00:33→20:53)
[2019-04-10 00:53] VITALS: BP 114/60
[2019-04-10 04:00] VITALS: BP 129/69
[2019-04-10] MEDS: HYDROCODONE/ACETAMINOPHEN 5/325MG TABLET PO PRN ×4 (04:57→22:22)
[2019-04-10 08:00] VITALS: BP 123/70
[2019-04-10] MEDS: FUROSEMIDE 40MG/4ML VIAL IVP SCH ×2 (09:00→09:14)
[2019-04-10] MEDS: LOSARTAN POTASSIUM 50 MG TABLET PO SCH (09:14)
[2019-04-10] MEDS: AMLODIPINE 10MG TABLET PO SCH (09:14)
[2019-04-10 12:00] VITALS: BP 135/75
[2019-04-10] MEDS ORDERED: GUAI5SYR3 MT (13:02)
[2019-04-10 16:00] VITALS: BP 128/78
[2019-04-10] MEDS: RIVAROXABAN 20 MG TABLET PO SCH (18:07)
[2019-04-10 20:00] VITALS: BP 118/62
[2019-04-10] MEDS: FAMOTIDINE 20MG TABLET PO SCH (20:37)
[2019-04-11] VITALS: BP 163/74
[2019-04-11] MEDS: ALBUTEROL (0.083%) 2.5MG/3ML NEB INH PRN (00:29)
[2019-04-11 04:00] VITALS: BP 128/60
[2019-04-11] MEDS: HYDROCODONE/ACETAMINOPHEN 5/325MG TABLET PO PRN (04:11)
[2019-04-11] MEDS: IPRATROPIUM/ALBUTEROL 0.5-3(2.5)MG/3ML NEB HHN SCH ×3 (04:40→11:54)
[2019-04-11 08:00] VITALS: BP 113/93
[2019-04-11] MEDS: FUROSEMIDE 40MG/4ML VIAL IVP SCH (08:02)
[2019-04-11] MEDS: LOSARTAN POTASSIUM 50 MG TABLET PO SCH (08:03)
[2019-04-11] MEDS: FAMOTIDINE 20MG TABLET PO SCH (08:03)
[2019-04-11] MEDS: AMLODIPINE 10MG TABLET PO SCH (08:03)
[2019-04-11 09:28] VITALS: BP 113/93
[2019-04-11 12:00] VITALS: BP 103/73
== END 2019-04-11 14:13 | disposition home or self-care (01) | DRG 133 ==
LOC: ER 12:02 → CANBEDREQ 13:24 → ENRESERV 20:30 → 8WST 22:10
PROVIDERS: ADMIT Internal Medicine; ATTEND Internal Medicine
PROC: 5A09457 Assistance with Respiratory Ventilation, 24-96 Consecutive Hours, Continuous Positive Airway Pressure (ICD-10-PCS; principal; 2019-04-09)
PROC: 5A09357 Assistance with Respiratory Ventilation, Less than 24 Consecutive Hours, Continuous Positive Airway Pressure (ICD-10-PCS; 2019-04-10)
DX: J96.20 Acute and chronic respiratory failure, unspecified whether with hypoxia or hypercapnia (principal); I50.33 Acute on chronic diastolic (congestive) heart failure; E87.8 Other disorders of electrolyte and fluid balance, not elsewhere classified; E44.1 Mild protein-calorie malnutrition; E66.01 Morbid (severe) obesity due to excess calories; J68.0 Bronchitis and pneumonitis due to chemicals, gases, fumes and vapors; F17.210 Nicotine dependence, cigarettes, uncomplicated; I11.0 Hypertensive heart disease with heart failure; I48.91 Unspecified atrial fibrillation; F14.90 Cocaine use, unspecified, uncomplicated; M94.0 Chondrocostal junction syndrome [Tietze]; Z79.01 Long term (current) use of anticoagulants; Z88.0 Allergy status to penicillin; Z88.8 Allergy status to other drugs, medicaments and biological substances; Z79.899 Other long term (current) drug therapy; Z71.3 Dietary counseling and surveillance; Z71.51 Drug abuse counseling and surveillance of drug abuser; Z68.43 Body mass index [BMI] 50.0-59.9, adult
CPT/HCPCS: 36415; 71045; 80048; 80305; 81025; 83880; 84484; 93005; 94640; 94660; 99285; J1940; J1956; J2930; J7611; J7620

== ENCOUNTER 2019-06-05 03:06 | Inpatient (IN) | payer MEDICAID ==
[~2019-06-05] VITALS: Ht 160 cm; Wt 126.8 kg
[~2019-06-05 03:06] MED LIST changes: +AMLO10TA80 MT; -AMLO5TAB88 PO; -FLUT1AER5 INH; +FLUT1DIS3 INH; +GUAI5SYR3 MT; +RIVA10TA MT; +TRAM50TA3 MT
[2019-06-05 04:02] LABS: EOSINOPHILS % 1.9 % (0.0-5.0); HEMATOCRIT. 41.4 % (36.0-48.0); HEMOGLOBIN. 13.4 g/dL (12.0-16.0); LYMPHOCYTES % 25.9 % (20.0-50.0); MEAN CORPUSCULAR HEMOGLOBIN 29.4 pg (28.0-32.0); MEAN CORPUSCULAR VOLUME 91.3 fL (81.0-99.0); MEAN PLATELET VOLUME 8.7 fl (7.4-10.4); MONOCYTES % 6.8 % (2.0-8.0); NEUTROPHILS % 64.4 % (40.0-76.0); PLATELET 178 x1000/uL (130-400); RED BLOOD CELL COUNT 4.54 mill/uL (4.2-5.4); RED CELL DISTRIBUTION WIDTH 13.6 % (11.6-14.6)
[2019-06-05] MEDS ORDERED: METHYLPREDNISOLONE SOD SUCC 125 MG/2 ML VIAL IV STA (04:04)
[2019-06-05] MEDS ORDERED: ALBUTEROL (0.083%) 2.5MG/3ML NEB HHN STA ×2 (04:04→10:05)
[2019-06-05] MEDS ORDERED: IPRATROPIUM BROMIDE (0.02%) 0.5MG/2.5ML NEB HHN STA (04:04)
[2019-06-05 04:08] LABS: CHLORIDE 110 mEq/L (98-107)
[2019-06-05] MEDS ORDERED: LEVOFLOXACIN 750MG PREMIX 150 ML IV ONE (07:00)
[2019-06-05] MEDS ORDERED: SODIUM CHLORIDE 0.9% 1,000 ML IV ONE (10:05)
[2019-06-05] MEDS ORDERED: ACETAMINOPHEN WITH CODEINE 300/30MG TABLET PO ONE (13:15)
[2019-06-05] MEDS ORDERED: DOCUSATE SODIUM 100MG CAPSULE PO PRN (13:30)
[2019-06-05] MEDS ORDERED: MAGNESIUM/ALUMINUM HYDROXIDE/SIMETHICONE 30ML UDC PO PRN (13:30)
[2019-06-05] MEDS ORDERED: DIPHENHYDRAMINE 50MG/ML VIAL IV PRN (13:30)
[2019-06-05] MEDS ORDERED: MORPHINE SULFATE 2 MG/ML CPJ (NOT FOR IM USE) IV PRN (13:30)
[2019-06-05] MEDS ORDERED: ACETAMINOPHEN 325MG TABLET PO PRN (13:30)
[2019-06-05] MEDS ORDERED: LORAZEPAM 2MG/ML CPJ IV PRN (13:30)
[2019-06-05] MEDS ORDERED: NA PHOS,M-B/NA PHOS,DI-BA ENEMA 118ML PR PRN (13:30)
[2019-06-05] MEDS ORDERED: ONDANSETRON HCL 4MG/2ML INJ IV PRN (13:30)
[2019-06-05] MEDS: METHYLPREDNISOLONE SOD SUCC 125 MG/2 ML VIAL IV SCH (14:55)
[2019-06-05] MEDS: ENOXAPARIN 40MG/0.4ML SYR SUBCUT SCH (14:56)
[2019-06-05 16:17] LABS: CHLORIDE 110 mEq/L (98-107)
[2019-06-05] MEDS ORDERED: METOPROLOL TARTRATE 25MG TABLET PO NR (16:54)
[2019-06-05 21:30] VITALS: BP 191/101
[2019-06-05 22:00] VITALS: BP 191/101
[2019-06-05] MEDS: CLONIDINE 0.1MG TABLET PO PRN (22:11)
[2019-06-05] MEDS: HYDROCODONE/ACETAMINOPHEN 10/325MG TABLET PO PRN (23:03)
[2019-06-05] MEDS: IPRATROPIUM/ALBUTEROL 0.5-3(2.5)MG/3ML NEB NEB PRN (23:22)
[2019-06-06 00:23] VITALS: BP 185/111
[2019-06-06] MEDS: METHYLPREDNISOLONE SOD SUCC 125 MG/2 ML VIAL IV SCH ×4 (00:29→18:26)
[2019-06-06 04:00] VITALS: BP 177/96
[2019-06-06] MEDS: CLONIDINE 0.1MG TABLET PO PRN (04:26)
[2019-06-06] MEDS: HYDROCODONE/ACETAMINOPHEN 10/325MG TABLET PO PRN ×4 (04:27→20:48)
[2019-06-06] MEDS ORDERED: LEVOFLOXACIN 500MG PREMIX 100 ML IV SCH (07:00)
[2019-06-06 07:13] LABS: *AMPHETAMINES SCREEN URINE NEGATIVE (NEGATIVE); *BARBITURATES SCREEN URINE NEGATIVE (NEGATIVE); *BENZODIAZEPINES SCREEN URINE NEGATIVE (NEGATIVE); *COCAINE SCREEN URINE PRESUMTIVE POSITIVE (NEGATIVE)
[2019-06-06 07:14] LABS: CANNABINOID URINE SCREEN NEGATIVE (NEGATIVE); METHADONE URINE SCREEN NEGATIVE (NEGATIVE); OPIATES URINE SCREEN PRESUMTIVE POSITIVE (NEGATIVE); PHENCYCLIDINE URINE SCREEN NEGATIVE (NEGATIVE)
[2019-06-06 08:09] LABS: HEMATOCRIT. 37.9 % (36.0-48.0); HEMOGLOBIN. 11.9 g/dL (12.0-16.0); MEAN CORPUSCULAR HEMOGLOBIN 29.2 pg (28.0-32.0); MEAN CORPUSCULAR VOLUME 92.6 fL (81.0-99.0); MEAN PLATELET VOLUME 9.4 fl (7.4-10.4); PLATELET 168 x1000/uL (130-400); RED BLOOD CELL COUNT 4.09 mill/uL (4.2-5.4); RED CELL DISTRIBUTION WIDTH 13.5 % (11.6-14.6)
[2019-06-06 08:58] LABS: CHLORIDE 111 mEq/L (98-107)
[2019-06-06] MEDS ORDERED: FUROSEMIDE 40MG/4ML VIAL IV SCH (09:00)
[2019-06-06] MEDS ORDERED: LISINOPRIL 20MG TABLET PO SCH (09:00)
[2019-06-06] MEDS ORDERED: METOPROLOL TARTRATE 25MG TABLET PO SCH (09:00)
[2019-06-06] MEDS: ENOXAPARIN 40MG/0.4ML SYR SUBCUT SCH ×2 (09:00→12:41)
[2019-06-06 09:18] LABS: LDL CHOLESTEROL 75 mg/dL (5-100)
[2019-06-06 09:19] LABS: HDL CHOLESTEROL 84 mg/dL (40-59)
[2019-06-06 09:20] LABS: T4 FREE 0.87 ng/dL (0.76-1.46)
[2019-06-06] MEDS: AMLODIPINE 10MG TABLET PO SCH (09:43)
[2019-06-06] MEDS: ASPIRIN 81MG EC TABLET PO SCH (09:44)
[2019-06-06] MEDS: IPRATROPIUM/ALBUTEROL 0.5-3(2.5)MG/3ML NEB NEB PRN (10:35)
[2019-06-06 12:00] VITALS: BP 157/89
[2019-06-06] MEDS: HYDRALAZINE HCL 50MG TABLET PO SCH ×2 (12:54→20:47)
[2019-06-06 14:19] LABS: PLATELET ESTIMATE NORMAL
[2019-06-06 16:00] VITALS: BP 175/103
[2019-06-06] MEDS: CLONIDINE 0.1MG TABLET PO SCH ×2 (16:41→21:28)
[2019-06-06] MEDS: LISINOPRIL 20MG TABLET PO SCH (16:41)
[2019-06-06] MEDS: IPRATROPIUM/ALBUTEROL 0.5-3(2.5)MG/3ML NEB HHN SCH ×2 (17:44→20:26)
[2019-06-06] MEDS: FUROSEMIDE 40MG/4ML VIAL IV SCH (18:25)
[2019-06-06 20:00] VITALS: BP 165/93
[2019-06-06] MEDS: ENOXAPARIN 30MG/0.3ML SYR SUBCUT SCH (20:46)
[2019-06-06] MEDS: GUAIFENESIN 200MG/10ML SUGAR FREE UDC PO PRN (20:47)
[2019-06-07] VITALS: BP 172/104
[2019-06-07] MEDS: METHYLPREDNISOLONE SOD SUCC 125 MG/2 ML VIAL IV SCH ×4 (00:09→17:00)
[2019-06-07] MEDS: CLONIDINE 0.1MG TABLET PO PRN (00:10)
[2019-06-07] MEDS: IPRATROPIUM/ALBUTEROL 0.5-3(2.5)MG/3ML NEB HHN SCH ×4 (01:51→21:04)
[2019-06-07 04:39] VITALS: BP 149/84
[2019-06-07] MEDS: HYDROCODONE/ACETAMINOPHEN 10/325MG TABLET PO PRN ×3 (04:40→21:13)
[2019-06-07] MEDS: HYDRALAZINE HCL 50MG TABLET PO SCH ×3 (04:40→21:12)
[2019-06-07 04:53] LABS: CHLORIDE 106 mEq/L (98-107)
[2019-06-07] MEDS: CLONIDINE 0.1MG TABLET PO SCH ×2 (05:40→14:11)
[2019-06-07] MEDS: LEVOFLOXACIN 500MG PREMIX 100 ML IV SCH (06:03)
[2019-06-07] MEDS: FUROSEMIDE 40MG/4ML VIAL IV SCH ×2 (06:03→16:56)
[2019-06-07 06:43] LABS: HEMATOCRIT. 40.1 % (36.0-48.0); HEMOGLOBIN. 12.7 g/dL (12.0-16.0); MEAN CORPUSCULAR HEMOGLOBIN 29.1 pg (28.0-32.0); MEAN CORPUSCULAR VOLUME 92.2 fL (81.0-99.0); MEAN PLATELET VOLUME 9.5 fl (7.4-10.4); PLATELET 170 x1000/uL (130-400); RED BLOOD CELL COUNT 4.35 mill/uL (4.2-5.4); RED CELL DISTRIBUTION WIDTH 13.8 % (11.6-14.6)
[2019-06-07 08:00] VITALS: BP 177/89
[2019-06-07] MEDS: ASPIRIN 81MG EC TABLET PO SCH (08:35)
[2019-06-07] MEDS: ENOXAPARIN 30MG/0.3ML SYR SUBCUT SCH ×2 (08:35→21:12)
[2019-06-07] MEDS: AMLODIPINE 10MG TABLET PO SCH (08:36)
[2019-06-07] MEDS: LISINOPRIL 20MG TABLET PO SCH ×2 (08:36→16:55)
[2019-06-07] MEDS ORDERED: FAMOTIDINE 20MG TABLET PO SCH (10:30)
[2019-06-07 10:59] LABS: PLATELET ESTIMATE NORMAL
[2019-06-07] MEDS: FAMOTIDINE 40MG TABLET PO SCH ×2 (11:37→21:14)
[2019-06-07 11:45] VITALS: BP 166/98
[2019-06-07] MEDS: GUAIFENESIN 200MG/10ML SUGAR FREE UDC PO PRN ×2 (12:31→21:12)
[2019-06-07] MEDS: FLUTICASONE PROPIONATE 50MCG/SPRAY BOTTLE BOTHNSTRLS SCH ×2 (12:37→21:12)
[2019-06-07 16:00] VITALS: BP 155/92
[2019-06-07] MEDS: MONTELUKAST SODIUM 10MG TABLET PO SCH (16:55)
[2019-06-07 20:00] VITALS: BP 145/82
[2019-06-07] MEDS ORDERED: LORATADINE 10MG TABLET PO SCH (21:00)
[2019-06-07] MEDS: CLONIDINE 0.2MG TABLET PO SCH (21:13)
[2019-06-08] VITALS: BP 127/66
[2019-06-08] MEDS: METHYLPREDNISOLONE SOD SUCC 125 MG/2 ML VIAL IV SCH ×4 (00:56→18:00)
[2019-06-08] MEDS: IPRATROPIUM/ALBUTEROL 0.5-3(2.5)MG/3ML NEB HHN SCH ×3 (01:26→13:39)
[2019-06-08 04:00] VITALS: BP 168/90
[2019-06-08] MEDS: HYDRALAZINE HCL 50MG TABLET PO SCH ×2 (04:05→14:12)
[2019-06-08] MEDS: FUROSEMIDE 40MG/4ML VIAL IV SCH ×3 (06:22→17:15)
[2019-06-08] MEDS: CLONIDINE 0.2MG TABLET PO SCH ×2 (06:22→14:16)
[2019-06-08] MEDS: LEVOFLOXACIN 500MG PREMIX 100 ML IV SCH (06:22)
[2019-06-08] MEDS: HYDROCODONE/ACETAMINOPHEN 10/325MG TABLET PO PRN (06:39)
[2019-06-08 08:00] VITALS: BP_SYST 140; BP_SYST 158; BP_DIAS 79; BP_DIAS 84
[2019-06-08] MEDS: LISINOPRIL 20MG TABLET PO SCH ×2 (09:42→19:27)
[2019-06-08] MEDS: FAMOTIDINE 40MG TABLET PO SCH (09:42)
[2019-06-08] MEDS: AMLODIPINE 10MG TABLET PO SCH (09:43)
[2019-06-08] MEDS: ENOXAPARIN 30MG/0.3ML SYR SUBCUT SCH (09:43)
[2019-06-08] MEDS: ASPIRIN 81MG EC TABLET PO SCH (09:43)
[2019-06-08] MEDS: FLUTICASONE PROPIONATE 50MCG/SPRAY BOTTLE BOTHNSTRLS SCH (09:44)
[2019-06-08 11:55] LABS: HEMATOCRIT. 38.7 % (36.0-48.0); HEMOGLOBIN. 12.5 g/dL (12.0-16.0); MEAN CORPUSCULAR HEMOGLOBIN 29.7 pg (28.0-32.0); MEAN CORPUSCULAR VOLUME 91.8 fL (81.0-99.0); MEAN PLATELET VOLUME 9.1 fl (7.4-10.4); PLATELET 164 x1000/uL (130-400); RED BLOOD CELL COUNT 4.21 mill/uL (4.2-5.4); RED CELL DISTRIBUTION WIDTH 13.9 % (11.6-14.6)
[2019-06-08 12:00] VITALS: BP 100/44
[2019-06-08 12:00] LABS: CHLORIDE 106 mEq/L (98-107)
[2019-06-08] MEDS: GUAIFENESIN 200MG/10ML SUGAR FREE UDC PO PRN (14:12)
[2019-06-08 16:00] VITALS: BP 150/88
[2019-06-08 16:07] LABS: PLATELET ESTIMATE NORMAL
[2019-06-08] MEDS: MONTELUKAST SODIUM 10MG TABLET PO SCH (19:27)
[2019-06-08] MEDS: CLONIDINE 0.1MG TABLET PO PRN (19:53)
== END 2019-06-08 19:55 | disposition home or self-care (01) | DRG 816 ==
LOC: ER 03:06 → ENRESERV 19:29 → 6WST 21:37
PROVIDERS: ADMIT Internal Medicine; ATTEND Internal Medicine
PROC: 5A09357 Assistance with Respiratory Ventilation, Less than 24 Consecutive Hours, Continuous Positive Airway Pressure (ICD-10-PCS; principal; 2019-06-06)
PROC: 5A09357 Assistance with Respiratory Ventilation, Less than 24 Consecutive Hours, Continuous Positive Airway Pressure (ICD-10-PCS; 2019-06-07)
PROC: 5A09357 Assistance with Respiratory Ventilation, Less than 24 Consecutive Hours, Continuous Positive Airway Pressure (ICD-10-PCS; 2019-06-08)
DX: T40.5X1A Poisoning by cocaine, accidental (unintentional), initial encounter (principal); J96.20 Acute and chronic respiratory failure, unspecified whether with hypoxia or hypercapnia; J84.9 Interstitial pulmonary disease, unspecified; I27.20 Pulmonary hypertension, unspecified; I50.32 Chronic diastolic (congestive) heart failure; I11.0 Hypertensive heart disease with heart failure; E66.01 Morbid (severe) obesity due to excess calories; J68.0 Bronchitis and pneumonitis due to chemicals, gases, fumes and vapors; G47.33 Obstructive sleep apnea (adult) (pediatric); E05.90 Thyrotoxicosis, unspecified without thyrotoxic crisis or storm; F14.10 Cocaine abuse, uncomplicated; Z72.0 Tobacco use; Z91.19 Patient's noncompliance with other medical treatment and regimen; Z88.0 Allergy status to penicillin; Z88.6 Allergy status to analgesic agent; Z68.42 Body mass index [BMI] 45.0-49.9, adult; Z99.81 Dependence on supplemental oxygen; Z71.51 Drug abuse counseling and surveillance of drug abuser; Y92.89 Other specified places as the place of occurrence of the external cause
CPT/HCPCS: 36415; 71045; 80048; 80053; 80061; 80305; 83735; 83880; 84439; 84443; 84484; 85025; 93005; 94640; 94660; 96365; 96375; 99285; J1650; J1940; J1956; J2930; J7030

== ENCOUNTER 2019-09-14 19:59 | Inpatient (IN) | payer MEDICAID ==
[~2019-09-14] VITALS: Ht 160 cm; Wt 147.4 kg
[2019-09-14] MEDS ORDERED: MORPHINE SULFATE 4 MG/ML CPJ (NOT FOR IM USE) IV ONE (21:15)
[2019-09-14] MEDS ORDERED: ONDANSETRON HCL 4MG/2ML INJ IV ONE (21:15)
[2019-09-14 22:11] LABS: EOSINOPHILS % 2.5 % (0.0-5.0); HEMATOCRIT. 41.1 % (36.0-48.0); HEMOGLOBIN. 13.4 g/dL (12.0-16.0); LYMPHOCYTES % 19.5 % (20.0-50.0); MEAN CORPUSCULAR VOLUME 92.1 fL (81.0-99.0); MEAN PLATELET VOLUME 9.9 fl (7.4-10.4); MONOCYTES % 10.8 % (2.0-8.0); NEUTROPHILS % 66.2 % (40.0-76.0); PLATELET 181 x1000/uL (130-400); RED BLOOD CELL COUNT 4.47 mill/uL (4.2-5.4); RED CELL DISTRIBUTION WIDTH 14.6 % (11.6-14.6)
[2019-09-14 22:15] LABS: CHLORIDE 104 mEq/L (98-107)
[2019-09-14 22:20] LABS: INR 1.1; PARTIAL THROMBOPLASTIN TIME 29.9 sec (23.4-31.0); PROTHROMBIN TIME 11.9 sec (9.6-11.0)
[2019-09-14] MEDS ORDERED: FUROSEMIDE 40MG/4ML VIAL IVP ONE (23:15)
[2019-09-14] MEDS ORDERED: PREDNISONE 20MG TABLET PO ONE (23:45)
[2019-09-14] MEDS ORDERED: ALBUTEROL 6.7GM HFA INHALER ORI ONE (23:45)
[2019-09-15 09:56] VITALS: BP 118/65
[2019-09-15 10:03] VITALS: BP 115/65
[2019-09-15 12:00] VITALS: BP 150/81
[2019-09-15] MEDS ORDERED: ENOXAPARIN 40MG/0.4ML SYR SUBCUT SCH ×2 (12:45→14:00)
[2019-09-15] MEDS ORDERED: FUROSEMIDE 40MG TABLET PO SCH (12:45)
[2019-09-15] MEDS ORDERED: ONDANSETRON HCL 4MG/2ML INJ IV PRN (12:45)
[2019-09-15] MEDS ORDERED: FUROSEMIDE 40MG/4ML VIAL IVP SCH (12:45)
[2019-09-15] MEDS ORDERED: TRAMADOL 50MG TABLET PO PRN (12:45)
[2019-09-15] MEDS ORDERED: ACETAMINOPHEN 325MG TABLET PO PRN (12:45)
[2019-09-15] MEDS ORDERED: GUAIFENESIN/CODEINE 200-20MG/10ML UDC PO PRN (13:00)
[2019-09-15] MEDS: HYDROCODONE/ACETAMINOPHEN 5/325MG TABLET PO PRN ×2 (15:08→20:24)
[2019-09-15 16:00] VITALS: BP 138/90
[2019-09-15] MEDS ORDERED: RIVAROXABAN 20 MG TABLET PO SCH (17:00)
[2019-09-15] MEDS ORDERED: FUROSEMIDE 40MG/4ML VIAL IVP NR (17:15)
[2019-09-15 20:00] VITALS: BP 153/81
[2019-09-15] MEDS: AMLODIPINE 5MG TABLET PO SCH (20:24)
[2019-09-15] MEDS: ALBUTEROL 6.7GM HFA INHALER ORI PRN (20:42)
[2019-09-16 00:05] VITALS: BP 140/79
[2019-09-16] MEDS: HYDROCODONE/ACETAMINOPHEN 5/325MG TABLET PO PRN ×5 (00:23→17:30)
[2019-09-16] MEDS: ALBUTEROL 6.7GM HFA INHALER ORI PRN (02:01)
[2019-09-16 04:00] VITALS: BP 153/99
[2019-09-16 08:00] VITALS: BP 137/98
[2019-09-16] MEDS: FUROSEMIDE 40MG/4ML VIAL IVP SCH ×2 (08:27→09:00)
[2019-09-16] MEDS: AMLODIPINE 5MG TABLET PO SCH ×2 (08:28→20:59)
[2019-09-16 08:34] LABS: HEMATOCRIT. 39.6 % (36.0-48.0); HEMOGLOBIN. 13.1 g/dL (12.0-16.0); MEAN CORPUSCULAR HEMOGLOBIN 29.4 pg (28.0-32.0); MEAN CORPUSCULAR VOLUME 89.2 fL (81.0-99.0); MEAN PLATELET VOLUME 8.7 fl (7.4-10.4); PLATELET 256 x1000/uL (130-400); RED BLOOD CELL COUNT 4.44 mill/uL (4.2-5.4); RED CELL DISTRIBUTION WIDTH 17.3 % (11.6-14.6)
[2019-09-16 08:40] LABS: CHLORIDE 94 mEq/L (98-107)
[2019-09-16 12:00] VITALS: BP 134/84
[2019-09-16 16:00] VITALS: BP 156/97
[2019-09-16] MEDS: RIVAROXABAN 15 MG TABLET PO SCH (16:54)
[2019-09-16 19:32] LABS: PLATELET ESTIMATE NORMAL
[2019-09-17] VITALS: BP 164/98
[2019-09-17] MEDS: HYDROCODONE/ACETAMINOPHEN 5/325MG TABLET PO PRN ×2 (02:41→09:16)
[2019-09-17] MEDS: ALBUTEROL 6.7GM HFA INHALER ORI PRN ×2 (02:55→10:09)
[2019-09-17 04:00] VITALS: BP 164/96
[2019-09-17 07:35] LABS: BASOPHILS % 0.8 % (0.0-2.0); EOSINOPHILS % 3.6 % (0.0-5.0); HEMATOCRIT. 40.2 % (36.0-48.0); HEMOGLOBIN. 12.9 g/dL (12.0-16.0); LYMPHOCYTES % 25.5 % (20.0-50.0); MEAN PLATELET VOLUME 9.2 fl (7.4-10.4); MONOCYTES % 11.6 % (2.0-8.0); NEUTROPHILS % 58.5 % (40.0-76.0); PLATELET 143 x1000/uL (130-400); RED BLOOD CELL COUNT 4.32 mill/uL (4.2-5.4); RED CELL DISTRIBUTION WIDTH 14.1 % (11.6-14.6)
[2019-09-17 07:41] LABS: CHLORIDE 104 mEq/L (98-107)
[2019-09-17 08:00] VITALS: BP 178/104
[2019-09-17] MEDS: AMLODIPINE 5MG TABLET PO SCH (09:14)
[2019-09-17] MEDS ORDERED: METHYLPREDNISOLONE SOD SUCC 125 MG/2 ML VIAL IV SCH (10:45)
[2019-09-17 12:00] VITALS: BP 143/90
[2019-09-17] MEDS ORDERED: IPRATROPIUM/ALBUTEROL 0.5-3(2.5)MG/3ML NEB HHN SCH (12:00)
[2019-09-17] MEDS ORDERED: FUROSEMIDE 40MG TABLET PO SCH (13:45)
[2019-09-17] MEDS: METHYLPREDNISOLONE SOD SUCC 40 MG/ML VIAL IV SCH ×2 (14:00→18:31)
[2019-09-17 16:00] VITALS: BP 111/98
[2019-09-17] MEDS: RIVAROXABAN 15 MG TABLET PO SCH (17:56)
[2019-09-17 18:24] VITALS: BP 111/98
== END 2019-09-17 18:40 | disposition home or self-care (01) | DRG 194 ==
LOC: ER 19:59 → 7WST 22:36 → EDBEDREQTM 22:39 → EDBEDREQ 22:39 → ENRESERV 09-15 07:34 → 5WST 09-16 23:20
PROVIDERS: ADMIT Internal Medicine; ATTEND Internal Medicine
PROC: 5A09357 Assistance with Respiratory Ventilation, Less than 24 Consecutive Hours, Continuous Positive Airway Pressure (ICD-10-PCS; principal; 2019-09-17)
DX: I13.0 Hypertensive heart and chronic kidney disease with heart failure and stage 1 through stage 4 chronic kidney disease, or unspecified chronic kidney disease (principal); J96.00 Acute respiratory failure, unspecified whether with hypoxia or hypercapnia; N17.0 Acute kidney failure with tubular necrosis; I50.33 Acute on chronic diastolic (congestive) heart failure; I48.91 Unspecified atrial fibrillation; J44.1 Chronic obstructive pulmonary disease with (acute) exacerbation; J68.0 Bronchitis and pneumonitis due to chemicals, gases, fumes and vapors; M94.0 Chondrocostal junction syndrome [Tietze]; F17.200 Nicotine dependence, unspecified, uncomplicated; Z20.828 Contact with and (suspected) exposure to other viral communicable diseases; F14.10 Cocaine abuse, uncomplicated; E66.9 Obesity, unspecified; N18.9 Chronic kidney disease, unspecified; Z68.43 Body mass index [BMI] 50.0-59.9, adult; Z78.9 Other specified health status; Z79.01 Long term (current) use of anticoagulants; Z88.0 Allergy status to penicillin; Z88.8 Allergy status to other drugs, medicaments and biological substances; Z79.84 Long term (current) use of oral hypoglycemic drugs; Z79.2 Long term (current) use of antibiotics; Z79.899 Other long term (current) drug therapy; Z71.51 Drug abuse counseling and surveillance of drug abuser; Z72.89 Other problems related to lifestyle; Z71.3 Dietary counseling and surveillance
CPT/HCPCS: 36415; 71045; 80048; 80053; 83880; 84484; 85025; 87635; 93005; 94640; 94660; 99291; J1940; J2270; J2405; J2920; J2930; J7512

== ENCOUNTER 2019-12-21 17:06 | Inpatient (IN) | payer MEDICAID ==
[~2019-12-21] VITALS: Ht 153.2 cm; Wt 165.3 kg
[2019-12-21] MEDS ORDERED: METHYLPREDNISOLONE SOD SUCC 125 MG/2 ML VIAL IV STA (18:20)
[2019-12-21] MEDS ORDERED: ACETAMINOPHEN 325MG TABLET PO STA (18:20)
[2019-12-21] MEDS ORDERED: ASPIRIN 81MG TABLET PO ONE (18:30)
[2019-12-21] MEDS ORDERED: ALBUTEROL 6.7GM HFA INHALER ORI ONE ×3 (18:30)
[2019-12-21] MEDS ORDERED: NITROGLYCERIN OINT 1GM/INCH UDPKT TD ONE (18:30)
[2019-12-21] MEDS ORDERED: FUROSEMIDE 40MG/4ML VIAL IV ONE (18:30)
[2019-12-21] MEDS ORDERED: TRAMADOL 50MG TABLET PO ONE (19:45)
[2019-12-21 20:02] LABS: BASOPHILS % 0.8 % (0.0-2.0); EOSINOPHILS % 7.1 % (0.0-5.0); HEMATOCRIT. 40.8 % (36.0-48.0); HEMOGLOBIN. 13.2 g/dL (12.0-16.0); LYMPHOCYTES % 16.1 % (20.0-50.0); MEAN CORPUSCULAR HEMOGLOBIN 29.8 pg (28.0-32.0); MEAN PLATELET VOLUME 9.3 fl (7.4-10.4); MONOCYTES % 7.6 % (2.0-8.0); NEUTROPHILS % 68.4 % (40.0-76.0); PLATELET 179 x1000/uL (130-400); RED BLOOD CELL COUNT 4.43 mill/uL (4.2-5.4); RED CELL DISTRIBUTION WIDTH 14.5 % (11.6-14.6)
[2019-12-21 20:05] LABS: CHLORIDE 111 mEq/L (98-107)
[2019-12-21] MEDS ORDERED: DIPHENHYDRAMINE 50MG/ML VIAL IV PRN (21:00)
[2019-12-21] MEDS ORDERED: ONDANSETRON HCL 4MG/2ML INJ IV PRN (21:00)
[2019-12-21] MEDS ORDERED: ACETAMINOPHEN 325MG TABLET PO PRN (21:00)
[2019-12-21] MEDS ORDERED: HYDRALAZINE 20MG/ML VIAL IV PRN (21:00)
[2019-12-21] MEDS ORDERED: MAGNESIUM/ALUMINUM HYDROXIDE/SIMETHICONE 30ML UDC PO PRN (21:00)
[2019-12-21] MEDS ORDERED: ENOXAPARIN 40MG/0.4ML SYR SUBCUT SCH (21:00)
[2019-12-21] MEDS ORDERED: LORAZEPAM 2MG/ML CPJ IV PRN (21:00)
[2019-12-21] MEDS ORDERED: DEXTROSE 50% WATER 50ML SYRINGE IV PRN (21:00)
[2019-12-21] MEDS ORDERED: DOCUSATE SODIUM 100MG CAPSULE PO PRN (21:00)
[2019-12-21 21:36] LABS: PHENCYCLIDINE URINE SCREEN NEGATIVE (NEGATIVE)
[2019-12-21 21:37] LABS: *AMPHETAMINES SCREEN URINE NEGATIVE (NEGATIVE); *BARBITURATES SCREEN URINE NEGATIVE (NEGATIVE); *BENZODIAZEPINES SCREEN URINE NEGATIVE (NEGATIVE); *COCAINE SCREEN URINE PRESUMTIVE POSITIVE (NEGATIVE); CANNABINOID URINE SCREEN NEGATIVE (NEGATIVE); METHADONE URINE SCREEN NEGATIVE (NEGATIVE); OPIATES URINE SCREEN NEGATIVE (NEGATIVE)
[2019-12-21] MEDS: SODIUM CHLORIDE 0.9% INJ 3ML FLUSH IVF SCH (23:30)
[2019-12-22] VITALS (7 sets, daily range): BP systolic 125–167; BP diastolic 82–102
[2019-12-22] MEDS ORDERED: GUAIFENESIN 200MG/10ML SUGAR FREE UDC PO ONE (00:45)
[2019-12-22] MEDS: HYDROCODONE/ACETAMINOPHEN 10/325MG TABLET PO PRN ×3 (02:13→19:52)
[2019-12-22 04:28] LABS: BASOPHILS % 0.5 % (0.0-2.0); EOSINOPHILS % 0.1 % (0.0-5.0); HEMATOCRIT. 42.5 % (36.0-48.0); HEMOGLOBIN. 13.5 g/dL (12.0-16.0); LYMPHOCYTES % 10.5 % (20.0-50.0); MEAN CORPUSCULAR HEMOGLOBIN 29.4 pg (28.0-32.0); MEAN CORPUSCULAR VOLUME 92.3 fL (81.0-99.0); MEAN PLATELET VOLUME 9.2 fl (7.4-10.4); MONOCYTES % 1.6 % (2.0-8.0); NEUTROPHILS % 87.3 % (40.0-76.0); PLATELET 179 x1000/uL (130-400); RED CELL DISTRIBUTION WIDTH 14.5 % (11.6-14.6)
[2019-12-22 04:34] LABS: CHLORIDE 111 mEq/L (98-107)
[2019-12-22] MEDS ORDERED: ATOR20TA65 PO (10:36)
[2019-12-22] MEDS ORDERED: FAMO-135 PO (10:36)
[2019-12-22] MEDS ORDERED: MEDICATION NOT ON FORMULARY EA (Tiotropium Bromide (Spiriva) 1 CAP) INH SCH (12:30)
[2019-12-22] MEDS ORDERED: ALBUTEROL 6.7GM HFA INHALER ORI PRN (12:30)
[2019-12-22] MEDS: FUROSEMIDE 40MG TABLET PO SCH (12:36)
[2019-12-22] MEDS: GUAIFENESIN 200MG/10ML SUGAR FREE UDC PO PRN ×2 (12:36→20:32)
[2019-12-22] MEDS: AMLODIPINE 10MG TABLET PO SCH (12:37)
[2019-12-22] MEDS: CLONIDINE 0.1MG TABLET PO PRN (12:37)
[2019-12-22] MEDS: LOSARTAN POTASSIUM 50 MG TABLET PO SCH (12:37)
[2019-12-22] MEDS: SODIUM CHLORIDE 0.9% INJ 3ML FLUSH IVF SCH ×2 (12:46→12:47)
[2019-12-22] MEDS: FLUTICASONE/VILANTEROL 200-25 BLST.W.DEV ORI SCH (16:00)
[2019-12-22] MEDS: RIVAROXABAN 20 MG TABLET PO SCH (16:13)
[2019-12-22 17:48] LABS: CREATINE KINASE 177 IU/L (26-192)
[2019-12-22 17:49] LABS: CREATINE KINASE MB FRACTION 1.9 ng/mL (0.5-3.6)
[2019-12-22 17:52] LABS: T4 FREE 0.88 ng/dL (0.76-1.46)
[2019-12-22] MEDS ORDERED: ALBUTEROL 6.7GM HFA INHALER ORI SCH (19:00)
[2019-12-22] MEDS: ATORVASTATIN CALCIUM 20MG TABLET PO SCH (19:52)
[2019-12-22] MEDS: FAMOTIDINE 20MG TABLET PO SCH (19:52)
[2019-12-22 23:39] LABS: CREATINE KINASE 155 IU/L (26-192)
[2019-12-22 23:41] LABS: CREATINE KINASE MB FRACTION 1.3 ng/mL (0.5-3.6)
[2019-12-23] VITALS (7 sets, daily range): BP systolic 126–162; BP diastolic 83–105
[2019-12-23] MEDS: SODIUM CHLORIDE 0.9% INJ 3ML FLUSH IVF SCH ×4 (00:22→21:38)
[2019-12-23] MEDS: HYDROCODONE/ACETAMINOPHEN 10/325MG TABLET PO PRN ×4 (01:54→20:21)
[2019-12-23] MEDS: ALBUTEROL (0.083%) 2.5MG/3ML NEB HHN SCH ×4 (02:50→20:47)
[2019-12-23 08:06] LABS: CREATINE KINASE 142 IU/L (26-192)
[2019-12-23 08:08] LABS: CREATINE KINASE MB FRACTION 1.2 ng/mL (0.5-3.6)
[2019-12-23] MEDS: LOSARTAN POTASSIUM 50 MG TABLET PO SCH (09:44)
[2019-12-23] MEDS: AMLODIPINE 10MG TABLET PO SCH (09:45)
[2019-12-23] MEDS ORDERED: LIDOCAINE HCL/PF 1% 2ML VIAL ONE (09:46)
[2019-12-23 10:22] LABS: BG BASE EXCESS 3.3 mmol/L (-2.0-2.0); BG CARBOXYHEMOGLOBIN 0.9 % (0.5-1.5); BG DEOXYHEMOGLOBIN 12.9 % (0.0-5.0); BG FRACTION INSPIRED OXYGEN 21; BG HCO3 ACT 30.3 mmol/L (22.0-26.0); BG METHEMOGLOBIN 0.2 % (0.0-1.5); BG PCO2 55.9 mmHg (35.0-45.0); BG PH 7.352 (7.350-7.450); BG PO2 54.2 mmHg (75.0-100.0); BG SAMPLE SITE RIGHT RADIAL; BG TOTAL HEMOGLOBIN 14.1 g/dL (12.0-18.0); BG VENT MODE ROOM AIR
[2019-12-23] MEDS: CLONIDINE 0.1MG TABLET PO PRN (13:08)
[2019-12-23] MEDS: FUROSEMIDE 40MG TABLET PO SCH (13:12)
[2019-12-23] MEDS: RIVAROXABAN 20 MG TABLET PO SCH (17:10)
[2019-12-23] MEDS: FLUTICASONE/VILANTEROL 200-25 BLST.W.DEV ORI SCH (17:11)
[2019-12-23] MEDS: GUAIFENESIN 200MG/10ML SUGAR FREE UDC PO PRN (20:08)
[2019-12-23] MEDS: FAMOTIDINE 20MG TABLET PO SCH (21:35)
[2019-12-23] MEDS: ATORVASTATIN CALCIUM 20MG TABLET PO SCH (21:35)
[2019-12-24] VITALS: BP 141/94
[2019-12-24] MEDS: HYDROCODONE/ACETAMINOPHEN 10/325MG TABLET PO PRN ×4 (00:57→20:04)
[2019-12-24] MEDS: ALBUTEROL (0.083%) 2.5MG/3ML NEB HHN SCH ×4 (01:05→18:00)
[2019-12-24 04:00] VITALS: BP 135/68
[2019-12-24] MEDS: SODIUM CHLORIDE 0.9% INJ 3ML FLUSH IVF SCH ×3 (06:39→22:34)
[2019-12-24 08:00] VITALS: BP 142/91
[2019-12-24] MEDS: FUROSEMIDE 40MG TABLET PO SCH (08:05)
[2019-12-24] MEDS: LOSARTAN POTASSIUM 50 MG TABLET PO SCH (08:05)
[2019-12-24] MEDS: AMLODIPINE 10MG TABLET PO SCH (08:06)
[2019-12-24] MEDS: FLUTICASONE/VILANTEROL 200-25 BLST.W.DEV ORI SCH (08:06)
[2019-12-24] MEDS: GUAIFENESIN 200MG/10ML SUGAR FREE UDC PO PRN ×3 (08:38→20:03)
[2019-12-24 16:00] VITALS: BP 143/90
[2019-12-24] MEDS: RIVAROXABAN 20 MG TABLET PO SCH (17:15)
[2019-12-24 20:00] VITALS: BP 147/96
[2019-12-24] MEDS: ATORVASTATIN CALCIUM 20MG TABLET PO SCH (20:03)
[2019-12-24] MEDS: FAMOTIDINE 20MG TABLET PO SCH (20:03)
[2019-12-25] VITALS: BP 133/88
[2019-12-25] MEDS: HYDROCODONE/ACETAMINOPHEN 10/325MG TABLET PO PRN ×4 (00:50→21:44)
[2019-12-25 04:00] VITALS: BP 128/80
[2019-12-25] MEDS: SODIUM CHLORIDE 0.9% INJ 3ML FLUSH IVF SCH ×3 (05:12→23:01)
[2019-12-25 08:00] VITALS: BP 154/97
[2019-12-25] MEDS: ALBUTEROL (0.083%) 2.5MG/3ML NEB HHN SCH ×3 (08:29→19:58)
[2019-12-25] MEDS: AMLODIPINE 10MG TABLET PO SCH (08:45)
[2019-12-25] MEDS: LOSARTAN POTASSIUM 50 MG TABLET PO SCH (08:45)
[2019-12-25] MEDS: FUROSEMIDE 40MG TABLET PO SCH (09:00)
[2019-12-25 12:00] VITALS: BP 133/82
[2019-12-25 16:00] VITALS: BP 140/95
[2019-12-25] MEDS: RIVAROXABAN 20 MG TABLET PO SCH (17:09)
[2019-12-25 20:20] VITALS: BP 165/94
[2019-12-25] MEDS: FAMOTIDINE 20MG TABLET PO SCH (21:42)
[2019-12-25] MEDS: ATORVASTATIN CALCIUM 20MG TABLET PO SCH (21:42)
[2019-12-26] VITALS (7 sets, daily range): BP systolic 122–171; BP diastolic 58–105
[2019-12-26] MEDS: GUAIFENESIN 200MG/10ML SUGAR FREE UDC PO PRN (02:00)
[2019-12-26] MEDS: ALBUTEROL (0.083%) 2.5MG/3ML NEB HHN SCH ×4 (02:25→18:00)
[2019-12-26] MEDS: HYDROCODONE/ACETAMINOPHEN 10/325MG TABLET PO PRN ×2 (04:38→09:07)
[2019-12-26] MEDS: SODIUM CHLORIDE 0.9% INJ 3ML FLUSH IVF SCH ×2 (06:00→14:00)
[2019-12-26] MEDS: AMLODIPINE 10MG TABLET PO SCH (08:50)
[2019-12-26] MEDS: LOSARTAN POTASSIUM 50 MG TABLET PO SCH (08:50)
[2019-12-26] MEDS: FUROSEMIDE 40MG TABLET PO SCH (12:28)
[2019-12-26] MEDS: RIVAROXABAN 20 MG TABLET PO SCH (17:00)
== END 2019-12-26 20:23 | disposition home or self-care (01) | DRG 133 ==
LOC: ER 17:06 → MICUSO 20:55 → EDBEDREQTM 21:01 → EDBEDREQ 21:01 → 7WST 12-22 06:26 → 5WST 12-22 23:51
PROVIDERS: ADMIT Internal Medicine; ATTEND Internal Medicine
PROC: 5A09357 Assistance with Respiratory Ventilation, Less than 24 Consecutive Hours, Continuous Positive Airway Pressure (ICD-10-PCS; principal; 2019-12-24)
PROC: 5A09357 Assistance with Respiratory Ventilation, Less than 24 Consecutive Hours, Continuous Positive Airway Pressure (ICD-10-PCS; 2019-12-25)
PROC: 5A09357 Assistance with Respiratory Ventilation, Less than 24 Consecutive Hours, Continuous Positive Airway Pressure (ICD-10-PCS; 2019-12-26)
DX: J96.00 Acute respiratory failure, unspecified whether with hypoxia or hypercapnia (principal); J44.1 Chronic obstructive pulmonary disease with (acute) exacerbation; I11.0 Hypertensive heart disease with heart failure; J68.0 Bronchitis and pneumonitis due to chemicals, gases, fumes and vapors; I50.33 Acute on chronic diastolic (congestive) heart failure; I48.91 Unspecified atrial fibrillation; N17.9 Acute kidney failure, unspecified; F14.10 Cocaine abuse, uncomplicated; E66.01 Morbid (severe) obesity due to excess calories; G47.33 Obstructive sleep apnea (adult) (pediatric); I27.20 Pulmonary hypertension, unspecified; F10.10 Alcohol abuse, uncomplicated; Z20.828 Contact with and (suspected) exposure to other viral communicable diseases; Z79.01 Long term (current) use of anticoagulants; Z79.51 Long term (current) use of inhaled steroids; Z79.899 Other long term (current) drug therapy; Z91.19 Patient's noncompliance with other medical treatment and regimen; Z99.81 Dependence on supplemental oxygen; Z68.45 Body mass index [BMI] 70 or greater, adult; Z90.710 Acquired absence of both cervix and uterus; Z88.0 Allergy status to penicillin; Z88.6 Allergy status to analgesic agent; Z71.51 Drug abuse counseling and surveillance of drug abuser; Z71.6 Tobacco abuse counseling; R65.11 Systemic inflammatory response syndrome (SIRS) of non-infectious origin with acute organ dysfunction
CPT/HCPCS: 36415; 36600; 71045; 80053; 80061; 80305; 82375; 82550; 82553; 82805; 83036; 83880; 84439; 84443; 84484; 85025; 85379; 93005; 93306; 93970; 94640; 94660; 96374; 99285; J0360; J1200; J1650; J1940; J2060; J2930; J3490; U0003-CS

== ENCOUNTER 2020-06-06 14:28 | Inpatient (IN) | payer MEDICAID ==
[~2020-06-06] VITALS: Ht 167.6 cm; Wt 129.7 kg
[~2020-06-06 14:28] MED LIST changes: +ATOR20TA65 PO; +FAMO-135 PO
[2020-06-06] MEDS ORDERED: ALBUTEROL (0.083%) 2.5MG/3ML NEB HHN STA (15:34)
[2020-06-06] MEDS ORDERED: DEXAMETHASONE 10 MG/ML VIAL IV ONE (15:45)
[2020-06-06] MEDS ORDERED: SODIUM CHLORIDE 0.9% 1,000 ML IV ONE (15:45)
[2020-06-06 16:23] LABS: BG BASE EXCESS -1.6 mmol/L (-2.0-2.0); BG CARBOXYHEMOGLOBIN 4.7 % (0.5-1.5); BG DEOXYHEMOGLOBIN 3.5 % (0.0-5.0); BG HCO3 ACT 24.9 mmol/L (22.0-26.0); BG METHEMOGLOBIN 0.2 % (0.0-1.5); BG OXYGEN SATURATION 96.3 % (92.0-98.5); BG OXYHEMOGLOBIN 91.6 % (94.0-97.0); BG PCO2 49.3 mmHg (35.0-45.0); BG PH 7.322 (7.350-7.450); BG PO2 87.8 mmHg (75.0-100.0); BG SAMPLE SITE RIGHT RADIAL; BG TOTAL HEMOGLOBIN 14.4 g/dL (12.0-18.0); BG VENT MODE HHN TX
[2020-06-06 16:46] LABS: BASOPHILS % 0.4 % (0.0-2.0); EOSINOPHILS % 2.2 % (0.0-5.0); HEMATOCRIT. 43.4 % (36.0-48.0); LYMPHOCYTES % 17.7 % (20.0-50.0); MEAN CORPUSCULAR HEMOGLOBIN 28.2 pg (28.0-32.0); MEAN CORPUSCULAR VOLUME 87.6 fL (81.0-99.0); MONOCYTES % 7.2 % (2.0-8.0); NEUTROPHILS % 72.5 % (40.0-76.0); PLATELET 260 x1000/uL (130-400); RED BLOOD CELL COUNT 4.96 mill/uL (4.2-5.4); RED CELL DISTRIBUTION WIDTH 14.7 % (11.6-14.6)
[2020-06-06] MEDS ORDERED: FUROSEMIDE 40MG/4ML VIAL IVP NR (17:00)
[2020-06-06] MEDS ORDERED: HYDROCODONE/ACETAMINOPHEN 5/325MG TABLET PO NR (17:00)
[2020-06-06] MEDS ORDERED: CEFTRIAXONE 1 G PREMIX 50 ML IV NR (18:00)
[2020-06-06] MEDS ORDERED: VANCOMYCIN 1 G PREMIX 200 ML IV NR (18:00)
[2020-06-06 18:07] LABS: CHLORIDE 107 mEq/L (98-107)
[2020-06-06] MEDS: AZITHROMYCIN 500 MG in DEXT 5% WATER 250 ML IV SCH (22:33)
[2020-06-07] MEDS: MORPHINE SULFATE 2 MG/ML CPJ (NOT FOR IM USE) IV PRN ×5 (02:37→21:09)
[2020-06-07] MEDS: ONDANSETRON HCL 4MG/2ML INJ IV PRN ×3 (11:19→21:10)
[2020-06-07] MEDS: AZITHROMYCIN 500 MG in DEXT 5% WATER 250 ML IV SCH (22:00)
[2020-06-08] MEDS: ONDANSETRON HCL 4MG/2ML INJ IV PRN (02:12)
[2020-06-08] MEDS: MORPHINE SULFATE 2 MG/ML CPJ (NOT FOR IM USE) IV PRN ×2 (02:12→08:23)
[2020-06-08] MEDS ORDERED: ONDANSETRON HCL 4MG/2ML INJ IV PRN (09:00)
[2020-06-08] MEDS ORDERED: ACETAMINOPHEN 325MG TABLET PO PRN (09:00)
[2020-06-08] MEDS ORDERED: ALBUTEROL 6.7GM HFA INHALER ORI PRN (09:00)
[2020-06-08] MEDS ORDERED: TRAMADOL 50MG TABLET PO PRN (09:00)
[2020-06-08 12:00] VITALS: BP 104/55
[2020-06-08 12:20] VITALS: BP 104/63
[2020-06-08] MEDS: HYDROCODONE/ACETAMINOPHEN 5/325MG TABLET PO PRN ×2 (14:28→20:35)
[2020-06-08 16:00] VITALS: BP 127/83
[2020-06-08] MEDS: GABAPENTIN 300MG CAPSULE PO SCH (17:49)
[2020-06-08] MEDS: RIVAROXABAN 20 MG TABLET PO SCH (17:49)
[2020-06-08 20:00] VITALS: BP 160/85
[2020-06-08] MEDS ORDERED: IPRATROPIUM/ALBUTEROL 0.5-3(2.5)MG/3ML NEB HHN PRN (23:45)
[2020-06-09] VITALS: BP 120/58
[2020-06-09] MEDS ORDERED: METHYLPREDNISOLONE SOD SUCC 40 MG/ML VIAL IV SCH
[2020-06-09] MEDS: HYDROCODONE/ACETAMINOPHEN 5/325MG TABLET PO PRN ×5 (00:46→22:29)
[2020-06-09 04:00] VITALS: BP 114/62
[2020-06-09] MEDS: METHYLPREDNISOLONE SOD SUCC 40 MG/ML VIAL IV SCH ×3 (04:11→20:52)
[2020-06-09 08:06] VITALS: BP 140/74
[2020-06-09] MEDS: FUROSEMIDE 40MG/4ML VIAL IVP SCH (09:53)
[2020-06-09] MEDS: GABAPENTIN 300MG CAPSULE PO SCH ×2 (09:53→16:57)
[2020-06-09 12:00] VITALS: BP 155/98
[2020-06-09 16:00] VITALS: BP 159/88
[2020-06-09] MEDS: RIVAROXABAN 20 MG TABLET PO SCH (16:57)
[2020-06-09 18:44] LABS: *AMPHETAMINES SCREEN URINE NEGATIVE (NEGATIVE); *BARBITURATES SCREEN URINE NEGATIVE (NEGATIVE); CANNABINOID URINE SCREEN NEGATIVE (NEGATIVE)
[2020-06-09 18:45] LABS: *BENZODIAZEPINES SCREEN URINE NEGATIVE (NEGATIVE); *COCAINE SCREEN URINE PRESUMTIVE POSITIVE (NEGATIVE); METHADONE URINE SCREEN NEGATIVE (NEGATIVE); OPIATES URINE SCREEN PRESUMTIVE POSITIVE (NEGATIVE); PHENCYCLIDINE URINE SCREEN NEGATIVE (NEGATIVE)
[2020-06-09 20:00] VITALS: BP 180/99
[2020-06-09] MEDS: IPRATROPIUM/ALBUTEROL 0.5-3(2.5)MG/3ML NEB HHN SCH (21:47)
[2020-06-10] VITALS: BP 159/82
[2020-06-10] MEDS: HYDROCODONE/ACETAMINOPHEN 5/325MG TABLET PO PRN ×4 (03:09→21:33)
[2020-06-10 04:00] VITALS: BP 160/92
[2020-06-10] MEDS: METHYLPREDNISOLONE SOD SUCC 40 MG/ML VIAL IV SCH ×3 (05:05→21:34)
[2020-06-10 08:00] VITALS: BP 137/84
[2020-06-10] MEDS: IPRATROPIUM/ALBUTEROL 0.5-3(2.5)MG/3ML NEB HHN SCH ×2 (08:27→15:31)
[2020-06-10] MEDS: GABAPENTIN 300MG CAPSULE PO SCH ×2 (08:55→17:29)
[2020-06-10] MEDS: FUROSEMIDE 40MG/4ML VIAL IVP SCH ×2 (08:55→09:00)
[2020-06-10 12:00] VITALS: BP 158/80
[2020-06-10] MEDS ORDERED: CLONIDINE 0.1MG TABLET PO PRN (12:15)
[2020-06-10] MEDS: DOCUSATE SODIUM 250MG CAPSULE PO SCH (13:31)
[2020-06-10] MEDS: DIPHENHYDRAMINE HCL/ZINC ACET 28 GM CREAM TOP SCH ×2 (14:00→17:00)
[2020-06-10 16:00] VITALS: BP 176/91
[2020-06-10] MEDS ORDERED: GUAIFENESIN-DM 200MG-20MG/10ML UDC PO PRN (16:15)
[2020-06-10] MEDS: RIVAROXABAN 20 MG TABLET PO SCH (17:29)
[2020-06-10 20:00] VITALS: BP 141/75
[2020-06-10] MEDS: GUAIFENESIN 200MG/10ML SUGAR FREE UDC PO PRN (21:34)
[2020-06-11] VITALS: BP 123/70
[2020-06-11 04:00] VITALS: BP 125/60
[2020-06-11] MEDS: METHYLPREDNISOLONE SOD SUCC 40 MG/ML VIAL IV SCH (05:37)
[2020-06-11] MEDS: HYDROCODONE/ACETAMINOPHEN 5/325MG TABLET PO PRN ×3 (05:38→23:14)
[2020-06-11 08:00] VITALS: BP 159/98
[2020-06-11] MEDS: DOCUSATE SODIUM 250MG CAPSULE PO SCH (08:24)
[2020-06-11] MEDS: GUAIFENESIN 200MG/10ML SUGAR FREE UDC PO PRN ×2 (08:24→23:15)
[2020-06-11] MEDS: GABAPENTIN 300MG CAPSULE PO SCH ×2 (08:24→16:43)
[2020-06-11] MEDS: DIPHENHYDRAMINE HCL/ZINC ACET 28 GM CREAM TOP SCH (09:00)
[2020-06-11] MEDS: FUROSEMIDE 40MG/4ML VIAL IVP SCH (09:00)
[2020-06-11 12:00] VITALS: BP 137/92
[2020-06-11] MEDS ORDERED: LACTULOSE 20G/30ML UDC PO SCH (12:30)
[2020-06-11] MEDS: HYDROCORTISONE 2.5% CREAM 20GM TOP SCH ×2 (14:05→21:19)
[2020-06-11 16:00] VITALS: BP 121/75
[2020-06-11] MEDS: PREDNISONE 20MG TABLET PO SCH (16:43)
[2020-06-11] MEDS: RIVAROXABAN 20 MG TABLET PO SCH (16:44)
[2020-06-11 19:05] LABS: CHLORIDE 104 mEq/L (98-107)
[2020-06-11 20:00] VITALS: BP 150/92
[2020-06-11] MEDS: FUROSEMIDE 40MG TABLET PO SCH (21:00)
[2020-06-11] MEDS: IPRATROPIUM/ALBUTEROL 0.5-3(2.5)MG/3ML NEB HHN SCH (21:22)
[2020-06-12] VITALS: BP 132/69
[2020-06-12 04:00] VITALS: BP 129/75
[2020-06-12] MEDS: HYDROCORTISONE 2.5% CREAM 20GM TOP SCH ×3 (05:18→21:35)
[2020-06-12] MEDS: PREDNISONE 20MG TABLET PO SCH ×2 (06:22→16:42)
[2020-06-12] MEDS: HYDROCODONE/ACETAMINOPHEN 5/325MG TABLET PO PRN ×3 (06:24→21:35)
[2020-06-12 08:00] VITALS: BP 131/75
[2020-06-12] MEDS: DOCUSATE SODIUM 250MG CAPSULE PO SCH (09:30)
[2020-06-12] MEDS: GABAPENTIN 300MG CAPSULE PO SCH ×2 (09:30→16:42)
[2020-06-12] MEDS: FUROSEMIDE 40MG TABLET PO SCH ×2 (09:30→21:33)
[2020-06-12] MEDS: IPRATROPIUM/ALBUTEROL 0.5-3(2.5)MG/3ML NEB HHN SCH ×2 (11:55→16:45)
[2020-06-12 12:00] VITALS: BP 133/93
[2020-06-12] MEDS ORDERED: SORBITOL 70% SOLN 30ML PO PRN (13:15)
[2020-06-12 16:00] VITALS: BP 118/78
[2020-06-12] MEDS: RIVAROXABAN 20 MG TABLET PO SCH (16:42)
[2020-06-12] MEDS ORDERED: TRAM50TA3 MT (17:00)
[2020-06-12] MEDS ORDERED: P20 MT (17:00)
[2020-06-12 20:00] VITALS: BP 135/81
[2020-06-13] VITALS: BP_SYST 113; BP_SYST 154; BP_DIAS 50; BP_DIAS 81
[2020-06-13] MEDS: HYDROCORTISONE 2.5% CREAM 20GM TOP SCH ×2 (06:31→14:00)
[2020-06-13] MEDS: PREDNISONE 20MG TABLET PO SCH (06:31)
[2020-06-13] MEDS: HYDROCODONE/ACETAMINOPHEN 5/325MG TABLET PO PRN (06:57)
[2020-06-13 08:00] VITALS: BP 165/72
[2020-06-13] MEDS: FUROSEMIDE 40MG TABLET PO SCH (09:00)
[2020-06-13] MEDS: IPRATROPIUM/ALBUTEROL 0.5-3(2.5)MG/3ML NEB HHN SCH (09:00)
[2020-06-13] MEDS: DOCUSATE SODIUM 250MG CAPSULE PO SCH (09:43)
[2020-06-13] MEDS: GABAPENTIN 300MG CAPSULE PO SCH (09:43)
[2020-06-13 12:00] VITALS: BP 148/62
[2020-06-13 14:35] VITALS: BP 129/82
== END 2020-06-13 16:31 | disposition home or self-care (01) | DRG 140 ==
LOC: ER 14:28 → MICUSO 06-07 22:26 → 7WST 06-08 10:48 → 5WST 06-09 10:31
PROVIDERS: ADMIT Internal Medicine; ATTEND Internal Medicine
PROC: 5A09557 Assistance with Respiratory Ventilation, Greater than 96 Consecutive Hours, Continuous Positive Airway Pressure (ICD-10-PCS; principal; 2020-06-07)
DX: J44.1 Chronic obstructive pulmonary disease with (acute) exacerbation (principal); J96.21 Acute and chronic respiratory failure with hypoxia; I11.0 Hypertensive heart disease with heart failure; N17.9 Acute kidney failure, unspecified; F14.10 Cocaine abuse, uncomplicated; F17.210 Nicotine dependence, cigarettes, uncomplicated; I27.20 Pulmonary hypertension, unspecified; I48.91 Unspecified atrial fibrillation; Z20.822 Contact with and (suspected) exposure to COVID-19; E66.2 Morbid (severe) obesity with alveolar hypoventilation; I50.33 Acute on chronic diastolic (congestive) heart failure; Z68.42 Body mass index [BMI] 45.0-49.9, adult; Z90.710 Acquired absence of both cervix and uterus; Z99.81 Dependence on supplemental oxygen; Z88.1 Allergy status to other antibiotic agents; Z88.0 Allergy status to penicillin; Z79.899 Other long term (current) drug therapy; Z79.01 Long term (current) use of anticoagulants; Z71.51 Drug abuse counseling and surveillance of drug abuser; J81.1 Chronic pulmonary edema
CPT/HCPCS: 36415; 36600; 71045; 80048; 80053; 80305; 82375; 82805; 83605; 83880; 84145; 84484; 85025; 85379; 87635; 93005; 94640; 94660; 96374; 96375; 99285; J0456; J0696; J1100; J1940; J2270; J2405; J2920; J3370; J7030; J7060; J7512

== ENCOUNTER 2021-11-22 19:59 | Emergency (ER) | payer MEDICARE, MEDICAID ==
[~2021-11-22] VITALS: Ht 167.6 cm; Wt 118.0 kg
[~2021-11-22 19:59] MED LIST changes: +P20 MT
[2021-11-22] MEDS ORDERED: MAGNESIUM/ALUMINUM HYDROXIDE/SIMETHICONE 30ML UDC PO ONE (21:15)
[2021-11-22] MEDS ORDERED: VISCOUS LIDOCAINE 2% 15 ML UDC MM ONE (21:15)
[2021-11-22] MEDS ORDERED: MAG355OR21 MT (22:22)
[2021-11-23 15:24] VITALS: BP 136/78
== END 2021-11-23 15:45 ==
LOC: ER 19:59
DX: T18.108A Unspecified foreign body in esophagus causing other injury, initial encounter (principal); X58.XXXA Exposure to other specified factors, initial encounter; I11.0 Hypertensive heart disease with heart failure; I50.9 Heart failure, unspecified; J44.9 Chronic obstructive pulmonary disease, unspecified; I48.91 Unspecified atrial fibrillation; J45.909 Unspecified asthma, uncomplicated
CPT/HCPCS: 71045; 99285